=== PATIENT | female | born 1955 | race Two or more races ===

== ENCOUNTER 2017-10-12 23:28 | Emergency (ER) | payer OTHER ==
[2017-10-13 00:48] VITALS: TEMP 97.7; BMI 32.9
[2017-10-13] MEDS ORDERED: ONDANSETRON 4 MG/2 ML VIAL IVPUSH ONE (00:59)
[2017-10-13] MEDS ORDERED: PANTOPRAZOLE SODIUM 40 MG VIAL IVPB ONE (00:59)
[2017-10-13] MEDS ORDERED: SODIUM CHLORIDE 1,000 ML IV SCH (01:00)
--- NOTE | 2017-10-13 01:08 | PDOC ---
History of Present Illness - General Chief Complaint: Pain Stated Complaint: ABDOMINAL PAIN Time Seen by Provider: 10/13/17 00:54 - History of Present Illness Initial Comments: 62-year-old female with a significant past medical history of hypertension diabetes dyslipidemia neuropathy and hypothyroidism presents for evaluation of 1 week of abdominal pain and discomfort associated with black tarry stool. She has been taking meloxicam for her general aches and pains. She is also on daily aspirin. 10/13/17 01:06 Past History - Past Medical History Allergies/Adverse Reactions: Allergies Allergy/AdvReac Type Severity Reaction Status Date / Time No Known Drug Allergies Allergy Verified 10/13/17 00:48 Home Medications: Ambulatory Orders Insulin Detemir [Levemir Flextouch] 50 units SQ BID 10/21/15 Nitrofurantoin Monohyd/M-Cryst [Macrobid -] 100 mg PO BID 10/21/15 Polyethylene Glycol 3350 [Miralax (For Bowel Prep) -] 17 gm PO DAILY PRN #1 bottle 10/21/15 Mag Hydrox/Al Hydrox/Simeth [Mylanta Suspension -] 30 ml PO Q6H PRN #1 bottle Ondansetron HCl [Zofran] 4 mg PO Q6H PRN #15 tablet 04/11/16 Ranitidine HCl [Zantac] 150 mg PO BID PRN #20 tablet 04/11/16 Collagenase Clostridium Hist. [Santyl] 30 gm TP DAILY #1 tube 09/03/16 Sulfamethoxazole/Trimethoprim [Bactrim Ds -] 1 tab PO BID #10 tablet 10/13/17 Anemia: No Asthma: No Cancer: No Cardiac Disorders: No CVA: No COPD: No CHF: No Dementia: No Diabetes: Yes GI Disorders: Yes (GAS) Disorders: No HTN: Yes Hypercholesterolemia: Yes Liver Disease: No Seizures: No Thyroid Disease: No - Surgical History Abdominal Surgery: Yes Cholecystectomy: Yes - Suicide/Smoking/Psychosocial Hx Smoking Status: No Smoking History: Never smoked Have you smoked in the past 12 months: No Number of Cigarettes Smoked Daily: 0 Information on smoking cessation initiated: No Hx Alcohol Use: No Drug/Substance Use Hx: No Substance Use Type: None Hx Substance Use Treatment: No Review of Systems - Review of Systems Comments:: GENERAL/CONSTITUTIONAL: [No fever or chills. No weakness. No weight change.] HEAD, EYES, EARS, NOSE AND THROAT: [No change in vision. No ear pain or discharge. No sore throat.] CARDIOVASCULAR: [No chest pain or shortness of breath.] RESPIRATORY: [No cough, wheezing, or hemoptysis.] GASTROINTESTINAL: [+ nausea, no vomiting, diarrhea or constipation. + Black tarry stools and abdominal pain No rectal bleeding.] GENITOURINARY: [No dysuria, frequency, or change in urination.] MUSCULOSKELETAL: [No joint or muscle swelling or pain. No neck or back pain.] SKIN AND BREASTS: [No rash or easy bruising.] NEUROLOGIC: [No headache, vertigo, loss of consciousness, or loss of sensation.] PSYCHIATRIC: [No depression or anxiety.] ENDOCRINE: [No increased thirst. No abnormal weight change.] HEMATOLOGIC/LYMPHATIC: [No anemia, easy bleeding, or history of blood clots.] ALLERGIC/IMMUNOLOGIC: [No hives or skin allergy. No latex allergy.] 10/13/17 01:07 *Physical Exam - Vital Signs Last Vital Signs Temp Pulse Resp BP Pulse Ox 97.7 F 91 H 19 116/62 98 10/13/17 00:32 10/13/17 00:32 10/13/17 00:32 10/13/17 00:32 10/13/17 00:32 - Physical Exam Comments: GENERAL: [The patient is awake, alert, and fully oriented, in no acute distress. ] HEAD: [Normal with no signs of trauma.] EYES: [Pupils equal, round and reactive to light, extraocular movements intact, sclera anicteric, conjunctiva clear.] ENT: [Ears normal, nares patent, oropharynx clear without exudates. Moist mucous membranes.] NECK: [Normal range of motion, supple without lymphadenopathy, JVD, or masses.] LUNGS: [Breath sounds equal, clear to auscultation bilaterally. No wheezes, and no crackles.] HEART: [Regular rate and rhythm, normal S1 and S2 without murmur, rub or gallop. ] ABDOMEN: [Soft, left lower quadrant tenderness, normoactive bowel sounds. No guarding, no rebound. No masses.] EXTREMITIES: [Normal range of motion, no edema. No clubbing or cyanosis. No cords, erythema, or tenderness.] NEUROLOGICAL: [Cranial nerves II through XII grossly intact. Normal speech, normal gait.] PSYCH: [Normal mood, normal affect.] SKIN: [Warm, Dry, normal turgor, no rashes or lesions noted.] 10/13/17 01:08 ED Treatment Course - LABORATORY CBC & Chemistry Diagram: 10/13/17 03:16 10/13/17 03:16 *DC/Admit/Observation/Transfer Diagnosis at time of Disposition: UTI (urinary tract infection), Diabetes - Discharge Dispostion Disposition: HOME Condition at time of disposition: Stable Decision to Admit order: No - Prescriptions Prescriptions: Sulfamethoxazole/Trimethoprim [Bactrim Ds -] 1 tab PO BID #10 tablet - Referrals Referrals: Jaylon Aleman MD [Primary Care Provider] - - Patient Instructions Printed Discharge Instructions: Urinary Tract Infection, How to Take Care of Your Feet If You Have Diabetes, Diabetes and Foot Care, What to Eat if You Have Diabetes Additional Instructions: He had a urinary tract infection. I've given you a dose of antibiotics through the IV in the emergency room. I've also phoned in a prescription for you to your pharmacy it's one pill twice a day for 5 days. Are your CAT scan there was a finding of a right lower lobe nodule involving your lung. Please follow this up with her primary care physician as it may require further imaging in a nonemergent setting. He may require a chest CAT scan or MRI. Return to the emergency room if your symptoms worsen or go unresolved. His sugar was also high in the emergency room. He required insulin. Please keep a close eye on her sugars at home and adjust her medication accordingly. Return to the ER if you experience excessive thirst sweating or excessive urination. - Post Discharge Activity
[2017-10-13 03:00] LABS: URINE APPEARANCE SLCLOUDY; URINE BILIRUBIN NEGATIVE (<2.0 mg/dL); URINE COLOR AMBER; URINE GLUCOSE (UA) 3+ (NEGATIVE); URINE KETONE TRACE (NEGATIVE); URINE NITRITE POSITIVE (NEGATIVE); URINE PROTEIN NEGATIVE (NEGATIVE); URINE UROBILINOGEN 4.0 E.U/dl mg/dL (0.2-1.0)
[2017-10-13 03:01] LABS: URINE LEUK ESTERASE 3+ (NEGATIVE)
[2017-10-13] MEDS ORDERED: ONDANSETRON 4 MG/2 ML VIAL ONE (03:09)
[2017-10-13] MEDS ORDERED: PANTOPRAZOLE SODIUM 40 MG/100 ML BAG IVPB ONE (03:09)
[2017-10-13 03:11] LABS: EPI CELLS RARE /HPF (FEW); URINE BACTERIA MANY /hpf (NONE SEEN); URINE MUCUS RARE
[2017-10-13 03:34] LABS: BASO % 0.9 % (0-2.0); EOS % 1.9 % (0-4.5); HEMATOCRIT 36.9 % (32.4-45.2); HEMOGLOBIN 12.5 GM/dL (10.7-15.3); LYMPH % 30.3 % (8-40); MCHC 33.9 g/dl (32.0-36.0); MEAN CELL VOLUME 85.7 fl (80-96); MEAN PLT VOLUME 9.9 fl (7.5-11.1); MONO % 6.1 % (3.8-10.2); NEUT % 60.8 % (42.8-82.8); PLATELET COUNT 216 K/MM3 (134-434); RDW 12.6 % (11.6-15.6); WHITE BLOOD COUNT 6.9 K/mm3 (4.0-10.0)
[2017-10-13] MEDS ORDERED: CEFTRIAXONE 1,000 MG in DEXTROSE 5%-WATER - 50 ML IVPB ONE (03:34)
[2017-10-13 04:00] LABS: ALBUMIN 3.7 g/dl (3.4-5.0); ANION GAP 7 (8-16); BILIRUBIN,TOTAL 0.7 mg/dL (0.2-1.0); BLOOD UREA NITROGEN 27 mg/dL (7-18); CALCIUM 8.7 mg/dL (8.5-10.1); CHLORIDE 103 mmol/L (98-107); CO2 26 mmol/L (21-32); CREATININE 1.1 mg/dL (0.55-1.02); POTASSIUM 4.4 mmol/L (3.5-5.1); SGOT/AST 13 U/L (15-37); SGPT/ALT 29 U/L (12-78); SODIUM 136 mmol/L (136-145)
[2017-10-13 04:01] LABS: ALK PHOS 245 U/L (45-117)
[2017-10-13 04:05] LABS: LIPASE 247 U/L (73-393)
[2017-10-13 04:08] LABS: GLUCOSE,RANDOM 379 mg/dL (74-106)
[2017-10-13] MEDS ORDERED: INSULIN REGULAR HUMAN 100 UNITS/ML *VIAL IVPUSH ONE (04:18)
[2017-10-13 04:40] VITALS: BP 126/82; PULSE 85
[2017-10-13] MEDS ORDERED: INSULIN REGULAR HUMAN 100 UNITS/ML *VIAL ONE (04:46)
[2017-10-13] MEDS ORDERED: CEFTRIAXONE 1 GM/50 ML BAG ONE (04:46)
--- NOTE | 2017-10-13 23:42 | EKG ---
Test Reason : Blood Pressure : / mmHG Vent. Rate : 088 BPM Atrial Rate : 088 BPM P-R Int : 160 ms QRS Dur : 074 ms QT Int : 392 ms P-R-T Axes : 039 -28 053 degrees QTc Int : 474 ms NORMAL SINUS RHYTHM LOW VOLTAGE QRS INFERIOR INFARCT (CITED ON OR BEFORE 30-NOV-2004) ABNORMAL ECG WHEN COMPARED WITH ECG OF 11-APR-2016 17:46, NO SIGNIFICANT CHANGE WAS FOUND Confirmed by VICKY WEINBERG, ISIDRO ([id number]) on 10/13/2017 11:42:41 PM Referred By: Confirmed By:ISIDRO PERRY MD
== END 2017-10-13 07:25 | disposition home or self-care (01) ==
LOC: JER 23:28
PROC: 3E03329 Introduction of Other Anti-infective into Peripheral Vein, Percutaneous Approach (ICD-10-PCS; principal; 2017-10-12)
PROC: 3E033GC Introduction of Other Therapeutic Substance into Peripheral Vein, Percutaneous Approach (ICD-10-PCS; 2017-10-12)
PROC: 3E033GC Introduction of Other Therapeutic Substance into Peripheral Vein, Percutaneous Approach (ICD-10-PCS; 2017-10-12)
PROC: 3E033VG Introduction of Insulin into Peripheral Vein, Percutaneous Approach (ICD-10-PCS; 2017-10-12)
DX: N39.0 Urinary tract infection, site not specified (principal); E11.65 Type 2 diabetes mellitus with hyperglycemia; Z79.4 Long term (current) use of insulin; I10 Essential (primary) hypertension; E78.5 Hyperlipidemia, unspecified; E03.9 Hypothyroidism, unspecified; G62.9 Polyneuropathy, unspecified
CPT/HCPCS: 36415; 74177-TC; 80053; 81003; 81015; 82272; 82962; 83690; 85025; 93005; 93010; 96365; 96375; 99282-25; J7030

== ENCOUNTER 2017-10-19 20:23 | Emergency (ER) | payer OTHER ==
[2017-10-19 20:31] VITALS: BP 127/75; PULSE 77; TEMP 98.4; BMI 32.5
[2017-10-19] MEDS ORDERED: predniSONE 20 MG TABLET (UD) PO ONE (20:51)
[2017-10-19] MEDS ORDERED: LORATADINE 10 MG TABLET PO ONE (20:51)
[2017-10-19] MEDS ORDERED: predniSONE 20 MG TABLET (UD) ONE (21:03)
[2017-10-19] MEDS ORDERED: LORATADINE 10 MG TABLET ONE (21:03)
--- NOTE | 2017-10-19 21:04 | PDOC ---
History of Present Illness - General Chief Complaint: Rash Stated Complaint: RASH Time Seen by Provider: 10/19/17 20:50 Past History - Past Medical History Allergies/Adverse Reactions: Allergies Allergy/AdvReac Type Severity Reaction Status Date / Time No Known Drug Allergies Allergy Verified 10/19/17 20:29 Home Medications: Ambulatory Orders Insulin Detemir [Levemir Flextouch] 50 units SQ BID 10/21/15 Nitrofurantoin Monohyd/M-Cryst [Macrobid -] 100 mg PO BID 10/21/15 Sulfamethoxazole/Trimethoprim [Bactrim Ds -] 1 tab PO BID #10 tablet 10/13/17 Atorvastatin Ca [Lipitor] 20 mg NR ASDIR 10/19/17 Cetirizine HCl 10 mg PO DAILY 10 Days #10 tablet 10/19/17 Diphenhydramine HCl 25 mg PO ACDIN 7 Days #21 capsule 10/19/17 Diphenhydramine [Benadryl 12.5 MG/5 ML Oral Solution -] 25 mg PO Q6H 7 Days #30 tablet 10/19/17 Duloxetine HCl [Cymbalta] 30 mg PO ASDIR 10/19/17 Gabapentin [Neurontin -] 100 mg PO Q8H 10/19/17 Metformin HCl [Metformin HCl ER] 1,000 mg PO ASDIR 10/19/17 Metoclopramide HCl [Reglan -] 10 mg PO DAILY 10/19/17 Pantoprazole Sodium [Protonix] 40 mg PO ASDIR 10/19/17 Triamcinolone 0.1% Ointment [Aristocort 0.1% Ointment -] 1 applic TP TID #1 tube 10/19/17 Anemia: No Asthma: No Cancer: No Cardiac Disorders: No CVA: No COPD: No CHF: No Dementia: No Diabetes: Yes GI Disorders: Yes (GAS) Disorders: No HTN: Yes Hypercholesterolemia: Yes Liver Disease: No Seizures: No Thyroid Disease: No - Surgical History Abdominal Surgery: Yes Cholecystectomy: Yes - Suicide/Smoking/Psychosocial Hx Smoking Status: No Smoking History: Never smoked Have you smoked in the past 12 months: No Number of Cigarettes Smoked Daily: 0 Hx Alcohol Use: No Drug/Substance Use Hx: No Substance Use Type: None Hx Substance Use Treatment: No Review of Systems - Review of Systems Constitutional: No: Chills, Fever Respiratory: No: Cough, Shortness of Breath, Wheezing Cardiac (ROS): No: Chest Pain, Edema Integumentary: Yes: Pruritus, Rash Neurological: No: Dizziness *Physical Exam - Vital Signs Last Vital Signs Temp Pulse Resp BP Pulse Ox 98.4 F 77 18 127/75 96 10/19/17 20:29 10/19/17 20:29 10/19/17 20:29 10/19/17 20:29 10/19/17 20:29 - Physical Exam General Appearance: Yes: Nourished Respiratory/Chest: positive: Lungs Clear, Normal Breath Sounds Cardiovascular: positive: Regular Rhythm, Regular Rate, S1, S2 Extremity: positive: Normal Capillary Refill Integumentary: positive: Erythema, Hives, Rash, Other (erythematous papule rash mix with hives in abd, back, b/l arms and face) Neurologic: positive: import coordinator II-XII NML intact, Fully Oriented Medical Decision Making - Medical Decision Making 10/19/17 21:01 62y/o F bib daughter who translated for georgian, p/w generalize body rash X 2 days, denies f/c, change in food/body product, s/p bactrim Rx 10/09/17 for UTI-- has one more pill left, denies cough, SOB or wheezing exam with erythematous papular rash in chest, back, face and b/l arms, palms/ feet spared given one dose of prednisone 60mg and loratidine pt unsure is she has ever taken bactrim, she will confirm with PCP tomorrow hold last bactrim pill hydration encouraged 10/19/17 21:43 *DC/Admit/Observation/Transfer Diagnosis at time of Disposition: Rash in adult - Discharge Dispostion Disposition: HOME Condition at time of disposition: Stable Decision to Admit order: No - Prescriptions Prescriptions: Cetirizine HCl 10 mg PO DAILY 10 Days #10 tablet Diphenhydramine [Benadryl 12.5 MG/5 ML Oral Solution -] 25 mg PO Q6H 7 Days #30 tablet Diphenhydramine HCl 25 mg PO ACDIN 7 Days #21 capsule Triamcinolone 0.1% Ointment [Aristocort 0.1% Ointment -] 1 applic TP TID #1 tube - Referrals Referrals: Jaylon Aleman MD [Primary Care Provider] - - Patient Instructions Printed Discharge Instructions: LULA Shi for Rash Additional Instructions: DO not take last bactrim pill, please confirm with your doctor if you have taken bactrim before Drink plently of fluids take medication as prescribed follow up with your PCP for further evaluation or return to the [facility] if worsening symptoms occurs. - Post Discharge Activity
== END 2017-10-19 21:35 | disposition home or self-care (01) ==
LOC: JERFT 20:23
DX: L50.9 Urticaria, unspecified (principal); I10 Essential (primary) hypertension; E78.00 Pure hypercholesterolemia, unspecified; E11.9 Type 2 diabetes mellitus without complications; Z79.4 Long term (current) use of insulin
CPT/HCPCS: 99281-25

== ENCOUNTER 2018-11-22 21:00 | Inpatient (IN) | payer OTHER ==
[2018-11-22] MEDS ORDERED: ACETAMINOPHEN 1000 MG/100 ML VIAL (NON FORMULARY) IVPB ONE (22:15)
--- NOTE | 2018-11-22 22:30 | PDOC ---
History of Present Illness - General Chief Complaint: Edema Stated Complaint: RIGHT FOOT SWOLLEN Time Seen by Provider: 11/22/18 22:08 History Source: Patient Exam Limitations: No Limitations - History of Present Illness Initial Comments: 11/22/18 22:24 Patient is a 63-year-old female with history of an inulin dependent diabetes, here with daughter for complaint of right leg swelling and pain since yesterday. Patient states she notticed that the right foot was a little painful yesterday, today worsening, now red and swollen. Pain is a continuous throbbing , 9/10 worse with ambulation. Patient also complains of elevation in her blood sugar, this morning was over 400, and took 20 units of regular insulin at 11 AM. Patient denies any fever but feels chilled and has a headache. Denies nausea, vomiting, diarrhea. PMD: Dr. Mariluz Finney PMHX: As above PSOCHX: neg drug, etoh, cig ALL: NKDA GENERAL/CONSTITUTIONAL: No fever or chills. No weakness. No weight change. HEAD, EYES, EARS, NOSE AND THROAT: No change in vision. No ear pain or discharge. No sore throat. CARDIOVASCULAR: No chest pain or shortness of breath. RESPIRATORY: No cough, wheezing, or hemoptysis. GASTROINTESTINAL: No nausea, vomiting, diarrhea or constipation. No rectal bleeding. GENITOURINARY: No dysuria, frequency, or change in urination. MUSCULOSKELETAL: No joint or muscle swelling or pain. No neck or back pain. SKIN AND BREASTS: (+) rash (-) easy bruising. NEUROLOGIC: No headache, vertigo, loss of consciousness, or loss of sensation. PSYCHIATRIC: No depression or anxiety. ENDOCRINE: No increased thirst. No abnormal weight change. HEMATOLOGIC/LYMPHATIC: No anemia, easy bleeding, or history of blood clots. ALLERGIC/IMMUNOLOGIC: No hives or skin allergy. No latex allergy. GENERAL: The patient is awake, alert, and fully oriented, in no acute distress. HEAD: Normal with no signs of trauma. EYES: Pupils equal, round and reactive to light, extraocular movements intact, sclera anicteric, conjunctiva clear. ENT: Ears normal, nares patent, oropharynx clear without exudates. Moist mucous membranes. NECK: Normal range of motion, supple without lymphadenopathy, JVD, or masses. LUNGS: Breath sounds equal, clear to auscultation bilaterally. No wheezes, and no crackles. HEART: Regular rate and rhythm, normal S1 and S2 without murmur, rub. ABDOMEN: Soft, nontender, normoactive bowel sounds. No guarding, no rebound. No masses. EXTREMITIES: Normal range of motion, (+) edema foot, R calf swelling, No clubbing or cyanosis. No cords, erythema, or tenderness. NEUROLOGICAL: Cranial nerves II through XII grossly intact. Normal speech, normal gait. PSYCH: Normal mood, normal affect. SKIN: Warm, Dry, normal turgor, no rashes or lesions noted. Past History - Past Medical History Allergies/Adverse Reactions: Allergies Allergy/AdvReac Type Severity Reaction Status Date / Time No Known Drug Allergies Allergy Verified 11/23/18 03:34 Home Medications: Ambulatory Orders Gabapentin [Neurontin -] 100 mg PO Q8H 10/19/17 metFORMIN HCL [Metformin HCl ER] 1,000 mg PO ASDIR 10/19/17 Diazepam [Valium] 5 mg PO TID 11/23/18 Gabapentin 800 mg PO DAILY 11/23/18 Insulin Glargine,Hum.rec.anlog [Lantus] 100 unit SQ DAILY 11/23/18 Insulin Lispro [Humalog] 100 unit SQ DAILY 11/23/18 Meloxicam 15 mg PO PRN PRN 11/23/18 Mirabegron [Myrbetriq] 25 mg PO DAILY 11/23/18 Anemia: No Asthma: No Cancer: No Cardiac Disorders: No CVA: No COPD: No CHF: No Dementia: No Diabetes: Yes GI Disorders: Yes (GAS) Disorders: No HTN: Yes Hypercholesterolemia: Yes Liver Disease: No Seizures: No Thyroid Disease: No - Surgical History Abdominal Surgery: Yes Cholecystectomy: Yes - Suicide/Smoking/Psychosocial Hx Smoking Status: No Smoking History: Never smoked Have you smoked in the past 12 months: No Number of Cigarettes Smoked Daily: 0 Hx Alcohol Use: No Drug/Substance Use Hx: No Substance Use Type: None Hx Substance Use Treatment: No *Physical Exam - Vital Signs Last Vital Signs Temp Pulse Resp BP Pulse Ox 99.3 F 95 H 19 132/74 99 11/22/18 21:21 11/22/18 21:21 11/22/18 21:21 11/22/18 21:21 11/22/18 21:21 ED Treatment Course - LABORATORY CBC & Chemistry Diagram: 11/22/18 22:40 11/22/18 22:40 - RADIOLOGY Radiology Studies Ordered: Category Date Time Status DUPLEX VASCUL US-1 LEG [US] Stat Ultrasound 11/22/18 22:15 Ordered Medical Decision Making - Medical Decision Making 11/22/18 22:24 Patient is a 63-year-old female with history of an inulin dependent diabetes, here with daughter for complaint of right leg swelling and pain since yesterday. Patient states she notticed taste that the right foot was a little painful yesterday today worsening now red and swollen. Pain is a continuous throbbing, 9/10 worse with ambulation. Patient also complains of elevation in her blood sugar, this morning was over 400, and took 20 units of regular insulin at 11 AM. Patient denies any fever but feels chilled and has a headache. Denies nausea, vomiting, diarrhea. In terms consistent with cellulitis of the foot however since the patient has significant swelling to the lower extremity will rule out DVT. Ultrasound Doppler right leg Labs IV fluid if indicated IV antibiotics, Pain meds Reassess Laboratory Tests 11/22/18 11/22/18 22:40 22:40 WBC 11.8 H Hgb 12.5 Hct 37.5 Plt Count 231 Sodium 135 L Potassium 4.3 Chloride 100 Carbon Dioxide 27 Anion Gap 9 BUN 35.2 H Creatinine 1.2 Random Glucose 176 H 11/23/18 01:10 Patient Full Name: OSMAN CHILDERS Patient Accession No: [id number] Patient : 1955 Reason for Exam: rt leg swelling and pain Referring Physician: Patient Name: [place] THIS IS A PRELIMINARY REPORT FROM [facility] DATE OF SERVICE: 2018-11-22 23:39:45 IMAGES: 22 EXAM: VENOUS DUPLEX UNILATERAL No evidence for DVT right lower extremity. No popliteal cyst. THIS DOCUMENT HAS BEEN ELECTRONICALLY SIGNED Valarie Shepherd M.D. 11/23/2018 00:53 EST Esther Please call [facility] [phone] ([phone]) with questions. INTERPRETING RADIOLOGIST: Valarie Shepherd MD Electronically Signed: Nov 23, 2018 12:54AM EDT Patient admitted to the hospitalist for cellulitis diabetic foot *DC/Admit/Observation/Transfer Diagnosis at time of Disposition: Cellulitis in diabetic foot - Discharge Dispostion Condition at time of disposition: Stable Decision to Admit order: Yes - Referrals - Patient Instructions - Post Discharge Activity
[2018-11-22 22:52] LABS: BASO % 0.6 % (0-2.0); EOS % 1.8 % (0-4.5); HEMATOCRIT 37.5 % (32.4-45.2); HEMOGLOBIN 12.5 GM/dL (10.7-15.3); LYMPH % 17.7 % (8-40); MCH 28.6 pg (25.7-33.7); MCHC 33.3 g/dl (32.0-36.0); MEAN CELL VOLUME 85.9 fl (80-96); MEAN PLT VOLUME 10.2 fl (7.5-11.1); MONO % 6.7 % (3.8-10.2); NEUT % 73.2 % (42.8-82.8); PLATELET COUNT 231 K/MM3 (134-434); RBC 4.36 M/mm3 (3.60-5.2); RDW 12.9 % (11.6-15.6); WHITE BLOOD COUNT 11.8 K/mm3 (4.0-10.0)
[2018-11-22] MEDS ORDERED: CEFAZOLIN 1 GM in DEXTROSE 5%-WATER - 50 ML IVPB ONE (22:55)
[2018-11-22] MEDS ORDERED: ACETAMINOPHEN INJECTION 100 ML IVPB ONE (22:55)
[2018-11-22] MEDS ORDERED: CEFAZOLIN 1 GM/D5W 1 GM/50 ML BAG ONE (23:10)
[2018-11-22 23:21] LABS: ALBUMIN 3.6 g/dl (3.4-5.0); BILIRUBIN,TOTAL 0.4 mg/dL (0.2-1); BLOOD UREA NITROGEN 35.2 mg/dL (7-18); CALCIUM 8.4 mg/dL (8.5-10.1); CREATININE 1.2 mg/dL (0.55-1.3); POTASSIUM 4.3 mmol/L (3.5-5.1); TOT PROT 7.4 g/dl (6.4-8.2)
--- NOTE | 2018-11-23 03:04 | HP ---
Admitting History and Physical - Admission Chief Complaint: R LE pain and swelling History of Present Illness: Pt is a 63 yo F with PMHx with history of an IDDM, brought in from home by daughter for right leg swelling x3 days and pain x1. Patient reports right foot pain 10/10 dull intermittent, worsened with movement, relieved with rest for about 3 days. Pt also noted a R ball of R hallux swelling for 3 days, with worsening pain, and new redness and swelling of dorsum of R foot. No objective fevers, but pt has been lethargic for about 1 week, with chills. Yesterday she ambulated with support from her daughter, after which she had difficulty sleeping all night due to the pain. Patient also complains of elevation in her blood sugar, this morning was over 400, and took 20 units of regular insulin at 11 AM. Pt had prior R dorsum ulcer in 2017, which healed completely using hyperbaric oxygen. No prior amputations or noted diagnosis of osteomyelitis. Pt followed Dr Trent in the wound clinic in the past, no prior wound cultures. ED: WBC- 11.8 Cefazolin Venous duplex negative for DVT History Source: Patient, Family Member Limitations to Obtaining History: No Limitations - Past Medical History Cardiovascular: Yes: Other (hypotension) Endocrine: Yes: Diabetes Mellitus Dermatology: Yes: Cellulitis - Past Surgical History Past Surgical History: Yes: Cholecystectomy - Smoking History Smoking history: Never smoked Have you smoked in the past 12 months: No Aproximately how many cigarettes per day: 0 - Alcohol/Substance Use Hx Alcohol Use: No - Social History Usual Living Arrangement: Yes: With Child ADL: Independent History of Recent Travel: No Home Medications - Allergies Allergies/Adverse Reactions: Allergies Allergy/AdvReac Type Severity Reaction Status Date / Time No Known Drug Allergies Allergy Verified 11/23/18 03:34 - Home Medications Home Medications: Ambulatory Orders metFORMIN HCL [Metformin HCl ER] 1,000 mg PO ASDIR 10/19/17 Diazepam [Valium] 5 mg PO TID 11/23/18 Gabapentin 800 mg PO DAILY 11/23/18 Insulin Glargine,Hum.rec.anlog [Lantus] 40 unit SQ BID 11/23/18 Insulin Lispro [Humalog] 25 unit SQ BID 11/23/18 Meloxicam 15 mg PO PRN PRN 11/23/18 Mirabegron [Myrbetriq] 25 mg PO DAILY 11/23/18 Family Disease History - Family Disease History Family Disease History: Diabetes: Grandparent, Father, Mother Review of Systems - Review of Systems Constitutional: reports: Chills, Malaise. denies: Diaphoresis, Fever Eyes: denies: Blurred Vision HENT: denies: Difficult Swallowing Neck: denies: Stiffness Cardiovascular: reports: Edema, Shortness of Breath. denies: Chest Pain, Palpitations Respiratory: denies: Cough, Hemoptysis Gastrointestinal: reports: Abdominal Pain. denies: Constipation, Diarrhea, Vomiting Genitourinary: reports: Incontinence. denies: Burning Musculoskeletal: denies: Back Pain Neurological: denies: Change in LOC, Change in Speech, Confusion, Pre-Existing Deficit Physical Examination Vital Signs: Vital Signs Temperature 99.4 F 11/22/18 22:10 Pulse Rate 94 H 11/22/18 22:10 Respiratory Rate 18 11/22/18 22:10 Blood Pressure 132/62 11/22/18 22:10 O2 Sat by Pulse Oximetry (%) 97 11/22/18 22:10 Constitutional: Yes: No Distress, Calm Eyes: Yes: EOM Intact, PERRL. No: Sclera Icterus HENT: Yes: Atraumatic Neck: Yes: Supple Cardiovascular: Yes: Tachycardia, Murmur, S1, S2 Respiratory: Yes: CTA Bilaterally. No: Rales, Rhonchi, Wheezes Gastrointestinal: Yes: Tenderness (Suprapubic) Renal/: No: CVA Tenderness - Left, CVA Tenderness - Right Musculoskeletal: No: Joint Stiffness Edema: Yes Edema: RLE: Trace (Over dorsum of foot) Peripheral Pulses WNL: Yes Peripheral Pulses: Left Doralis Pedis: 2+, Right Dorsalis Pedis: 2+ Integumentary: Yes: Erythema (Over R dorsum up to mid foot, warm., no excoriations, or drainage. R hallux plantar surface with hard firm swelling, no suppuration L hallux plantar surface with firm to hard swelling, no suppuration) Neurological: Yes: Alert, Oriented, Loss of Sensation (Reduced senation overdorsum R midfoot to hallux compare to L foot). No: Aphasia, Facial Droop, Lethargy ...Motor Strength: WNL Psychiatric: Yes: Alert, Oriented Labs: CBC, BMP 11/22/18 22:40 11/22/18 22:40 Imaging - Results Ultrasound: Report Reviewed Assessment/Plan Ambulatory Orders metFORMIN HCL [Metformin HCl ER] 1,000 mg PO ASDIR 10/19/17 Diazepam [Valium] 5 mg PO TID 11/23/18 Gabapentin 800 mg PO DAILY 11/23/18 Insulin Glargine,Hum.rec.anlog [Lantus] 40 unit SQ BID 11/23/18 Insulin Lispro [Humalog] 25 unit SQ BID 11/23/18 Meloxicam 15 mg PO PRN PRN 11/23/18 Mirabegron [Myrbetriq] 25 mg PO DAILY 11/23/18 Pt is a 63 yo F with PMHx with history of an IDDM, brought in from home by daughter for right leg swelling x3 days and pain x1. Patient reports right foot pain 10/10 dull intermittent, worsened with movement, relieved with rest for about 3 days. R foot cellulitis R/O R Osteomyelitis Pt with prior cellulits R foot in 2017, healed with HBO in past Vanc/zosyn Dr Miley Del Rosario Arterial duplex R LE pending, veinous duplex negative for DVT Pain mx MR w/wo RLE Cont gabapentin - switch from 800mg daily to 600mg bid Stop meloxicam Bcx pending IDDM, Pt on lispo- 25U bid at home, hold Home Lantus 40u bid, will give levemir 20ubid ISS Q4H while NPO BGM Q4H Hold metformin HgbA1c pending Hypocalcemia Ca gluconate given 1g Elevated Alk phosp Could be bone related GGT stat ESR pending Urinary incontinence Cont mirabegron UA pending R/O anxiety disorder Cont home diazepam No standing fluids Replace calcium NPO for now pending podiatry eval PPx SCDs for now Medsurgery Visit type - Emergency Visit Emergency Visit: Yes ED Registration Date: 11/23/18 Care time: The patient presented to the Emergency Department on the above date and was hospitalized for further evaluation of their emergent condition. - New Patient This patient is new to me today: Yes Date on this admission: 11/23/18 - Critical Care Critical Care patient: No
--- NOTE | 2018-11-23 05:28 | PN ---
Teaching Attending Note Name of Resident: Maryanne Velazquez ATTENDING PHYSICIAN STATEMENT I saw and evaluated the patient. I reviewed the resident's note and discussed the case with the resident. I agree with the resident's findings and plan as documented. SUBJECTIVE: Seen and examined; please see resident note for further historical information. Briefly, this is a 63 y/o female presenting with malaise and R-foot DM wound. Foot has moderate pain, gnawing in nature superimposed over her baseline polyneuropathy. No fevers at home. No recent travel. She has had DM foot wounds in the past; HBO in 2017 on the dorsal wound on the R-foot. She sees Dr. Snyder for podiatry; last notes from his practice here dated 2016 when she had the well-healing dorsal R-foot wound; no records of osteomyelitis. Micro reviewed; no blood cx+ and contaminated appearing old R-foot cx. She is at risk for resistant organisms. 10 sys ROS done and neagtive aside from HPI PMH, PSH, FH, SH reviewed Home Medications Medication Instructions Recorded metFORMIN HCL [Metformin HCl ER] 1,000 mg PO ASDIR 10/19/17 Diazepam [Valium] 5 mg PO TID 11/23/18 Gabapentin 800 mg PO DAILY 11/23/18 Insulin Glargine,Hum.rec.anlog 40 unit SQ BID 11/23/18 [Lantus] Insulin Lispro [Humalog] 25 unit SQ BID 11/23/18 Meloxicam 15 mg PO PRN PRN 11/23/18 Mirabegron [Myrbetriq] 25 mg PO DAILY 11/23/18 OBJECTIVE: VS, labs, imgaging reviewed NAD, AAO, resting in bed NC AT EOMI PERRLA RRR s1/2 systolic murmur no gallops Neuropathy in stocking glove distribution; R-foot with hallux with cellulitic findings with overlying firmness, no purulence. Cellulitic around the site outlined. CN2-12 wnl, no fnd Normal mood, appropriate behavior MRI foot pending ASSESSMENT AND PLAN: Patient presents with DM foot wound, patient of Dr. Snyder. 1) DM foot wound -Consulting Dr. Snyder and Dr. Del Rosario for abx given the risk of resistence. Checking venous and arterial dopplers. Placing on med surg. Broad spectrum abx and analgesia. Given prior infections, would like to better observe the soft tissue and bone with MRI. Wound care per podiatry. 2) DM w/ neuropathy -Continue home basal and SSI when inpatient; hold PO meds -Increasing gabapentin to 600 BID
[2018-11-23] MEDS ORDERED: CALCIUM GLUCONATE 10% - 1,000 MG/10 ML VIAL IVPUSH ONE (05:38)
[2018-11-23] MEDS ORDERED: PNEUMOC 13-VAL CONJ-DIP CRM/PF 0.5 ML DISP.SYRIN IM ONE (05:44)
[2018-11-23] MEDS ORDERED: VANCOMYCIN HCL 1,500 MG in DEXTROSE 5%-WATER - 500 ML IVPB SCH (05:45)
[2018-11-23] MEDS ORDERED: CALCIUM GLUCONATE 10% - 1,000 MG/10 ML VIAL IVPB ONE (06:45)
[2018-11-23] MEDS: INSULIN SLIDING SCALE (NOVOLOG) 1 VIAL SQ SCH ×5 (06:53→22:09)
[2018-11-23] MEDS ORDERED: PIPERACILLIN/TAZOBACTAM 3.375 GM VIAL IVPB ONE ×2 (08:13→18:30)
[2018-11-23] MEDS ORDERED: DEXTROSE 5%-WATER - 50 ML IVPB ONE ×2 (08:13→18:30)
[2018-11-23] MEDS: PIPERACILLIN/TAZOB 3.375 GM 3.375 GM in DEXTROSE 5%-WATER - 50 ML IVPB SCH ×3 (08:18→18:40)
[2018-11-23 08:27] LABS: BASO % 0.7 % (0-2.0); EOS % 1.7 % (0-4.5); HEMATOCRIT 34.6 % (32.4-45.2); HEMOGLOBIN 11.8 GM/dL (10.7-15.3); LYMPH % 16.9 % (8-40); MEAN CELL VOLUME 85.2 fl (80-96); MEAN PLT VOLUME 9.7 fl (7.5-11.1); MONO % 7.3 % (3.8-10.2); NEUT % 73.4 % (42.8-82.8); PLATELET COUNT 211 K/MM3 (134-434); RBC 4.06 M/mm3 (3.60-5.2); RDW 12.9 % (11.6-15.6); WHITE BLOOD COUNT 10.6 K/mm3 (4.0-10.0)
[2018-11-23 08:49] LABS: INR 0.97 (0.83-1.09); PROTHROMBIN TIME (PATIENT) 11.5 SEC (9.7-13.0)
[2018-11-23 08:52] LABS: ACTIVATED PTT 29.1 SECONDS (25.2-36.5)
[2018-11-23 08:57] LABS: ALBUMIN 3.2 g/dl (3.4-5.0); BILIRUBIN,TOTAL 0.6 mg/dL (0.2-1); BLOOD UREA NITROGEN 24.9 mg/dL (7-18); CALCIUM 8.7 mg/dL (8.5-10.1); CREATININE 0.9 mg/dL (0.55-1.3); MAGNESIUM 2.4 mg/dL (1.8-2.4); PHOSPHOROUS 3.3 mg/dL (2.5-4.9); POTASSIUM 4.1 mmol/L (3.5-5.1); TOT PROT 6.9 g/dl (6.4-8.2)
[2018-11-23 09:01] LABS: EPI CELLS 0.8 /HPF (0-5/HPF); HYALINE CASTS 1 /lpf (0-8); URINE APPEARANCE CLOUDY; URINE BACTERIA 8.3 /hpf (NEGATIVE); URINE BILIRUBIN NEGATIVE (NEGATIVE); URINE COLOR YELLOW; URINE GLUCOSE (UA) 1+ (NEGATIVE); URINE KETONE NEGATIVE (NEGATIVE); URINE LEUK ESTERASE 3+ (NEGATIVE); URINE NITRITE NEGATIVE (NEGATIVE); URINE PROTEIN NEGATIVE (NEGATIVE); URINE RBC 4 /hpf (0-4); URINE WBC 310 /hpf (0-5)
[2018-11-23] MEDS: ACETAMINOPHEN 500 MG TABLET (FP) PO PRN ×2 (09:19→22:10)
[2018-11-23] MEDS ORDERED: INSULIN (NOVOLOG) ASPART 100 UNITS/ML 10ML VIAL ONE ×2 (09:27→21:02)
[2018-11-23] MEDS ORDERED: diazePAM 5 MG TABLET PO PRN (09:29)
--- NOTE | 2018-11-23 09:29 | EKG ---
Test Reason : Blood Pressure : / mmHG Vent. Rate : 086 BPM Atrial Rate : 086 BPM P-R Int : 150 ms QRS Dur : 084 ms QT Int : 368 ms P-R-T Axes : 031 -18 051 degrees QTc Int : 440 ms NORMAL SINUS RHYTHM INFERIOR INFARCT (CITED ON OR BEFORE 30-NOV-2004) ABNORMAL ECG WHEN COMPARED WITH ECG OF 13-OCT-2017 02:18, NO SIGNIFICANT CHANGE WAS FOUND Confirmed by VICKY WEINBERG, ISIDRO ([id number]) on 11/23/2018 9:29:48 AM Referred By: Confirmed By:ISIDRO PERRY MD
[2018-11-23] MEDS ORDERED: PNEUMOCOCCAL 23 VACCINE 0.5 ML VIAL IM ONE (10:00)
[2018-11-23] MEDS: GABAPENTIN 300 MG CAPSULE (FP) PO SCH ×2 (11:16→22:10)
--- NOTE | 2018-11-23 12:55 | CONSULT ---
Consult - text type - Consultation Consultation Note: PODIATRY NOTE 63 y/o diabetic female seen and evaluated just prior to going for US and xrays with daughter. States yesterday sugar spiked into 400s and they noticed the right foot was becoming very red and has been getting increasingly worse recently. Presented to the ER last night and has been admitted for Iv abx. States has had fevers at home but denies any /n/v/sob. Denies any other pedal complaints. Has seen my partner in past for ulcerations that healed. O: Right foot dorsal erythema extening from 1st/5th digit proximally along dorsum of the foot; prior markings on foot from admission show some resolve of the erythema, 1st MPJ with calloused healed ulceration on the5ht mpj some fluctuance noted, no active draining or open lesion noted though, 5th digit erythematous DP 2/4, PT 1/4, Temp gradient is warm A: Uncontrolled diabetic Cellulitis ?OM P: Evaluated and reviewed MRI has been ordered going for xrays and US now. Will follow up xrays and MRI to eval for any abscess or underlying osteo Cont Iv abx per ID Will follow up.
--- NOTE | 2018-11-23 16:46 | EKG ---
Test Reason : Blood Pressure : / mmHG Vent. Rate : 084 BPM Atrial Rate : 084 BPM P-R Int : 158 ms QRS Dur : 084 ms QT Int : 378 ms P-R-T Axes : 028 -31 055 degrees QTc Int : 446 ms NORMAL SINUS RHYTHM LEFT AXIS DEVIATION INFERIOR INFARCT (CITED ON OR BEFORE 30-NOV-2004) ABNORMAL ECG WHEN COMPARED WITH ECG OF 23-NOV-2018 06:48, NO SIGNIFICANT CHANGE WAS FOUND Confirmed by ISIDRO PERRY MD ([id number]) on 11/23/2018 4:45:44 PM Referred By: Confirmed By:ISIDRO PERRY MD
--- NOTE | 2018-11-23 17:59 | PN ---
Physical Exam: SUBJECTIVE: Patient seen and examined, still with right foot pain/swelling. No new fevers or concerns. OBJECTIVE: Vital Signs Period Temp Pulse Resp BP Sys/Duarte Pulse Ox Last 24 Hr 98.3 F-99.4 F 75-95 18- 128-145/62-75 96-99 Intake & Output 11/20/18 11/21/18 11/22/18 11/23/18 23:59 23:59 23:59 23:59 Output Total 3 Balance -3 Weight 190 lb 202 lb GENERAL: Alert, awake, in no acute distress Neck: soft, supple, no JVD CVS:S1S2 regular Chest: CTAB, no rales or wheezing Abdomen:soft, obese, NT Extremities; right foot and right lower 1/3rd leg sweling/tenderness/warm/ erythema, pos DP pulses, superfical clean ulcerations on ball of right foot and right lateral foot, no active erythema, discharge, tenderness ntoed Laboratory Results - last 24 hr 11/22/18 11/22/18 11/22/18 22:40 22:40 22:50 WBC 11.8 H RBC 4.36 Hgb 12.5 Hct 37.5 MCV 85.9 MCH 28.6 MCHC 33.3 RDW 12.9 Plt Count 231 MPV 10.2 Absolute Neuts (auto) 8.6 H Neutrophils % 73.2 D Lymphocytes % 17.7 D Monocytes % 6.7 Eosinophils % 1.8 Basophils % 0.6 Nucleated RBC % 0 ESR PT with INR INR PTT (Actin FS) Sodium 135 L Potassium 4.3 Chloride 100 Carbon Dioxide 27 Anion Gap 9 BUN 35.2 H Creatinine 1.2 Est GFR (CKD-EPI)AfAm 55.70 Est GFR (CKD-EPI)NonAf 48.06 POC Glucometer 166 Random Glucose 176 H Hemoglobin A1c % Calcium 8.4 L Phosphorus Magnesium Total Bilirubin 0.4 GGT AST 13 L ALT 23 Alkaline Phosphatase 202 H C-Reactive Protein Total Protein 7.4 Albumin 3.6 Urine Color Urine Appearance Urine pH Ur Specific Eleva Urine Protein Urine Glucose (UA) Urine Ketones Urine Blood Urine Nitrite Urine Bilirubin Urine Urobilinogen Ur Leukocyte Esterase Urine WBC (Auto) Urine RBC (Auto) Urine Casts (Auto) U Epithel Cells (Auto) Urine Bacteria (Auto) 07/01/19 07/01/19 07/01/19 05:35 06:00 08:05 WBC 10.6 H RBC 4.06 Hgb 11.8 Hct 34.6 MCV 85.2 MCH 29.0 MCHC 34.0 RDW 12.9 Plt Count 211 MPV 9.7 Absolute Neuts (auto) 7.8 Neutrophils % 73.4 Lymphocytes % 16.9 Monocytes % 7.3 Eosinophils % 1.7 Basophils % 0.7 Nucleated RBC % 0 ESR PT with INR INR PTT (Actin FS) Sodium Potassium Chloride Carbon Dioxide Anion Gap BUN Creatinine Est GFR (CKD-EPI)AfAm Est GFR (CKD-EPI)NonAf POC Glucometer 192 Random Glucose Hemoglobin A1c % Calcium Phosphorus Magnesium Total Bilirubin GGT AST ALT Alkaline Phosphatase C-Reactive Protein Total Protein Albumin Urine Color Yellow Urine Appearance Cloudy Urine pH 6.0 Ur Specific Eleva 1.016 Urine Protein Negative Urine Glucose (UA) 1+ H Urine Ketones Negative Urine Blood Trace Urine Nitrite Negative Urine Bilirubin Negative Urine Urobilinogen 2.0 H Ur Leukocyte Esterase 3+ H Urine WBC (Auto) 310 Urine RBC (Auto) 4 Urine Casts (Auto) 1 U Epithel Cells (Auto) 0.8 Urine Bacteria (Auto) 8.3 11/23/18 11/23/18 11/23/18 08:05 08:05 08:05 WBC RBC Hgb Hct MCV MCH MCHC RDW Plt Count MPV Absolute Neuts (auto) Neutrophils % Lymphocytes % Monocytes % Eosinophils % Basophils % Nucleated RBC % ESR PT with INR 11.50 INR 0.97 PTT (Actin FS) 29.1 Sodium 136 Potassium 4.1 Chloride 103 Carbon Dioxide 26 Anion Gap 7 L BUN 24.9 H Creatinine 0.9 Est GFR (CKD-EPI)AfAm 78.87 Est GFR (CKD-EPI)NonAf 68.05 POC Glucometer Random Glucose 217 H Hemoglobin A1c % Calcium 8.7 Phosphorus 3.3 Magnesium 2.4 Total Bilirubin 0.6 GGT 41 AST 10 L ALT 22 Alkaline Phosphatase 178 H C-Reactive Protein 7.0 H Total Protein 6.9 Albumin 3.2 L Urine Color Urine Appearance Urine pH Ur Specific Eleva Urine Protein Urine Glucose (UA) Urine Ketones Urine Blood Urine Nitrite Urine Bilirubin Urine Urobilinogen Ur Leukocyte Esterase Urine WBC (Auto) Urine RBC (Auto) Urine Casts (Auto) U Epithel Cells (Auto) Urine Bacteria (Auto) 11/23/18 11/23/18 11/23/18 08:05 08:05 09:23 WBC RBC Hgb Hct MCV MCH MCHC RDW Plt Count MPV Absolute Neuts (auto) Neutrophils % Lymphocytes % Monocytes % Eosinophils % Basophils % Nucleated RBC % ESR 72 H PT with INR INR PTT (Actin FS) Sodium Potassium Chloride Carbon Dioxide Anion Gap BUN Creatinine Est GFR (CKD-EPI)AfAm Est GFR (CKD-EPI)NonAf POC Glucometer 205 Random Glucose Hemoglobin A1c % 10.2 H Calcium Phosphorus Magnesium Total Bilirubin GGT AST ALT Alkaline Phosphatase C-Reactive Protein Total Protein Albumin Urine Color Urine Appearance Urine pH Ur Specific Eleva Urine Protein Urine Glucose (UA) Urine Ketones Urine Blood Urine Nitrite Urine Bilirubin Urine Urobilinogen Ur Leukocyte Esterase Urine WBC (Auto) Urine RBC (Auto) Urine Casts (Auto) U Epithel Cells (Auto) Urine Bacteria (Auto) 11/23/18 14:48 WBC RBC Hgb Hct MCV MCH MCHC RDW Plt Count MPV Absolute Neuts (auto) Neutrophils % Lymphocytes % Monocytes % Eosinophils % Basophils % Nucleated RBC % ESR PT with INR INR PTT (Actin FS) Sodium Potassium Chloride Carbon Dioxide Anion Gap BUN Creatinine Est GFR (CKD-EPI)AfAm Est GFR (CKD-EPI)NonAf POC Glucometer 189 Random Glucose Hemoglobin A1c % Calcium Phosphorus Magnesium Total Bilirubin GGT AST ALT Alkaline Phosphatase C-Reactive Protein Total Protein Albumin Urine Color Urine Appearance Urine pH Ur Specific Eleva Urine Protein Urine Glucose (UA) Urine Ketones Urine Blood Urine Nitrite Urine Bilirubin Urine Urobilinogen Ur Leukocyte Esterase Urine WBC (Auto) Urine RBC (Auto) Urine Casts (Auto) U Epithel Cells (Auto) Urine Bacteria (Auto) Active Medications Generic Name Dose Route Start Last Admin Trade Name Freq PRN Reason Stop Dose Admin Acetaminophen 1,000 mg 11/23/18 06:26 11/23/18 09:19 Tylenol - PO 1,000 mg Q6H PRN Administration PAIN Diazepam 5 mg 11/23/18 09:29 Valium - PO Q8H PRN ANXIETY Gabapentin 600 mg 11/23/18 10:00 11/23/18 11:16 Neurontin - PO 600 mg BID GISELE Administration Vancomycin HCl 1,500 mg/ 500 mls @ 250 mls/hr 11/24/18 06:00 Dextrose IVPB Q24H GISELE Protocol Piperacillin Sod/Tazobactam 50 mls @ 100 mls/hr 11/23/18 18:00 Sod 3.375 gm/ Dextrose IVPB Q8H-IV GISELE Protocol Insulin Aspart 1 vial 11/23/18 06:30 11/23/18 14:51 Novolog Vial Sliding Scale - SQ 2 units Q4HPO [facility] Administration Protocol Insulin Detemir 25 units 11/23/18 22:00 Levemir Vial SQ 0700,2200 [facility] Non-Formulary Medication 25 mg 11/23/18 10:00 Mirabegron [Myrbetriq] PO DAILY [facility] Microbiology 11/22/18 22:40 Blood - Peripheral Venous Blood Culture - Preliminary Pending Organism Foot xray results noted ASSESSMENT/PLAN: 63 yof with PMHx of IDDM, diabetic neuropathy, Chronic diabetic foot ulcer s/p HBO (followed by Dr. Trent) admitted with RLE pain/swelling/tenderness -RLE cellulitis, r/o abscess/cellulitis -IDDM Plan: Podiatry input noted. Foot xray reviewed. Follow up MRI RLE. Blood cx 1/2 noted Follow up ID consult Zosyn/vancomycin per ID. Increase levemir to 25 units BID, ISS, diabetic diet NPO after midnight in case needs intervention tomorrow. Hold premeal insulin for now. DVTPPX lovenox Dispo pending clinical improvement. Visit type - Emergency Visit Emergency Visit: Yes ED Registration Date: 11/23/18 Care time: The patient presented to the Emergency Department on the above date and was hospitalized for further evaluation of their emergent condition. - New Patient This patient is new to me today: Yes Date on this admission: 11/23/18 - Critical Care Critical Care patient: No - Discharge Referral Referred to [facility] No
[2018-11-23] MEDS ORDERED: PIPERACILLIN/TAZOB 3.375 GM 3.375 GM in DEXTROSE 5%-WATER - 50 ML IVPB SCH (18:00)
[2018-11-23] MEDS ORDERED: INSULIN (LEVEMIR) 100 UNITS/ML UNITS SQ SCH (22:00)
[2018-11-23] MEDS: INSULIN (LEVEMIR) 100 UNITS/ML UNITS SQ SCH (22:10)
[2018-11-24] MEDS ORDERED: PIPERACILLIN/TAZOBACTAM 3.375 GM VIAL IVPB ONE ×3 (01:14→17:41)
[2018-11-24] MEDS ORDERED: DEXTROSE 5%-WATER - 50 ML IVPB ONE ×3 (01:14→17:42)
[2018-11-24] MEDS: INSULIN SLIDING SCALE (NOVOLOG) 1 VIAL SQ SCH ×6 (02:19→21:58)
[2018-11-24] MEDS: PIPERACILLIN/TAZOB 3.375 GM 3.375 GM in DEXTROSE 5%-WATER - 50 ML IVPB SCH ×3 (02:19→17:49)
[2018-11-24] MEDS ORDERED: VANCOMYCIN HCL 1,500 MG in DEXTROSE 5%-WATER - 500 ML IVPB SCH (06:00)
[2018-11-24] MEDS: INSULIN (LEVEMIR) 100 UNITS/ML UNITS SQ SCH ×2 (06:17→21:57)
[2018-11-24] MEDS ORDERED: INSULIN (NOVOLOG) ASPART 100 UNITS/ML 10ML VIAL ONE ×2 (06:34→06:36)
[2018-11-24 08:26] LABS: BASO % 0.4 % (0-2.0); EOS % 2.5 % (0-4.5); HEMATOCRIT 32.8 % (32.4-45.2); HEMOGLOBIN 11.1 GM/dL (10.7-15.3); LYMPH % 20.6 % (8-40); MCH 28.9 pg (25.7-33.7); MCHC 33.7 g/dl (32.0-36.0); MEAN CELL VOLUME 85.8 fl (80-96); MEAN PLT VOLUME 9.9 fl (7.5-11.1); NEUT % 67.5 % (42.8-82.8); PLATELET COUNT 221 K/MM3 (134-434); RBC 3.82 M/mm3 (3.60-5.2); RDW 12.9 % (11.6-15.6); WHITE BLOOD COUNT 9.8 K/mm3 (4.0-10.0)
[2018-11-24] MEDS: ACETAMINOPHEN 500 MG TABLET (FP) PO PRN (08:46)
[2018-11-24 08:52] LABS: BLOOD UREA NITROGEN 23.2 mg/dL (7-18); CALCIUM 8.5 mg/dL (8.5-10.1); MAGNESIUM 2.4 mg/dL (1.8-2.4); POTASSIUM 4.1 mmol/L (3.5-5.1)
--- NOTE | 2018-11-24 09:18 | PN ---
Progress Note (short form) - Note Progress Note: Podiatry F/U: Seen/evaluated at bedside NAD. Pain to the right foot. Denies F/V/N/C/SOB/CP. Low grade temp to 99 F, currently afebrile. MRI obtained. MARI: R foot: DP 2/4, PT 1/4, TG warm-warm. There is fluctuance and evidence of abscess right 5th MTPJ, (++) Tender to palpation, (+) surrounding cellulitis to dorsal forefoot. Pretrophic lesion sub-fifth metatarsal. No soft tissue crepitus. R foot XR: no evidence of soft tissue gas R foot MRI: report pending Blood Cx: beta strep 1/2 Imp: 63 year old diabetic female with right foot abscess, ?osteo 5th toe 1. IV abx 2. NPO for OR today. Plan for I&D versus 5th toe amputation depending on MRI report. Patient is clearly upset but is willing to do what is necessary. 3. Will closely follow Michael Trent DPM
[2018-11-24] MEDS: GABAPENTIN 300 MG CAPSULE (FP) PO SCH ×2 (09:48→21:58)
[2018-11-24] MEDS ORDERED: SODIUM CHLORIDE 1,000 ML IV SCH (11:15)
--- NOTE | 2018-11-24 11:38 | PN ---
Teaching Attending Note Name of Resident: Maryanne Velazquez ATTENDING PHYSICIAN STATEMENT I saw and evaluated the patient. I reviewed the resident's note and discussed the case with the resident. I agree with the resident's findings and plan as documented with exceptions below. SUBJECTIVE: Patient seen and examined. right foot pain and swelling, no new fevers, chills or concerns. OBJECTIVE: Vital Signs Period Temp Pulse Resp BP Sys/Duarte Pulse Ox Last 24 Hr 98.2 F-99.5 F 75-85 18-20 100-144/45-73 98 Intake & Output 11/21/18 11/22/18 11/23/18 11/24/18 23:59 23:59 23:59 23:59 Intake Total 1060 50 Output Total 3 1 Balance 1057 49 Weight 190 lb 202 lb 200 lb 14.4 oz General: lying in bed in no acute distress CVS:S1s2 regular Chest: CTAB, no rales or wheezing Abdomen:soft, obese, NT Extremities: right foot fluctuant lesion on 5th MTPJ, tenderness, warmth, surrounding erythema, DP pulses 2/4 Home Medications Medication Instructions Recorded metFORMIN HCL [Metformin HCl ER] 1,000 mg PO ASDIR 10/19/17 Diazepam [Valium] 5 mg PO TID 11/23/18 Gabapentin 800 mg PO DAILY 11/23/18 Insulin Glargine,Hum.rec.anlog 40 unit SQ BID 11/23/18 [Lantus] Insulin Lispro [Humalog] 25 unit SQ BID 11/23/18 Meloxicam 15 mg PO PRN PRN 11/23/18 Mirabegron [Myrbetriq] 25 mg PO DAILY 11/23/18 Active Medications Acetaminophen (Tylenol -) 1,000 mg PO Q6H PRN PRN Reason: PAIN Last Admin: 11/24/18 08:46 Dose: 1,000 mg Diazepam (Valium -) 5 mg PO Q8H PRN PRN Reason: ANXIETY Last Admin: 11/24/18 09:48 Dose: 5 mg Gabapentin (Neurontin -) 600 mg PO BID GISELE Last Admin: 11/24/18 09:48 Dose: 600 mg Vancomycin HCl 1,500 mg/ (Dextrose) 500 mls @ 250 mls/hr IVPB Q24H [facility]; Protocol Piperacillin Sod/Tazobactam (Sod 3.375 gm/ Dextrose) 50 mls @ 100 mls/hr IVPB Q8H-IV [facility]; Protocol Last Admin: 11/24/18 09:48 Dose: 100 mls/hr Sodium Chloride (Normal Saline -) 1,000 mls @ 75 mls/hr IV ASDIR [facility] Last Admin: 11/24/18 11:36 Dose: 75 mls/hr Vancomycin HCl 1,500 mg/ (Dextrose) 500 mls @ 250 mls/hr IVPB ONCE ONE; Protocol Stop: 11/24/18 13:35 Insulin Aspart (Novolog Vial Sliding Scale -) 1 vial SQ Q4HPO [facility]; Protocol Last Admin: 11/24/18 10:31 Dose: Not Given Insulin Detemir (Levemir Vial) 25 units SQ 0700,2200 [facility] Last Admin: 11/24/18 06:17 Dose: 25 unit Non-Formulary Medication (Mirabegron [Myrbetriq]) 25 mg PO DAILY [facility] Laboratory Results - last 24 hr 11/23/18 11/23/18 11/23/18 14:48 17:34 22:06 WBC RBC Hgb Hct MCV MCH MCHC RDW Plt Count MPV Absolute Neuts (auto) Neutrophils % Lymphocytes % Monocytes % Eosinophils % Basophils % Nucleated RBC % Sodium Potassium Chloride Carbon Dioxide Anion Gap BUN Creatinine Est GFR (CKD-EPI)AfAm Est GFR (CKD-EPI)NonAf POC Glucometer 189 161 337 Random Glucose Calcium Phosphorus Magnesium 11/24/18 11/24/18 11/24/18 02:09 05:44 07:40 WBC 9.8 RBC 3.82 Hgb 11.1 Hct 32.8 MCV 85.8 MCH 28.9 MCHC 33.7 RDW 12.9 Plt Count 221 MPV 9.9 Absolute Neuts (auto) 6.6 Neutrophils % 67.5 Lymphocytes % 20.6 D Monocytes % 9.0 Eosinophils % 2.5 Basophils % 0.4 Nucleated RBC % 0 Sodium Potassium Chloride Carbon Dioxide Anion Gap BUN Creatinine Est GFR (CKD-EPI)AfAm Est GFR (CKD-EPI)NonAf POC Glucometer 333 243 Random Glucose Calcium Phosphorus Magnesium 11/24/18 11/24/18 07:40 10:20 WBC RBC Hgb Hct MCV MCH MCHC RDW Plt Count MPV Absolute Neuts (auto) Neutrophils % Lymphocytes % Monocytes % Eosinophils % Basophils % Nucleated RBC % Sodium 134 L Potassium 4.1 Chloride 103 Carbon Dioxide 25 Anion Gap 6 L BUN 23.2 H Creatinine 1.0 Est GFR (CKD-EPI)AfAm 69.44 Est GFR (CKD-EPI)NonAf 59.91 POC Glucometer 176 Random Glucose 229 H Calcium 8.5 Phosphorus 4.0 Magnesium 2.4 Microbiology 11/22/18 22:40 Blood - Peripheral Venous Blood Culture - Preliminary Strep Agalactiae Group B 11/22/18 22:45 Blood - Peripheral Venous Blood Culture - Preliminary NO GROWTH OBTAINED AFTER 24 HOURS, INCUBATION TO CONTINUE FOR 4 DAYS. MRI LE results reviewed ASSESSMENT AND PLAN: 63 yof with PMHx of IDDM, diabetic neuropathy, Chronic diabetic foot ulcer s/p HBO (followed by Dr. Trent) admitted with right RLE cellulitis/abscess +/- osteomyelitis -RLE cellulitis/Abscess, r/o osteomyelitis -IDDM -Diabetic neuropathy -Anxiety Plan: Podiatry input noted, discussed with Dr. Trent. Possible OR today for I&D +/- right 5th toe amputation MRI results reviewed, no clear evidence of osteomyelitis. NPO for now. levemir basal dose, ISS, Gentle hydration. BLood 1/2 with strep Agalactie Gp B, repeat blood cx. Zosyn day 2, vanco x 1, follow up ID input. Continue valium/gabapentin DVTPPX lovenox Dispo pending clinical improvement. Plan discussed with patient and RN, all questions answered.
[2018-11-24] MEDS ORDERED: VANCOMYCIN HCL 1,500 MG in DEXTROSE 5%-WATER - 500 ML IVPB ONE (12:00)
[2018-11-24] MEDS ORDERED: ONDANSETRON 4 MG/2 ML VIAL IVPUSH PRN ×2 (12:10→14:44)
[2018-11-24] MEDS ORDERED: LACTATED RINGERS SOLUTION 1,000 ML IV SCH ×2 (12:15→14:44)
--- NOTE | 2018-11-24 12:47 | PN ---
Progress Note, Physician History of Present Illness: patient going to or today d/w podiatry team pain in the leg - Current Medication List Current Medications: Active Medications Acetaminophen (Tylenol -) 1,000 mg PO Q6H PRN PRN Reason: PAIN Last Admin: 11/24/18 08:46 Dose: 1,000 mg Diazepam (Valium -) 5 mg PO Q8H PRN PRN Reason: ANXIETY Last Admin: 11/24/18 09:48 Dose: 5 mg Fentanyl (Sublimaze Injection -) 50 mcg IVPUSH [id number] PRN PRN Reason: PAIN-PACU ORDER X 4 DOSES ONLY Stop: 11/25/18 12:09 Gabapentin (Neurontin -) 600 mg PO BID GISELE Last Admin: 11/24/18 09:48 Dose: 600 mg Vancomycin HCl 1,500 mg/ (Dextrose) 500 mls @ 250 mls/hr IVPB Q24H [facility]; Protocol Piperacillin Sod/Tazobactam (Sod 3.375 gm/ Dextrose) 50 mls @ 100 mls/hr IVPB Q8H-IV [facility]; Protocol Last Admin: 11/24/18 09:48 Dose: 100 mls/hr Sodium Chloride (Normal Saline -) 1,000 mls @ 75 mls/hr IV ASDIR [facility] Last Admin: 11/24/18 11:36 Dose: 75 mls/hr Vancomycin HCl 1,500 mg/ (Dextrose) 500 mls @ 250 mls/hr IVPB ONCE ONE; Protocol Stop: 11/24/18 13:59 Last Admin: 11/24/18 12:21 Dose: 250 mls/hr Lactated Ringer's (Lactated Ringers Solution) 1,000 mls @ 75 mls/hr IV ASDIR [facility] Insulin Aspart (Novolog Vial Sliding Scale -) 1 vial SQ Q4HPO [facility]; Protocol Last Admin: 11/24/18 10:31 Dose: Not Given Insulin Detemir (Levemir Vial) 25 units SQ 0700,2200 [facility] Last Admin: 11/24/18 06:17 Dose: 25 unit Non-Formulary Medication (Mirabegron [Myrbetriq]) 25 mg PO DAILY [facility] Ondansetron HCl (Zofran Injection) 4 mg IVPUSH Q6H PRN PRN Reason: NAUSEA AND/OR VOMITING Stop: 11/25/18 12:09 - Objective Vital Signs: Vital Signs Temperature 98.1 F 11/24/18 10:00 Pulse Rate 76 11/24/18 10:00 Respiratory Rate 18 11/24/18 10:00 Blood Pressure 129/78 11/24/18 10:00 O2 Sat by Pulse Oximetry (%) 98 11/23/18 21:00 Constitutional: Yes: Calm, Mild Distress Cardiovascular: Yes: Regular Rate and Rhythm Respiratory: Yes: Regular, CTA Bilaterally Gastrointestinal: Yes: Normal Bowel Sounds, Soft Musculoskeletal: Yes: WNL Extremities: Yes: Erythema (of the foot), Other (tenderness of the foro,sweeling ,wound) Neurological: Yes: Alert, Oriented Psychiatric: Yes: Alert, Oriented Labs: CBC, BMP 11/24/18 07:40 11/24/18 07:40 INR, PTT INR 0.97 (0.83-1.09) 11/23/18 08:05 Assessment/Plan 63 yof with PMHx of IDDM, diabetic neuropathy, Chronic diabetic foot ulcer s/p HBO (followed by Dr. Trent) admitted with right RLE cellulitis/abscess +/- osteomyelitis rt foot cellulitis rt foot erythema threatened leg tenderness plan continue abx surgery cx rest as per the team
[2018-11-24] MEDS ORDERED: LIDOCAINE HCL/PF 2% SDV 5ML VIAL ONE (13:19)
[2018-11-24] MEDS ORDERED: MIDAZOLAM HCL 2 MG/2 ML SINGLE DOSE VIAL ONE (13:19)
[2018-11-24] MEDS ORDERED: PROPOFOL 20 ML ONE ×2 (13:19)
[2018-11-24] MEDS ORDERED: LIDOCAINE HCL 2% (20ML MULTI-DOSE VIAL) NR ONE (13:34)
[2018-11-24] MEDS ORDERED: EPHEDRINE SULFATE/0.9% NACL/PF 50 MG/10 ML SYRINGE NR ONE (13:44)
[2018-11-24] MEDS ORDERED: diazePAM 5 MG TABLET PO PRN (14:44)
[2018-11-24] MEDS: SODIUM CHLORIDE 1,000 ML IV SCH (15:15)
--- NOTE | 2018-11-24 16:40 | OP ---
Operative Note - Note: Operative Date: 11/24/18 Pre-Operative Diagnosis: right fifth digit, fifth MTPJ abscess and cellulitis Operation: right foot incision and drainage with fifth toe amputation Post-Operative Diagnosis: Same as Pre-op Surgeon: Trent Trent Anesthesia: Local, MAC Specimens Removed: bone and soft tissue right fifth toe Estimated Blood Loss (mls): 15 Operative Report Dictated: Yes
[2018-11-24] MEDS: oxyCODONE HCL 5 MG TABLET PO PRN (16:56)
[2018-11-24] MEDS: PATIENT'S OWN MEDICATION (NON-FORMULARY) (Mirabegron [Myrbetriq] 25 MG) PO SCH (17:59)
--- NOTE | 2018-11-24 18:19 | PN ---
Physical Exam: SUBJECTIVE: Patient seen and examined. Crying. Per nurse Pt had been seen by frame tender in am and was scheduled for OR by 1pm. Breakfast tray brought but held. Pt now NPO again. MR read still pending. OBJECTIVE: Vital Signs Period Temp Pulse Resp BP Sys/Duarte Pulse Ox Last 24 Hr 97.9 F-99.5 F 76-94 14-20 100-142/45-89 95-100 Vital Signs Temp 98.1 F 11/24/18 17:55 Pulse 89 11/24/18 17:55 Resp 20 11/24/18 17:55 BP 142/78 11/24/18 17:55 Pulse Ox 95 11/24/18 15:15 Intake & Output 11/23/18 11/24/18 11/24/18 23:59 11:59 23:59 Intake Total 1060 50 900 Output Total 2 1 20 Balance 1058 49 880 Weight 91.127 kg Intake: IV 300 Normal Saline - 1,000 ml 100 @ 75 mls/hr IV ASDIR GISELE Rx#:[id number] IVPB 600 50 Oral 460 600 Output: Urine 2 1 Void 2 1 Estimated Blood Loss 20 Other: Voiding Method Toilet Bedpan Bedpan # Unmeasured Voids Void 2 Bowel Movement No No No Weight Measurement Method Standing Scale GENERAL: The patient is awake, alert, and fully oriented, in some distress, concerned about her toe. EYES: PERRL, extraocular movements intact, ENT: moist mucous membranes NECK: supple. LUNGS: Breath sounds equal, clear to auscultation bilaterally HEART: Regular rate and rhythm, S1, S2 ABDOMEN: Soft, nontender, nondistended, normoactive bowel sounds EXTREMITIES: Reduced redness and swelling over dorsum of R foot. Plantar aspect of foot with soft, fluctuant collection, dark color, Callus still present at base of foot. NEUROLOGICAL: Cranial nerves II through XII grossly intact. Normal speech, gait not observed. PSYCH: In tears CBC, BMP 11/24/18 07:40 11/24/18 07:40 Laboratory Results - last 24 hr 11/23/18 11/23/18 11/24/18 17:34 22:06 02:09 WBC RBC Hgb Hct MCV MCH MCHC RDW Plt Count MPV Absolute Neuts (auto) Neutrophils % Lymphocytes % Monocytes % Eosinophils % Basophils % Nucleated RBC % Sodium Potassium Chloride Carbon Dioxide Anion Gap BUN Creatinine Est GFR (CKD-EPI)AfAm Est GFR (CKD-EPI)NonAf POC Glucometer 161 337 333 Random Glucose Calcium Phosphorus Magnesium 11/24/18 11/24/18 11/24/18 05:44 07:40 07:40 WBC 9.8 RBC 3.82 Hgb 11.1 Hct 32.8 MCV 85.8 MCH 28.9 MCHC 33.7 RDW 12.9 Plt Count 221 MPV 9.9 Absolute Neuts (auto) 6.6 Neutrophils % 67.5 Lymphocytes % 20.6 D Monocytes % 9.0 Eosinophils % 2.5 Basophils % 0.4 Nucleated RBC % 0 Sodium 134 L Potassium 4.1 Chloride 103 Carbon Dioxide 25 Anion Gap 6 L BUN 23.2 H Creatinine 1.0 Est GFR (CKD-EPI)AfAm 69.44 Est GFR (CKD-EPI)NonAf 59.91 POC Glucometer 243 Random Glucose 229 H Calcium 8.5 Phosphorus 4.0 Magnesium 2.4 11/24/18 11/24/18 10:20 17:47 WBC RBC Hgb Hct MCV MCH MCHC RDW Plt Count MPV Absolute Neuts (auto) Neutrophils % Lymphocytes % Monocytes % Eosinophils % Basophils % Nucleated RBC % Sodium Potassium Chloride Carbon Dioxide Anion Gap BUN Creatinine Est GFR (CKD-EPI)AfAm Est GFR (CKD-EPI)NonAf POC Glucometer 176 266 Random Glucose Calcium Phosphorus Magnesium Active Medications Generic Name Dose Route Start Last Admin Trade Name Freq PRN Reason Stop Dose Admin Acetaminophen 1,000 mg 11/24/18 14:44 Tylenol - PO Q6H PRN PAIN Diazepam 5 mg 11/24/18 14:44 Valium - PO Q8H PRN ANXIETY Gabapentin 600 mg 11/24/18 22:00 Neurontin - PO BID GISELE Lactated Ringer's 1,000 mls @ 75 mls/hr 11/24/18 14:44 Lactated Ringers Solution IV ASDIR GISELE Sodium Chloride 1,000 mls @ 75 mls/hr 11/24/18 14:44 11/24/18 15:15 Normal Saline - IV 75 mls/hr ASDIR GISELE Administration Vancomycin HCl 1,250 mg/ 250 mls @ 166.667 mls/hr 11/25/18 15:30 Dextrose IVPB Q24H GISELE Protocol Piperacillin Sod/Tazobactam 50 mls @ 100 mls/hr 11/24/18 18:00 11/24/18 17:49 Sod 3.375 gm/ Dextrose IVPB 100 mls/hr Q8H-IV GISELE Administration Protocol Insulin Aspart 1 vial 11/24/18 18:00 11/24/18 17:49 Novolog Vial Sliding Scale - SQ 6 unit Q4HPO GISELE Administration Protocol Insulin Detemir 25 units 11/24/18 22:00 Levemir Vial SQ 0700,2200 [facility] Non-Formulary Medication 25 mg 11/25/18 10:00 Mirabegron [Myrbetriq] PO DAILY GISELE Ondansetron HCl 4 mg 11/24/18 14:44 Zofran Injection IVPUSH 11/25/18 12:09 Q6H PRN NAUSEA AND/OR VOMITING Oxycodone HCl 5 mg 11/24/18 14:43 11/24/18 16:56 Roxicodone - PO 5 mg Q4H PRN Administration PAIN LEVEL 1-5 Ambulatory Orders metFORMIN HCL [Metformin HCl ER] 1,000 mg PO ASDIR 10/19/17 Diazepam [Valium] 5 mg PO TID 11/23/18 Gabapentin 800 mg PO DAILY 11/23/18 Insulin Glargine,Hum.rec.anlog [Lantus] 40 unit SQ BID 11/23/18 Insulin Lispro [Humalog] 25 unit SQ BID 11/23/18 Meloxicam 15 mg PO PRN PRN 11/23/18 Mirabegron [Myrbetriq] 25 mg PO DAILY 11/23/18 Current Medications Acetaminophen (Tylenol -) 1,000 mg PO Q6H PRN PRN Reason: PAIN Diazepam (Valium -) 5 mg PO Q8H PRN PRN Reason: ANXIETY Gabapentin (Neurontin -) 600 mg PO BID [facility] Lactated Ringer's (Lactated Ringers Solution) 1,000 mls @ 75 mls/hr IV ASDIR GISELE Sodium Chloride (Normal Saline -) 1,000 mls @ 75 mls/hr IV ASDIR GISELE Last Admin: 11/24/18 15:15 Dose: 75 mls/hr Vancomycin HCl 1,250 mg/ (Dextrose) 250 mls @ 166.667 mls/hr IVPB Q24H GISELE; Protocol Piperacillin Sod/Tazobactam (Sod 3.375 gm/ Dextrose) 50 mls @ 100 mls/hr IVPB Q8H-IV GISELE; Protocol Last Admin: 11/24/18 17:49 Dose: 100 mls/hr Insulin Aspart (Novolog Vial Sliding Scale -) 1 vial SQ Q4HPO GISELE; Protocol Last Admin: 11/24/18 17:49 Dose: 6 unit Insulin Detemir (Levemir Vial) 25 units SQ 0700,2200 G[facility] Non-Formulary Medication (Mirabegron [Myrbetriq]) 25 mg PO DAILY GISELE Ondansetron HCl (Zofran Injection) 4 mg IVPUSH Q6H PRN PRN Reason: NAUSEA AND/OR VOMITING Stop: 11/25/18 12:09 Oxycodone HCl (Roxicodone -) 5 mg PO Q4H PRN PRN Reason: PAIN LEVEL 1-5 Last Admin: 11/24/18 16:56 Dose: 5 mg ASSESSMENT/PLAN: Pt is a 63 yo F with PMHx with history of an IDDM, brought in from home by daughter for right leg swelling x3 days and pain x1. Patient reports right foot pain 10/10 dull intermittent, worsened with movement, relieved with rest for about 3 days. R foot cellulitis R/O R Osteomyelitis Pt with prior cellulits R foot in 2017, healed with HBO in past Vanc/zosyn- day 2 Dr Trent- to take pt to OR today pending MRI read for either I&D alone or with amputation of R 5th toe Dr Del Rosario Arterial duplex R LE -suggestive of R popliteal stenosis 50% veinous duplex negative for DVT Pain mx- tylenol Cont gabapentin - switch from 800mg daily to 600mg bid Bcx -strep agalactiae Foot Xray negative for soft tissue gas IDDM, Pt on lispo- 25U bid at home, hold Home Lantus 40u bid, on levemir 25ubid ISS Q4H while NPO BGM Q4H HgbA1c -10.2 NS @75- while NPO Hypocalcemia Ca gluconate given 1g Elevated Alk phosp Likely bone related as GGT - nl ESR elevated-72 Urinary incontinence Cont mirabegron UA- LE3 +, WBCS elevated Pt on AB R/O anxiety disorder Cont home diazepam NS @75 Monitor lytes repelte as needed NPO for OR PPx SCDs for now Visit type - Emergency Visit Emergency Visit: Yes ED Registration Date: 11/23/18 Care time: The patient presented to the Emergency Department on the above date and was hospitalized for further evaluation of their emergent condition. - New Patient This patient is new to me today: No - Critical Care Critical Care patient: No - Discharge Referral Referred to [facility] No
[2018-11-25] MEDS ORDERED: DEXTROSE 5%-WATER - 50 ML IVPB ONE ×3 (00:49→16:59)
[2018-11-25] MEDS ORDERED: PIPERACILLIN/TAZOBACTAM 3.375 GM VIAL IVPB ONE ×3 (00:49→16:59)
--- NOTE | 2018-11-25 01:11 | OP ---
DATE OF OPERATION: 11/24/2018 PREOPERATIVE DIAGNOSIS: Right foot abscess and cellulitis with acute osteomyelitis. POSTOPERATIVE DIAGNOSIS: Right foot abscess and cellulitis with acute osteomyelitis. PROCEDURE: Right foot incision and drained with 5th toe amputation. SURGEON: Trent Trent DPM DRUM FILLER: None. ANESTHESIA: IV sedation with local. HEMOSTASIS: Surgical dissection. ESTIMATED BLOOD LOSS: Minimal. PATHOLOGY: Bone and soft tissue of right 5th toe, 5th metatarsal head. COMPLICATIONS: None. DESCRIPTION OF PROCEDURE: Patient was brought to the operating room and placed on the operating table in the supine position. Following induction of IV sedation, local anesthesia was achieved utilizing 10 mL of 2% lidocaine plain. Right foot was scrubbed, prepped, and draped in the usual sterile fashion. I elected to not use a tourniquet during the course of the procedure. Attention was directed to the right foot where there was a sub5th metatarsal callus with purulent drainage as well as purulence around the 5th digit. I began by performing a sharp excisional debridement of the submetatarsal callus at the level of the skin and subcutaneous tissue utilizing a 15-blade and forceps. Upon debridement of this callus ulcer, there was purulent drainage expressed from the plantar aspect of the 5th metatarsophalangeal joint. A wound culture was obtained. Next, I continued dorsal and lateral overlying the lateral aspect of the 5th metatarsal. The incision was carried distally in a circumferential fashion about the 5th digit. There was purulence expressed about the digit as well as at the bone of the 5th proximal phalanx and 5th metatarsal head. The incision was carried deeply using sharp and blunt dissection, taking care to retract vital neural and vascular structures. All bleeders were cauterized and ligated as needed. Next, the 5th digit was disarticulated at the level of the 5th metatarsophalangeal joint. The digit was removed entirely and sent to Pathology for analysis. Next, a dorsal periosteal incision was performed to expose the 5th metatarsal head. The 5th metatarsal head was resected using a sagittal saw and sent to Pathology for analysis. A portion of the bone was sectioned for bone culture as well. Next, the surgical site was copiously irrigated with sterile saline mixed with bacitracin. Inspection of the periwound tissue was granular with fair bleeding. The surgical site was packed loosely with one-quarter inch iodoform packing. The incision site was loosely coapted utilizing 3-0 nylon in a simple interrupted and retention-like suture fashion. Following conclusion of the procedure, the surgical site was covered with Xeroform and a sterile compressive dressing was applied to the right foot, consisting of sterile gauze, Bo, Kerlix, and an Cabrera wrap. Patient tolerated the procedure and anesthesia well without complications. She was transferred from the operating room to the recovery unit with vital signs stable and neurovascular structures intact to the right foot. AMADOR SALAZAR/[id number]
[2018-11-25] MEDS: INSULIN SLIDING SCALE (NOVOLOG) 1 VIAL SQ SCH ×6 (02:05→21:52)
[2018-11-25] MEDS: PIPERACILLIN/TAZOB 3.375 GM 3.375 GM in DEXTROSE 5%-WATER - 50 ML IVPB SCH ×3 (02:06→17:19)
[2018-11-25] MEDS: ACETAMINOPHEN 500 MG TABLET (FP) PO PRN ×3 (02:14→17:28)
[2018-11-25] MEDS: INSULIN (LEVEMIR) 100 UNITS/ML UNITS SQ SCH ×2 (06:44→21:51)
[2018-11-25] MEDS: SODIUM CHLORIDE 1,000 ML IV SCH (06:45)
[2018-11-25 07:35] LABS: BASO % 0.6 % (0-2.0); HEMATOCRIT 31.4 % (32.4-45.2); HEMOGLOBIN 10.6 GM/dL (10.7-15.3); LYMPH % 26.1 % (8-40); MEAN CELL VOLUME 85.4 fl (80-96); MEAN PLT VOLUME 9.6 fl (7.5-11.1); MONO % 9.7 % (3.8-10.2); NEUT % 58.6 % (42.8-82.8); PLATELET COUNT 235 K/MM3 (134-434); RBC 3.67 M/mm3 (3.60-5.2); RDW 12.8 % (11.6-15.6)
[2018-11-25 07:59] LABS: ALBUMIN 2.7 g/dl (3.4-5.0); BILIRUBIN,TOTAL 0.4 mg/dL (0.2-1); BLOOD UREA NITROGEN 15.1 mg/dL (7-18); CREATININE 0.9 mg/dL (0.55-1.3); MAGNESIUM 2.2 mg/dL (1.8-2.4); TOT PROT 6.2 g/dl (6.4-8.2)
--- NOTE | 2018-11-25 09:08 | PN ---
Progress Note, Physician History of Present Illness: patient stable post op - Current Medication List Current Medications: Active Medications Acetaminophen (Tylenol -) 1,000 mg PO Q6H PRN PRN Reason: PAIN Last Admin: 11/25/18 02:14 Dose: 1,000 mg Diazepam (Valium -) 5 mg PO Q8H PRN PRN Reason: ANXIETY Gabapentin (Neurontin -) 600 mg PO BID GISELE Last Admin: 11/24/18 21:58 Dose: 600 mg Lactated Ringer's (Lactated Ringers Solution) 1,000 mls @ 75 mls/hr IV ASDIR GISELE Last Admin: 11/24/18 21:56 Dose: Not Given Vancomycin HCl 1,250 mg/ (Dextrose) 250 mls @ 166.667 mls/hr IVPB Q24H [facility]; Protocol Piperacillin Sod/Tazobactam (Sod 3.375 gm/ Dextrose) 50 mls @ 100 mls/hr IVPB Q8H-IV GISELE; Protocol Last Admin: 11/25/18 02:06 Dose: 100 mls/hr Insulin Aspart (Novolog Vial Sliding Scale -) 1 vial SQ Q4HPO [facility]; Protocol Last Admin: 11/25/18 06:44 Dose: Not Given Insulin Detemir (Levemir Vial) 25 units SQ 0700,2200 [facility] Last Admin: 11/25/18 06:44 Dose: 25 units Non-Formulary Medication (Mirabegron [Myrbetriq]) 25 mg PO DAILY [facility] Ondansetron HCl (Zofran Injection) 4 mg IVPUSH Q6H PRN PRN Reason: NAUSEA AND/OR VOMITING Stop: 11/25/18 12:09 Oxycodone HCl (Roxicodone -) 5 mg PO Q4H PRN PRN Reason: PAIN LEVEL 1-5 Last Admin: 11/24/18 16:56 Dose: 5 mg - Objective Vital Signs: Vital Signs Temperature 98.2 F 11/25/18 06:02 Pulse Rate 72 11/25/18 06:02 Respiratory Rate 20 11/25/18 06:02 Blood Pressure 106/59 L 11/25/18 06:02 O2 Sat by Pulse Oximetry (%) 95 11/24/18 15:15 Constitutional: Yes: No Distress, Calm Cardiovascular: Yes: S1, S2 Respiratory: Yes: Regular, CTA Bilaterally Gastrointestinal: Yes: Normal Bowel Sounds, Soft Musculoskeletal: Yes: WNL Extremities: Yes: Other Wound/Incision: Yes: Dressing Dry and Intact Neurological: Yes: Alert, Oriented Psychiatric: Yes: Alert, Oriented Labs: CBC, BMP 11/25/18 06:30 11/25/18 06:30 INR, PTT INR 0.97 (0.83-1.09) 11/23/18 08:05 Assessment/Plan 63 yof with PMHx of IDDM, diabetic neuropathy, Chronic diabetic foot ulcer s/p HBO (followed by Dr. Trent) admitted with right RLE cellulitis/abscess +/- osteomyelitis rt foot cellulitis rt foot erythema threatened leg tenderness plan continue abx await for cx report await for blood cx report rest as per the team
[2018-11-25] MEDS: GABAPENTIN 300 MG CAPSULE (FP) PO SCH ×2 (09:16→21:48)
[2018-11-25] MEDS: PATIENT'S OWN MEDICATION (NON-FORMULARY) (Mirabegron [Myrbetriq] 25 MG) PO SCH (09:16)
[2018-11-25] MEDS: SOLIFENACIN SUCCINATE 5 MG TAB PO SCH (09:21)
[2018-11-25] MEDS ORDERED: PATIENT'S OWN MEDICATION (NON-FORMULARY) (Mirabegron [Myrbetriq] 25 MG) PO SCH (10:00)
--- NOTE | 2018-11-25 10:41 | PN ---
Progress Note (short form) - Note Progress Note: Podiatry F/U: Seen/evaluated at bedside NAD. Pain well controlled, denies F/V/N/C/SOB/CP. AFebrile. S/p R fifth digit amputation, I&D for severe diabetic foot infection POD#1. MARI: R foot: dressing C/D/I, no active bleeding, no strikethrough. Sutures loosely coapted proximally, packed distally. No purulent drainage, (+) serosanguinous drainage, no fluctuance, surrounding cellulitis much improved, no soft tissue crepitus. Mild tenderness to palpation. No ischemic changes. Strong palpable DP pulse. OR cx: mixed orgs, beta strep B OR Path: pending Imp: 63 year old diabetic female s/p R fifth digit amputation and I&D for severe diabetic foot infection POD#1 1. IV abx per ID 2. Saline irrigation, DSD R foot 3. Partial weightbearing right foot with surgical shoe 4. Will follow Michael Trent DPM
[2018-11-25] MEDS ORDERED: VANCOMYCIN HCL 1,250 MG in DEXTROSE 5%-WATER - 250 ML IVPB SCH ×2 (13:00→15:30)
--- NOTE | 2018-11-25 13:48 | PN ---
Teaching Attending Note Name of Resident: Maryanne Velazquez ATTENDING PHYSICIAN STATEMENT I saw and evaluated the patient. I reviewed the resident's note and discussed the case with the resident. I agree with the resident's findings and plan as documented. SUBJECTIVE: Patient has no complaints. OBJECTIVE: Vital Signs Period Temp Pulse Resp BP Sys/Duarte Pulse Ox Last 24 Hr 97.9 F-100.1 F 72-94 14-20 106-142/58-89 95-100 HEARTS: S1S2, RRR LUNGS: Clear ABDOMEN: Obese, soft, non-tender, non-distended, normal BS EXTREMITIES: No edema. Right foot wrapped. Laboratory Results - last 24 hr 11/24/18 11/24/18 11/25/18 17:47 20:57 02:02 WBC RBC Hgb Hct MCV MCH MCHC RDW Plt Count MPV Absolute Neuts (auto) Neutrophils % Lymphocytes % Monocytes % Eosinophils % Basophils % Nucleated RBC % Sodium Potassium Chloride Carbon Dioxide Anion Gap BUN Creatinine Est GFR (CKD-EPI)AfAm Est GFR (CKD-EPI)NonAf POC Glucometer 266 239 211 Random Glucose Calcium Phosphorus Magnesium Total Bilirubin AST ALT Alkaline Phosphatase Total Protein Albumin 11/25/18 11/25/18 11/25/18 06:22 06:30 06:30 WBC 9.0 RBC 3.67 Hgb 10.6 L Hct 31.4 L MCV 85.4 MCH 29.0 MCHC 34.0 RDW 12.8 Plt Count 235 MPV 9.6 Absolute Neuts (auto) 5.3 Neutrophils % 58.6 Lymphocytes % 26.1 D Monocytes % 9.7 Eosinophils % 5.0 H D Basophils % 0.6 Nucleated RBC % 0 Sodium 138 Potassium 4.0 Chloride 106 Carbon Dioxide 26 Anion Gap 6 L BUN 15.1 Creatinine 0.9 Est GFR (CKD-EPI)AfAm 78.87 Est GFR (CKD-EPI)NonAf 68.05 POC Glucometer 127 Random Glucose 132 H Calcium 8.0 L Phosphorus 4.0 Magnesium 2.2 Total Bilirubin 0.4 AST 10 L ALT 18 Alkaline Phosphatase 153 H Total Protein 6.2 L Albumin 2.7 L 11/25/18 11:34 WBC RBC Hgb Hct MCV MCH MCHC RDW Plt Count MPV Absolute Neuts (auto) Neutrophils % Lymphocytes % Monocytes % Eosinophils % Basophils % Nucleated RBC % Sodium Potassium Chloride Carbon Dioxide Anion Gap BUN Creatinine Est GFR (CKD-EPI)AfAm Est GFR (CKD-EPI)NonAf POC Glucometer 193 Random Glucose Calcium Phosphorus Magnesium Total Bilirubin AST ALT Alkaline Phosphatase Total Protein Albumin Current Medications Generic Name Dose Route Start Last Admin Trade Name Freq PRN Reason Stop Dose Admin Acetaminophen 1,000 mg 11/24/18 14:44 11/25/18 09:40 Tylenol - PO 1,000 mg Q6H PRN Administration PAIN Diazepam 5 mg 11/24/18 14:44 Valium - PO Q8H PRN ANXIETY Gabapentin 600 mg 11/24/18 22:00 11/25/18 09:16 Neurontin - PO 600 mg BID GISELE Administration Vancomycin HCl 1,250 mg/ 250 mls @ 166.667 mls/hr 11/25/18 15:30 Dextrose IVPB Q24H GISELE Protocol Piperacillin Sod/Tazobactam 50 mls @ 100 mls/hr 11/24/18 18:00 11/25/18 09:17 Sod 3.375 gm/ Dextrose IVPB 100 mls/hr Q8H-IV GISELE Administration Protocol Insulin Aspart 1 vial 11/25/18 09:15 11/25/18 11:41 Novolog Vial Sliding Scale - SQ 2 units ACHS GISELE Administration Protocol Insulin Detemir 25 units 11/24/18 22:00 11/25/18 06:44 Levemir Vial SQ 25 units 0700,2200 GISELE Administration Non-Formulary Medication 25 mg 11/25/18 10:00 Mirabegron [Myrbetriq] PO DAILY GISELE Oxycodone HCl 5 mg 11/24/18 14:43 11/24/18 16:56 Roxicodone - PO 5 mg Q4H PRN Administration PAIN LEVEL 1-5 Solifenacin 5 mg 11/25/18 10:00 11/25/18 09:21 Vesicare - PO 5 mg DAILY GISELE Administration ASSESSMENT AND PLAN: This is a 63 year old woman with a history of type 2 DM, diabetic neuropathy, diabetic foot ulcer who presented to the ED with right foot pain and right leg swelling. 1. Right foot abscess and cellulitis - s/p I&D of abscess and right 5th toe amputation 11/24 - Wound cultures polymicrobial - Blood cultures (+) group B Strep in 1 of 2 - repeat blood cultures negative after 24 hours - ESR, C-RP elevated but no evidence of osteo on MRI - Continue Zosyn, vancomycin 2. Type 2 DM with peripheral neuropathy - Continue Levemir, Novolog sliding scale - Continue Neurontin 3. Anxiety - Continue Valium as needed 4. Obesity with BMI 39.1
[2018-11-25] MEDS ORDERED: PT OWN MED DRAWER 7, Y5N ONE (14:31)
[2018-11-25 15:38] VITALS: BMI 39.0
--- NOTE | 2018-11-25 18:22 | PN ---
Physical Exam: SUBJECTIVE: Patient seen and examined. POD1, s/p I&D and amputation of R fifth toe. Pt with no new c/o, denies pain, shortness of breath or fever. Has been able to eat. OBJECTIVE: Vital Signs Period Temp Pulse Resp BP Sys/Duarte Pulse Ox Last 24 Hr 98.2 F-100.1 F 72-87 20-20 106-131/58-68 98 GENERAL: The patient is awake, alert, and fully oriented, in no acute painful distress. EYES: PERRL, extraocular movements intact, ENT: moist mucous membranes. NECK: supple. LUNGS: Breath sounds equal, clear to auscultation bilaterally, no wheezes, no crackles HEART: Regular rate and rhythm, S1, S2 ABDOMEN: Soft, nontender, nondistended, normoactive bowel sounds EXTREMITIES: R foot wrapped in surgical dressing and bandage- clean dry, dressing changed in am by oil pipeline dispatcher, surgical boot by bedside. NEUROLOGICAL: Cranial nerves II through XII grossly intact. Normal speech, gait not observed. PSYCH: Normal mood, normal affect. SKIN: Warm, dry, normal turgor, no rashes or lesions noted Laboratory Results - last 24 hr 11/24/18 11/25/18 11/25/18 20:57 02:02 06:22 WBC RBC Hgb Hct MCV MCH MCHC RDW Plt Count MPV Absolute Neuts (auto) Neutrophils % Lymphocytes % Monocytes % Eosinophils % Basophils % Nucleated RBC % Sodium Potassium Chloride Carbon Dioxide Anion Gap BUN Creatinine Est GFR (CKD-EPI)AfAm Est GFR (CKD-EPI)NonAf POC Glucometer 239 211 127 Random Glucose Calcium Phosphorus Magnesium Total Bilirubin AST ALT Alkaline Phosphatase Total Protein Albumin 11/25/18 11/25/18 11/25/18 06:30 06:30 11:34 WBC 9.0 RBC 3.67 Hgb 10.6 L Hct 31.4 L MCV 85.4 MCH 29.0 MCHC 34.0 RDW 12.8 Plt Count 235 MPV 9.6 Absolute Neuts (auto) 5.3 Neutrophils % 58.6 Lymphocytes % 26.1 D Monocytes % 9.7 Eosinophils % 5.0 H D Basophils % 0.6 Nucleated RBC % 0 Sodium 138 Potassium 4.0 Chloride 106 Carbon Dioxide 26 Anion Gap 6 L BUN 15.1 Creatinine 0.9 Est GFR (CKD-EPI)AfAm 78.87 Est GFR (CKD-EPI)NonAf 68.05 POC Glucometer 193 Random Glucose 132 H Calcium 8.0 L Phosphorus 4.0 Magnesium 2.2 Total Bilirubin 0.4 AST 10 L ALT 18 Alkaline Phosphatase 153 H Total Protein 6.2 L Albumin 2.7 L 11/25/18 17:07 WBC RBC Hgb Hct MCV MCH MCHC RDW Plt Count MPV Absolute Neuts (auto) Neutrophils % Lymphocytes % Monocytes % Eosinophils % Basophils % Nucleated RBC % Sodium Potassium Chloride Carbon Dioxide Anion Gap BUN Creatinine Est GFR (CKD-EPI)AfAm Est GFR (CKD-EPI)NonAf POC Glucometer 292 Random Glucose Calcium Phosphorus Magnesium Total Bilirubin AST ALT Alkaline Phosphatase Total Protein Albumin Active Medications Generic Name Dose Route Start Last Admin Trade Name Freq PRN Reason Stop Dose Admin Acetaminophen 1,000 mg 11/24/18 14:44 11/25/18 17:28 Tylenol - PO 1,000 mg Q6H PRN Administration PAIN Diazepam 5 mg 11/24/18 14:44 Valium - PO Q8H PRN ANXIETY Gabapentin 600 mg 11/24/18 22:00 11/25/18 09:16 Neurontin - PO 600 mg BID GISELE Administration Vancomycin HCl 1,250 mg/ 250 mls @ 166.667 mls/hr 11/25/18 15:30 11/25/18 15: 06 Dextrose IVPB 166.667 mls/hr Q24H GISELE Administration Protocol Piperacillin Sod/Tazobactam 50 mls @ 100 mls/hr 11/24/18 18:00 11/25/18 17:19 Sod 3.375 gm/ Dextrose IVPB 100 mls/hr Q8H-IV GISELE Administration Protocol Insulin Aspart 1 vial 11/25/18 09:15 11/25/18 17:18 Novolog Vial Sliding Scale - SQ 6 units ACHS GISELE Administration Protocol Insulin Detemir 25 units 11/24/18 22:00 11/25/18 06:44 Levemir Vial SQ 25 units 0700,2200 GISELE Administration Non-Formulary Medication 25 mg 11/25/18 10:00 Mirabegron [Myrbetriq] PO DAILY GISELE Oxycodone HCl 5 mg 11/24/18 14:43 11/24/18 16:56 Roxicodone - PO 5 mg Q4H PRN Administration PAIN LEVEL 1-5 Solifenacin 5 mg 11/25/18 10:00 11/25/18 09:21 Vesicare - PO 5 mg DAILY GISELE Administration Ambulatory Orders metFORMIN HCL [Metformin HCl ER] 1,000 mg PO ASDIR 10/19/17 Diazepam [Valium] 5 mg PO TID 11/23/18 Gabapentin 800 mg PO DAILY 11/23/18 Insulin Glargine,Hum.rec.anlog [Lantus] 40 unit SQ BID 11/23/18 Insulin Lispro [Humalog] 25 unit SQ BID 11/23/18 Meloxicam 15 mg PO PRN PRN 11/23/18 Mirabegron [Myrbetriq] 25 mg PO DAILY 11/23/18 Current Medications Acetaminophen (Tylenol -) 1,000 mg PO Q6H PRN PRN Reason: PAIN Last Admin: 11/26/18 02:23 Dose: 1,000 mg Diazepam (Valium -) 5 mg PO Q8H PRN PRN Reason: ANXIETY Gabapentin (Neurontin -) 600 mg PO BID [facility] Last Admin: 11/25/18 21:48 Dose: 600 mg Vancomycin HCl 1,250 mg/ (Dextrose) 250 mls @ 166.667 mls/hr IVPB Q24H [facility]; Protocol Last Admin: 11/25/18 15:06 Dose: 166.667 mls/hr Piperacillin Sod/Tazobactam (Sod 3.375 gm/ Dextrose) 50 mls @ 100 mls/hr IVPB Q8H-IV GISELE; Protocol Last Admin: 11/26/18 02:22 Dose: 100 mls/hr Insulin Aspart (Novolog Vial Sliding Scale -) 1 vial SQ ACHS [facility]; Protocol Last Admin: 11/25/18 21:52 Dose: 8 units Insulin Detemir (Levemir Vial) 25 units SQ 0700,2200 [facility] Last Admin: 11/25/18 21:51 Dose: 25 units Non-Formulary Medication (Mirabegron [Myrbetriq]) 25 mg PO DAILY [facility] Oxycodone HCl (Roxicodone -) 5 mg PO Q4H PRN PRN Reason: PAIN LEVEL 1-5 Last Admin: 11/25/18 21:46 Dose: 5 mg Solifenacin (Vesicare -) 5 mg PO DAILY [facility] Last Admin: 11/25/18 09:21 Dose: 5 mg Arterial duplex R LE -suggestive of R popliteal stenosis 50% veinous duplex negative for DVT Foot Xray negative for soft tissue gas Microbiology 11/22/18 22:45 Blood - Peripheral Venous Blood Culture - Preliminary NO GROWTH OBTAINED AFTER 72 HOURS, INCUBATION TO CONTINUE FOR 2 DAYS. 11/24/18 15:30 Blood - Peripheral Venous Blood Culture - Preliminary NO GROWTH OBTAINED AFTER 24 HOURS, INCUBATION TO CONTINUE FOR 4 DAYS. 11/24/18 14:56 Foot - Right Gram Stain - Final 11/24/18 14:56 Foot - Right Wound Culture - Preliminary Lactose Fermenting Neg Bacilli Lactose Fermenting Neg Bacilli#2 Strep Agalactiae Group B Group D Strep Or Entero Coccus Pending Organism 11/24/18 14:56 Bone Gram Stain - Final 11/24/18 14:56 Bone Tissue Culture - Preliminary Strep Agalactiae Group B Gram Negative Kai Group D Strep Or Entero Coccus 11/24/18 12:40 Blood - Peripheral Venous Blood Culture - Preliminary NO GROWTH OBTAINED AFTER 24 HOURS, INCUBATION TO CONTINUE FOR 4 DAYS. 11/22/18 22:40 Blood - Peripheral Venous Blood Culture - Final Strep Agalactiae Group B ASSESSMENT/PLAN: Pt is a 63 yo F with PMHx with history of an IDDM, brought in from home by daughter for right leg swelling x3 days and pain x1 found to have cellulitis of R foot with possible OM, now s/p R fifth toe amputation (11/24/18) #R fifth digit, fifth MTPJ abscess and cellulitis s/p: right foot incision and drainage with fifth toe amputation (11/24/18) Vanc/zosyn- day 3 Dr Trent- pt may likely need [facility] treatment requiring PICC line at home Dr Del Rosario-Cont vanc/zosyn Cont Pain mx- tylenol/oxycodone/gbapentin Transient bacteremia, likely contaminant, wound cx with polymicrobial organisms Per podiatry- partial weight bearing with surgical shoe #IDDM, Pt on lispo- 25U bid at home, hold Home Lantus 40u bid, on levemir 25ubid ISS ACHS BGM ACHS HgbA1c -10.2 Hypoglycemia better controlled #Hypocalcemia Corrected calcium -9.0 Cont to monitor #Elevated Alk phosp Likely bone related as GGT - nl ESR elevated-72 Cont to monitor #Urinary incontinence Cont mirabegron # anxiety disorder Cont home diazepam #Obesity BMI 39.1 Diet and exercise counselling FEN No standing fluids, encourage PO intake Monitor lytes replete as needed Diabetic diet PPx Will confirm with oil pipeline dispatcher about DVT prophylaxis Dispo Walked 40 feet, will need a rolling walker at home per PT For likely dc on Friday Medsurg Visit type - Emergency Visit Emergency Visit: Yes ED Registration Date: 11/23/18 Care time: The patient presented to the Emergency Department on the above date and was hospitalized for further evaluation of their emergent condition. - New Patient This patient is new to me today: No - Critical Care Critical Care patient: No - Discharge Referral Referred to [facility] No
[2018-11-25] MEDS: oxyCODONE HCL 5 MG TABLET PO PRN (21:46)
[2018-11-26] MEDS ORDERED: DEXTROSE 5%-WATER - 50 ML IVPB ONE ×4 (01:54→23:37)
[2018-11-26] MEDS ORDERED: PIPERACILLIN/TAZOBACTAM 3.375 GM VIAL IVPB ONE ×4 (01:54→23:37)
[2018-11-26] MEDS: PIPERACILLIN/TAZOB 3.375 GM 3.375 GM in DEXTROSE 5%-WATER - 50 ML IVPB SCH ×3 (02:22→17:09)
[2018-11-26] MEDS: ACETAMINOPHEN 500 MG TABLET (FP) PO PRN (02:23)
[2018-11-26] MEDS: INSULIN (LEVEMIR) 100 UNITS/ML UNITS SQ SCH ×2 (06:25→21:42)
[2018-11-26] MEDS: INSULIN SLIDING SCALE (NOVOLOG) 1 VIAL SQ SCH ×4 (06:26→21:47)
--- NOTE | 2018-11-26 06:59 | PN ---
Physical Exam: SUBJECTIVE: Patient seen and examined. Pain controlled with meds, no fever, no chest pain, no SOB. Pt c/o constipation. OBJECTIVE: Vital Signs Period Temp Pulse Resp BP Sys/Duarte Pulse Ox Last 24 Hr 98.3 F-98.9 F 76-77 20-20 126-147/57-68 98-98 Vital Signs Temp 98.5 F 11/26/18 10:00 Pulse 84 11/26/18 10:00 Resp 20 11/26/18 10:00 BP 125/60 11/26/18 10:00 Pulse Ox 99 11/26/18 09:00 Intake & Output 11/25/18 11/26/18 11/26/18 23:59 11:59 23:59 Intake Total 800 50 Balance 800 50 Weight 90.718 kg 90.9 kg Intake: IVPB 50 Oral 800 Other: Voiding Method Toilet Toilet # Unmeasured Voids Void 2 Bowel Movement No No Height 1.52 m Body Mass Index (BMI) 39.0 Weight Measurement Method Built in [facility] GENERAL: The patient is awake, alert, and fully oriented, in no acute distress. ENT: moist mucous membranes. LUNGS: Breath sounds equal, clear to auscultation bilaterally, no wheezes, no crackles, no accessory muscle use. HEART: Regular rate and rhythm, S1, S2 ABDOMEN: Soft, obese, nontender, nondistended, normoactive bowel sound EXTREMITIES: 2+ pulses, warm, well-perfused, no edema. R foot with surgical dressing and bandage,Pt bering limited weight, sitting down with feet dependent. Has started to bear weight on foot. NEUROLOGICAL: Cranial nerves II through XII grossly intact. Normal speech, gait not observed. Laboratory Results - last 24 hr 11/25/18 11/25/18 11/25/18 06:30 06:30 11:34 WBC 9.0 RBC 3.67 Hgb 10.6 L Hct 31.4 L MCV 85.4 MCH 29.0 MCHC 34.0 RDW 12.8 Plt Count 235 MPV 9.6 Absolute Neuts (auto) 5.3 Neutrophils % 58.6 Lymphocytes % 26.1 D Monocytes % 9.7 Eosinophils % 5.0 H D Basophils % 0.6 Nucleated RBC % 0 Sodium 138 Potassium 4.0 Chloride 106 Carbon Dioxide 26 Anion Gap 6 L BUN 15.1 Creatinine 0.9 Est GFR (CKD-EPI)AfAm 78.87 Est GFR (CKD-EPI)NonAf 68.05 POC Glucometer 193 Random Glucose 132 H Calcium 8.0 L Phosphorus 4.0 Magnesium 2.2 Total Bilirubin 0.4 AST 10 L ALT 18 Alkaline Phosphatase 153 H Total Protein 6.2 L Albumin 2.7 L 11/25/18 11/25/18 11/26/18 17:07 21:42 06:23 WBC RBC Hgb Hct MCV MCH MCHC RDW Plt Count MPV Absolute Neuts (auto) Neutrophils % Lymphocytes % Monocytes % Eosinophils % Basophils % Nucleated RBC % Sodium Potassium Chloride Carbon Dioxide Anion Gap BUN Creatinine Est GFR (CKD-EPI)AfAm Est GFR (CKD-EPI)NonAf POC Glucometer 292 326 206 Random Glucose Calcium Phosphorus Magnesium Total Bilirubin AST ALT Alkaline Phosphatase Total Protein Albumin Active Medications Generic Name Dose Route Start Last Admin Trade Name Freq PRN Reason Stop Dose Admin Acetaminophen 1,000 mg 11/24/18 14:44 11/26/18 02:23 Tylenol - PO 1,000 mg Q6H PRN Administration PAIN Diazepam 5 mg 11/24/18 14:44 Valium - PO Q8H PRN ANXIETY Gabapentin 600 mg 11/24/18 22:00 11/25/18 21:48 Neurontin - PO 600 mg BID GISELE Administration Vancomycin HCl 1,250 mg/ 250 mls @ 166.667 mls/hr 11/25/18 15:30 11/25/18 15: 06 Dextrose IVPB 166.667 mls/hr Q24H GISELE Administration Protocol Piperacillin Sod/Tazobactam 50 mls @ 100 mls/hr 11/24/18 18:00 11/26/18 02:22 Sod 3.375 gm/ Dextrose IVPB 100 mls/hr Q8H-IV GISELE Administration Protocol Insulin Aspart 1 vial 11/25/18 09:15 11/26/18 06:26 Novolog Vial Sliding Scale - SQ 4 units ACHS GISELE Administration Protocol Insulin Detemir 25 units 11/24/18 22:00 11/26/18 06:25 Levemir Vial SQ 25 units 0700,2200 GISELE Administration Non-Formulary Medication 25 mg 11/25/18 10:00 Mirabegron [Myrbetriq] PO DAILY GISELE Oxycodone HCl 5 mg 11/24/18 14:43 11/25/18 21:46 Roxicodone - PO 5 mg Q4H PRN Administration PAIN LEVEL 1-5 Solifenacin 5 mg 11/25/18 10:00 11/25/18 09:21 Vesicare - PO 5 mg DAILY [facility] Administration Current Medications Acetaminophen (Tylenol -) 1,000 mg PO Q6H PRN PRN Reason: PAIN Last Admin: 11/26/18 02:23 Dose: 1,000 mg Diazepam (Valium -) 5 mg PO Q8H PRN PRN Reason: ANXIETY Docusate Sodium (Colace -) 100 mg PO BID PRN PRN Reason: CONSTIPATION Enoxaparin Sodium (Lovenox -) 40 mg SQ DAILY [facility] Last Admin: 11/26/18 11:11 Dose: 40 mg Gabapentin (Neurontin -) 600 mg PO BID [facility] Last Admin: 11/26/18 11:11 Dose: 600 mg Piperacillin Sod/Tazobactam (Sod 3.375 gm/ Dextrose) 50 mls @ 100 mls/hr IVPB Q8H-IV [facility]; Protocol Last Admin: 11/26/18 11:13 Dose: 100 mls/hr Insulin Aspart (Novolog Vial Sliding Scale -) 1 vial SQ ACHS [facility]; Protocol Last Admin: 11/26/18 12:12 Dose: 6 units Insulin Detemir (Levemir Vial) 25 units SQ 0700,2200 [facility] Last Admin: 11/26/18 06:25 Dose: 25 units Non-Formulary Medication (Mirabegron [Myrbetriq]) 25 mg PO DAILY [facility] Oxycodone HCl (Roxicodone -) 5 mg PO Q4H PRN PRN Reason: PAIN LEVEL 1-5 Last Admin: 11/26/18 11:14 Dose: 5 mg Polyethylene Glycol (Miralax (For Daily Use) -) 17 gm PO BID [facility] Last Admin: 11/26/18 11:11 Dose: 17 grams Solifenacin (Vesicare -) 5 mg PO DAILY [facility] Last Admin: 11/26/18 11:12 Dose: 5 mg Ambulatory Orders metFORMIN HCL [Metformin HCl ER] 1,000 mg PO ASDIR 10/19/17 Diazepam [Valium] 5 mg PO TID 11/23/18 Gabapentin 800 mg PO DAILY 11/23/18 Insulin Glargine,Hum.rec.anlog [Lantus] 40 unit SQ BID 11/23/18 Insulin Lispro [Humalog] 25 unit SQ BID 11/23/18 Meloxicam 15 mg PO PRN PRN 11/23/18 Mirabegron [Myrbetriq] 25 mg PO DAILY 11/23/18 Microbiology 11/24/18 15:30 Blood - Peripheral Venous Blood Culture - Preliminary NO GROWTH OBTAINED AFTER 48 HOURS, INCUBATION TO CONTINUE FOR 3 DAYS. 11/24/18 12:40 Blood - Peripheral Venous Blood Culture - Preliminary NO GROWTH OBTAINED AFTER 48 HOURS, INCUBATION TO CONTINUE FOR 3 DAYS. 11/24/18 14:56 Foot - Right Gram Stain - Final 11/24/18 14:56 Foot - Right Wound Culture - Preliminary Klebsiella Pneumoniae Enterobacter Aerogenes Strep Agalactiae Group B Enterococcus Faecalis Presumptive Mssa (Pbp2a Neg) 11/24/18 14:56 Bone Gram Stain - Final 11/24/18 14:56 Bone Tissue Culture - Preliminary Strep Agalactiae Group B Enterobacter Aerogenes Vr Ec Faecalis Pending Organism 11/22/18 22:45 Blood - Peripheral Venous Blood Culture - Preliminary NO GROWTH OBTAINED AFTER 72 HOURS, INCUBATION TO CONTINUE FOR 2 DAYS. 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 requiring PICC line at home Dr Del Rosario-Cont vanc/zosyn Cont Pain mx- tylenol/oxycodone/gabapentin Transient bacteremia, likely contaminant, wound cx with polymicrobial organisms Per podiatry- partial weight bearing with surgical shoe #IDDM, Pt on lispo- 25U bid at home, hold Home Lantus 40u bid, on levemir 25ubid Pt required extra 20u ISS coverage in 24 hrs, will increase levemir to 30ubid ISS ACHS BGM ACHS HgbA1c -10.2 #Constipation Pt on oxycodone Miralax, colace #Hypocalcemia Corrected calcium -9.0 Cont to monitor #Elevated Alk phosp Likely bone related as GGT - nl ESR elevated-72 Cont to monitor #Urinary incontinence Cont mirabegron # anxiety disorder Cont home diazepam #Obesity BMI 39.1 Diet and exercise counselling FEN No standing fluids, encourage PO intake Monitor lytes replete as needed Diabetic diet PPx Will confirm with telephoto installer about DVT prophylaxis Dispo Walked 40 feet, will need a rolling walker at home per PT For likely dc on Friday Medsurg Visit type - Emergency Visit Emergency Visit: Yes ED Registration Date: 11/23/18 Care time: The patient presented to the Emergency Department on the above date and was hospitalized for further evaluation of their emergent condition. - New Patient This patient is new to me today: No - Critical Care Critical Care patient: No - Discharge Referral Referred to [facility] No
[2018-11-26 08:01] LABS: BASO % 0.9 % (0-2.0); EOS % 6.4 % (0-4.5); HEMOGLOBIN 10.9 GM/dL (10.7-15.3); LYMPH % 30.7 % (8-40); MCH 29.2 pg (25.7-33.7); MCHC 34.2 g/dl (32.0-36.0); MEAN CELL VOLUME 85.4 fl (80-96); MEAN PLT VOLUME 9.2 fl (7.5-11.1); RBC 3.75 M/mm3 (3.60-5.2); RDW 12.8 % (11.6-15.6); WHITE BLOOD COUNT 7.8 K/mm3 (4.0-10.0)
[2018-11-26 08:33] LABS: ALBUMIN 2.9 g/dl (3.4-5.0); BILIRUBIN,TOTAL 0.5 mg/dL (0.2-1); BLOOD UREA NITROGEN 13.3 mg/dL (7-18); CALCIUM 8.5 mg/dL (8.5-10.1); CREATININE 0.9 mg/dL (0.55-1.3); MAGNESIUM 2.4 mg/dL (1.8-2.4); PHOSPHOROUS 3.6 mg/dL (2.5-4.9); POTASSIUM 4.2 mmol/L (3.5-5.1); TOT PROT 6.9 g/dl (6.4-8.2)
[2018-11-26 08:47] LABS: PLATELET COUNT 276 K/MM3 (134-434)
--- NOTE | 2018-11-26 09:28 | PN ---
Teaching Attending Note Name of Resident: Maryanne Velazquez ATTENDING PHYSICIAN STATEMENT I saw and evaluated the patient. I reviewed the resident's note and discussed the case with the resident. I agree with the resident's findings and plan as documented. SUBJECTIVE:asymptomatic. denies CP, SOB, fever, chills, N/V/C/D OBJECTIVE: Last Vital Signs Temp Pulse Resp BP Pulse Ox 98.8 F 79 20 107/77 98 11/26/18 06:00 11/26/18 06:00 11/26/18 06:00 11/26/18 06:00 11/25/18 21:00 General NAD CV S1 S2 RRR no murmur/rub/gallop Lungs CTA B/L no wheezing/rales/rhonchi Abdomen soft NT/ND Extremities R foot wrapped dressing c/d/i, TP 2+ ASSESSMENT AND PLAN: 63 year old woman with a history of type 2 DM, diabetic neuropathy, diabetic foot ulcer who presented to the ED with right foot pain and right leg swelling. 1. Right foot abscess and cellulitis- s/p I&D of abscess and right 5th toe amputation 11/24. Wcx is polymicrobial. on vanco/zosyn. will check Vanco level today. Bcx had 1 out of 2 (+) group B Strep in 1 of 2 and repeat is negative. awaiting for ID final recommendation for abx selection and if bone cx proximal bone was negative or not to determine abx selection. wound care per podiatry. ID and podiatry on board. 2. Type 2 DM with peripheral neuropathy- A1c 10.2. titrate levemir to optimize glucose goal. will need tighter glycemic control. 3. Anxiety- Continue Valium as needed 4. Obesity with BMI 39.1 5. DVT ppx- unclear why she is not on ppx. will start lovenox.
[2018-11-26] MEDS ORDERED: DOCUSATE SODIUM 100 MG CAPSULE (FP) PO PRN (09:37)
[2018-11-26] MEDS ORDERED: INSULIN (LEVEMIR) 100 UNITS/ML UNITS SQ ONE (10:06)
[2018-11-26] MEDS: POLYETHYLENE GLYCOL 3350 119 GM BTL PO SCH ×2 (11:11→21:42)
[2018-11-26] MEDS: GABAPENTIN 300 MG CAPSULE (FP) PO SCH ×2 (11:11→21:43)
[2018-11-26] MEDS: ENOXAPARIN NA (PORCINE) 40 MG/0.4 ML DISP.SYRIN SQ SCH (11:11)
[2018-11-26] MEDS: SOLIFENACIN SUCCINATE 5 MG TAB PO SCH (11:12)
[2018-11-26] MEDS: oxyCODONE HCL 5 MG TABLET PO PRN ×2 (11:14→21:43)
--- NOTE | 2018-11-26 11:28 | PN ---
Progress Note (short form) - Note Progress Note: Podiatry F/U: Seen/evaluated at bedside NAD. Pain controlled, intermittent to the right foot. Denies F/V/N/C/SOB/CP. AFebrile. S/p R fifth digit amputation with I&D POD#2. MARI: R foot: DP 2/4, PT 1/4, TG wnl. Dressing C/D/I, no active bleeding, no strikethrough. Sutures coapted proximally, distal aspect of surgical site open. With mostly granular base, minimal slough, no purulent drainage, no soft tissue crepitus, periwound cellulitis improving, resolving infection. No ischemic changes to the foot. Mild tenderness to palpation. OR Cx: VRE, MSSA, beta strep Blood Cx: no growth x 24 hr Imp: 63 year old diabetic female s/p R fifth digit amputation with I&D 1. IV abx per ID 2. Saline irrigation and DSD R foot 3. Partial WB R foot with surgical shoe 4. F/U OR path 5. Will follow Michael Trent DPM
--- NOTE | 2018-11-26 12:41 | PN ---
Progress Note, Physician History of Present Illness: patient stable no new issues - Current Medication List Current Medications: Active Medications Acetaminophen (Tylenol -) 1,000 mg PO Q6H PRN PRN Reason: PAIN Last Admin: 11/26/18 02:23 Dose: 1,000 mg Diazepam (Valium -) 5 mg PO Q8H PRN PRN Reason: ANXIETY Docusate Sodium (Colace -) 100 mg PO BID PRN PRN Reason: CONSTIPATION Enoxaparin Sodium (Lovenox -) 40 mg SQ DAILY [facility] Last Admin: 11/26/18 11:11 Dose: 40 mg Gabapentin (Neurontin -) 600 mg PO BID [facility] Last Admin: 11/26/18 11:11 Dose: 600 mg Vancomycin HCl 1,250 mg/ (Dextrose) 250 mls @ 166.667 mls/hr IVPB Q24H [facility]; Protocol Last Admin: 11/25/18 15:06 Dose: 166.667 mls/hr Piperacillin Sod/Tazobactam (Sod 3.375 gm/ Dextrose) 50 mls @ 100 mls/hr IVPB Q8H-IV [facility]; Protocol Last Admin: 11/26/18 11:13 Dose: 100 mls/hr Insulin Aspart (Novolog Vial Sliding Scale -) 1 vial SQ ACHS [facility]; Protocol Last Admin: 11/26/18 12:12 Dose: 6 units Insulin Detemir (Levemir Vial) 25 units SQ 0700,2200 [facility] Last Admin: 11/26/18 06:25 Dose: 25 units Non-Formulary Medication (Mirabegron [Myrbetriq]) 25 mg PO DAILY [facility] Oxycodone HCl (Roxicodone -) 5 mg PO Q4H PRN PRN Reason: PAIN LEVEL 1-5 Last Admin: 11/26/18 11:14 Dose: 5 mg Polyethylene Glycol (Miralax (For Daily Use) -) 17 gm PO BID [facility] Last Admin: 11/26/18 11:11 Dose: 17 grams Solifenacin (Vesicare -) 5 mg PO DAILY [facility] Last Admin: 11/26/18 11:12 Dose: 5 mg - Objective Vital Signs: Vital Signs Temperature 98.5 F 11/26/18 10:00 Pulse Rate 84 11/26/18 10:00 Respiratory Rate 20 11/26/18 10:00 Blood Pressure 125/60 11/26/18 10:00 O2 Sat by Pulse Oximetry (%) 98 11/25/18 21:00 Constitutional: Yes: No Distress, Calm Cardiovascular: Yes: Regular Rate and Rhythm Respiratory: Yes: Regular, CTA Bilaterally Gastrointestinal: Yes: Normal Bowel Sounds, Soft Musculoskeletal: Yes: WNL Extremities: Yes: Other Wound/Incision: Yes: Dressing Dry and Intact Neurological: Yes: Alert, Oriented Psychiatric: Yes: Alert, Oriented Labs: CBC, BMP 11/26/18 07:13 11/26/18 07:13 INR, PTT INR 0.97 (0.83-1.09) 11/23/18 08:05 Assessment/Plan 63 yof with PMHx of IDDM, diabetic neuropathy, Chronic diabetic foot ulcer s/p HBO (followed by Dr. Trent) admitted with right RLE cellulitis/abscess +/- osteomyelitis rt foot cellulitis rt foot erythema threatened leg tenderness plan all cx from the wound noted also from the bone noted will d/w with the podiatry team rest as per the team
[2018-11-27] MEDS: PIPERACILLIN/TAZOB 3.375 GM 3.375 GM in DEXTROSE 5%-WATER - 50 ML IVPB SCH ×3 (01:31→17:30)
[2018-11-27] MEDS: INSULIN SLIDING SCALE (NOVOLOG) 1 VIAL SQ SCH ×4 (06:57→21:26)
[2018-11-27] MEDS: INSULIN (LEVEMIR) 100 UNITS/ML UNITS SQ SCH ×2 (06:57→21:26)
[2018-11-27 07:24] LABS: BASO % 0.9 % (0-2.0); EOS % 6.2 % (0-4.5); HEMATOCRIT 31.8 % (32.4-45.2); HEMOGLOBIN 10.8 GM/dL (10.7-15.3); LYMPH % 29.9 % (8-40); MCH 28.9 pg (25.7-33.7); MEAN CELL VOLUME 84.8 fl (80-96); MONO % 9.9 % (3.8-10.2); NEUT % 53.1 % (42.8-82.8); PLATELET COUNT 284 K/MM3 (134-434); RBC 3.75 M/mm3 (3.60-5.2); RDW 12.8 % (11.6-15.6); WHITE BLOOD COUNT 7.7 K/mm3 (4.0-10.0)
[2018-11-27 07:43] LABS: INR 0.98 (0.83-1.09); PROTHROMBIN TIME (PATIENT) 11.6 SEC (9.7-13.0)
[2018-11-27 08:03] LABS: ALBUMIN 2.8 g/dl (3.4-5.0); BILIRUBIN,TOTAL 0.4 mg/dL (0.2-1); BLOOD UREA NITROGEN 15.8 mg/dL (7-18); CALCIUM 8.7 mg/dL (8.5-10.1); CREATININE 0.9 mg/dL (0.55-1.3); MAGNESIUM 2.3 mg/dL (1.8-2.4); POTASSIUM 4.4 mmol/L (3.5-5.1); TOT PROT 6.7 g/dl (6.4-8.2)
[2018-11-27] MEDS ORDERED: PT OWN MED DRAWER 7, Y5N ONE (09:08)
[2018-11-27] MEDS ORDERED: PIPERACILLIN/TAZOBACTAM 3.375 GM VIAL IVPB ONE ×3 (09:08→22:46)
[2018-11-27] MEDS ORDERED: DEXTROSE 5%-WATER - 50 ML IVPB ONE ×3 (09:09→22:46)
[2018-11-27] MEDS: SOLIFENACIN SUCCINATE 5 MG TAB PO SCH (09:15)
[2018-11-27] MEDS: ENOXAPARIN NA (PORCINE) 40 MG/0.4 ML DISP.SYRIN SQ SCH (09:15)
[2018-11-27] MEDS: oxyCODONE HCL 5 MG TABLET PO PRN (09:15)
[2018-11-27] MEDS: GABAPENTIN 300 MG CAPSULE (FP) PO SCH ×2 (09:16→21:25)
[2018-11-27] MEDS: POLYETHYLENE GLYCOL 3350 119 GM BTL PO SCH ×2 (09:17→21:24)
[2018-11-27 09:31] LABS: PHOSPHOROUS 4.6 mg/dL (2.5-4.9)
--- NOTE | 2018-11-27 10:07 | PN ---
Progress Note (short form) - Note Progress Note: Podiatry F/U; Seen/evaluated at bedside NAD. Pain intermittent to the right foot, denies F/V/ N/C/SOB/CP. Had low grade temp, currently afebrile. S/p R fifth digit amputation, I&D for severe DFI. MARI: R foot: DP 2/4, PT 1/4, TG wnl. There is a post-surgical wound fifth ray with mostly granular base, minimal fibrotic slough, no purulence, no fluctuance, no soft tissue crepitus, surrounding periwound cellulitis slowly improving, no ischemic changes. Proximal sutures loosely coapted without dehiscence. Moderate tenderness to palpation. OR Cx: MSSA, VRE, klebsiella OR Path: pending Blood Cx: no growth Imp: 63 year old diabetic female s/p R fifth digit amputation I&D for severe DFI 1. IV abx per ID. Dapto for VRE 2. DSD R foot 3. Rx bactroban to the right foot daily 4. Partial WB R heel with surgical shoe 5. Will follow Michael Trent DPM
--- NOTE | 2018-11-27 11:02 | PN ---
Progress Note, Physician History of Present Illness: patient stable no new issues - Current Medication List Current Medications: Active Medications Acetaminophen (Tylenol -) 1,000 mg PO Q6H PRN PRN Reason: PAIN Last Admin: 11/26/18 02:23 Dose: 1,000 mg Diazepam (Valium -) 5 mg PO Q8H PRN PRN Reason: ANXIETY Docusate Sodium (Colace -) 100 mg PO BID PRN PRN Reason: CONSTIPATION Enoxaparin Sodium (Lovenox -) 40 mg SQ DAILY [facility] Last Admin: 11/27/18 09:15 Dose: 40 mg Gabapentin (Neurontin -) 600 mg PO BID [facility] Last Admin: 11/27/18 09:16 Dose: 600 mg Piperacillin Sod/Tazobactam (Sod 3.375 gm/ Dextrose) 50 mls @ 100 mls/hr IVPB Q8H-IV [facility]; Protocol Last Admin: 11/27/18 09:16 Dose: 100 mls/hr Insulin Aspart (Novolog Vial Sliding Scale -) 1 vial SQ ACHS [facility]; Protocol Last Admin: 11/27/18 06:57 Dose: 4 units Insulin Detemir (Levemir Vial) 30 units SQ 0700,2200 [facility] Last Admin: 11/27/18 06:57 Dose: 30 unit Mupirocin (Bactroban 2% Ointment -) 1 applic TP DAILY [facility] Non-Formulary Medication (Mirabegron [Myrbetriq]) 25 mg PO DAILY [facility] Oxycodone HCl (Roxicodone -) 5 mg PO Q4H PRN PRN Reason: PAIN LEVEL 1-5 Last Admin: 11/27/18 09:15 Dose: 5 mg Polyethylene Glycol (Miralax (For Daily Use) -) 17 gm PO BID [facility] Last Admin: 11/27/18 09:17 Dose: 17 grams Solifenacin (Vesicare -) 5 mg PO DAILY [facility] Last Admin: 11/27/18 09:15 Dose: 5 mg - Objective Vital Signs: Vital Signs Temperature 98.3 F 11/27/18 06:00 Pulse Rate 71 11/27/18 06:00 Respiratory Rate 20 11/27/18 06:00 Blood Pressure 128/60 11/27/18 06:00 O2 Sat by Pulse Oximetry (%) 100 11/26/18 21:00 Constitutional: Yes: No Distress, Calm Cardiovascular: Yes: Regular Rate and Rhythm Respiratory: Yes: Regular, CTA Bilaterally Gastrointestinal: Yes: Normal Bowel Sounds, Soft Musculoskeletal: Yes: WNL Extremities: Yes: Other Wound/Incision: Yes: Well Approximated Neurological: Yes: Alert, Oriented Labs: CBC, BMP 11/27/18 06:25 11/27/18 06:13 INR, PTT INR 0.98 (0.83-1.09) 11/27/18 06:13 Assessment/Plan 63 yof with PMHx of IDDM, diabetic neuropathy, Chronic diabetic foot ulcer s/p HBO (followed by Dr. Trent) admitted with right RLE cellulitis/abscess +/- osteomyelitis rt foot cellulitis rt foot erythema threatened leg tenderness plan await for surgical path to be back rest as per team
--- NOTE | 2018-11-27 17:15 | PN ---
Physical Exam: SUBJECTIVE: Patient seen and examined, sitting in wheelchair, no complaints. OBJECTIVE: Vital Signs Period Temp Pulse Resp BP Sys/Duarte Pulse Ox Last 24 Hr 97.3 F-100.3 F 71-76 20-20 125-130/60-70 99-100 Intake & Output 11/24/18 11/25/18 11/26/18 11/27/18 23:59 23:59 23:59 23:59 Intake Total 1550 1750 150 530 Output Total 21 Balance 1529 1750 150 530 Weight 200 lb 14.4 oz 200 lb 200 lb 6.4 oz 201 lb GENERAL: sitting in wheelchair in no acute distress CVS: S1S2 regular Neck: soft, supple, no JVD Chest: CTAB, no rales or wheezing Abdomen:soft, obese, NT extremities: Right foot swelling/erythema imprvoed, right 5th toe amputation, clean base, pos DP pulses Laboratory Results - last 24 hr 11/26/18 11/27/18 11/27/18 21:45 06:13 06:13 WBC RBC Hgb Hct MCV MCH MCHC RDW Plt Count MPV Absolute Neuts (auto) Neutrophils % Lymphocytes % Monocytes % Eosinophils % Basophils % Nucleated RBC % PT with INR 11.60 INR 0.98 Sodium 136 Potassium 4.4 Chloride 101 Carbon Dioxide 26 Anion Gap 9 BUN 15.8 Creatinine 0.9 Est GFR (CKD-EPI)AfAm 78.87 Est GFR (CKD-EPI)NonAf 68.05 POC Glucometer 238 Random Glucose 222 H Calcium 8.7 Phosphorus 4.6 Magnesium 2.3 Total Bilirubin 0.4 AST 9 L ALT 20 Alkaline Phosphatase 177 H Total Protein 6.7 Albumin 2.8 L 11/27/18 11/27/18 11/27/18 06:25 06:55 12:43 WBC 7.7 RBC 3.75 Hgb 10.8 Hct 31.8 L MCV 84.8 MCH 28.9 MCHC 34.0 RDW 12.8 Plt Count 284 MPV 9.0 Absolute Neuts (auto) 4.1 Neutrophils % 53.1 Lymphocytes % 29.9 Monocytes % 9.9 Eosinophils % 6.2 H Basophils % 0.9 Nucleated RBC % 0 PT with INR INR Sodium Potassium Chloride Carbon Dioxide Anion Gap BUN Creatinine Est GFR (CKD-EPI)AfAm Est GFR (CKD-EPI)NonAf POC Glucometer 234 205 Random Glucose Calcium Phosphorus Magnesium Total Bilirubin AST ALT Alkaline Phosphatase Total Protein Albumin Active Medications Generic Name Dose Route Start Last Admin Trade Name Freq PRN Reason Stop Dose Admin Acetaminophen 1,000 mg 11/24/18 14:44 11/26/18 02:23 Tylenol - PO 1,000 mg Q6H PRN Administration PAIN Docusate Sodium 100 mg 11/26/18 09:37 Colace - PO BID PRN CONSTIPATION Enoxaparin Sodium 40 mg 11/26/18 10:00 11/27/18 09:15 Lovenox - SQ 40 mg DAILY [facility] Administration Gabapentin 600 mg 11/24/18 22:00 11/27/18 09:16 Neurontin - PO 600 mg BID [facility] Administration Piperacillin Sod/Tazobactam 50 mls @ 100 mls/hr 11/24/18 18:00 11/27/18 09:16 Sod 3.375 gm/ Dextrose IVPB 100 mls/hr Q8H-IV [facility] Administration Protocol Insulin Aspart 1 vial 11/25/18 09:15 11/27/18 12:49 Novolog Vial Sliding Scale - SQ 4 units ACHS [facility] Administration Protocol Insulin Detemir 30 units 11/26/18 22:00 11/27/18 06:57 Levemir Vial SQ 30 unit 0700,2200 [facility] Administration Mupirocin 1 applic 11/28/18 10:00 Bactroban 2% Ointment - TP DAILY [facility] Non-Formulary Medication 25 mg 11/25/18 10:00 Mirabegron [Myrbetriq] PO DAILY [facility] Polyethylene Glycol 17 gm 11/26/18 10:00 11/27/18 09:17 Miralax (For Daily Use) - PO 17 grams BID [facility] Administration Solifenacin 5 mg 11/25/18 10:00 11/27/18 09:15 Vesicare - PO 5 mg DAILY [facility] Administration Microbiology 11/24/18 15:30 Blood - Peripheral Venous Blood Culture - Preliminary NO GROWTH OBTAINED AFTER 72 HOURS, INCUBATION TO CONTINUE FOR 2 DAYS. 11/24/18 14:56 Foot - Right Gram Stain - Final 11/24/18 14:56 Foot - Right Wound Culture - Final Klebsiella Pneumoniae Enterobacter Aerogenes Strep Agalactiae Group B Enterococcus Faecalis Staphylococcus Aureus 11/24/18 12:40 Blood - Peripheral Venous Blood Culture - Preliminary NO GROWTH OBTAINED AFTER 72 HOURS, INCUBATION TO CONTINUE FOR 2 DAYS. 11/24/18 14:56 Bone Gram Stain - Final 11/24/18 14:56 Bone Tissue Culture - Preliminary Strep Agalactiae Group B Enterobacter Aerogenes Vr Ec Faecalis Presumptive Mssa (Pbp2a Neg) 11/24/18 14:56 Bone Anaerobic Culture - Final NO ANAEROBES WERE ISOLATED 11/22/18 22:45 Blood - Peripheral Venous Blood Culture - Preliminary NO GROWTH OBTAINED AFTER 96 HOURS, INCUBATION TO CONTINUE FOR 1 DAYS. 11/22/18 22:40 Blood - Peripheral Venous Blood Culture - Final Strep Agalactiae Group B ASSESSMENT/PLAN: 63 yof with PMHx of IDDM, diabetic neuropathy, Chronic diabetic foot ulcer s/p HBO (followed by Dr. Trent) admitted with right RLE cellulitis/abscess +/- osteomyelitis -RLE cellulitis/Abscess, suspected osteomyelitis s/p I&D/right 5th toe amputation -1/2 Strep agalactiae Group B bacteremia -IDDM -Diabetic neuropathy -Anxiety Plan: POdiatry input noted Follow up bone biopsy results ID input noted. Zosyn, duration per biopsy results/margins. Levemir, ISS, diabetic diet. Continue valium/gabapentin DVTPPX lovenox Dispo pending Above and antibiotic plan Plan discussed with patient and RN, all questions answered. Visit type - Emergency Visit Emergency Visit: Yes ED Registration Date: 11/23/18 Care time: The patient presented to the Emergency Department on the above date and was hospitalized for further evaluation of their emergent condition. - New Patient This patient is new to me today: No - Critical Care Critical Care patient: No - Discharge Referral Referred to [facility] Med P.C.: No
--- NOTE | 2018-11-27 17:16 | PATH ---
Surgical Pathology Report Patient Name: JIMBO LEWIS Med. Rec. #: [id number] /Age/Gender: 1955 (Age: 63) / F Account: [id number] Location: [facility] MED/SURG Taken: 11/24/2018 Received: 11/25/2018 Reported: 11/27/2018 Physicians: AMADOR Rivera M.D. Specimen(s) Received A: 5TH TOE RIGHT FOOT B: PROXIMAL BONE 5TH DIGIT Clinical History Abscess 5th metatarsal right foot Final Diagnosis A. FOOT, RIGHT, FIFTH TOE, AMPUTATION: DIGIT WITH MARKED ACUTE AND CHRONIC INFLAMMATION, ULCERATION AND ABSCESS FORMATION EXTENDING TO SKIN AND SOFT TISSUE MARGINS. UNDERLYING BONE WITH ACUTE OSTEOMYELITIS. BONE SURGICAL MARGIN IS NEGATIVE FOR ACUTE OSTEOMYELITIS. B. PROXIMAL BONE, FIFTH DIGIT, EXCISION: BONE AND ADHERENT FIBROCONNECTIVE TISSUE WITHOUT SIGNIFICANT PATHOLOGIC FINDINGS. NO ACUTE OSTEOMYELITIS IDENTIFIED. Electronically Signed Marjorie Cristobal M.D. Gross Description A. Received in formalin labeled "fifth toe right foot," is a 4.0 x 2.0 x 1.8 cm toe amputation. The epidermal surface displays a 2.8 x 2.0 cm brown-mattson, ulcerated lesion involving the skin and soft tissue margin. The lesion extends to and possibly involves the underlying bone. Civil Preparedness Coordinator sections are submitted in 3 cassettes as follows: 1-lesion with underlying bone, following decalcification; 2-bone margin, following decalcification; 3-skin and soft tissue margin. B. Received in formalin labeled "proximal bone fifth digit," is a 1.8 x 1.5 x 1.5 cm yellow-brown portion of bone with a focal defect. Sectioning reveals yellow-brown, markedly softened bone. Civil Preparedness Coordinator sections are submitted in one cassette, following decalcification. /11/25/201811/25/2018
[2018-11-27] MEDS: ACETAMINOPHEN 500 MG TABLET (FP) PO PRN (18:06)
--- NOTE | 2018-11-27 18:55 | PN ---
Physical Exam: SUBJECTIVE: Patient seen and examined OBJECTIVE: Vital Signs Period Temp Pulse Resp BP Sys/Duarte Pulse Ox Last 24 Hr 97.3 F-99.2 F 71-76 20-20 127-157/60-76 99-100 GENERAL: The patient is awake, alert, and fully oriented, in no acute distress. HEAD: Normal with no signs of trauma. EYES: PERRL, extraocular movements intact, sclera anicteric, conjunctiva clear. No ptosis. ENT: Ears normal, nares patent, oropharynx clear without exudates, moist mucous membranes. NECK: Trachea midline, full range of motion, supple. LUNGS: Breath sounds equal, clear to auscultation bilaterally, no wheezes, no crackles, no accessory muscle use. HEART: Regular rate and rhythm, S1, S2 without murmur, rub or gallop. ABDOMEN: Soft, nontender, nondistended, normoactive bowel sounds, no guarding, no rebound, no hepatosplenomegaly, no masses. EXTREMITIES: 2+ pulses, warm, well-perfused, no edema. NEUROLOGICAL: Cranial nerves II through XII grossly intact. Normal speech, gait not observed. PSYCH: Normal mood, normal affect. SKIN: Warm, dry, normal turgor, no rashes or lesions noted Laboratory Results - last 24 hr 11/26/18 11/27/18 11/27/18 21:45 06:13 06:13 WBC RBC Hgb Hct MCV MCH MCHC RDW Plt Count MPV Absolute Neuts (auto) Neutrophils % Lymphocytes % Monocytes % Eosinophils % Basophils % Nucleated RBC % PT with INR 11.60 INR 0.98 Sodium 136 Potassium 4.4 Chloride 101 Carbon Dioxide 26 Anion Gap 9 BUN 15.8 Creatinine 0.9 Est GFR (CKD-EPI)AfAm 78.87 Est GFR (CKD-EPI)NonAf 68.05 POC Glucometer 238 Random Glucose 222 H Calcium 8.7 Phosphorus 4.6 Magnesium 2.3 Total Bilirubin 0.4 AST 9 L ALT 20 Alkaline Phosphatase 177 H Total Protein 6.7 Albumin 2.8 L 11/27/18 11/27/18 11/27/18 06:25 06:55 12:43 WBC 7.7 RBC 3.75 Hgb 10.8 Hct 31.8 L MCV 84.8 MCH 28.9 MCHC 34.0 RDW 12.8 Plt Count 284 MPV 9.0 Absolute Neuts (auto) 4.1 Neutrophils % 53.1 Lymphocytes % 29.9 Monocytes % 9.9 Eosinophils % 6.2 H Basophils % 0.9 Nucleated RBC % 0 PT with INR INR Sodium Potassium Chloride Carbon Dioxide Anion Gap BUN Creatinine Est GFR (CKD-EPI)AfAm Est GFR (CKD-EPI)NonAf POC Glucometer 234 205 Random Glucose Calcium Phosphorus Magnesium Total Bilirubin AST ALT Alkaline Phosphatase Total Protein Albumin 11/27/18 17:28 WBC RBC Hgb Hct MCV MCH MCHC RDW Plt Count MPV Absolute Neuts (auto) Neutrophils % Lymphocytes % Monocytes % Eosinophils % Basophils % Nucleated RBC % PT with INR INR Sodium Potassium Chloride Carbon Dioxide Anion Gap BUN Creatinine Est GFR (CKD-EPI)AfAm Est GFR (CKD-EPI)NonAf POC Glucometer 279 Random Glucose Calcium Phosphorus Magnesium Total Bilirubin AST ALT Alkaline Phosphatase Total Protein Albumin Active Medications Generic Name Dose Route Start Last Admin Trade Name Freq PRN Reason Stop Dose Admin Acetaminophen 1,000 mg 11/24/18 14:44 11/27/18 18:06 Tylenol - PO 1,000 mg Q6H PRN Administration PAIN Docusate Sodium 100 mg 11/26/18 09:37 Colace - PO BID PRN CONSTIPATION Enoxaparin Sodium 40 mg 11/26/18 10:00 11/27/18 09:15 Lovenox - SQ 40 mg DAILY [facility] Administration Gabapentin 600 mg 11/24/18 22:00 11/27/18 09:16 Neurontin - PO 600 mg BID [facility] Administration Piperacillin Sod/Tazobactam 50 mls @ 100 mls/hr 11/24/18 18:00 11/27/18 17:30 Sod 3.375 gm/ Dextrose IVPB 100 mls/hr Q8H-IV [facility] Administration Protocol Insulin Aspart 1 vial 11/25/18 09:15 11/27/18 17:29 Novolog Vial Sliding Scale - SQ 6 units ACHS [facility] Administration Protocol Insulin Detemir 30 units 11/26/18 22:00 11/27/18 06:57 Levemir Vial SQ 30 unit 0700,2200 [facility] Administration Mupirocin 1 applic 11/28/18 10:00 Bactroban 2% Ointment - TP DAILY [facility] Non-Formulary Medication 25 mg 11/25/18 10:00 Mirabegron [Myrbetriq] PO DAILY [facility] Polyethylene Glycol 17 gm 07/04/19 10:00 11/27/18 09:17 Miralax (For Daily Use) - PO 17 grams BID [facility] Administration Solifenacin 5 mg 11/25/18 10:00 11/27/18 09:15 Vesicare - PO 5 mg DAILY [facility] Administration ASSESSMENT/PLAN:
[2018-11-27] MEDS ORDERED: oxyCODONE HCL 5 MG TABLET PO ONE (20:54)
[2018-11-28] MEDS: PIPERACILLIN/TAZOB 3.375 GM 3.375 GM in DEXTROSE 5%-WATER - 50 ML IVPB SCH ×3 (01:15→17:41)
[2018-11-28] MEDS: INSULIN SLIDING SCALE (NOVOLOG) 1 VIAL SQ SCH ×4 (06:53→23:08)
[2018-11-28] MEDS: INSULIN (LEVEMIR) 100 UNITS/ML UNITS SQ SCH ×2 (06:53→23:08)
[2018-11-28] MEDS: ACETAMINOPHEN 500 MG TABLET (FP) PO PRN ×3 (06:54→23:06)
[2018-11-28 08:21] LABS: BASO % 0.9 % (0-2.0); EOS % 7.4 % (0-4.5); LYMPH % 33.2 % (8-40); MCH 29.2 pg (25.7-33.7); MCHC 34.4 g/dl (32.0-36.0); MEAN CELL VOLUME 84.9 fl (80-96); MEAN PLT VOLUME 8.7 fl (7.5-11.1); NEUT % 49.5 % (42.8-82.8); RBC 3.77 M/mm3 (3.60-5.2); RDW 12.9 % (11.6-15.6); WHITE BLOOD COUNT 7.5 K/mm3 (4.0-10.0)
[2018-11-28 08:59] LABS: BLOOD UREA NITROGEN 17.4 mg/dL (7-18); CALCIUM 8.9 mg/dL (8.5-10.1); CREATININE 0.9 mg/dL (0.55-1.3); MAGNESIUM 2.7 mg/dL (1.8-2.4); PHOSPHOROUS 5.5 mg/dL (2.5-4.9); POTASSIUM 4.4 mmol/L (3.5-5.1)
[2018-11-28 09:17] LABS: PLATELET COUNT 339 K/MM3 (134-434)
[2018-11-28] MEDS ORDERED: PIPERACILLIN/TAZOBACTAM 3.375 GM VIAL IVPB ONE ×2 (10:45→17:39)
[2018-11-28] MEDS ORDERED: DEXTROSE 5%-WATER - 50 ML IVPB ONE ×2 (10:46→17:39)
[2018-11-28] MEDS: ENOXAPARIN NA (PORCINE) 40 MG/0.4 ML DISP.SYRIN SQ SCH (10:57)
[2018-11-28] MEDS: SOLIFENACIN SUCCINATE 5 MG TAB PO SCH (10:58)
[2018-11-28] MEDS: GABAPENTIN 300 MG CAPSULE (FP) PO SCH ×2 (10:58→23:07)
[2018-11-28] MEDS: MUPIROCIN 2% TOPICAL OINTMENT 22 GM TUBE TP SCH (10:59)
[2018-11-28] MEDS: POLYETHYLENE GLYCOL 3350 119 GM BTL PO SCH ×2 (11:01→23:10)
--- NOTE | 2018-11-28 12:24 | PN ---
Physical Exam: SUBJECTIVE: Patient seen and examined, no foot pain currently. no fevers/chills , overall feels better. OBJECTIVE: Vital Signs Period Temp Pulse Resp BP Sys/Duarte Pulse Ox Last 24 Hr 97.3 F-99 F 68-76 18-20 117-157/60-76 Intake & Output 11/25/18 11/26/18 11/27/18 11/28/18 23:59 23:59 23:59 23:59 Intake Total 1750 150 630 50 Balance 1750 150 630 50 Weight 200 lb 200 lb 6.4 oz 201 lb 200 lb 1 oz GENERAL:sitting in bed in no acute distress Chest: CTAB, no rales or wheezing CVS:S1S2 regular Abdomen:soft, obese, NT Extremities: Right foot swelling/erythema improved, right 5th toe amputation site with clean base, no active discharge, pos DP pulses Psych: pleasant, co-operative Laboratory Results - last 24 hr 11/27/18 11/27/18 11/27/18 12:43 17:28 21:23 WBC RBC Hgb Hct MCV MCH MCHC RDW Plt Count MPV Absolute Neuts (auto) Neutrophils % Lymphocytes % Monocytes % Eosinophils % Basophils % Nucleated RBC % Sodium Potassium Chloride Carbon Dioxide Anion Gap BUN Creatinine Est GFR (CKD-EPI)AfAm Est GFR (CKD-EPI)NonAf POC Glucometer 205 279 185 Random Glucose Calcium Phosphorus Magnesium 11/28/18 11/28/18 11/28/18 06:48 07:15 07:15 WBC 7.5 RBC 3.77 Hgb 11.0 Hct 32.0 L MCV 84.9 MCH 29.2 MCHC 34.4 RDW 12.9 Plt Count 339 MPV 8.7 Absolute Neuts (auto) 3.7 Neutrophils % 49.5 Lymphocytes % 33.2 Monocytes % 9.0 Eosinophils % 7.4 H Basophils % 0.9 Nucleated RBC % 0 Sodium 137 Potassium 4.4 Chloride 101 Carbon Dioxide 27 Anion Gap 10 BUN 17.4 Creatinine 0.9 Est GFR (CKD-EPI)AfAm 78.87 Est GFR (CKD-EPI)NonAf 68.05 POC Glucometer 176 Random Glucose 180 H Calcium 8.9 Phosphorus 5.5 H Magnesium 2.7 H 11/28/18 10:56 WBC RBC Hgb Hct MCV MCH MCHC RDW Plt Count MPV Absolute Neuts (auto) Neutrophils % Lymphocytes % Monocytes % Eosinophils % Basophils % Nucleated RBC % Sodium Potassium Chloride Carbon Dioxide Anion Gap BUN Creatinine Est GFR (CKD-EPI)AfAm Est GFR (CKD-EPI)NonAf POC Glucometer 163 Random Glucose Calcium Phosphorus Magnesium Active Medications Generic Name Dose Route Start Last Admin Trade Name Freq PRN Reason Stop Dose Admin Acetaminophen 1,000 mg 11/24/18 14:44 11/28/18 06:54 Tylenol - PO 1,000 mg Q6H PRN Administration PAIN Docusate Sodium 100 mg 11/26/18 09:37 Colace - PO BID PRN CONSTIPATION Enoxaparin Sodium 40 mg 11/26/18 10:00 11/28/18 10:57 Lovenox - SQ 40 mg DAILY [facility] Administration Gabapentin 600 mg 11/24/18 22:00 11/28/18 10:58 Neurontin - PO 600 mg BID [facility] Administration Piperacillin Sod/Tazobactam 50 mls @ 100 mls/hr 11/24/18 18:00 11/28/18 10:57 Sod 3.375 gm/ Dextrose IVPB 100 mls/hr Q8H-IV [facility] Administration Protocol Insulin Aspart 1 vial 11/25/18 09:15 11/28/18 11:00 Novolog Vial Sliding Scale - SQ 2 units ACHS [facility] Administration Protocol Insulin Detemir 30 units 11/26/18 22:00 11/28/18 06:53 Levemir Vial SQ 30 unit 0700,2200 [facility] Administration Mupirocin 1 applic 11/28/18 10:00 11/28/18 10:59 Bactroban 2% Ointment - TP 1 applic DAILY [facility] Administration Polyethylene Glycol 17 gm 11/26/18 10:00 11/28/18 11:01 Miralax (For Daily Use) - PO 17 grams BID [facility] Administration Solifenacin 5 mg 11/25/18 10:00 11/28/18 10:58 Vesicare - PO 5 mg DAILY [facility] Administration Microbiology 11/24/18 14:56 Bone Gram Stain - Final 11/24/18 14:56 Bone Tissue Culture - Preliminary Strep Agalactiae Group B Enterobacter Aerogenes Vr Ec Faecalis Staphylococcus Aureus 11/24/18 14:56 Bone Anaerobic Culture - Final NO ANAEROBES WERE ISOLATED 11/22/18 22:45 Blood - Peripheral Venous Blood Culture - Final NO GROWTH AFTER 5 DAYS INCUBATION 11/24/18 15:30 Blood - Peripheral Venous Blood Culture - Preliminary NO GROWTH OBTAINED AFTER 72 HOURS, INCUBATION TO CONTINUE FOR 2 DAYS. 11/24/18 14:56 Foot - Right Gram Stain - Final 11/24/18 14:56 Foot - Right Wound Culture - Final Klebsiella Pneumoniae Enterobacter Aerogenes Strep Agalactiae Group B Enterococcus Faecalis Staphylococcus Aureus 11/24/18 12:40 Blood - Peripheral Venous Blood Culture - Preliminary NO GROWTH OBTAINED AFTER 72 HOURS, INCUBATION TO CONTINUE FOR 2 DAYS. 11/22/18 22:40 Blood - Peripheral Venous Blood Culture - Final Strep Agalactiae Group B ASSESSMENT/PLAN: 63 yof with PMHx of IDDM, diabetic neuropathy, Chronic diabetic foot ulcer s/p HBO (followed by Dr. Trent) admitted with right RLE cellulitis/abscess +/- osteomyelitis -RLE cellulitis/Abscess, Right 5th toe Osteomyelitis s/p I&D/right 5th toe amputation -1/2 Strep agalactiae Group B bacteremia -IDDM -Diabetic neuropathy -Anxiety Plan: Podiatry input noted, wound care. Bone biopsy results with clean margins. Zosyn day 6, discuss with ID for abx duration and plan dispo accordingly. Levemir, ISS, diabetic diet. Continue valium/gabapentin DVTPPX lovenox Dispo anticipte d/c in 1-2 days pending ID input, duration of abx and need for PICC line. Plan discussed with patient, daughter at bedside and RN in detail, all questions answered. Visit type - Emergency Visit Emergency Visit: Yes ED Registration Date: 11/23/18 Care time: The patient presented to the Emergency Department on the above date and was hospitalized for further evaluation of their emergent condition. - New Patient This patient is new to me today: No - Critical Care Critical Care patient: No - Discharge Referral Referred to [facility] Med P.C.: No
--- NOTE | 2018-11-28 13:42 | PN ---
Progress Note, Physician History of Present Illness: Pt seen and examined. Events noted. She is afebrile, alert, pain in Rt foot is controlled. No specific complaints. - Current Medication List Current Medications: Active Medications Acetaminophen (Tylenol -) 1,000 mg PO Q6H PRN PRN Reason: PAIN Last Admin: 11/28/18 06:54 Dose: 1,000 mg Docusate Sodium (Colace -) 100 mg PO BID PRN PRN Reason: CONSTIPATION Enoxaparin Sodium (Lovenox -) 40 mg SQ DAILY [facility] Last Admin: 11/28/18 10:57 Dose: 40 mg Gabapentin (Neurontin -) 600 mg PO BID [facility] Last Admin: 11/28/18 10:58 Dose: 600 mg Piperacillin Sod/Tazobactam (Sod 3.375 gm/ Dextrose) 50 mls @ 100 mls/hr IVPB Q8H-IV [facility]; Protocol Last Admin: 11/28/18 10:57 Dose: 100 mls/hr Insulin Aspart (Novolog Vial Sliding Scale -) 1 vial SQ ACHS [facility]; Protocol Last Admin: 11/28/18 11:00 Dose: 2 units Insulin Detemir (Levemir Vial) 30 units SQ 0700,2200 [facility] Last Admin: 11/28/18 06:53 Dose: 30 unit Mupirocin (Bactroban 2% Ointment -) 1 applic TP DAILY [facility] Last Admin: 11/28/18 10:59 Dose: 1 applic Polyethylene Glycol (Miralax (For Daily Use) -) 17 gm PO BID [facility] Last Admin: 11/28/18 11:01 Dose: 17 grams Solifenacin (Vesicare -) 5 mg PO DAILY [facility] Last Admin: 11/28/18 10:58 Dose: 5 mg - Objective Vital Signs: Vital Signs Temperature 98.3 F 11/28/18 09:08 Pulse Rate 68 11/28/18 09:08 Respiratory Rate 18 11/28/18 09:08 Blood Pressure 117/69 11/28/18 09:08 O2 Sat by Pulse Oximetry (%) 99 11/27/18 09:00 Constitutional: Yes: No Distress, Calm Cardiovascular: Yes: Regular Rate and Rhythm Respiratory: Yes: Regular Gastrointestinal: Yes: Normal Bowel Sounds, Soft Genitourinary: Yes: WNL Wound/Incision: Yes: Other (Rt foot mild edema/minimal erythema, Rt toe amp) Neurological: Yes: Alert Labs: CBC, BMP 11/28/18 07:15 11/28/18 07:15 INR, PTT INR 0.98 (0.83-1.09) 11/27/18 06:13 Microbiology 11/24/18 12:40 Blood - Peripheral Venous Blood Culture - Preliminary NO GROWTH OBTAINED AFTER 96 HOURS, INCUBATION TO CONTINUE FOR 1 DAYS. 11/24/18 14:56 Bone Gram Stain - Final 11/24/18 14:56 Bone Tissue Culture - Preliminary Strep Agalactiae Group B Enterobacter Aerogenes Vr Ec Faecalis Staphylococcus Aureus 11/24/18 14:56 Bone Anaerobic Culture - Final NO ANAEROBES WERE ISOLATED 11/22/18 22:45 Blood - Peripheral Venous Blood Culture - Final NO GROWTH AFTER 5 DAYS INCUBATION 11/24/18 15:30 Blood - Peripheral Venous Blood Culture - Preliminary NO GROWTH OBTAINED AFTER 72 HOURS, INCUBATION TO CONTINUE FOR 2 DAYS. 11/24/18 14:56 Foot - Right Gram Stain - Final 11/24/18 14:56 Foot - Right Wound Culture - Final Klebsiella Pneumoniae Enterobacter Aerogenes Strep Agalactiae Group B Enterococcus Faecalis Staphylococcus Aureus 11/22/18 22:40 Blood - Peripheral Venous Blood Culture - Final Strep Agalactiae Group B Problem List - Problems (1) Cellulitis in diabetic foot Code(s): E11.628 - TYPE 2 DIABETES MELLITUS WITH OTHER SKIN COMPLICATIONS; L03.119 - CELLULITIS OF UNSPECIFIED PART OF LIMB (2) Diabetes Code(s): E11.9 - TYPE 2 DIABETES MELLITUS WITHOUT COMPLICATIONS Assessment/Plan Rt foot cellulitis/abscess s/p I+D/5th toe amputation IDDM with neuropathy Diabetic foot ulcer -- wound/bone culture results noted, polymicrobial infection -- awaiting biopsy results/margins for growth in order to determine duration of antibiotic treatment -- continue wound care -- Podiatry f/u
[2018-11-29] MEDS ORDERED: PIPERACILLIN/TAZOBACTAM 3.375 GM VIAL IVPB ONE ×3 (02:52→17:44)
[2018-11-29] MEDS ORDERED: DEXTROSE 5%-WATER - 50 ML IVPB ONE ×3 (02:53→17:45)
[2018-11-29] MEDS: PIPERACILLIN/TAZOB 3.375 GM 3.375 GM in DEXTROSE 5%-WATER - 50 ML IVPB SCH ×3 (02:56→17:48)
[2018-11-29] MEDS: ACETAMINOPHEN 500 MG TABLET (FP) PO PRN ×2 (05:13→17:32)
[2018-11-29] MEDS: INSULIN (LEVEMIR) 100 UNITS/ML UNITS SQ SCH ×2 (06:56→22:21)
[2018-11-29] MEDS: INSULIN SLIDING SCALE (NOVOLOG) 1 VIAL SQ SCH ×4 (06:57→22:23)
[2018-11-29] MEDS: ENOXAPARIN NA (PORCINE) 40 MG/0.4 ML DISP.SYRIN SQ SCH (09:49)
[2018-11-29] MEDS: SOLIFENACIN SUCCINATE 5 MG TAB PO SCH (09:49)
[2018-11-29] MEDS: GABAPENTIN 300 MG CAPSULE (FP) PO SCH ×2 (09:49→21:59)
[2018-11-29] MEDS: MUPIROCIN 2% TOPICAL OINTMENT 22 GM TUBE TP SCH (09:57)
[2018-11-29] MEDS: POLYETHYLENE GLYCOL 3350 119 GM BTL PO SCH ×2 (09:58→22:01)
--- NOTE | 2018-11-29 10:52 | PN ---
Physical Exam: SUBJECTIVE: Patient seen and examined, right foot pain improved, no complaints. OBJECTIVE: Vital Signs Period Temp Pulse Resp BP Sys/Duarte Pulse Ox Last 24 Hr 98 F-98.7 F 67-75 18-18 103-143/52-77 95 Intake & Output 11/26/18 11/27/18 11/28/18 11/29/18 23:59 23:59 23:59 23:59 Intake Total 690 350 9328 Balance 218 696 5802 Weight 200 lb 6.4 oz 201 lb 200 lb 1 oz 204 lb GENERAL:sitting in bed in no acute distress Chest: CTAB, no rales or wheezing CVS:S1S2 regular Abdomen:soft, obese, NT Extremities: Right foot swelling/erythema improved, right 5th toe amputation site with clean base, no active discharge, pos DP pulses Psych: pleasant, co-operative Laboratory Results - last 24 hr 11/28/18 11/28/18 11/28/18 10:56 16:32 23:02 POC Glucometer 163 232 377 11/29/18 06:25 POC Glucometer 274 Active Medications Generic Name Dose Route Start Last Admin Trade Name Freq PRN Reason Stop Dose Admin Acetaminophen 1,000 mg 11/24/18 14:44 11/29/18 05:13 Tylenol - PO 1,000 mg Q6H PRN Administration PAIN Docusate Sodium 100 mg 11/26/18 09:37 Colace - PO BID PRN CONSTIPATION Enoxaparin Sodium 40 mg 11/26/18 10:00 11/29/18 09:49 Lovenox - SQ 40 mg DAILY GISELE Administration Gabapentin 600 mg 11/24/18 22:00 11/29/18 09:49 Neurontin - PO 600 mg BID GISELE Administration Piperacillin Sod/Tazobactam 50 mls @ 100 mls/hr 11/24/18 18:00 11/29/18 09:49 Sod 3.375 gm/ Dextrose IVPB 100 mls/hr Q8H-IV GISELE Administration Protocol Insulin Aspart 1 vial 11/25/18 09:15 11/29/18 06:57 Novolog Vial Sliding Scale - SQ 6 units ACHS GISELE Administration Protocol Insulin Detemir 30 units 11/26/18 22:00 11/29/18 06:56 Levemir Vial SQ 30 unit 0700,2200 GISELE Administration Mupirocin 1 applic 11/28/18 10:00 11/29/18 09:57 Bactroban 2% Ointment - TP 1 applic DAILY GISELE Administration Polyethylene Glycol 17 gm 11/26/18 10:00 11/29/18 09:58 Miralax (For Daily Use) - PO 17 grams BID GISELE Administration Solifenacin 5 mg 11/25/18 10:00 11/29/18 09:49 Vesicare - PO 5 mg DAILY GISELE Administration ASSESSMENT/PLAN: 63 yof with PMHx of IDDM, diabetic neuropathy, Chronic diabetic foot ulcer s/p HBO (followed by Dr. Trent) admitted with right RLE cellulitis/abscess +/- osteomyelitis -RLE cellulitis/Abscess, Right 5th toe Osteomyelitis s/p I&D/right 5th toe amputation -1/2 Strep agalactiae Group B bacteremia -IDDM -Diabetic neuropathy -Anxiety Plan: Podiatry input noted, wound care. Bone biopsy results with clean margins. Zosyn day 7, discuss with ID for abx duration and plan dispo accordingly. Levemir, ISS, diabetic diet. Continue valium/gabapentin DVTPPX lovenox Dispo anticipte d/c in 24 hours pending ID input, duration of abx and need for PICC line. Plan discussed with patient, in detail, all questions answered. Visit type - Emergency Visit Emergency Visit: Yes ED Registration Date: 11/23/18 Care time: The patient presented to the Emergency Department on the above date and was hospitalized for further evaluation of their emergent condition. - New Patient This patient is new to me today: No - Critical Care Critical Care patient: No - Discharge Referral Referred to [facility] No
--- NOTE | 2018-11-29 14:39 | PN ---
Progress Note, Physician History of Present Illness: Pt is doing well. Denies pain in Rt foot. forefoot with decreasing erythema/ edema. - Current Medication List Current Medications: Active Medications Acetaminophen (Tylenol -) 1,000 mg PO Q6H PRN PRN Reason: PAIN Last Admin: 11/29/18 05:13 Dose: 1,000 mg Docusate Sodium (Colace -) 100 mg PO BID PRN PRN Reason: CONSTIPATION Enoxaparin Sodium (Lovenox -) 40 mg SQ DAILY [facility] Last Admin: 11/29/18 09:49 Dose: 40 mg Gabapentin (Neurontin -) 600 mg PO BID [facility] Last Admin: 11/29/18 09:49 Dose: 600 mg Piperacillin Sod/Tazobactam (Sod 3.375 gm/ Dextrose) 50 mls @ 100 mls/hr IVPB Q8H-IV [facility]; Protocol Last Admin: 11/29/18 09:49 Dose: 100 mls/hr Insulin Aspart (Novolog Vial Sliding Scale -) 1 vial SQ ACHS [facility]; Protocol Last Admin: 11/29/18 11:20 Dose: 6 units Insulin Detemir (Levemir Vial) 30 units SQ 0700,2200 [facility] Last Admin: 11/29/18 06:56 Dose: 30 unit Mupirocin (Bactroban 2% Ointment -) 1 applic TP DAILY [facility] Last Admin: 11/29/18 09:57 Dose: 1 applic Polyethylene Glycol (Miralax (For Daily Use) -) 17 gm PO BID [facility] Last Admin: 11/29/18 09:58 Dose: 17 grams Solifenacin (Vesicare -) 5 mg PO DAILY [facility] Last Admin: 11/29/18 09:49 Dose: 5 mg - Objective Vital Signs: Vital Signs Temperature 98 F 11/29/18 10:00 Pulse Rate 70 11/29/18 10:00 Respiratory Rate 18 11/29/18 10:00 Blood Pressure 124/79 11/29/18 10:00 O2 Sat by Pulse Oximetry (%) 94 L 11/29/18 09:00 Constitutional: Yes: No Distress, Calm Cardiovascular: Yes: Regular Rate and Rhythm Respiratory: Yes: Regular Gastrointestinal: Yes: Normal Bowel Sounds, Soft Genitourinary: Yes: WNL Wound/Incision: Yes: Other (Rt foot with mild erythema/less edema, Rt 5th toe amp site clean with serous drainage on dressing) Labs: CBC, BMP 11/28/18 07:15 11/28/18 07:15 INR, PTT INR 0.98 (0.83-1.09) 11/27/18 06:13 Problem List - Problems (1) Cellulitis in diabetic foot Code(s): E11.628 - TYPE 2 DIABETES MELLITUS WITH OTHER SKIN COMPLICATIONS; L03.119 - CELLULITIS OF UNSPECIFIED PART OF LIMB (2) Diabetes Code(s): E11.9 - TYPE 2 DIABETES MELLITUS WITHOUT COMPLICATIONS Assessment/Plan Rt foot cellulitis/abscess s/p I+D/5th toe amputation IDDM with neuropathy Diabetic foot ulcer -- biopsy reported to have clean margins at amputation site -- if discharge tomorrow suggest Unasyn 3G IV Q6h x 11 days with Podiatry/wound care followup -- continue wound care
[2018-11-30] MEDS: ACETAMINOPHEN 500 MG TABLET (FP) PO PRN (00:17)
[2018-11-30] MEDS ORDERED: DEXTROSE 5%-WATER - 50 ML IVPB ONE ×2 (02:14→09:49)
[2018-11-30] MEDS ORDERED: PIPERACILLIN/TAZOBACTAM 3.375 GM VIAL IVPB ONE ×2 (02:14→09:48)
[2018-11-30] MEDS: PIPERACILLIN/TAZOB 3.375 GM 3.375 GM in DEXTROSE 5%-WATER - 50 ML IVPB SCH ×2 (02:19→09:53)
[2018-11-30] MEDS: INSULIN (LEVEMIR) 100 UNITS/ML UNITS SQ SCH (06:41)
[2018-11-30] MEDS: INSULIN SLIDING SCALE (NOVOLOG) 1 VIAL SQ SCH ×2 (06:43→11:15)
--- NOTE | 2018-11-30 09:37 | PN ---
Physical Exam: SUBJECTIVE: Patient seen and examined OBJECTIVE: Vital Signs Period Temp Pulse Resp BP Sys/Duarte Pulse Ox Last 24 Hr 97.4 F-98.2 F 67-74 18-20 104-138/67-79 98 GENERAL: The patient is awake, alert, and fully oriented, in no acute distress. HEAD: Normal with no signs of trauma. EYES: PERRL, extraocular movements intact, sclera anicteric, conjunctiva clear. No ptosis. ENT: Ears normal, nares patent, oropharynx clear without exudates, moist mucous membranes. NECK: Trachea midline, full range of motion, supple. LUNGS: Breath sounds equal, clear to auscultation bilaterally, no wheezes, no crackles, no accessory muscle use. HEART: Regular rate and rhythm, S1, S2 without murmur, rub or gallop. ABDOMEN: Soft, nontender, nondistended, normoactive bowel sounds, no guarding, no rebound, no hepatosplenomegaly, no masses. EXTREMITIES: 2+ pulses, warm, well-perfused, no edema. NEUROLOGICAL: Cranial nerves II through XII grossly intact. Normal speech, gait not observed. PSYCH: Normal mood, normal affect. SKIN: Warm, dry, normal turgor, no rashes or lesions noted Laboratory Results - last 24 hr 11/29/18 11/29/18 11/29/18 11:07 16:43 22:20 POC Glucometer 265 271 372 11/30/18 05:41 POC Glucometer 301 Active Medications Generic Name Dose Route Start Last Admin Trade Name Freq PRN Reason Stop Dose Admin Acetaminophen 1,000 mg 11/24/18 14:44 11/30/18 00:17 Tylenol - PO 1,000 mg Q6H PRN Administration PAIN Docusate Sodium 100 mg 11/26/18 09:37 Colace - PO BID PRN CONSTIPATION Enoxaparin Sodium 40 mg 11/26/18 10:00 11/29/18 09:49 Lovenox - SQ 40 mg DAILY GISELE Administration Gabapentin 600 mg 11/24/18 22:00 11/29/18 21:59 Neurontin - PO 600 mg BID GISELE Administration Piperacillin Sod/Tazobactam 50 mls @ 100 mls/hr 11/24/18 18:00 11/30/18 02:19 Sod 3.375 gm/ Dextrose IVPB 100 mls/hr Q8H-IV GISELE Administration Protocol Insulin Aspart 1 vial 11/25/18 09:15 11/30/18 06:43 Novolog Vial Sliding Scale - SQ 8 units ACHS GISELE Administration Protocol Insulin Detemir 30 units 11/26/18 22:00 11/30/18 06:41 Levemir Vial SQ 30 unit 0700,2200 GISELE Administration Mupirocin 1 applic 11/28/18 10:00 11/29/18 09:57 Bactroban 2% Ointment - TP 1 applic DAILY GISELE Administration Polyethylene Glycol 17 gm 11/26/18 10:00 11/29/18 22:01 Miralax (For Daily Use) - PO 17 grams BID GISELE Administration Solifenacin 5 mg 11/25/18 10:00 11/29/18 09:49 Vesicare - PO 5 mg DAILY GISELE Administration ASSESSMENT/PLAN: ATTENDING PHYSICIAN STATEMENT I saw and evaluated the patient. I reviewed the resident's note and discussed the case with the resident. I agree with the resident's findings and plan as documented. SUBJECTIVE: OBJECTIVE: ASSESSMENT AND PLAN:
[2018-11-30] MEDS: GABAPENTIN 300 MG CAPSULE (FP) PO SCH (09:53)
[2018-11-30] MEDS: ENOXAPARIN NA (PORCINE) 40 MG/0.4 ML DISP.SYRIN SQ SCH (09:53)
[2018-11-30] MEDS: SOLIFENACIN SUCCINATE 5 MG TAB PO SCH (09:53)
[2018-11-30] MEDS: MUPIROCIN 2% TOPICAL OINTMENT 22 GM TUBE TP SCH (09:55)
[2018-11-30] MEDS: POLYETHYLENE GLYCOL 3350 119 GM BTL PO SCH (10:05)
[2018-11-30] MEDS ORDERED: INSULIN (NOVOLOG) ASPART 100 UNITS/ML 10ML VIAL ONE (11:12)
--- NOTE | 2018-11-30 12:20 | PN ---
Progress Note, Physician History of Present Illness: stable no new issues - Current Medication List Current Medications: Active Medications Acetaminophen (Tylenol -) 1,000 mg PO Q6H PRN PRN Reason: PAIN Last Admin: 11/30/18 00:17 Dose: 1,000 mg Docusate Sodium (Colace -) 100 mg PO BID PRN PRN Reason: CONSTIPATION Enoxaparin Sodium (Lovenox -) 40 mg SQ DAILY [facility] Last Admin: 11/30/18 09:53 Dose: 40 mg Gabapentin (Neurontin -) 600 mg PO BID [facility] Last Admin: 11/30/18 09:53 Dose: 600 mg Piperacillin Sod/Tazobactam (Sod 3.375 gm/ Dextrose) 50 mls @ 100 mls/hr IVPB Q8H-IV [facility]; Protocol Last Admin: 11/30/18 09:53 Dose: 100 mls/hr Insulin Aspart (Novolog Vial Sliding Scale -) 1 vial SQ ACHS [facility]; Protocol Last Admin: 11/30/18 11:15 Dose: 4 units Insulin Detemir (Levemir Vial) 30 units SQ 0700,2200 [facility] Last Admin: 11/30/18 06:41 Dose: 30 unit Mupirocin (Bactroban 2% Ointment -) 1 applic TP DAILY [facility] Last Admin: 11/30/18 09:55 Dose: 1 applic Polyethylene Glycol (Miralax (For Daily Use) -) 17 gm PO BID [facility] Last Admin: 11/30/18 10:05 Dose: 17 grams Solifenacin (Vesicare -) 5 mg PO DAILY [facility] Last Admin: 11/30/18 09:53 Dose: 5 mg - Objective Vital Signs: Vital Signs Temperature 97.6 F 11/30/18 06:00 Pulse Rate 73 11/30/18 06:00 Respiratory Rate 20 11/30/18 06:00 Blood Pressure 130/74 11/30/18 06:00 O2 Sat by Pulse Oximetry (%) 98 11/30/18 09:00 Constitutional: Yes: No Distress, Calm Cardiovascular: Yes: Regular Rate and Rhythm Respiratory: Yes: Regular, CTA Bilaterally Gastrointestinal: Yes: Normal Bowel Sounds, Soft Musculoskeletal: Yes: WNL Extremities: Yes: Other Wound/Incision: Yes: Dressing Dry and Intact Neurological: Yes: Alert, Oriented Psychiatric: Yes: Alert, Oriented Labs: CBC, BMP 11/28/18 07:15 11/28/18 07:15 INR, PTT INR 0.98 (0.83-1.09) 11/27/18 06:13 Assessment/Plan 63 yof with PMHx of IDDM, diabetic neuropathy, Chronic diabetic foot ulcer s/p HBO (followed by Dr. Trent) admitted with right RLE cellulitis/abscess +/- osteomyelitis rt foot cellulitis rt foot erythema threatened leg tenderness plan surgical margins clean i think we can give zosyn 3.375 q8 for 11 days more
--- NOTE | 2018-11-30 14:06 | PN ---
Teaching Attending Note Name of Resident: Maryanne Velazquez ATTENDING PHYSICIAN STATEMENT I saw and evaluated the patient. I reviewed the resident's note and discussed the case with the resident. I agree with the resident's findings and plan as documented with exceptions below. SUBJECTIVE: Patient seen and examined, no new complaints, doing well. OBJECTIVE: Vital Signs Period Temp Pulse Resp BP Sys/Duarte Pulse Ox Last 24 Hr 97.4 F-98.2 F 67-74 18-20 104-138/68-74 98-98 Intake & Output 11/27/18 11/28/18 11/29/18 11/30/18 23:59 23:59 23:59 23:59 Intake Total 630 1680 700 50 Balance 630 1680 700 50 Weight 201 lb 200 lb 1 oz 204 lb 203 lb 12.8 oz General: sitting in bed in no acute distress CVS:S1S2 regular Chest: CTAB, no rales or wheezing Abdomen:soft, obese, NT Extremities: right foot 5th toe amputation, healing incision, no active discharge or erythema Home Medications Medication Instructions Recorded metFORMIN HCL [Metformin ER 1,000 mg PO ASDIR 10/19/17 Osmotic] Diazepam [Valium] 5 mg PO TID 11/23/18 Gabapentin 800 mg PO DAILY 11/23/18 Insulin Glargine,Hum.rec.anlog 40 unit SQ BID 11/23/18 [Lantus] Insulin Lispro [Humalog Kwikpen 25 unit SQ BID 11/23/18 U-100] Mirabegron [Myrbetriq] 25 mg PO DAILY 11/23/18 Miscellaneous Medical Supply 1 each IC ASDIR #1 kit 11/30/18 [Glucometer Device] Mupirocin Ointment [Bactroban 2% 1 applic TP DAILY #1 applic 11/30/18 Ointment -] Piperacillin/Tazob 3.375 gm [Zosyn 3.375 gm IVPB Q8H-IV #0 vial 11/30/18 -] Active Medications Acetaminophen (Tylenol -) 1,000 mg PO Q6H PRN PRN Reason: PAIN Last Admin: 11/30/18 00:17 Dose: 1,000 mg Docusate Sodium (Colace -) 100 mg PO BID PRN PRN Reason: CONSTIPATION Enoxaparin Sodium (Lovenox -) 40 mg SQ DAILY [facility] Last Admin: 11/30/18 09:53 Dose: 40 mg Gabapentin (Neurontin -) 600 mg PO BID [facility] Last Admin: 11/30/18 09:53 Dose: 600 mg Piperacillin Sod/Tazobactam (Sod 3.375 gm/ Dextrose) 50 mls @ 100 mls/hr IVPB Q8H-IV [facility]; Protocol Last Admin: 11/30/18 09:53 Dose: 100 mls/hr Insulin Aspart (Novolog Vial Sliding Scale -) 1 vial SQ ACHS [facility]; Protocol Last Admin: 11/30/18 11:15 Dose: 4 units Insulin Detemir (Levemir Vial) 30 units SQ 0700,2200 [facility] Last Admin: 11/30/18 06:41 Dose: 30 unit Mupirocin (Bactroban 2% Ointment -) 1 applic TP DAILY [facility] Last Admin: 11/30/18 09:55 Dose: 1 applic Polyethylene Glycol (Miralax (For Daily Use) -) 17 gm PO BID [facility] Last Admin: 11/30/18 10:05 Dose: 17 grams Solifenacin (Vesicare -) 5 mg PO DAILY [facility] Last Admin: 11/30/18 09:53 Dose: 5 mg Laboratory Results - last 24 hr 11/29/18 11/29/18 11/30/18 16:43 22:20 05:41 POC Glucometer 271 372 301 11/30/18 11:10 POC Glucometer 243 Microbiology 11/24/18 15:30 Blood - Peripheral Venous Blood Culture - Final NO GROWTH AFTER 5 DAYS INCUBATION 11/24/18 14:56 Bone Gram Stain - Final 11/24/18 14:56 Bone Tissue Culture - Final Strep Agalactiae Group B Enterobacter Aerogenes Vr Ec Faecalis Staphylococcus Aureus 11/24/18 14:56 Bone Anaerobic Culture - Final NO ANAEROBES WERE ISOLATED 11/24/18 12:40 Blood - Peripheral Venous Blood Culture - Final NO GROWTH AFTER 5 DAYS INCUBATION 11/22/18 22:45 Blood - Peripheral Venous Blood Culture - Final NO GROWTH AFTER 5 DAYS INCUBATION 11/24/18 14:56 Foot - Right Gram Stain - Final 11/24/18 14:56 Foot - Right Wound Culture - Final Klebsiella Pneumoniae Enterobacter Aerogenes Strep Agalactiae Group B Enterococcus Faecalis Staphylococcus Aureus 11/22/18 22:40 Blood - Peripheral Venous Blood Culture - Final Strep Agalactiae Group B ASSESSMENT AND PLAN: 63 yof with PMHx of IDDM, diabetic neuropathy, Chronic diabetic foot ulcer s/p HBO (followed by Dr. Trent) admitted with right RLE cellulitis/abscess +/- osteomyelitis -RLE cellulitis/Abscess, Right 5th toe Osteomyelitis s/p I&D/right 5th toe amputation -1/2 Strep agalactiae Group B bacteremia -IDDM -Diabetic neuropathy -Anxiety Plan: Doing well ID input noted, gonzalez additional 11 days Discussed with CM Plan for home with abx PICC line D/c home later today once arrangements made Plan discussed with patient, nursing, and social work in detail, all questions answered.
[2018-11-30 14:59] VITALS: TEMP 98.2
[2018-11-30 15:31] VITALS: BP 132/76; PULSE 74
--- NOTE | 2018-11-30 18:40 | DS ---
Physical Exam: SUBJECTIVE: Patient seen and examined. No pain, no fevers, no new c/o. Bone margins clear of OM. For PICC line and dc home today aon iv AB for 11 days OBJECTIVE: Vital Signs Period Temp Pulse Resp BP Sys/Duarte Pulse Ox Last 24 Hr 97.4 F-98.2 F 67-74 18-20 104-138/68-76 98-98 Vital Signs Temp 98.2 F 11/30/18 15:00 Pulse 74 11/30/18 15:00 Resp 20 11/30/18 15:00 BP 132/76 11/30/18 15:00 Pulse Ox 98 11/30/18 09:00 Intake & Output 11/29/18 11/30/18 11/30/18 23:59 11:59 23:59 Intake Total 700 50 Balance 700 50 Weight 92.442 kg Intake: IV 0 0 saline lock 0 0 IVPB 0 50 Oral 700 Other: Voiding Method Toilet Toilet # Unmeasured Voids Void 1 1 Bowel Movement No No No Weight Measurement Method Built in [facility] PHYSICAL EXAM GENERAL: The patient is awake, alert, and fully oriented, in no acute distress. LUNGS: Breath sounds equal, clear to auscultation bilaterally HEART: Regular rate and rhythm, S1, S2 ABDOMEN: Soft, nontender, nondistended, normoactive bowel sounds EXTREMITIES: RLE with amputation of 5th toes. Skin well apposed, clean. Callous over base of R metatarsal stump and 1st metatarsal stump. No obvious bleed or malodorous drainage NEUROLOGICAL: Cranial nerves II through XII grossly intact. Normal speech, gait not observed. PSYCH: Normal mood, normal affect. CBCD WBC 7.5 K/mm3 (4.0-10.0) 11/28/18 07:15 RBC 3.77 M/mm3 (3.60-5.2) 11/28/18 07:15 Hgb 11.0 GM/dL (10.7-15.3) 11/28/18 07:15 Hct 32.0 % (32.4-45.2) L 11/28/18 07:15 MCV 84.9 fl (80-96) 11/28/18 07:15 MCHC 34.4 g/dl (32.0-36.0) 11/28/18 07:15 RDW 12.9 % (11.6-15.6) 11/28/18 07:15 Plt Count 339 K/MM3 (134-434) 11/28/18 07:15 MPV 8.7 fl (7.5-11.1) 11/28/18 07:15 CMP Sodium 137 mmol/L (136-145) 11/28/18 07:15 Potassium 4.4 mmol/L (3.5-5.1) 11/28/18 07:15 Chloride 101 mmol/L (98-107) 11/28/18 07:15 Carbon Dioxide 27 mmol/L (21-32) 11/28/18 07:15 Anion Gap 10 MMOL/L (8-16) 11/28/18 07:15 BUN 17.4 mg/dL (7-18) 11/28/18 07:15 Creatinine 0.9 mg/dL (0.55-1.3) 11/28/18 07:15 Random Glucose 180 mg/dL (74-106) H 11/28/18 07:15 Calcium 8.9 mg/dL (8.5-10.1) 11/28/18 07:15 Total Bilirubin 0.4 mg/dL (0.2-1) 11/27/18 06:13 AST 9 U/L (15-37) L 11/27/18 06:13 ALT 20 U/L (13-61) 11/27/18 06:13 Alkaline Phosphatase 177 U/L (45-117) H 11/27/18 06:13 Total Protein 6.7 g/dl (6.4-8.2) 11/27/18 06:13 Albumin 2.8 g/dl (3.4-5.0) L 11/27/18 06:13 LABS Laboratory Results - last 24 hr 11/29/18 11/30/18 11/30/18 22:20 05:41 11:10 POC Glucometer 372 301 243 Ambulatory Orders metFORMIN HCL [Metformin ER Osmotic] 1,000 mg PO ASDIR 10/19/17 Diazepam [Valium] 5 mg PO TID 11/23/18 Gabapentin 800 mg PO DAILY 11/23/18 Insulin Glargine,Hum.rec.anlog [Lantus] 40 unit SQ BID 11/23/18 Insulin Lispro [Humalog Kwikpen U-100] 25 unit SQ BID 11/23/18 Mirabegron [Myrbetriq] 25 mg PO DAILY 11/23/18 Miscellaneous Medical Supply [Glucometer Device] 1 each IC ASDIR #1 kit Mupirocin Ointment [Bactroban 2% Ointment -] 1 applic TP DAILY #1 applic Piperacillin/Tazob 3.375 gm [Zosyn -] 3.375 gm IVPB Q8H-IV #0 vial 11/30/18 HOSPITAL COURSE: Date of Admission:11/23/18 Date of Discharge: 11/30/18 Pt is a 63 yo F with PMHx with history of an IDDM, brought in from home by daughter for right leg swelling x3 days and pain x1 found to have cellulitis of R foot with possible OM, now s/p R fifth toe amputation (11/24/18). No OM on imaging, of the metatarsal stump and pathology showed clear margins. Pt was discharged home on 11 days of iv zosyn through a PICC line. Pt discharged home on her home insulin regimen to follow up with podiatry and ID. Home Lantus 40u bid, Minutes to complete discharge: 37 Discharge Summary Reason For Visit: CELLULITIS IN DIABETIC FOOT Condition: Improved - Instructions Diet, Activity, Other Instructions: You came in for infection in your R foot. You had surgery and amputation of your 5th toe right foot. New medication You will continue iv antibiotics Zosyn three times a day through the iv line placed for you for 11 days You may continue with over the counter Miralax as needed to help you pass stool Please do not miss any antibiotic doses Do not miss your insulin treatment Follow up the wound dressing instructions as recommended Continue your other medications as prescribed WOUND CARE INSTRUCTIONS: Bactroban to wound daily, Dry sterile dressing over the right foot Partial weight bearing and Surgical Shoe Resume activity as further advised by your doctor. 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 Follow up with your primary care doctor in one week Follow up with the foot doctor in one week Follow up with the antibiotic doctor in one week If you think your symptoms are worsening with new pain in your foot, excessive bleeding of pus from your right foot or fevers, please return to the nearest emergency room Referrals: Easton Del Rosario MD [Staff Physician] - 1 Week Trent Trent MD [Staff Physician] - 1 Week Disposition: VNS/HOME HEALTH CARE - Home Medications Comprehensive Discharge Medication List: Ambulatory Orders metFORMIN HCL [Metformin ER Osmotic] 1,000 mg PO ASDIR 10/19/17 Diazepam [Valium] 5 mg PO TID 11/23/18 Gabapentin 800 mg PO DAILY 11/23/18 Insulin Glargine,Hum.rec.anlog [Lantus] 40 unit SQ BID 11/23/18 Insulin Lispro [Humalog Kwikpen U-100] 25 unit SQ BID 11/23/18 Mirabegron [Myrbetriq] 25 mg PO DAILY 11/23/18 Miscellaneous Medical Supply [Glucometer Device] 1 each IC ASDIR #1 kit Mupirocin Ointment [Bactroban 2% Ointment -] 1 applic TP DAILY #1 applic Piperacillin/Tazob 3.375 gm [Zosyn -] 3.375 gm IVPB Q8H-IV #0 vial 11/30/18 This patient is new to me today: No Emergency Visit: Yes ED Registration Date: 11/23/18 Care time: The patient presented to the Emergency Department on the above date and was hospitalized for further evaluation of their emergent condition. Critical Care patient: No - Discharge Referral Referred to [facility] No ATTENDING PHYSICIAN STATEMENT I saw and evaluated the patient. I reviewed the resident's note and discussed the case with the resident. I agree with the resident's findings and plan as documented. SUBJECTIVE: OBJECTIVE: ASSESSMENT AND PLAN:
== END 2018-11-30 15:15 | disposition home health service (06) | DRG 617 ==
LOC: JER 21:00 → JERBED 11-23 02:55 → J5S 11-23 05:01 → J8W 11-26 14:08
PROVIDERS: ADMIT Internal Medicine; ATTEND Hospitalist
PROC: 0JBQ0ZZ Excision of Right Foot Subcutaneous Tissue and Fascia, Open Approach (ICD-10-PCS; 2018-11-24)
PROC: 0Y6X0Z0 Detachment at Right 5th Toe, Complete, Open Approach (ICD-10-PCS; principal; 2018-11-24 14:00)
PROC: 0QBN0ZX Excision of Right Metatarsal, Open Approach, Diagnostic (ICD-10-PCS; 2018-11-24 14:00)
PROC: 02HV33Z Insertion of Infusion Device into Superior Vena Cava, Percutaneous Approach (ICD-10-PCS; 2018-11-30)
PROC: B518ZZA Fluoroscopy of Superior Vena Cava, Guidance (ICD-10-PCS; 2018-11-30)
PROC: B548ZZA Ultrasonography of Superior Vena Cava, Guidance (ICD-10-PCS; 2018-11-30)
DX: E11.628 Type 2 diabetes mellitus with other skin complications (principal); L03.115 Cellulitis of right lower limb; L02.611 Cutaneous abscess of right foot; E11.621 Type 2 diabetes mellitus with foot ulcer; L97.519 Non-pressure chronic ulcer of other part of right foot with unspecified severity; E11.42 Type 2 diabetes mellitus with diabetic polyneuropathy; E83.51 Hypocalcemia; R32 Unspecified urinary incontinence; E66.9 Obesity, unspecified; Z79.4 Long term (current) use of insulin; Z79.84 Long term (current) use of oral hypoglycemic drugs; R21 Rash and other nonspecific skin eruption; F41.9 Anxiety disorder, unspecified; B95.1 Streptococcus, group B, as the cause of diseases classified elsewhere; Z68.39 Body mass index [BMI] 39.0-39.9, adult
CPT/HCPCS: 36415; 36569; 73630-TC-RT-FY; 73723-TC; 77001-TC-FY; 80048; 80053; 81003; 82962; 82977; 83036; 83735; 84100; 85025; 85610; 85651; 85730; 86140; 87040; 87070; 87075; 87186; 87205; 88305-TC; 88311-TC; 90732; 93005; 93010; 93925-TC; 93971-TC; 94760; 97116-GP; 97161-GP; 99282-25; A9579; C1751; G0009; G0480; J0131; J7030

== ENCOUNTER 2019-03-31 20:51 | Inpatient (IN) | payer OTHER ==
[2019-03-31] MEDS ORDERED: morphine CARPU-JECT 2 MG/1 ML DISP.SYRIN IVPUSH ONE (21:56)
[2019-03-31] MEDS ORDERED: SODIUM CHLORIDE 1,000 ML IV SCH (22:00)
[2019-03-31] MEDS ORDERED: morphine SULFATE 4 MG/ML VIAL ONE (22:34)
[2019-03-31 22:40] LABS: BASO % 1.2 % (0-2.0); EOS % 3.8 % (0-4.5); HEMATOCRIT 36.7 % (32.4-45.2); HEMOGLOBIN 12.4 GM/dl (10.7-15.3); MCH 29.1 pg (25.7-33.7); MCHC 33.6 g/dl (32.0-36.0); MEAN CELL VOLUME 86.6 fl (80-96); MEAN PLT VOLUME 9.4 fl (7.5-11.1); PLATELET COUNT 252 K/MM3 (134-434); RBC 4.24 M/mm3 (3.60-5.2); RDW 12.1 % (11.6-15.6); WHITE BLOOD COUNT 8.3 K/mm3 (4.0-10.8)
[2019-03-31 22:54] LABS: ALBUMIN 3.6 g/dl (3.4-5.0); BILIRUBIN,TOTAL 0.9 mg/dl (0.2-1); CALCIUM 8.4 mg/dl (8.5-10); CREATININE 0.8 mg/dl (0.55-1.3); POTASSIUM 4.6 mmol/L (3.5-5.1); TOT PROT 7.3 g/dl (6.4-8.2)
[2019-03-31] MEDS ORDERED: VANCOMYCIN 1 GM in D5W (PRE-DOCKED) 1,000 MG/250 ML IVPB ONE (23:51)
[2019-03-31] MEDS ORDERED: PIPERACILLIN/TAZOB 3.375 GM 3.375 GM in DEXTROSE 5%-WATER - 50 ML IVPB ONE (23:52)
[2019-03-31] MEDS ORDERED: PIPERACILLIN/TAZOBACTAM 3.375 GM VIAL IVPB ONE ×2 (23:54)
[2019-03-31] MEDS ORDERED: VANCOMYCIN 1,000 MG VIAL (RESTRICTED TO ID ONLY) ONE (23:54)
[2019-04-01] MEDS ORDERED: SODIUM CHLORIDE 1,000 ML IV ONE (00:04)
--- NOTE | 2019-04-01 03:04 | PDOC ---
Documentation entered by Rosamaria Nelson SCRIBE, acting as scribe for Shanna Conteh MD. Shanna Conteh MD: This documentation has been prepared by the skylaribe, Rosamaria Nelson SCRIBE, under my direction and personally reviewed by me in its entirety. I confirm that the documentation accurately reflects all work , treatment, procedures, and medical decision making performed by me. History of Present Illness - General Chief Complaint: Pain Stated Complaint: R FOOT PAIN History Source: Patient Exam Limitations: No Limitations - History of Present Illness Initial Comments: 03/31/19 21:51 The patient is a 63-year-old female who presents to the emergency department with right foot pain. The patient presents with 4 days of worsening right foot pain that radiates down to the great toe, associated with swelling. The patient has been taking Tylenol for the pain without relief. The patient reports a history of right foot pain with tingling and numbness, which has worsened in the last 4 days. Denies fever or chills. PAST MEDICAL HISTORY: DM PAST SURGICAL HISTORY: s/p right fifth digit amputation for DFI (11/24/2018) and Cholecystectomy FAMILY HISTORY: no pertinent history SOCIAL HISTORY: Pt lives with family. MEDICATIONS: reviewed ALLERGIES: As per nursing notes Review of system: General: No fevers or chills, no weakness, no weight loss HEENT: No change in vision. No sore throat,. No ear pain CardioVascular: No chest pain or shortness of breath Respiratory:No cough, or wheezing. Gastrointestinal: no nausea, vomiting, diarrhea or constipation, No rectal bleeding Genitourinary: No dysuria, hematuria, or frequency Musculoskeletal: +right foot pain with swelling. No other joint or muscle pain or swelling Neurologic: No headache, vertigo, dizziness or loss of consciousness Psychiatric: nor depression Skin: No rashes or easy bruising Endocrine: no increased thirst or abnormal weight change Allergic: no skin or latex allergy All other systems reviewed and normal GENERAL: The patient is awake, alert, and fully oriented, in no acute distress. HEAD: Normal with no signs of trauma. EYES: Pupils equal, round and reactive to light, extraocular movements intact, sclera anicteric, conjunctiva clear. Extremities: +right foot: moderate edema, increased warmth and erythema. Erythema doesnt extend past the midfoot, the 5th toe is amputated and the wound is well healed. No palpable cord. Pulses intact. Some edema of the leg below the knee only on the right. Rest of the exam: Warm, dry, no cyanosis, clubbing, or edema. NEUROLOGICAL: Normal speech, normal gait. PSYCH: Normal mood, normal affect. SKIN: Warm, Dry, normal turgor, no rashes or lesions noted. Assessment and plan: This is a 63-year-old female who is morbidly obese history of diabetes hypertension who recently had her right small toe amputated secondary to diabetic neuropathy. Patient now comes in complaining of increased pain and on my exam she does have what appears to be an early cellulitis of the foot. Patient however is afebrile and denies history of any fevers. Work-up initiated including blood cultures, CBC, comp, ultrasound Doppler, lactic acid Patient has a normal white count and no left shift. Patient remains afebrile here in the emergency department Patient given some morphine for the pain with improvement of the discomfort. Patient's chemistries are mildly abnormal with a glucose of 198. Patient given Vanco and Zosyn IV Patient's lactic acid is elevated at 2.4. Patient was given a liter of fluid in hopes that the lactic acid would improve however with repeat axial gases is higher so patient will be admitted to an inpatient bed . Past History - Past Medical History Allergies/Adverse Reactions: Allergies Allergy/AdvReac Type Severity Reaction Status Date / Time No Known Drug Allergies Allergy Verified 11/23/18 03:34 Home Medications: Ambulatory Orders metFORMIN HCL [Metformin ER Osmotic] 1,000 mg PO ASDIR 10/19/17 Diazepam [Valium] 5 mg PO TID 11/23/18 Gabapentin 800 mg PO DAILY 11/23/18 Insulin Glargine,Hum.rec.anlog [Lantus] 40 unit SQ BID 11/23/18 Insulin Lispro [Humalog Kwikpen U-100] 25 unit SQ BID 11/23/18 Mirabegron [Myrbetriq] 25 mg PO DAILY 11/23/18 Anemia: No Asthma: No Cancer: No Cardiac Disorders: No CVA: No COPD: No CHF: No Dementia: No Diabetes: Yes GI Disorders: Yes (GAS) Disorders: No HTN: Yes Hypercholesterolemia: Yes Liver Disease: No Seizures: No Thyroid Disease: No - Surgical History Abdominal Surgery: Yes Cholecystectomy: Yes - Psycho Social/Smoking Cessation Hx Smoking Status: No Smoking History: Unknown if ever smoked Have you smoked in the past 12 months: No Number of Cigarettes Smoked Daily: 0 Information on smoking cessation initiated: No Hx Alcohol Use: No Drug/Substance Use Hx: No Substance Use Type: None Hx Substance Use Treatment: No *Physical Exam - Vital Signs Last Vital Signs Temp Pulse Resp BP Pulse Ox 98.4 F 86 14 144/75 100 03/31/19 20:55 03/31/19 20:55 03/31/19 20:55 03/31/19 20:55 03/31/19 20:55 ED Treatment Course - LABORATORY CBC & Chemistry Diagram: 03/31/19 21:48 03/31/19 21:48 - ADDITIONAL ORDERS Additional order review: Laboratory Results 03/31/19 21:48 Sodium 136 Potassium 4.6 Chloride 101 Carbon Dioxide 26 Anion Gap 9 BUN 19.0 H Creatinine 0.8 Est GFR (CKD-EPI)AfAm 90.94 Est GFR (CKD-EPI)NonAf 78.46 Random Glucose 198 H Calcium 8.4 L Total Bilirubin 0.9 AST 21 ALT 19 Alkaline Phosphatase 190 H Total Protein 7.3 Albumin 3.6 03/31/19 21:48 RBC 4.24 MCV 86.6 MCHC 33.6 RDW 12.1 MPV 9.4 Neutrophils % 56.0 Lymphocytes % 34.0 Monocytes % 5.0 Eosinophils % 3.8 Basophils % 1.2 - RADIOLOGY Radiology Studies Ordered: Category Date Time Status DUPLEX VASCUL US-1 LEG [US] Stat Ultrasound 03/31/19 21:41 Taken - Medications Given in the ED: ED Medications Discontinued Medications Generic Name Dose Route Start Last Admin Trade Name Freq PRN Reason Stop Dose Admin Morphine Sulfate 2 mg 03/31/19 21:56 03/31/19 22:00 Morphine Injection - IVPUSH 03/31/19 21:57 2 mg ONCE ONE Administration Discharge - Discharge Information Problems reviewed: Yes Clinical Impression/Diagnosis: Cellulitis of right foot Condition: Good Disposition: HOME - Admission Yes - Follow up/Referral - Patient Discharge Instructions - Post Discharge Activity
[2019-04-01] MEDS ORDERED: oxyCODONE HCL 5 MG TABLET PO PRN (03:11)
[2019-04-01 04:31] VITALS: BMI 40.6
[2019-04-01] MEDS ORDERED: PIPERACILLIN/TAZOBACTAM 3.375 GM VIAL IVPB ONE ×3 (06:23→17:41)
[2019-04-01] MEDS ORDERED: DEXTROSE 5%-WATER - 50 ML IVPB ONE ×3 (06:24→17:41)
[2019-04-01] MEDS: PIPERACILLIN/TAZOB 3.375 GM 3.375 GM in DEXTROSE 5%-WATER - 50 ML IVPB SCH ×2 (06:54→10:00)
[2019-04-01] MEDS: INSULIN (NOVOLOG) ASPART 100 UNITS/ML 10ML VIAL SQ SCH ×2 (07:39→17:00)
[2019-04-01 07:55] LABS: HEMATOCRIT 31.7 % (32.4-45.2); HEMOGLOBIN 11.1 GM/dl (10.7-15.3); MCH 30.2 pg (25.7-33.7); MCHC 34.8 g/dl (32.0-36.0); MEAN CELL VOLUME 86.6 fl (80-96); MEAN PLT VOLUME 9.8 fl (7.5-11.1); PLATELET COUNT 211 K/MM3 (134-434); RBC 3.66 M/mm3 (3.60-5.2); RDW 12.1 % (11.6-15.6); WHITE BLOOD COUNT 7.7 K/mm3 (4.0-10.8)
[2019-04-01 08:00] LABS: CALCIUM 8.3 mg/dl (8.5-10); CREATININE 0.7 mg/dl (0.55-1.3); POTASSIUM 4.2 mmol/L (3.5-5.1)
--- NOTE | 2019-04-01 08:00 | HP ---
CHIEF COMPLAINT: Right foot pain Podiatry: Dr. Trent HISTORY OF PRESENT ILLNESS: 63 year-old female with a PMH significant for HTN, Type II IDDM with diabetic foot infection s/p right 5th toe amputation 11/24/18. Patient presented to the ED with 4 days of worsening right foot pain that radiates down to the great toe, associated with swelling. The patient has been taking Tylenol for the pain without relief. Denies fever, sweats, chills. Denies trauma. ER course was notable for: (1) Glucose 191 Recent Travel: No PAST MEDICAL HISTORY: Hypertension Type II IDDM Morbid obesity PAST SURGICAL HISTORY: Right 5th toe amputation 11/24/18 Cholecystectomy Social History: Smoking: no Alcohol:no Drugs: no Family history: non-contributory Allergies No Known Drug Allergies Allergy (Verified 11/23/18 03:34) HOME MEDICATIONS: Home Medications Medication Instructions Recorded metFORMIN HCL [Metformin ER 1,000 mg PO ASDIR 10/19/17 Osmotic] Diazepam [Valium] 5 mg PO TID 11/23/18 Gabapentin 800 mg PO DAILY 11/23/18 Insulin Glargine,Hum.rec.anlog 40 unit SQ BID 11/23/18 [Lantus] Insulin Lispro [Humalog Kwikpen 25 unit SQ BID 11/23/18 U-100] Mirabegron [Myrbetriq] 25 mg PO DAILY 11/23/18 REVIEW OF SYSTEMS CONSTITUTIONAL: Absent: fever, chills, diaphoresis, generalized weakness, malaise, loss of appetite, weight change HEENT: Absent: rhinorrhea, nasal congestion, throat pain, throat swelling, difficulty swallowing, mouth swelling, ear pain, eye pain, visual changes CARDIOVASCULAR: Absent: chest pain, syncope, palpitations, irregular heart rate, lightheadedness , peripheral edema RESPIRATORY: Absent: cough, shortness of breath, dyspnea with exertion, orthopnea, wheezing, stridor, hemoptysis GASTROINTESTINAL: Absent: abdominal pain, abdominal distension, nausea, vomiting, diarrhea, constipation, melena, hematochezia GENITOURINARY: Absent: dysuria, frequency, urgency, hesitancy, hematuria, flank pain, genital pain MUSCULOSKELETAL: +right foot pain and swelling Absent: myalgia, arthralgia, joint swelling, back pain, neck pain SKIN: Absent: rash, itching, pallor HEMATOLOGIC/IMMUNOLOGIC: Absent: easy bleeding, easy bruising, lymphadenopathy, frequent infections ENDOCRINE: Absent: unexplained weight gain, unexplained weight loss, heat intolerance, cold intolerance NEUROLOGIC: Absent: headache, focal weakness or paresthesias, dizziness, unsteady gait, seizure, mental status changes, bladder or bowel incontinence PSYCHIATRIC: Absent: anxiety, depression, suicidal or homicidal ideation, hallucinations. PHYSICAL EXAMINATION Vital Signs - 24 hr 03/31/19 04/01/19 04/01/19 20:55 03:36 03:42 Temperature 98.4 F 98.0 F 98.1 F Pulse Rate 86 81 Pulse Rate [ 82 Left Radial] Respiratory 14 14 18 Rate Blood Pressure 144/75 157/77 Blood Pressure 142/77 [Right Arm] O2 Sat by Pulse 100 100 Oximetry (%) GENERAL: Awake, alert, and fully oriented, in no acute distress. LUNGS: Breath sounds equal, clear to auscultation bilaterally. No wheezes, and no crackles. No accessory muscle use. HEART: Regular rate and rhythm, normal S1 and S2 ABDOMEN: Soft, nontender, not distended UPPER EXTREMITIES: 2+ pulses, warm, well-perfused. No cyanosis. No clubbing. No peripheral edema. LOWER EXTREMITIES: 2+ pulses, warm, well-perfused. No calf tenderness. RIGHT LOWER EXTREMITY: Swelling of foot, very mild erythme, mild warmth, tenderness on the lateral aspect of leg above the lateral malleolus and on bottom of mid foot NEUROLOGICAL: Cranial nerves II-XII intact. Normal speech. Laboratory Results - last 24 hr 03/31/19 03/31/19 03/31/19 21:48 21:48 21:48 WBC 8.3 RBC 4.24 Hgb 12.4 Hct 36.7 MCV 86.6 MCH 29.1 MCHC 33.6 RDW 12.1 Plt Count 252 MPV 9.4 Absolute Neuts (auto) 4.7 Neutrophils % 56.0 Lymphocytes % 34.0 Monocytes % 5.0 Eosinophils % 3.8 Basophils % 1.2 Sodium 136 Potassium 4.6 Chloride 101 Carbon Dioxide 26 Anion Gap 9 BUN 19.0 H Creatinine 0.8 Est GFR (CKD-EPI)AfAm 90.94 Est GFR (CKD-EPI)NonAf 78.46 POC Glucometer Random Glucose 198 H Lactic Acid 2.4 H* Calcium 8.4 L Total Bilirubin 0.9 AST 21 ALT 19 Alkaline Phosphatase 190 H Total Protein 7.3 Albumin 3.6 04/01/19 04/01/19 01:00 06:59 WBC RBC Hgb Hct MCV MCH MCHC RDW Plt Count MPV Absolute Neuts (auto) Neutrophils % Lymphocytes % Monocytes % Eosinophils % Basophils % Sodium Potassium Chloride Carbon Dioxide Anion Gap BUN Creatinine Est GFR (CKD-EPI)AfAm Est GFR (CKD-EPI)NonAf POC Glucometer 169 Random Glucose Lactic Acid 2.5 H* Calcium Total Bilirubin AST ALT Alkaline Phosphatase Total Protein Albumin ASSESSMENT/PLAN 63 year-old female with a PMH significant for HTN, Type II IDDM with diabetic foot infection s/p right 5th toe amputation 11/24/18. Patient presented to the ED with 4 days of worsening right foot pain. Mild cellulitis --ID and podiatry have already evaluated patient; agreement there is very low suspicion for osteo --continue Zosyn --monitor fever curve, WBC; if remains stable, will discuss converting to PO with ID Hypertension Type II IDDM --Levemir --Novolog sliding scale coverage FEN Fluids: PO intake adequate Electrolytes: replete as indicated Nutrition: diabetic, low sodium DVT prophylaxis: subq heparin Dispo: continues to require inpatient care. Full code. Visit type - Emergency Visit Emergency Visit: Yes ED Registration Date: 04/01/19 Care time: The patient presented to the Emergency Department on the above date and was hospitalized for further evaluation of their emergent condition. - New Patient This patient is new to me today: Yes Date on this admission: 04/05/19 - Critical Care Critical Care patient: No
[2019-04-01] MEDS: HEPARIN NA (PORCINE) 5,000 UNITS/ML 1ML VIAL SQ SCH ×2 (09:19→22:10)
[2019-04-01] MEDS: GABAPENTIN 400 MG CAPSULE (FP) PO SCH (09:20)
[2019-04-01] MEDS: MAGNESIUM OXIDE 400 MG TABLET (FP) PO ONE (09:20)
[2019-04-01] MEDS: ACETAMINOPHEN 325 MG TABLET (FP) PO PRN ×3 (09:22→22:17)
[2019-04-01] MEDS ORDERED: PATIENT'S OWN MEDICATION (NON-FORMULARY) (Mirabegron [Myrbetriq] 25 MG) PO SCH (10:00)
[2019-04-01] MEDS ORDERED: PATIENT'S OWN MEDICATION (NON-FORMULARY) (Gabapentin [Gabapentin] 800 MG) PO SCH (10:00)
[2019-04-01] MEDS ORDERED: PIPERACILLIN/TAZOB 3.375 GM 3.375 GM in DEXTROSE 5%-WATER - 50 ML IVPB SCH (10:00)
[2019-04-01] MEDS: INSULIN (LEVEMIR) 100 UNITS/ML UNITS SQ SCH ×2 (10:57→22:10)
--- NOTE | 2019-04-01 13:50 | CON.ID ---
Consult - Past Medical History Cardio/Vascular: Yes: Other (hypotension) Endocrine: Yes: Diabetes Mellitus Dermatology: Yes: Cellulitis - Past Surgical History Past Surgical History: Yes: Cholecystectomy - Alcohol/Substance Use Hx Alcohol Use: No - Smoking History Smoking history: Never smoked Have you smoked in the past 12 months: No Aproximately how many cigarettes per day: 0 - Social History ADL: Independent History of Recent Travel: No Home Medications - Allergies Allergies/Adverse Reactions: Allergies Allergy/AdvReac Type Severity Reaction Status Date / Time No Known Drug Allergies Allergy Verified 11/23/18 03:34 - Home Medications Home Medications: Ambulatory Orders metFORMIN HCL [Metformin ER Osmotic] 1,000 mg PO ASDIR 10/19/17 Diazepam [Valium] 5 mg PO TID 11/23/18 Gabapentin 800 mg PO DAILY 11/23/18 Insulin Glargine,Hum.rec.anlog [Lantus] 40 unit SQ BID 11/23/18 Insulin Lispro [Humalog Kwikpen U-100] 25 unit SQ BID 11/23/18 Mirabegron [Myrbetriq] 25 mg PO DAILY 11/23/18 Physical Exam Vital Signs: Vital Signs Temperature 98.5 F 04/01/19 10:00 Pulse Rate 81 04/01/19 10:00 Respiratory Rate 16 04/01/19 10:00 Blood Pressure 118/55 L 04/01/19 10:00 O2 Sat by Pulse Oximetry (%) 100 04/01/19 03:36 Labs: CBC, BMP 04/01/19 07:28 04/01/19 07:28
--- NOTE | 2019-04-01 16:54 | CONSULT ---
Consult - text type - Consultation Consultation Note: The patient is a 63-year-old female who was admitted with possible cellulitis to the right foot. Per patient had pain in the foot but now in no pain. Pain is localized to behind the right ankle mainly now. Has history of amputation of the 5th ray which healed well w/ my partner Dr. Trent. . PAST MEDICAL HISTORY: DM PAST SURGICAL HISTORY: s/p right fifth digit amputation for DFI (11/24/2018) and Cholecystectomy O: Vascular: dp/pt palpable Derm: right foot mild edema throughout the forefoot and the ankle, healed incision site, no notable streaking nor erythema at this time Pain on palpation of the posterolateral ankle along the peroneal tendons, no pain on palpation along inciision site, dorsum nor plantar aspect of the right foot, no open wound, no streaking, no signs of infection A: ? Resolving cellulitis , peroneal tendonitis P: Evaluated and reviewed I do not see any signs of acute infection at this time on gross examination main pain is along peroneal tendons likely more related to a sprain/strain which could be treated as outpatient WBC wnl, afebrile at this time Is on Iv abx so infection could already be resolving if has beginning cellulitis no acute podiatric intervention is needed at this time if any worsening or changes to the foot appear please reconsult as needed.
[2019-04-02] MEDS ORDERED: PIPERACILLIN/TAZOBACTAM 3.375 GM VIAL IVPB ONE ×2 (01:08→09:15)
[2019-04-02] MEDS ORDERED: DEXTROSE 5%-WATER - 50 ML IVPB ONE ×2 (01:09→09:15)
[2019-04-02] MEDS: PIPERACILLIN/TAZOB 3.375 GM 3.375 GM in DEXTROSE 5%-WATER - 50 ML IVPB SCH ×4 (01:18→09:46)
[2019-04-02] MEDS: INSULIN (NOVOLOG) ASPART 100 UNITS/ML 10ML VIAL SQ SCH (06:22)
[2019-04-02] MEDS: MAGNESIUM OXIDE 400 MG TABLET (FP) PO ONE (07:40)
[2019-04-02] MEDS: INSULIN (LEVEMIR) 100 UNITS/ML UNITS SQ SCH (09:46)
[2019-04-02] MEDS: HEPARIN NA (PORCINE) 5,000 UNITS/ML 1ML VIAL SQ SCH (09:46)
[2019-04-02] MEDS: GABAPENTIN 400 MG CAPSULE (FP) PO SCH (09:46)
[2019-04-02 14:07] VITALS: BP 114/68; PULSE 82; TEMP 98.4
--- NOTE | 2019-04-02 15:52 | PN ---
Progress Note, Physician History of Present Illness: stable no new issues leg looks better - Current Medication List Current Medications: Active Medications Acetaminophen (Tylenol -) 650 mg PO Q4H PRN PRN Reason: PAIN LEVEL 1-5 Last Admin: 04/01/19 22:17 Dose: 650 mg Gabapentin (Neurontin -) 800 mg PO DAILY [facility] Last Admin: 04/02/19 09:46 Dose: 800 mg Heparin Sodium (Porcine) (Heparin -) 5,000 unit SQ BID [facility] Last Admin: 04/02/19 09:46 Dose: 5,000 unit Piperacillin Sod/Tazobactam (Sod 3.375 gm/ Dextrose) 50 mls @ 100 mls/hr IVPB Q8H-IV [facility]; Protocol Last Admin: 04/02/19 09:46 Dose: 100 mls/hr Insulin Aspart (Novolog Vial) 1 units SQ BIDAC [facility]; Protocol Last Admin: 04/02/19 06:22 Dose: 2 unit Insulin Detemir (Levemir Vial) 25 units SQ BID [facility] Last Admin: 04/02/19 09:46 Dose: 25 units Non-Formulary Medication (Mirabegron [Myrbetriq]) 25 mg PO DAILY [facility] Oxycodone HCl (Roxicodone -) 5 mg PO Q6H PRN PRN Reason: PAIN LEVEL 1-5 Last Admin: 04/01/19 22:16 Dose: 5 mg - Objective Vital Signs: Vital Signs Temperature 98.4 F 04/02/19 14:06 Pulse Rate 82 04/02/19 14:06 Respiratory Rate 16 04/02/19 14:06 Blood Pressure 114/68 04/02/19 14:06 O2 Sat by Pulse Oximetry (%) 97 04/02/19 14:06 Constitutional: Yes: No Distress, Calm Cardiovascular: Yes: S1, S2 Respiratory: Yes: Regular, CTA Bilaterally Gastrointestinal: Yes: Normal Bowel Sounds, Soft Musculoskeletal: Yes: WNL Extremities: Yes: WNL Neurological: Yes: Alert, Oriented Psychiatric: Yes: Alert, Oriented Labs: CBC, BMP 04/01/19 07:28 04/01/19 07:28 Assessment/Plan 63 year-old female with a PMH significant for HTN, Type II IDDM with diabetic foot infection s/p right 5th toe amputation 11/24/18. Patient presented to the ED with 4 days of worsening right foot pain. Mild cellulitis Hypertension Type II IDDM plan would switch to augmentin for couple of days rest as per the team
--- NOTE | 2019-04-02 16:45 | DS ---
Physical Exam: SUBJECTIVE: Patient seen and examined OBJECTIVE: Vital Signs Period Temp Pulse Resp BP Sys/Duarte Pulse Ox Last 24 Hr 98.2 F-98.7 F 76-87 16-18 114-139/52-68 97-98 PHYSICAL EXAM GENERAL: Awake, alert, and fully oriented, in no acute distress. LUNGS: Breath sounds equal, clear to auscultation bilaterally. No wheezes, and no crackles. No accessory muscle use. HEART: Regular rate and rhythm, normal S1 and S2 ABDOMEN: Soft, nontender, not distended UPPER EXTREMITIES: 2+ pulses, warm, well-perfused. No cyanosis. No clubbing. No peripheral edema. LOWER EXTREMITIES: 2+ pulses, warm, well-perfused. No calf tenderness. RIGHT LOWER EXTREMITY: Swelling of foot improved, erythema resolved, tenderness on the lateral aspect of leg improved NEUROLOGICAL: Cranial nerves II-XII intact. Normal speech. LABS CBCD WBC 7.7 K/mm3 (4.0-10.8) 04/01/19 07:28 RBC 3.66 M/mm3 (3.60-5.2) 04/01/19 07:28 Hgb 11.1 GM/dl (10.7-15.3) 04/01/19 07:28 Hct 31.7 % (32.4-45.2) L 04/01/19 07:28 MCV 86.6 fl (80-96) 04/01/19 07:28 MCHC 34.8 g/dl (32.0-36.0) 04/01/19 07:28 RDW 12.1 % (11.6-15.6) 04/01/19 07:28 Plt Count 211 K/MM3 (134-434) 04/01/19 07:28 MPV 9.8 fl (7.5-11.1) 04/01/19 07:28 CMP Sodium 137 mmol/L (136-145) 04/01/19 07:28 Potassium 4.2 mmol/L (3.5-5.1) 04/01/19 07:28 Chloride 102 mmol/L (98-107) 04/01/19 07:28 Carbon Dioxide 25 mmol/L (21-32) 04/01/19 07:28 Anion Gap 10 MMOL/L (8-16) 04/01/19 07:28 BUN 14.0 mg/dl (7-18) 04/01/19 07:28 Creatinine 0.7 mg/dl (0.55-1.3) 04/01/19 07:28 Calcium 8.3 mg/dl (8.5-10) L 04/01/19 07:28 Total Bilirubin 0.9 mg/dl (0.2-1) 03/31/19 21:48 AST 21 U/L (15-37) 03/31/19 21:48 ALT 19 U/L (13-61) 03/31/19 21:48 Alkaline Phosphatase 190 U/L (45-117) H 03/31/19 21:48 Total Protein 7.3 g/dl (6.4-8.2) 03/31/19 21:48 Albumin 3.6 g/dl (3.4-5.0) 03/31/19 21:48 HOSPITAL COURSE: Date of Admission:04/01/19 Date of Discharge: 04/02/19 Pre hosptial course 63 year-old female with a PMH significant for HTN, Type II IDDM with diabetic foot infection s/p right 5th toe amputation 11/24/18. Patient presented to the ED with 4 days of worsening right foot pain that radiates down to the great toe, associated with swelling. The patient has been taking Tylenol for the pain without relief. Denies fever, sweats, chills. Denies trauma. ER course (1) Glucose 191 Subsequent hospital course Mild cellulitis --ID and podiatry have already evaluated patient; agreement there is very low suspicion for osteo --treated with Zosyn; remained afebrile, with no leukocytosis --discharged on augmentin for another 5 days of treatment Hypertension --BP stable Type II IDDM --Levemir --Novolog sliding scale coverage Minutes to complete discharge: 35 Discharge Summary Problems reviewed: Yes Reason For Visit: RIGHT FOOT CELLULITIS Current Active Problems Cellulitis of right foot (Acute) Condition: Improved - Instructions Diet, Activity, Other Instructions: A prescription has been sent to your pharmacy for augmentin, an antibiotic. Take this medication as directed. You should follow up with Dr. Trent for your next regularly scheduled appointment. Referrals: Trent Trent MD [Staff Physician] - Disposition: HOME - Home Medications Comprehensive Discharge Medication List: Ambulatory Orders metFORMIN HCL [Metformin ER Osmotic] 1,000 mg PO ASDIR 10/19/17 Diazepam [Valium] 5 mg PO TID 11/23/18 Gabapentin 800 mg PO DAILY 11/23/18 Insulin Glargine,Hum.rec.anlog [Lantus] 40 unit SQ BID 11/23/18 Insulin Lispro [Humalog Kwikpen U-100] 25 unit SQ BID 11/23/18 Mirabegron [Myrbetriq] 25 mg PO DAILY 11/23/18 Amoxicillin/Potassium Clav [Augmentin 875-125 Tablet] 1 each PO BID #10 tablet 04/02/19 This patient is new to me today: No Emergency Visit: Yes ED Registration Date: 04/01/19 Care time: The patient presented to the Emergency Department on the above date and was hospitalized for further evaluation of their emergent condition. Critical Care patient: No - Discharge Referral Referred to [facility] No
== END 2019-04-02 17:59 | disposition home or self-care (01) | DRG 603 ==
LOC: FER 20:51 → FM/S 04-01 03:33
PROVIDERS: ADMIT Internal Medicine; ATTEND Nurse Practitioner Acute Care
DX: L03.115 Cellulitis of right lower limb (principal); Z68.41 Body mass index [BMI] 40.0-44.9, adult; I10 Essential (primary) hypertension; E11.9 Type 2 diabetes mellitus without complications; E66.01 Morbid (severe) obesity due to excess calories; Z79.4 Long term (current) use of insulin; M76.70 Peroneal tendinitis, unspecified leg; M79.671 Pain in right foot
CPT/HCPCS: 36415; 73610-TC-RT-FY; 73630-TC-RT-FY; 80048; 80053; 82962; 83036; 83605; 83735; 85025; 85027; 87040; 93971-TC; 99284-25; J1644; J7030

== ENCOUNTER 2020-01-16 23:17 | Inpatient (IN) | payer OTHER ==
--- NOTE | 2020-01-17 00:07 | PDOC ---
History of Present Illness - General Chief Complaint: Pain, Acute Stated Complaint: RUQ/PAIN - History of Present Illness Initial Comments: HPI Pt is a 64yo Bel[place]ian speaking F with PMH IDDM, HTN, HLD, hx of cholecystectomy, who presents with LUQ/chest pain. States that she has had this pain for 4 months, worse today. States pain with intensity to keep her from sleeping. States that pain radiates to her back. Described as intermittent, lasting about 10 minutes per episode, but frequent cycles of pain throughout the entirety of the day. States that she took 4 tabs of Tylenol today, with most recent dose at 4pm. Denies any known triggers. Saw her doctor for foot infection and was started on amox-clav on friday. 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 Review of Systems CONSTITUTIONAL:reports decreased appetite; denies fever, chills, diaphoresis HEENT:denies rhinorrhea, nasal congestion, sore throat, visual changes CARDIOVASCULAR:reports chest pain, lightheadedness RESPIRATORY: reports shortness of breath during pain episodes GASTROINTESTINAL: reports abdominal pain, abdominal distension, constipation; denies nausea, vomiting, diarrhea, melena, hematochezia GENITOURINARY:denies dysuria, frequency, urgency MUSCULOSKELETAL:denies myalgia, arthralgia HEMATOLOGIC/IMMUNOLOGIC:denies easy bleeding, easy bruising ENDOCRINE: denies unexplained weight gain, unexplained weight loss NEUROLOGIC:denies headache, loss of consciousness SKIN:denies rash, itching, pallor Physical Exam General: awake, alert, oriented, in mild distress, well developed, well nourished Head: normocephalic, atraumatic Eyes: PERRL, EOMI, anicteric sclera, conjunctiva clear; R pupil fixed ENT: Auricles normal inspection, hearing grossly normal, oropharynx with tonsillar exudates. Moist mucous membranes Neck: supple, normal ROM Lung: equal breath sounds b/l, CTA b/l, no crackles, wheezes; no distress, speaks full sentences Heart: RRR, normal S1, S2, no murmurs appreciated Abdomen: soft, TTP in LUQ, normoactive bowel sounds, no guarding, rebound, masses Extremities: no edema, no erythema or tenderness, DP/PT pulses 2+ and symmetric Skin: warm, dry, right first metatarsal foot ulcer; amputated R fifth toe. VIC Pt is a 64yo [place]ian speaking F with PMH IDDM, HTN, HLD, hx of cholecystectomy, who presents with LUQ/chest pain. DDx including but not limited to: ACS, SBO, pancreatitis Workup: labs, ekg, CT a/p TX: pain control EKG: normal sinus rhythm, HR 83bpm, IL 146ms, QRS 78ms, QTc 437ms, left axis deviation CXR - no pneumothorax or pleural effusion. midline airway, appropriate vascular markings, no blunting of costophrenic angle, no cardiomegaly, increased hilar fullness as compared to 2016, image has poor inspiratory effort, as read by ED staff Initial troponin WNL HEART score 4 Glucose elevated to 400, will give fluids and reassess CT a/p: nonspecific wall thickening most likely due to mild gastritis, Mild cardiomegaly with calcified coronary artery arteriosclerosis in the left anterior descending coronary artery and left circumflex coronary artery. Mild hepatomegaly and steatosis. Mildly dilated common bile duct status post cholecystectomy. Diverticulosis. Continues to remain in pain, given GI cocktail, Tylenol Will order 4mg morphine repeat BGM 379, will give 9U insulin pending repeat trop Will admit patient for intractable abdominal pain, uncontrolled IDDM, r/o ACS Admission discussed with patient who agreed with plan. Disposition: Admit Past History - Medical History Allergies/Adverse Reactions: Allergies Allergy/AdvReac Type Severity Reaction Status Date / Time No Known Drug Allergies Allergy Verified 01/16/20 23:40 Home Medications: Ambulatory Orders Gabapentin 800 mg PO Q8H 11/23/18 Insulin Lispro [Humalog Kwikpen U-100] 10 unit SQ TID 11/23/18 Atorvastatin Ca [Lipitor] 40 mg PO HS 01/17/20 Omeprazole 40 mg PO DAILY 01/17/20 Olopatadine HCl [Pazeo] 1 drop OU DAILY 01/18/20 Amoxicillin/Potassium Clav [Augmentin 875-125 Tablet] 1 each PO BID #24 tablet 01/19/20 Insulin Glargine,Hum.rec.anlog [Lantus Solostar] 40 unit SQ BID #1 vial 01/19/20 Mag Hydrox/Al Hydrox/Simeth [Mylanta Oral Suspension -] 30 ml PO Q6HPO cup 01/19/20 Mupirocin Ointment [Bactroban 2% Ointment -] 1 applic TP DAILY #1 bottle Anemia: No Asthma: No Cancer: No Cardiac Disorders: No CVA: No COPD: No CHF: No Dementia: No Diabetes: Yes GI Disorders: Yes (GAS) Disorders: No HTN: Yes Hypercholesterolemia: Yes Liver Disease: No Seizures: No Thyroid Disease: No - Surgical History Abdominal Surgery: Yes Cholecystectomy: Yes Orthopedic Surgery: (right little toe amputation) - Psycho-Social/Smoking History Smoking Status: No Smoking History: Never smoked Have you smoked in the past 12 months: No Number of Cigarettes Smoked Daily: 0 Information on smoking cessation initiated: No - Substance Abuse Hx (Audit-C & DAST Scrn) How often the patient has a drink containing alcohol: Never Score: In Men: 4 or > Positive; In Women: 3 or > Positive: 0 Screen Result (Pos requires Nsg. Audit-10AR): Negative In the last yr the pt used illegal drug/Rx for NonMed reason: No Score: Yes response is considered Positive: 0 Screen Result (Positive result requires Nsg. DAST-10): Negative *Physical Exam - Vital Signs Last Vital Signs Temp Pulse Resp BP Pulse Ox 98.6 F 85 22 H 145/62 100 01/16/20 23:36 01/16/20 23:36 01/16/20 23:36 01/16/20 23:36 01/16/20 23:36 Heart Score/ECG Review - History History: Moderately suspicious - Electrocardiogram EKG: Normal - Age Age: 45-65 - Risk Factors Risk Factors Heart Score: Yes Hx Hypercholesterolemia, Yes Hx Hypertension, Yes Hx Diabetes, Yes Hx Obesity Based on the list above the patient has:: >/=3 risk factors or Hx atherosclerotic disease - Troponin Troponin: </= normal limit - Score Heart Score - Total: 4 ED Treatment Course - LABORATORY CBC & Chemistry Diagram: 01/19/20 07:50 01/19/20 07:50 Discharge - Discharge Information Problems reviewed: Yes Clinical Impression/Diagnosis: Intractable abdominal pain Uncontrolled diabetes mellitus Qualifiers: Diabetes mellitus type: type 2 Glycemic state: with hyperglycemia Qualified Code(s): E11.65 - Type 2 diabetes mellitus with hyperglycemia Chest pain Qualifiers: Chest pain type: unspecified Qualified Code(s): R07.9 - Chest pain, unspecified Condition: Stable - Admission Yes - Follow up/Referral - Patient Discharge Instructions - Post Discharge Activity
[2020-01-17] MEDS ORDERED: FAMOTIDINE 20 MG/50 ML IVPB 20 MG/50 ML MG IVPB ONE (00:51)
[2020-01-17] MEDS ORDERED: LIDOCAINE VISCOUS 2% ORAL/TOP 20 ML UNIT-DOSE CUP MM ONE (00:51)
[2020-01-17] MEDS ORDERED: MAG HYDROX/AL HYDROX/SIMETH 30 ML UNIT-DOSE CUP PO ONE (00:51)
[2020-01-17] MEDS ORDERED: MAG HYDROX/AL HYDROX/SIMETH 30 ML UNIT-DOSE CUP ONE ×2 (01:03→13:00)
[2020-01-17] MEDS ORDERED: LIDOCAINE VISCOUS 2% ORAL/TOP 20 ML UNIT-DOSE CUP ONE (01:04)
[2020-01-17 01:47] LABS: BASO % 1.2 % (0-2.0); EOS % 4.5 % (0-4.5); HEMOGLOBIN 11.6 GM/dL (10.7-15.3); LYMPH % 31.3 % (8-40); MCH 29.1 pg (25.7-33.7); MCHC 33.2 g/dl (32.0-36.0); MEAN CELL VOLUME 87.6 fl (80-96); MEAN PLT VOLUME 9.2 fl (7.5-11.1); MONO % 7.8 % (3.8-10.2); NEUT % 55.2 % (42.8-82.8); PLATELET COUNT 302 K/MM3 (134-434); RBC 3.99 M/mm3 (3.60-5.2); RDW 12.5 % (11.6-15.6); WHITE BLOOD COUNT 7.4 K/mm3 (4.0-10.0)
[2020-01-17 02:10] LABS: ALBUMIN 3.5 g/dl (3.4-5.0); BILIRUBIN,TOTAL 0.4 mg/dL (0.2-1); BLOOD UREA NITROGEN 23.5 mg/dL (7-18); CREATININE 1.2 mg/dL (0.55-1.3); POTASSIUM 5.1 mmol/L (3.5-5.1); TOT PROT 7.8 g/dl (6.4-8.2)
[2020-01-17] MEDS ORDERED: SODIUM CHLORIDE 1,000 ML IV STA (02:14)
[2020-01-17 03:27] LABS: EPI CELLS 9 /uL (0-25.1); HYALINE CASTS 1 /uL (0-3.1); PH,URINE 6.5 (5.0-8.0); URINE APPEARANCE CLEAR; URINE BACTERIA 11 /uL (0-1359); URINE BILIRUBIN NEGATIVE (NEGATIVE); URINE COLOR YELLOW; URINE GLUCOSE (UA) 3+ (NEGATIVE); URINE KETONE NEGATIVE (NEGATIVE); URINE LEUK ESTERASE TRACE (NEGATIVE); URINE NITRITE NEGATIVE (NEGATIVE); URINE PROTEIN NEGATIVE (NEGATIVE); URINE RBC 4 /uL (0-23.9); URINE WBC 17 /uL (0-25.8)
--- NOTE | 2020-01-17 03:30 | PDOC ---
Documentation entered by Cameron Callahan SCRIBE, acting as scribe for Linnea Negrete MD. Linnea Negrete MD: This documentation has been prepared by the scribe, Cameron Callahan SCRIBE, under my direction and personally reviewed by me in its entirety. I confirm that the documentation accurately reflects all work, treatment, procedures, and medical decision making performed by me. Attending Attestation - Resident Resident Name: Xiao Self - ED Attending Attestation I have performed the following: I have examined & evaluated the patient, The case was reviewed & discussed with the resident, I agree w/resident's findings & plan, Exceptions are as noted - HPI HPI: 01/17/20 06:55 PT COMES WITH MULTIPLE COMPLAINTS. SHE HAS LUQ PAIN THAT RADIATES TO THE CHEST. SHE STATES THAT THE PAIN HAS BEEN ONGOING BUT THAT IT IS GETTING WORSE SO SHE COMES IN. PT HAS DM AND OBESITY AND HTN AND HIGH CHOLESTEROL. PT HAS NORMAL NEURO EXAM PT HAS RIGHT BASE OF 1ST TOE/BALL OF FOOT OPEN ULCER THAT IS HEALING AND NOT INFECTED. - Physicial Exam PE: 01/17/20 01:47 GENERAL: +morbidly obese, afebrile, Awake, alert, and fully oriented, in no acute distress HEAD: No signs of trauma EYES: PERRLA, EOMI, sclera anicteric, conjunctiva clear ENT: Auricles normal inspection, hearing grossly normal, nares patent, oropharynx clear without exudates. Moist mucosa NECK: Normal ROM, supple, no lymphadenopathy, JVD, or masses LUNGS: Breath sounds equal, clear to auscultation bilaterally. No wheezes, and no crackles HEART: Regular rate and rhythm, normal S1 and S2, no murmurs, rubs or gallops ABDOMEN: +epigastric pain, left upper quadrant pain, left side pain, left flank pain. Soft, nontender, normoactive bowel sounds. No guarding, no rebound. No masses EXTREMITIES: + Right first toe open wound that was drained. Normal range of motion, no edema. No clubbing or cyanosis. No cords, erythema, or tenderness NEUROLOGICAL: Cranial nerves II through XII grossly intact. Normal speech, norm al gait SKIN: Warm, Dry, normal turgor, no rashes or lesions noted. - Medical Decision Making 01/17/20 05:18 Patient Name: [place] THIS IS A PRELIMINARY REPORT DATE OF SERVICE: 2020-01-17 03:41:04 IMAGES: 581 EXAM: CT abdomen with contrast and CT pelvis with contrast HISTORY: 64-year-old female with epigastric pain and left upper quadrant pain COMPARISON: None. CONTRAST: 95 mL of a type of intravenous contrast was administered FINDINGS: Lack of oral contrast limits this exam. Mild cardiomegaly with calcified coronary artery arteriosclerosis in the left anterior descending coronary artery and left circumflex coronary artery. Mild hepatomegaly and steatosis. Mildly dilated common bile duct status post cholecystectomy. Pancreas spleen and adrenal glands left kidney appear unremarkable. Right kidney cortical cyst. No nephrolithiasis or hydronephrosis. Small hiatal hernia. Lack of oral contrast limits this exam. Mild nonspecific wall thickening of the stomach most likely due to mild gastritis. None oral contrast evaluation of the small bowel and appendix appear unremarkable. No appendicitis. Diverticulosis. No diverticulitis. Uterus and bladder appear unremarkable. No free air. No free fluid. No abscess. Moderate degenerative disc disease. Mild degenerative joint disease of the sacroiliac joints. Calcified peripheral vascular disease. Significant subcutaneous adipose tissue is incompletely included within the [id number]. Mild skin thickening of the pelvic pannus. IMPRESSION: Mild nonspecific wall thickening of the stomach most likely due to mild gastritis. Mild cardiomegaly with calcified coronary artery arteriosclerosis in the left anterior descending coronary artery and left circumflex coronary artery. Mild hepatomegaly and steatosis. Mildly dilated common bile duct status post cholecystectomy. Diverticulosis. 01/17/20 05:31 Pt has uncontrolled blood sugar and chestn pain ACS Heart Score/ECG Review - ECG Intrepretation Rhythm: Regular Rhythm - Montrose Montrose: Normal - P and MO Prominent R with upright T in V1 (true posterior UT): No Delta Wave(s) Present: No WPW: No - QRS Poor R Wave Progression: No Q Wave Present: No - ST and T Early Repolarization: No Non Specific ST-T Wave changes: No Flattened T Waves: No Prolonged Q-T Interval: No - ECG Impressions Normal ECG: Yes Non-specific ST Elevation: No Ischemic Changes: No Comment:: 01/17/20 03:30 INFERIOR Q WAVES Discharge - Discharge Information Problems reviewed: Yes Clinical Impression/Diagnosis: Intractable abdominal pain Uncontrolled diabetes mellitus Qualifiers: Diabetes mellitus type: type 2 Glycemic state: with hyperglycemia Qualified Code(s): E11.65 - Type 2 diabetes mellitus with hyperglycemia Chest pain Qualifiers: Chest pain type: unspecified Qualified Code(s): R07.9 - Chest pain, unspecified Condition: Stable - Follow up/Referral - Patient Discharge Instructions - Post Discharge Activity
[2020-01-17] MEDS ORDERED: ACETAMINOPHEN 1000 MG/100 ML VIAL (NON FORMULARY) IVPB ONE (04:47)
[2020-01-17] MEDS ORDERED: ACETAMINOPHEN INJECTION 100 ML IVPB ONE (04:55)
[2020-01-17] MEDS ORDERED: INSULIN REGULAR HUMAN 100 UNITS/ML *VIAL IVPUSH ONE (06:28)
[2020-01-17] MEDS ORDERED: morphine CARPU-JECT 4 MG/1 ML DISP.SYRIN IVPUSH ONE (07:14)
[2020-01-17] MEDS ORDERED: morphine SULFATE 4 MG/ML VIAL ONE (07:30)
[2020-01-17] MEDS: ONDANSETRON 4 MG/2 ML VIAL IVPUSH PRN ×2 (08:05→23:25)
--- NOTE | 2020-01-17 08:12 | HP ---
CHIEF COMPLAINT: LUQ and epigastric pain PCP: DR Sharmin HAJI HISTORY OF PRESENT ILLNESS: [employer]or [id number] 64 y/o female with PMH of DM, HTN, HLD presents to the ED with complaints LUQ and epigastric pain- patient states that she has had this pain for 4 months and has been taking PPI for 4 months with little relief- she has had decrease in her appetite as well. The pain is intermittent and it moves from her LUQ to her mid epigastric area she has some associated nausea with but no vomiting or diarrhea she states the pain currently is an 7-8/10 especially when she lays on her side she does see a gastroentrologist however she does not recall his name ; she denies any fever/shortness of breath or any sick contacts. of note, she has an ulcer on her right toe for which she was prescribed augementin for on 01/12 for a 14 day course ER course was notable for: (1)BP 135/66 ; WKG NSR no ST-T changes (2)normal WBC ; sodium 133 (corrected for hyperglycemia 138) K 5.1 trop neg x2 lipase 249; glucose 409 (3)ab/pelvis CT: gastritis; diverticulosis; mild CBD dilation (4) given tylenol; malox; pepcid morphine Recent Travel: denies PAST MEDICAL HISTORY: see above PAST SURGICAL HISTORY: cholecystectomy Social History: Smoking:denies Alcohol:denies Drugs: denies Allergies No Known Drug Allergies Allergy (Verified 01/16/20 23:40) HOME MEDICATIONS: Home Medications Medication Instructions Recorded Gabapentin 800 mg PO DAILY 11/23/18 Insulin Glargine,Hum.rec.anlog 40 unit SQ BID 11/23/18 [Lantus] Insulin Lispro [Humalog Kwikpen 30 unit SQ BID 11/23/18 U-100] Amoxicillin/Potassium Clav 1 each PO BID #10 tablet 04/02/19 [Augmentin 875-125 Tablet] Atorvastatin Ca [Lipitor] 40 mg PO HS 01/17/20 Omeprazole 40 mg PO DAILY 01/17/20 REVIEW OF SYSTEMS CONSTITUTIONAL: Absent: fever, chills, diaphoresis, generalized weakness, malaise, loss of appetite, weight change HEENT: Absent: rhinorrhea, nasal congestion, throat pain, throat swelling, difficulty swallowing, mouth swelling, ear pain, eye pain, visual changes CARDIOVASCULAR: Absent: chest pain, syncope, palpitations, irregular heart rate, lightheadedness, peripheral edema RESPIRATORY: Absent: cough, shortness of breath, dyspnea with exertion, orthopnea, wheezing, stridor, hemoptysis GASTROINTESTINAL: Present: abdominal pain, nausea Absent: abdominal distension, vomiting, diarrhea, constipation, melena, hematochezia GENITOURINARY: Absent: dysuria, frequency, urgency, hesitancy, hematuria, flank pain, genital pain MUSCULOSKELETAL: Absent: myalgia, arthralgia, joint swelling, back pain, neck pain SKIN: Absent: rash, itching, pallor HEMATOLOGIC/IMMUNOLOGIC: Absent: easy bleeding, easy bruising, lymphadenopathy, frequent infections ENDOCRINE: Absent: unexplained weight gain, unexplained weight loss, heat intolerance, cold intolerance NEUROLOGIC: Absent: headache, focal weakness or paresthesias, dizziness, unsteady gait, seizure, mental status changes, bladder or bowel incontinence PSYCHIATRIC: Absent: anxiety, depression, suicidal or homicidal ideation, hallucinations. PHYSICAL EXAMINATION Vital Signs - 24 hr 01/16/20 01/17/20 01/17/20 23:36 00:50 03:20 Temperature 98.6 F 98.3 F 98.2 F Pulse Rate 85 Pulse Rate [ 82 82 Apical] Respiratory 22 H 18 18 Rate Blood Pressure 145/62 Blood Pressure 144/60 137/83 [Right Arm] O2 Sat by Pulse 100 98 100 Oximetry (%) 01/17/20 01/17/20 04:35 07:37 Temperature 98.1 F 97.9 F Pulse Rate Pulse Rate [ 82 80 Apical] Respiratory 19 17 Rate Blood Pressure Blood Pressure 148/49 L 135/66 [Right Arm] O2 Sat by Pulse 99 100 Oximetry (%) GENERAL: Awake, alert, and fully oriented, in slight acute distress. EYES:PEERLA: EOMI; no scleral icterus NECK: no JVD; no lymphadenoapthy LUNGS:CTA B/l no rales, rhonchi or wheezing HEART: Regular rate and rhythm, normal S1 and S2 without murmur, rub or gallop. ABDOMEN: Soft,+ LUQ tenderness and epigastric tenderness upon palpation MUSCULOSKELETAL: Normal range of motion at all joints. No bony deformities or tenderness. No CVA tenderness. EXTREMITIES: warm; well-perfused no clubbing/cyanosis or edema NEUROLOGICAL: Cranial nerves II-XII intact. Normal speech. Normal gait. PSYCHIATRIC: Cooperative. Good eye contact. Appropriate mood and affect. SKIN: Warm, dry, normal turgor, no rashes or lesions noted, normal capillary refill. Laboratory Results - last 24 hr 01/17/20 01/17/20 01/17/20 01:20 01:20 01:20 WBC 7.4 RBC 3.99 Hgb 11.6 Hct 35.0 MCV 87.6 MCH 29.1 MCHC 33.2 RDW 12.5 Plt Count 302 MPV 9.2 Absolute Neuts (auto) 4.1 Neutrophils % 55.2 Lymphocytes % 31.3 Monocytes % 7.8 Eosinophils % 4.5 Basophils % 1.2 Nucleated RBC % 0 Sodium 133 L Potassium 5.1 Chloride 98 Carbon Dioxide 27 Anion Gap 7 L BUN 23.5 H Creatinine 1.2 Est GFR (CKD-EPI)AfAm 55.31 Est GFR (CKD-EPI)NonAf 47.72 POC Glucometer Random Glucose 409 H* Calcium 9.0 Total Bilirubin 0.4 AST 16 ALT 30 Alkaline Phosphatase 248 H Troponin I Total Protein 7.8 Albumin 3.5 Lipase 249 Urine Color Urine Appearance Urine pH Ur Specific [place] Urine Protein Urine Glucose (UA) Urine Ketones Urine Blood Urine Nitrite Urine Bilirubin Urine Urobilinogen Ur Leukocyte Esterase Urine WBC (Auto) Urine RBC (Auto) Urine Casts (Auto) U Epithel Cells (Auto) Urine Bacteria (Auto) Blood Type B POSITIVE Antibody Screen Negative 01/17/20 01/17/20 01/17/20 01:20 02:20 06:24 WBC RBC Hgb Hct MCV MCH MCHC RDW Plt Count MPV Absolute Neuts (auto) Neutrophils % Lymphocytes % Monocytes % Eosinophils % Basophils % Nucleated RBC % Sodium Potassium Chloride Carbon Dioxide Anion Gap BUN Creatinine Est GFR (CKD-EPI)AfAm Est GFR (CKD-EPI)NonAf POC Glucometer Random Glucose Calcium Total Bilirubin AST ALT Alkaline Phosphatase Troponin I < 0.02 < 0.02 Total Protein Albumin Lipase Urine Color Yellow Urine Appearance Clear Urine pH 6.5 Ur Specific [place] 1.023 Urine Protein Negative Urine Glucose (UA) 3+ H Urine Ketones Negative Urine Blood Negative Urine Nitrite Negative Urine Bilirubin Negative Urine Urobilinogen 1.0 Ur Leukocyte Esterase Trace Urine WBC (Auto) 17 Urine RBC (Auto) 4 Urine Casts (Auto) 1 U Epithel Cells (Auto) 9 Urine Bacteria (Auto) 11 Blood Type Antibody Screen 08/24/20 06:27 WBC RBC Hgb Hct MCV MCH MCHC RDW Plt Count MPV Absolute Neuts (auto) Neutrophils % Lymphocytes % Monocytes % Eosinophils % Basophils % Nucleated RBC % Sodium Potassium Chloride Carbon Dioxide Anion Gap BUN Creatinine Est GFR (CKD-EPI)AfAm Est GFR (CKD-EPI)NonAf POC Glucometer 379 Random Glucose Calcium Total Bilirubin AST ALT Alkaline Phosphatase Troponin I Total Protein Albumin Lipase Urine Color Urine Appearance Urine pH Ur Specific [place] Urine Protein Urine Glucose (UA) Urine Ketones Urine Blood Urine Nitrite Urine Bilirubin Urine Urobilinogen Ur Leukocyte Esterase Urine WBC (Auto) Urine RBC (Auto) Urine Casts (Auto) U Epithel Cells (Auto) Urine Bacteria (Auto) Blood Type Antibody Screen ASSESSMENT/PLAN: 64 y/o female with PMH of DM, HTN, HLD presents to the ED with complaints LUQ and epigastric pain that has been ongoing for 4 months #LUQ/rib pain patient has already received tylneol/pepcid/malox/morphine -zofran PRN nausea -morphine PRN for pain -IVF -GI consult -trop neg x2; -US -chronically elevated alk phos: will get GGT -will get neuro eval as well given reproducible nature of rib pain ? neuropathy 2/2 uncontrolled DM #DM patients glucose on arrival was 409 -she states she did not take her insulin 2/2 pain -BGMS ACHS -ISS aCHS -will half levemir dose given that patient is not eating -HbA1c ordered -c/w gabapentin for peripheral neuropathy - #Right toe ulcer 2/2 uncontrolled DM -patient started on Augmetin BID on 01/12 #HLD c/w atorvastatin #HTN not currently on any home meds -monitor hemodynamics f/e/n no IVF fluids monitor electrolytes clears until patient can tlolerate dvt ppx: lovenox dispo: med-surg Family Medical History Family History: Denies Problem List - Problem (1) Rib pain on left side Code(s): R07.81 - PLEURODYNIA (2) Diabetes Code(s): E11.9 - TYPE 2 DIABETES MELLITUS WITHOUT COMPLICATIONS (3) Intractable abdominal pain Code(s): R10.9 - UNSPECIFIED ABDOMINAL PAIN Visit type - Emergency Visit Emergency Visit: Yes ED Registration Date: 01/17/20 Care time: The patient presented to the Emergency Department on the above date and was hospitalized for further evaluation of their emergent condition. - New Patient This patient is new to me today: Yes Date on this admission: 01/17/20 - Critical Care Critical Care patient: No ATTENDING PHYSICIAN STATEMENT I saw and evaluated the patient. I reviewed the resident's note and discussed the case with the resident. I agree with the resident's findings and plan as documented. SUBJECTIVE: OBJECTIVE: ASSESSMENT AND PLAN:
[2020-01-17] MEDS ORDERED: LACTATED RINGERS SOLUTION 1,000 ML/1,000 ML INFUS.BAG IV SCH (08:15)
--- NOTE | 2020-01-17 10:15 | CON.GI ---
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 Patient points towards her left upper flank and side. She states that the pain is a stabbing sensation, constant and keeps her up at night. It is worsened by movement or when she lies on her side and minimally improved when lying flat and still. No change in bowel habits. No rectal bleeding. No urinary symptoms and pain can sometimes radiate to her left back. No vomiting. She believes that she saw her set up machinist this past friday in [place] and that blood worm was drawn. She does not recall ever having had an upper endoscopy or colonoscopy. In ER, CBC was normal, Glucose was 408 and ALP was elevated but appears chronically elevated. IV contrast CT scan of abdomen and pelvis failed to reveal acute pathology. - History Source History Provided By: Patient, Medical Record Limitations to Obtaining History: Poor Historian - Past Medical History Cardio/Vascular: Yes: Other (hypotension) Endocrine: Yes: Diabetes Mellitus (DM II), Other (Obesity) Dermatology: Yes: Cellulitis - Past Surgical History Past Surgical History: Yes: Cholecystectomy (Laparoscopic) - Alcohol/Substance Use Hx Alcohol Use: No History of Substance Use: reports: None - Smoking History Smoking history: Never smoked Have you smoked in the past 12 months: No Aproximately how many cigarettes per day: 0 - Social History ADL: Independent Occupation: Unemployed Place of : Other ([facility], [employer]) Came to [place]year[place] 36 years prior History of Recent Travel: No Home Medications - Allergies Allergies/Adverse Reactions: Allergies Allergy/AdvReac Type Severity Reaction Status Date / Time No Known Drug Allergies Allergy Verified 01/16/20 23:40 - Home Medications Home Medications: Ambulatory Orders Gabapentin 800 mg PO DAILY 11/23/18 Insulin Glargine,Hum.rec.anlog [Lantus] 40 unit SQ BID 11/23/18 Insulin Lispro [Humalog Kwikpen U-100] 30 unit SQ BID 11/23/18 Amoxicillin/Potassium Clav [Augmentin 875-125 Tablet] 1 each PO BID #10 tablet 04/02/19 Atorvastatin Ca [Lipitor] 40 mg PO HS 01/17/20 Omeprazole 40 mg PO DAILY 01/17/20 Family Medical History Other Family History: No family history of GI malignancy Review of Systems - Review of Systems Constitutional: denies: Chills Cardiovascular: denies: Chest Pain Respiratory: denies: Cough, SOB Gastrointestinal: reports: Nausea. denies: Abdominal Pain, Constipation, Diarrhea, Indigestion, Melena, Rectal Bleeding, Vomiting, Vomiting Blood Physical Exam-GI Vital Signs: Vital Signs Temperature 97.9 F 01/17/20 07:37 Pulse Rate 80 01/17/20 07:37 Respiratory Rate 17 01/17/20 07:37 Blood Pressure 135/66 01/17/20 07:37 O2 Sat by Pulse Oximetry (%) 100 01/17/20 07:37 Constitutional: Yes: Calm Eyes: No: Sclera Icterus Cardiovascular: Yes: Regular Rate and Rhythm, Murmur (2/6 systolic murmur) Respiratory: Yes: CTA Bilaterally Gastrointestinal Inspection: Yes: Scars (Healed upper abdominal trochar scars). No: Distention ...Auscultate: Yes: Normoactive Bowel Sounds ...Palpate: Yes: Soft. No: Guarding, Hepatomegaly, Splenomegaly, Tenderness ...Percussion: No: Tympanitic Musculoskeletal: Yes: Other (tenderness to palpation along the left lower / mid anetrior and medial ribs as well as intercostals. This palpation reproduced her pain.) Edema: No (No LE edema) Neurological: Yes: Alert Labs: CBC, BMP 01/17/20 01:20 01/17/20 01:20 Imaging - Results Cat Scan: Report Reviewed, Image Reviewed Problem List - Problems (1) Rib pain on left side Assessment/Plan: Able to reproduce patient's psitional pain complaints upon palpation of medial/lateral portions of her left lower ribs. I question if this reflects more of a somatic or neurogenic pain complaint as opposed to a visceral etiology. Advise: Evaluation of rib pain per primary team Neuro evaluation Obtain more information regarding patient's recent visit to set up machinist. Will need follow-up as outpatient with her set up machinist. Alkaline phosphatase elevated, appears elevated in past: Obtain GGT, Abdominal US, information regarding any work-up of this with her set up machinist Code(s): R07.81 - PLEURODYNIA (2) Murmur Assessment/Plan: Systolic murmur noted on exam Evaluation of murmur per primary team Code(s): R01.1 - CARDIAC MURMUR, UNSPECIFIED
[2020-01-17] MEDS ORDERED: ENOXAPARIN NA (PORCINE) 40 MG/0.4 ML DISP.SYRIN SQ ONE (10:55)
[2020-01-17] MEDS ORDERED: AMOX TR/POT CLAV 875MG/125MG TABLETS (FP) ONE (10:55)
[2020-01-17] MEDS ORDERED: PANTOPRAZOLE SODIUM 40 MG VIAL ONE (10:56)
[2020-01-17] MEDS: PANTOPRAZOLE SODIUM 40 MG VIAL IVPUSH SCH (11:02)
[2020-01-17] MEDS: GABAPENTIN 400 MG CAPSULE PO SCH (11:02)
[2020-01-17] MEDS: AMOX TR/POT CLAV 875MG/125MG TABLETS (FP) PO SCH ×2 (11:03→21:35)
[2020-01-17] MEDS: ENOXAPARIN NA (PORCINE) 40 MG/0.4 ML DISP.SYRIN SQ SCH (11:03)
[2020-01-17] MEDS: INSULIN SLIDING SCALE (NOVOLOG) 1 VIAL SQ SCH ×3 (11:16→21:39)
[2020-01-17] MEDS ORDERED: LIDOCAINE 5% TOPICAL PATCH TP ONE (12:37)
[2020-01-17] MEDS ORDERED: LIDOCAINE 5% TOPICAL PATCH ONE (13:00)
[2020-01-17] MEDS: MAG HYDROX/AL HYDROX/SIMETH 30 ML UNIT-DOSE CUP PO SCH ×3 (13:05→23:25)
--- NOTE | 2020-01-17 17:07 | PN ---
Teaching Attending Note Name of Resident: Jayde Craven ATTENDING PHYSICIAN STATEMENT I saw and evaluated the patient. I reviewed the resident's note and discussed the case with the resident. I agree with the resident's findings and plan as documented. SUBJECTIVE: OBJECTIVE: ASSESSMENT AND PLAN: 64 y/o female with a PMHx notable for DM II, HTN, HLD presents to the ED with complaints LUQ pain for several months #LUQ/rib pain Appreciate GI evaluation ? Psychogenic vs organic etiology for her symptom - ro management - Follow-up Abd US. -chronically elevated alk phos: will get GGT -Neuro eval as well given reproducible nature of rib pain ? neuropathy 2/2 uncontrolled DM #Uncontrolled Diabetes Mellitus -ISS/levemir -monitor accuchecks #Hyponatremia - likely pseudohyponatremia in the setting of hyperglycemia - agree with IV fluids - repeat lytes in AM #Right toe ulcer Has been on Augmetin since 01/12
[2020-01-17] MEDS: SODIUM CHLORIDE 0.45% 1,000 ML IV SCH (17:37)
--- NOTE | 2020-01-17 17:48 | CON.NEURO ---
Consult - Past Medical History Cardio/Vascular: Yes: Other (hypotension) Endocrine: Yes: Diabetes Mellitus (DM II), Other (Obesity) Dermatology: Yes: Cellulitis - Past Surgical History Past Surgical History: Yes: Cholecystectomy (Laparoscopic) - Alcohol/Substance Use Hx Alcohol Use: No History of Substance Use: reports: None - Smoking History Smoking history: Never smoked Have you smoked in the past 12 months: No Aproximately how many cigarettes per day: 0 - Social History ADL: Independent Occupation: Unemployed History of Recent Travel: No Home Medications - Allergies Allergies/Adverse Reactions: Allergies Allergy/AdvReac Type Severity Reaction Status Date / Time No Known Drug Allergies Allergy Verified 01/16/20 23:40 - Home Medications Home Medications: Ambulatory Orders Gabapentin 800 mg PO DAILY 11/23/18 Insulin Glargine,Hum.rec.anlog [Lantus] 40 unit SQ BID 11/23/18 Insulin Lispro [Humalog Kwikpen U-100] 30 unit SQ BID 11/23/18 Amoxicillin/Potassium Clav [Augmentin 875-125 Tablet] 1 each PO BID #10 tablet 04/02/19 Atorvastatin Ca [Lipitor] 40 mg PO HS 01/17/20 Omeprazole 40 mg PO DAILY 01/17/20 Family Medical History Other Family History: No family history of GI malignancy Physical Exam-Neuro Vital Signs: Vital Signs Temperature 97.1 F L 01/17/20 11:19 Pulse Rate 80 01/17/20 11:19 Respiratory Rate 18 01/17/20 11:19 Blood Pressure 112/69 01/17/20 11:19 O2 Sat by Pulse Oximetry (%) 96 01/17/20 11:19 Labs: CBC, BMP 01/17/20 01:20 Assessment/Plan cc Left t7-8 dermatome pain for four months HPI 64 year old female history of DM, HTN, HLD came to hospital on january 16 for left upper quadrant pain and epigastric pain for four months. She has been seen by gastroentrologist in patient and pmd outpatient has work up done including ct of abdomen. It was suspected that she has ? post herpetic neurlagia or neurlagic pain. She denies any low back or middl eback pain. Patient said, she has fall in bathroom leading to both quadrant pain and right side of abdomen pain disappears and lef tone is left. She describes it it as moderate to severe as something pulling. She denies any rash or seeing neurologist beofre. She denies any other focla neurological symptoms ER course was notable for: (1)BP 135/66 ; WKG NSR no ST-T changes (2)normal WBC ; sodium 133 (corrected for hyperglycemia 138) K 5.1 trop neg x2 lipase 249; glucose 409 (3)ab/pelvis CT: gastritis; diverticulosis; mild CBD dilation (4) given tylenol; malox; pepcid morphine Recent Travel: denies PAST MEDICAL HISTORY: see above PAST SURGICAL HISTORY: cholecystectomy Social History: Smoking:denies Alcohol:denies Drugs: denies Allergies No Known Drug Allergies Allergy (Verified 01/16/20 23:40) HOME MEDICATIONS: Home Medications Medication Instructions Recorded Gabapentin 800 mg PO DAILY 11/23/18 Insulin Glargine,Hum.rec.anlog 40 unit SQ BID 11/23/18 [Lantus] Insulin Lispro [Humalog Kwikpen 30 unit SQ BID 11/23/18 U-100] Amoxicillin/Potassium Clav 1 each PO BID #10 tablet 04/02/19 [Augmentin 875-125 Tablet] Atorvastatin Ca [Lipitor] 40 mg PO HS 01/17/20 Omeprazole 40 mg PO DAILY 01/17/20 ROS,FH,SH reviewed in chart NEUROLOGICAL EXAMINATION Alert oriented x 3, neck is supple afebrile vss eomi,pupils reactive on face asymmetry moving all ext there is no redness or darkening of skin on left quadrant area there is mild tenderness she has lidocaine patch and patient says her pain is better ct abomen report and GI consult appreciated Assessment/Plan Left flank pain for four month, histoyr of DM, HTN, HLD . There is mild tenderenss, and good reponse to lidocaine patch. she also on gabapnetin and not sure if it is helping her. Etiology of this pain is not clear , post herpetic neurlagia vs diabetic neuropathy ( once other local GI causes has been ruled out) - Continue Lidocaine patch , as it is helping her - continue gabapentin dose - GI follow up - Consider pain management for intercostal nerve block follow by ablation if other source of pain is not identified. can be done outpatient THanking you so much Kenneth Mcleod MD
[2020-01-17 18:01] LABS: BLOOD UREA NITROGEN 18.9 mg/dL (7-18); CALCIUM 8.1 mg/dL (8.5-10.1); CREATININE 1.1 mg/dL (0.55-1.3); POTASSIUM 5.1 mmol/L (3.5-5.1)
--- NOTE | 2020-01-17 18:14 | EKG ---
Test Reason : Blood Pressure : / mmHG Vent. Rate : 083 BPM Atrial Rate : 083 BPM P-R Int : 146 ms QRS Dur : 078 ms QT Int : 372 ms P-R-T Axes : 029 -20 055 degrees QTc Int : 437 ms NORMAL SINUS RHYTHM INFERIOR INFARCT (CITED ON OR BEFORE 30-NOV-2004) ABNORMAL ECG WHEN COMPARED WITH ECG OF 23-NOV-2018 08:51, NO SIGNIFICANT CHANGE WAS FOUND Confirmed by ISIDRO PERRY MD ([id number]) on 01/17/2020 6:14:04 PM Referred By: Confirmed By:ISIDRO PERRY MD
[2020-01-17] MEDS ORDERED: INSULIN (NOVOLOG) ASPART 100 UNITS/ML 10ML VIAL ONE (20:34)
[2020-01-17] MEDS: LIDOCAINE PATCH REMOVAL MC SCH (21:37)
[2020-01-17] MEDS: ATORVASTATIN CA 40 MG TABLET (FP) PO SCH (21:37)
[2020-01-17] MEDS: INSULIN (LEVEMIR) 100 UNITS/ML UNITS SQ SCH (21:37)
[2020-01-18] MEDS ORDERED: morphine SULFATE 4 MG/ML VIAL IVPUSH ONE (02:41)
[2020-01-18] MEDS: MAG HYDROX/AL HYDROX/SIMETH 30 ML UNIT-DOSE CUP PO SCH ×3 (05:19→17:17)
[2020-01-18] MEDS: INSULIN SLIDING SCALE (NOVOLOG) 1 VIAL SQ SCH ×4 (07:06→21:12)
[2020-01-18 08:21] LABS: BASO % 0.9 % (0-2.0); EOS % 4.4 % (0-4.5); MCH 28.5 pg (25.7-33.7); MCHC 33.2 g/dl (32.0-36.0); MEAN CELL VOLUME 85.9 fl (80-96); MEAN PLT VOLUME 9.6 fl (7.5-11.1); MONO % 6.6 % (3.8-10.2); NEUT % 59.1 % (42.8-82.8); PLATELET COUNT 285 K/MM3 (134-434); RBC 3.84 M/mm3 (3.60-5.2); RDW 12.6 % (11.6-15.6); WHITE BLOOD COUNT 7.4 K/mm3 (4.0-10.0)
[2020-01-18 08:54] LABS: ALBUMIN 3.2 g/dl (3.4-5.0); BLOOD UREA NITROGEN 17.1 mg/dL (7-18); CALCIUM 8.4 mg/dL (8.5-10.1); CREATININE 1.1 mg/dL (0.55-1.3); MAGNESIUM 2.3 mg/dL (1.8-2.4); PHOSPHOROUS 3.8 mg/dL (2.5-4.9)
[2020-01-18 08:55] LABS: BILIRUBIN,TOTAL 0.5 mg/dL (0.2-1)
[2020-01-18] MEDS ORDERED: PT OWN MED DRAWER 7, Y5N ONE (10:23)
[2020-01-18] MEDS: ENOXAPARIN NA (PORCINE) 40 MG/0.4 ML DISP.SYRIN SQ SCH (10:31)
[2020-01-18] MEDS: AMOX TR/POT CLAV 875MG/125MG TABLETS (FP) PO SCH ×2 (10:31→21:10)
[2020-01-18] MEDS: GABAPENTIN 400 MG CAPSULE PO SCH (10:32)
[2020-01-18] MEDS: PANTOPRAZOLE SODIUM 40 MG VIAL IVPUSH SCH (10:32)
--- NOTE | 2020-01-18 11:54 | CONSULT ---
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 Patient has had several months of abd pain, has had GI f/u as outpatient. She notes worsening of right foot "callus" over the past 2 weeks with some drainage associated. Currently afebrile, VSS. PMHx: IDDM, HTN, HLP Meds: noted ALL: NKMA MARI: R foot: Pedal pulses 1/4, TG wnl, CFT brisk to all digits. There are no ischemic changes to the foot. The foot is warm and well perfused. Epicritic and protective sensations grossly diminished to the foot. There are no focal motor or sensory deficits to the foot. There is a sub-first metatarsal diabetic ulcer with exuberant hyperkeratotic tissue, serous drainage present. There is no probing to bone, no purulent drainage, fluctuance noted periwound. There is no soft tissue crepitus, no streaking ascending cellulitis, no signs of acute infection. Mild tenderness to palpation. Imp: 64 year old diabetic female with right foot diabetic ulcer 1. IV abx per infectious disease 2. Local care with bactroban and dry sterile dressing to the right foot 3. Xray and MRI to evaluate for osteomyelitis 4. Can perform bedside debridement tomorrow 5. Will follow. Thank you for the courtesy of this consultation.
[2020-01-18] MEDS: SODIUM CHLORIDE 0.45% 1,000 ML IV SCH ×2 (12:38→21:09)
--- NOTE | 2020-01-18 15:50 | PN ---
Physical Exam: SUBJECTIVE: Patient seen and examined at bedside. reports improvement of LUQ pain. She denies any fever, chills, nausea, vomiting, diarrhea, chest pain, OBJECTIVE: Vital Signs Period Temp Pulse Resp BP Sys/Duarte Pulse Ox Last 24 Hr 98.1 F-98.5 F 74-83 20-20 124-145/70-78 95-98 GENERAL: Awake, alert, and fully oriented, in slight acute distress. EYES:PEERLA: EOMI; no scleral icterus NECK: no JVD; no lymphadenoapthy LUNGS:CTA B/l no rales, rhonchi or wheezing HEART: Regular rate and rhythm, normal S1 and S2 without murmur, rub or gallop. ABDOMEN: Soft,+ LUQ tenderness and epigastric tenderness upon palpation MUSCULOSKELETAL: Normal range of motion at all joints. No bony deformities or te nderness. No CVA tenderness. EXTREMITIES: warm; well-perfused no clubbing/cyanosis or edema. Right sub-first metatarsal diabetic ulcer with serous drainage. 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 NEUROLOGICAL: Cranial nerves II-XII intact. Normal speech. Normal gait. PSYCHIATRIC: Cooperative. Good eye contact. Appropriate mood and affect. SKIN: Warm, dry, normal turgor, no rashes or lesions noted, normal capillary refill. Laboratory Results - last 24 hr 01/17/20 01/17/20 01/17/20 03:59 16:30 17:23 WBC RBC Hgb Hct MCV MCH MCHC RDW Plt Count MPV Absolute Neuts (auto) Neutrophils % Lymphocytes % Monocytes % Eosinophils % Basophils % Nucleated RBC % Sodium 136 Potassium 5.1 Chloride 100 Carbon Dioxide 25 Anion Gap 10 BUN 18.9 H Creatinine 1.1 Est GFR (CKD-EPI)AfAm 61.44 Est GFR (CKD-EPI)NonAf 53.01 POC Glucometer 197 Random Glucose 275 H Hemoglobin A1c % Calcium 8.1 L Phosphorus Magnesium Total Bilirubin AST ALT Alkaline Phosphatase Total Protein Albumin COVID-19 (YUKI) Not detected 01/17/20 01/18/20 01/18/20 21:38 06:20 07:35 WBC 7.4 RBC 3.84 Hgb 11.0 Hct 33.0 MCV 85.9 MCH 28.5 MCHC 33.2 RDW 12.6 Plt Count 285 MPV 9.6 Absolute Neuts (auto) 4.4 Neutrophils % 59.1 Lymphocytes % 29.0 Monocytes % 6.6 Eosinophils % 4.4 Basophils % 0.9 Nucleated RBC % 0 Sodium Potassium Chloride Carbon Dioxide Anion Gap BUN Creatinine Est GFR (CKD-EPI)AfAm Est GFR (CKD-EPI)NonAf POC Glucometer 297 304 Random Glucose Hemoglobin A1c % Calcium Phosphorus Magnesium Total Bilirubin AST ALT Alkaline Phosphatase Total Protein Albumin COVID-19 (YUKI) 01/18/20 01/18/20 01/18/20 07:35 07:35 12:22 WBC RBC Hgb Hct MCV MCH MCHC RDW Plt Count MPV Absolute Neuts (auto) Neutrophils % Lymphocytes % Monocytes % Eosinophils % Basophils % Nucleated RBC % Sodium 135 L Potassium 5.0 Chloride 101 Carbon Dioxide 23 Anion Gap 11 BUN 17.1 Creatinine 1.1 Est GFR (CKD-EPI)AfAm 61.44 Est GFR (CKD-EPI)NonAf 53.01 POC Glucometer 278 Random Glucose 309 H Hemoglobin A1c % 10.0 H Calcium 8.4 L Phosphorus 3.8 Magnesium 2.3 Total Bilirubin 0.5 AST 19 ALT 29 Alkaline Phosphatase 174 H Total Protein 7.0 Albumin 3.2 L COVID-19 (YUKI) Active Medications Generic Name Dose Route Start Last Admin Trade Name Freq PRN Reason Stop Dose Admin Al Hydroxide/Mg Hydroxide 30 ml 01/17/20 12:00 01/18/20 12:38 Mylanta Oral Suspension - PO 30 ml Q6HPO GISELE Administration Amoxicillin/Clavulanate Potassium 1 tab 01/17/20 10:00 01/18/20 10:31 Augmentin - 875mg Tablet PO 1 tab BID GISELE Administration Atorvastatin Calcium 40 mg 01/17/20 22:00 01/17/20 21:37 Lipitor - PO 40 mg HS GISELE Administration Enoxaparin Sodium 40 mg 01/17/20 10:00 01/18/20 10:31 Lovenox - SQ 40 mg DAILY GISELE Administration Gabapentin 800 mg 01/17/20 10:00 01/18/20 10:32 Neurontin - PO 800 mg DAILY GISELE Administration Sodium Chloride 1,000 mls @ 75 mls/hr 01/17/20 17:15 01/18/20 12:38 1/2 Normal Saline IV 75 mls/hr ASDIR GISELE Administration Insulin Aspart 1 vial 01/17/20 11:00 01/18/20 12:36 Novolog Vial Sliding Scale - SQ 6 unit ACHS GISELE Administration Protocol Insulin Detemir 20 units 01/17/20 22:00 01/17/20 21:37 Levemir Vial SQ 20 unit HS GISELE Administration Miscellaneous 1 each 01/17/20 22:00 01/17/20 21:37 Lidoderm Patch Removal MC 1 each DAILY@2200 GISELE Administration Ondansetron HCl 4 mg 01/17/20 08:01 01/17/20 23:25 Zofran Injection IVPUSH 4 mg Q6H PRN Administration NAUSEA Pantoprazole Sodium 40 mg 01/17/20 10:00 01/18/20 10:32 Protonix Iv IVPUSH 40 mg DAILY GISELE Administration ASSESSMENT/PLAN: Afshan Wakefield is a 64 y/o female with PMH of DM, HTN, HLD, who presented to the ED with complaints LUQ and epigastric pain for 4 months. #LUQ/rib pain - Able to reproduce on palpation - zofran PRN nausea - morphine PRN for pain - GI consult(), recs: somatic or neurogenic pain complaint as opposed to a visceral etiology. follow-up as outpatient -chronically elevated alk phos: will get GGT - Neuro consult(Dr. Mcleod), recs: -Continue Lidocaine patch , as it is helping her -continue gabapentin dose -Consider pain management for intercostal nerve block follow by ablation if other source of pain is not identified. can be done outpatient #R. foot Ulcer - 2/2 to uncontrolled DM - sub-first metatarsal diabetic ulcer with serous drainage - Podiatry consulted(), recs: -Local care with bactroban and dry sterile dressing to the right foot -Xray and MRI to evaluate for osteomyelitis -bedside debridement tomorrow - patient started on Augmetin BID on 01/12 - Foot XR: No evidence of osteomyelitis - Pending MRI #DM - patients glucose on arrival was 409 - she states she did not take her insulin 2/2 pain - BGMS ACHS + ISS aCHS - HbA1c 10.0 - Continue with gabapentin for peripheral neuropathy #HLD - Continue atorvastatin #HTN - not currently on any home meds - Continue to monitor v/s #FEN - no IVF fluids - Continue to monitor electrolytes - Sodium controlled diet # DVT ppx: - lovenox 40mg SQ Daily # dispo: - Continue to monitor on MS Visit type - Emergency Visit Emergency Visit: Yes ED Registration Date: 01/17/20 Care time: The patient presented to the Emergency Department on the above date and was hospitalized for further evaluation of their emergent condition. - New Patient This patient is new to me today: Yes Date on this admission: 01/23/20 - Critical Care Critical Care patient: No - Discharge Referral Referred to [facility] No ATTENDING PHYSICIAN STATEMENT I saw and evaluated the patient. I reviewed the resident's note and discussed the case with the resident. I agree with the resident's findings and plan as documented. SUBJECTIVE: OBJECTIVE: ASSESSMENT AND PLAN:
--- NOTE | 2020-01-18 16:49 | PN ---
Progress Note (short form) - Note Progress Note: 64 year old female history of DM, HTN, HLD came to hospital on january 16 for left upper quadrant pain and epigastric pain for four months. She has been seen by gastroentrologist in patient and pmd outpatient has work up done including ct of abdomen. It was suspected that she has ? post herpetic neurlagia or neurlagic pain. She denies any low back or middl eback pain. Patient said, she has fall in bathroom leading to both quadrant pain and right side of abdomen pain disappears and lef tone is left. She describes it it as moderate to severe as something pulling. She denies any rash or seeing neurologist beofre. Her pain is much better. Alert oriented x 3, neck is supple afebrile vss eomi,pupils reactive on face asymmetry moving all ext there is no redness or darkening of skin on left quadrant area there is mild tenderness she has lidocaine patch and patient says her pain is better ct abomen report and GI consult appreciated Assessment/Plan Left flank pain for four month, histoyr of DM, HTN, HLD . There is mild tenderenss, and good reponse to lidocaine patch. she also on gabapnetin and not sure if it is helping her. Etiology of this pain is not clear , post herpetic neurlagia vs diabetic neuropathy ( once other local GI causes has been ruled out) pain is much improved - Continue Lidocaine patch , as it is helping her - continue gabapentin dose - GI follow up appreciated - follow up outpatient - Consider pain management for intercostal nerve block follow by ablation if other source of pain is not identified. can be done outpatient THanking you so much Kenneth Mcleod MD
--- NOTE | 2020-01-18 19:25 | PN ---
Teaching Attending Note Name of Resident: Nabil Gar ATTENDING PHYSICIAN STATEMENT I saw and evaluated the patient. I reviewed the resident's note and discussed the case with the resident. I agree with the resident's findings and plan as documented. SUBJECTIVE: Abdominal pain improved. No nausea/vomiting. No diarrhea. OBJECTIVE: Afebrile, Hemodynamically stable. Last Vital Signs Temp Pulse Resp BP Pulse Ox 98.2 F 76 20 110/60 95 01/18/20 17:28 01/18/20 17:28 01/18/20 17:28 01/18/20 17:28 01/18/20 06:00 HEENT - Atramatic, Normocephalic. Heart - S1, S2, RRR Lungs - clear to auscultation Abdomen - soft, mild epigastric and LUQ tenderness, no guarding/rebound. Bowel sounds normal. Extremities - no edema, no calf tenderness. Small ulcer R 2nd toe - no ascending cellulitis. s/p R 5th toe amputation. LEs neurovascularly intact. Neuro - AAo x 3. Tone/Power normal Laboratory Results - last 24 hr 01/17/20 01/17/20 01/18/20 03:59 21:38 06:20 WBC RBC Hgb Hct MCV MCH MCHC RDW Plt Count MPV Absolute Neuts (auto) Neutrophils % Lymphocytes % Monocytes % Eosinophils % Basophils % Nucleated RBC % Sodium Potassium Chloride Carbon Dioxide Anion Gap BUN Creatinine Est GFR (CKD-EPI)AfAm Est GFR (CKD-EPI)NonAf POC Glucometer 297 304 Random Glucose Hemoglobin A1c % Calcium Phosphorus Magnesium Total Bilirubin AST ALT Alkaline Phosphatase Total Protein Albumin COVID-19 ([facility]) Not detected 01/18/20 01/18/20 01/18/20 07:35 07:35 07:35 WBC 7.4 RBC 3.84 Hgb 11.0 Hct 33.0 MCV 85.9 MCH 28.5 MCHC 33.2 RDW 12.6 Plt Count 285 MPV 9.6 Absolute Neuts (auto) 4.4 Neutrophils % 59.1 Lymphocytes % 29.0 Monocytes % 6.6 Eosinophils % 4.4 Basophils % 0.9 Nucleated RBC % 0 Sodium 135 L Potassium 5.0 Chloride 101 Carbon Dioxide 23 Anion Gap 11 BUN 17.1 Creatinine 1.1 Est GFR (CKD-EPI)AfAm 61.44 Est GFR (CKD-EPI)NonAf 53.01 POC Glucometer Random Glucose 309 H Hemoglobin A1c % 10.0 H Calcium 8.4 L Phosphorus 3.8 Magnesium 2.3 Total Bilirubin 0.5 AST 19 ALT 29 Alkaline Phosphatase 174 H Total Protein 7.0 Albumin 3.2 L COVID-19 ([facility]) 01/18/20 01/18/20 12:22 17:18 WBC RBC Hgb Hct MCV MCH MCHC RDW Plt Count MPV Absolute Neuts (auto) Neutrophils % Lymphocytes % Monocytes % Eosinophils % Basophils % Nucleated RBC % Sodium Potassium Chloride Carbon Dioxide Anion Gap BUN Creatinine Est GFR (CKD-EPI)AfAm Est GFR (CKD-EPI)NonAf POC Glucometer 278 306 Random Glucose Hemoglobin A1c % Calcium Phosphorus Magnesium Total Bilirubin AST ALT Alkaline Phosphatase Total Protein Albumin COVID-19 ([facility]) Current Medications Generic Name Dose Route Start Last Admin Trade Name Freq PRN Reason Stop Dose Admin Al Hydroxide/Mg Hydroxide 30 ml 01/17/20 12:00 01/18/20 17:17 Mylanta Oral Suspension - PO 30 ml Q6HPO GISELE Administration Amoxicillin/Clavulanate Potassium 1 tab 01/17/20 10:00 01/18/20 10:31 Augmentin - 875mg Tablet PO 1 tab BID GISELE Administration Atorvastatin Calcium 40 mg 01/17/20 22:00 01/17/20 21:37 Lipitor - PO 40 mg HS GISELE Administration Enoxaparin Sodium 40 mg 01/17/20 10:00 01/18/20 10:31 Lovenox - SQ 40 mg DAILY GISELE Administration Gabapentin 800 mg 01/17/20 10:00 01/18/20 10:32 Neurontin - PO 800 mg DAILY GISELE Administration Sodium Chloride 1,000 mls @ 75 mls/hr 01/17/20 17:15 01/18/20 12:38 1/2 Normal Saline IV 75 mls/hr ASDIR GISELE Administration Insulin Aspart 1 vial 01/17/20 11:00 01/18/20 17:18 Novolog Vial Sliding Scale - SQ 8 unit ACHS GISELE Administration Protocol Insulin Detemir 20 units 01/17/20 22:00 01/17/20 21:37 Levemir Vial SQ 20 unit HS GISELE Administration Miscellaneous 1 each 01/17/20 22:00 01/17/20 21:37 Lidoderm Patch Removal MC 1 each DAILY@2200 GISELE Administration Ondansetron HCl 4 mg 01/17/20 08:01 01/17/20 23:25 Zofran Injection IVPUSH 4 mg Q6H PRN Administration NAUSEA Pantoprazole Sodium 40 mg 01/17/20 10:00 01/18/20 10:32 Protonix Iv IVPUSH 40 mg DAILY GISELE Administration Home Medications Medication Instructions Recorded Gabapentin 800 mg PO Q8H 11/23/18 Insulin Glargine,Hum.rec.anlog 40 unit SQ BID 11/23/18 [Lantus] Insulin Lispro [Humalog Kwikpen 10 unit SQ TID 11/23/18 U-100] Amoxicillin/Potassium Clav 1 each PO BID #10 tablet 04/02/19 [Augmentin 875-125 Tablet] Atorvastatin Ca [Lipitor] 40 mg PO HS 01/17/20 Omeprazole 40 mg PO DAILY 01/17/20 Olopatadine HCl [Pazeo] 1 drop OU 01/18/20 ASSESSMENT AND PLAN: 64 year old female with history of DM 2, HTN, HLD, presents with Epigastric and LUQ abdominal pain, progressive over several months, nresponsive to PPIs. CT A/P - Diverticulosis, mild CBD dilatation. 1. Gastritis vs Neuropathic pain Abdominal US - fatty liver Evaluated by GI - recommends Neuro eval for possible "somatic"/"neurogenic" pain Evaluated by Neurology - possible post herpetic neurlagia vs diabetic neuropathy once GI pathology excluded - recomends lidocaine patch, gabapentin, and GI eval Continue PPI. 2. R 2nd toe infected ulcer - on Agmentin. Evaluated by patient's Sports Photographer - rec MRI to exclude Osteomyelitis. Afebrile, hemodynamically stable, no leukocytosis. Also recommends local care with Bactroban and dry sterile dressing to the right foot. 3. DM 2 - Uncontrolled, A1c 10. Maintain on Levemir/Novolog sliding scale during inpatient stay. 4. HLD - on Statin. DVT Px - Lovenox SQ
[2020-01-18] MEDS: ATORVASTATIN CA 40 MG TABLET (FP) PO SCH (21:10)
[2020-01-18] MEDS: INSULIN (LEVEMIR) 100 UNITS/ML UNITS SQ SCH (21:10)
[2020-01-18] MEDS: LIDOCAINE PATCH REMOVAL MC SCH (21:11)
[2020-01-19] MEDS: MAG HYDROX/AL HYDROX/SIMETH 30 ML UNIT-DOSE CUP PO SCH ×4 (01:49→17:41)
[2020-01-19] MEDS: INSULIN SLIDING SCALE (NOVOLOG) 1 VIAL SQ SCH ×3 (06:03→17:41)
[2020-01-19 08:45] LABS: BASO % 0.6 % (0-2.0); EOS % 5.1 % (0-4.5); HEMATOCRIT 34.2 % (32.4-45.2); HEMOGLOBIN 11.4 GM/dL (10.7-15.3); LYMPH % 24.3 % (8-40); MCH 28.7 pg (25.7-33.7); MCHC 33.3 g/dl (32.0-36.0); MEAN CELL VOLUME 86.1 fl (80-96); MEAN PLT VOLUME 9.4 fl (7.5-11.1); PLATELET COUNT 279 K/MM3 (134-434); RBC 3.97 M/mm3 (3.60-5.2); RDW 12.2 % (11.6-15.6); WHITE BLOOD COUNT 7.9 K/mm3 (4.0-10.0)
--- NOTE | 2020-01-19 09:05 | PN ---
Progress Note (short form) - Note Progress Note: 4 year old female history of DM, HTN, HLD came to hospital on january 16 for left upper quadrant pain and epigastric pain for four months. She has been seen by gastroentrologist in patient and pmd outpatient has work up done including ct of abdomen. It was suspected that she has ? post herpetic neurlagia or neurlagic pain. She denies any low back or middl eback pain. Patient said, she has fall in bathroom leading to both quadrant pain and right side of abdomen pain disappears and lef tone is left. She describes it it as moderate to severe as something pulling. She denies any rash or seeing neurologist beofre. Pain is much improved and she is feeling ebtter. Alert oriented x 3, neck is supple afebrile vss eomi,pupils reactive on face asymmetry moving all ext there is no redness or darkening of skin on left quadrant area there is mild tenderness she has lidocaine patch and patient says her pain is better ct abomen report and GI consult appreciated Assessment/Plan Left flank pain for four month, histoyr of DM, HTN, HLD . There is mild tenderenss, and good reponse to lidocaine patch. she also on gabapnetin and not sure if it is helping her. Etiology of this pain is not clear , post herpetic neurlagia vs diabetic neuropathy ( once other local GI causes has been ruled out) flank pain much improved. - Continue Lidocaine patch , as it is helping her - continue gabapentin dose - Consider pain management for intercostal nerve block follow by ablation if other source of pain is not identified. can be done outpatient THanking you so much Kenneth Mcleod MD
[2020-01-19 09:15] LABS: ALBUMIN 3.3 g/dl (3.4-5.0); BILIRUBIN,TOTAL 0.7 mg/dL (0.2-1); BLOOD UREA NITROGEN 19.2 mg/dL (7-18); CALCIUM 8.3 mg/dL (8.5-10.1); CREATININE 1.1 mg/dL (0.55-1.3); MAGNESIUM 2.6 mg/dL (1.8-2.4); PHOSPHOROUS 3.6 mg/dL (2.5-4.9); POTASSIUM 4.8 mmol/L (3.5-5.1); TOT PROT 7.1 g/dl (6.4-8.2)
[2020-01-19] MEDS: ENOXAPARIN NA (PORCINE) 40 MG/0.4 ML DISP.SYRIN SQ SCH (10:45)
[2020-01-19] MEDS: GABAPENTIN 400 MG CAPSULE PO SCH (10:45)
[2020-01-19] MEDS: AMOX TR/POT CLAV 875MG/125MG TABLETS (FP) PO SCH (10:45)
[2020-01-19] MEDS: PANTOPRAZOLE SODIUM 40 MG VIAL IVPUSH SCH (10:45)
--- NOTE | 2020-01-19 12:19 | PN ---
Progress Note (short form) - Note Progress Note: Podiatry F/U: Seen/evaluated at bedside NAD. Pain controlled. Denies F/V/N/C/SOB/CP. AFebrile. MARI: R foot: sub-first metatarsal diabetic ulcer with exuberant hyperkeratotic tissue, some blistering noted to the first interspace plantarly. Underlying diabetic ulcer with granular base, minimal slough, no probing to bone, no purulent drainage, serous drainage present. No streaking ascending cellulitis, no signs of acute infection. Imp: 64 year old diabetic female with right sub-first metatarsal diabetic ulcer BEDSIDE DEBRIDEMENT PROCEDURE NOTE: Informed consent obtained. Excisional debridement of right sub-first metatarsal diabetic ulcer to the level of skin and subcutaneous tissue using sterile #15 blade scalpel and forceps. The patient tolerated the procedure well. DSD applied to right foot. Will use bactroban 3x/week for local wound care Rx. Rx for surgical shoe, patient instructed to minimize WB activity and to use surgical shoe. NO acute surgical intervention required. [facility]. Michael Trent DPM
[2020-01-19 12:46] VITALS: BMI 36.6
[2020-01-19 15:20] VITALS: BP 148/78; PULSE 79; TEMP 97.7
--- NOTE | 2020-01-19 15:56 | DS ---
Physical Exam: SUBJECTIVE: Patient seen and examined at bedside. denies any fever, chill, chest pain, SOB, abdominal pain. OBJECTIVE: Vital Signs Period Temp Pulse Resp BP Sys/Duarte Pulse Ox Last 24 Hr 97.7 F-98.6 F 73-82 20-20 110-159/60-85 92-98 PHYSICAL EXAM GENERAL: Awake, alert, and fully oriented, in slight acute distress. EYES:PEERLA: EOMI; no scleral icterus NECK: no JVD; no lymphadenoapthy LUNGS:CTA B/l no rales, rhonchi or wheezing HEART: Regular rate and rhythm, normal S1 and S2 without murmur, rub or gallop. ABDOMEN: Soft,+ LUQ tenderness and epigastric tenderness upon palpation MUSCULOSKELETAL: Normal range of motion at all joints. No bony deformities or tenderness. No CVA tenderness. EXTREMITIES: warm; well-perfused no clubbing/cyanosis or edema. Right sub-first metatarsal diabetic ulcer with serous drainage. 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 NEUROLOGICAL: Cranial nerves II-XII intact. Normal speech. Normal gait. PSYCHIATRIC: Cooperative. Good eye contact. Appropriate mood and affect. SKIN: Warm, dry, normal turgor, no rashes or lesions noted, normal capillary refill. LABS Laboratory Results - last 24 hr 01/18/20 01/18/20 01/19/20 17:18 21:08 06:00 WBC RBC Hgb Hct MCV MCH MCHC RDW Plt Count MPV Absolute Neuts (auto) Neutrophils % Lymphocytes % Monocytes % Eosinophils % Basophils % Nucleated RBC % Sodium Potassium Chloride Carbon Dioxide Anion Gap BUN Creatinine Est GFR (CKD-EPI)AfAm Est GFR (CKD-EPI)NonAf POC Glucometer 306 262 419 Random Glucose Calcium Phosphorus Magnesium Total Bilirubin AST ALT Alkaline Phosphatase Total Protein Albumin 01/19/20 01/19/20 01/19/20 07:50 07:50 12:48 WBC 7.9 RBC 3.97 Hgb 11.4 Hct 34.2 MCV 86.1 MCH 28.7 MCHC 33.3 RDW 12.2 Plt Count 279 MPV 9.4 Absolute Neuts (auto) 5.0 Neutrophils % 63.0 Lymphocytes % 24.3 Monocytes % 7.0 Eosinophils % 5.1 H Basophils % 0.6 Nucleated RBC % 0 Sodium 135 L Potassium 4.8 Chloride 101 Carbon Dioxide 22 Anion Gap 12 BUN 19.2 H Creatinine 1.1 Est GFR (CKD-EPI)AfAm 61.44 Est GFR (CKD-EPI)NonAf 53.01 POC Glucometer 351 Random Glucose 371 H Calcium 8.3 L Phosphorus 3.6 Magnesium 2.6 H Total Bilirubin 0.7 AST 20 ALT 30 Alkaline Phosphatase 249 H Total Protein 7.1 Albumin 3.3 L HOSPITAL COURSE: Date of Admission:01/17/20 64 y/o female with PMH of DM, HTN, HLD, who presented to the ED with complaints LUQ and epigastric pain for 4 months. You were evaluated by Podiatry for your R. foot ulcer. S/P debridment 01/18. Patient was advised to follow up with podiatry on friday. Patient was provided with two weeks of augmentin. Patient was advised to follow up out pt GI and neurology. For DM, patient was advised to continue her home meds and continue taking gabapentin for peripheral neuropathy. Patient was advised to continue home meds: atorvastatin and follow up with PCP for general medical evaluation. patient is clinically stable and can be discharged. Date of Discharge: 01/19/20 Minutes to complete discharge: 36 Discharge Summary Problems reviewed: Yes Reason For Visit: WOUND OF RIGHT FOOT GASTRITIS ACUTE CORONARY SYNDR Current Active Problems Murmur (Acute) Murmur (Acute) Rib pain on left side (Acute) Condition: Stable - Instructions Diet, Activity, Other Instructions: You were admitted to the hospital for abdominal pain. You were treated with Lidocaine patch and gabapentin. You also had foot pain. MRI shows an infection of your foot. Podiatry debrided and cleaned the wound. Labs showed elevation of your HbA1c ( diabetes number is 10), indicating chronic elevation of blood sugar. Please take gabapentin 800mg Daily Please apply lidoderm patch to your abdominal pain region, where your pain is. please apply bactroban ointment over your foot wound 3 times per week. Please take augmentin 875mg for 2 more weeks. Please use 50 units of your lantus at night continue to use 40 units of your lantus during the day. Please keep a log of your blood sugars as your primary care physician may have to modify your insulin regimen. Continue to use your sliding scale as prescribed. you may take mylanta for gastric reflux as needed Please continue taking your home meds as prescribed Please use your surgical shoes and minimize weight bearing activity Please follow up with your PCP for evaluation of your Blood sugar and general health in 1 week Please follow up with neurology (Dr. Mcleod) for management of your abdominal pain in 1 week Please follow up with GI () for evaluation of your abdominal pain in 1 week Please follow up with Podiatry (Dr. Trent) for evaluation and care of your foot ulcer on friday If you have new, worsening, or concerning symptoms please return to the ED or call 911 Referrals: Kenneth Mcleod MD [Staff Physician] - Eyad Gomes DO [Staff Physician] - Trent Trent MD [Staff Physician] - 01/25/20 Disposition: HOME - Home Medications Comprehensive Discharge Medication List: Ambulatory Orders Gabapentin 800 mg PO Q8H 11/23/18 Insulin Lispro [Humalog Kwikpen U-100] 10 unit SQ TID 11/23/18 Atorvastatin Ca [Lipitor] 40 mg PO HS 01/17/20 Omeprazole 40 mg PO DAILY 01/17/20 Olopatadine HCl [Pazeo] 1 drop OU DAILY 01/18/20 Amoxicillin/Potassium Clav [Augmentin 875-125 Tablet] 1 each PO BID #24 tablet 01/19/20 Insulin Glargine,Hum.rec.anlog [Lantus Solostar] 40 unit SQ BID #1 vial 01/19/20 Mag Hydrox/Al Hydrox/Simeth [Mylanta Oral Suspension -] 30 ml PO Q6HPO cup 01/19/20 Mupirocin Ointment [Bactroban 2% Ointment -] 1 applic TP DAILY #1 bottle 01/19/20 This patient is new to me today: Yes Date on this admission: 01/23/20 Emergency Visit: Yes ED Registration Date: 01/17/20 Care time: The patient presented to the Emergency Department on the above date and was hospitalized for further evaluation of their emergent condition. Critical Care patient: No - Discharge Referral Referred to [facility] No ATTENDING PHYSICIAN STATEMENT I saw and evaluated the patient. I reviewed the resident's note and discussed the case with the resident. I agree with the resident's findings and plan as documented. SUBJECTIVE: OBJECTIVE: ASSESSMENT AND PLAN:
[2020-01-19] MEDS: SODIUM CHLORIDE 0.45% 1,000 ML IV SCH (17:27)
--- NOTE | 2020-01-19 18:30 | PN ---
Teaching Attending Note Name of Resident: Nabil Gar ATTENDING PHYSICIAN STATEMENT I saw and evaluated the patient. I reviewed the resident's note and discussed the case with the resident. I agree with the resident's findings and plan as documented. SUBJECTIVE: Abdominal pain improved. No nausea/vomiting. No diarrhea. Tolerating oral intake. OBJECTIVE: Afebrile, Hemodynamically stable. Last Vital Signs Temp Pulse Resp BP Pulse Ox 97.7 F 79 20 148/78 98 01/19/20 14:00 01/19/20 14:00 01/19/20 14:00 01/19/20 14:00 01/19/20 14:00 Heart - S1, S2, RRR Lungs - clear to auscultation Abdomen - soft, mild epigastric and LUQ tenderness, no guarding/rebound. Bowel sounds normal. Extremities - no edema, no calf tenderness. Small ulcer R plantar sub-metatarsal region with no surrounding cellulitis. s/p R 5th toe amputation. LEs neurovascularly intact. Neuro - AAO x 3. Tone/Power normal Laboratory Results - last 24 hr 01/18/20 01/19/20 01/19/20 21:08 06:00 07:50 WBC 7.9 RBC 3.97 Hgb 11.4 Hct 34.2 MCV 86.1 MCH 28.7 MCHC 33.3 RDW 12.2 Plt Count 279 MPV 9.4 Absolute Neuts (auto) 5.0 Neutrophils % 63.0 Lymphocytes % 24.3 Monocytes % 7.0 Eosinophils % 5.1 H Basophils % 0.6 Nucleated RBC % 0 Sodium Potassium Chloride Carbon Dioxide Anion Gap BUN Creatinine Est GFR (CKD-EPI)AfAm Est GFR (CKD-EPI)NonAf POC Glucometer 262 419 Random Glucose Calcium Phosphorus Magnesium Total Bilirubin AST ALT Alkaline Phosphatase Total Protein Albumin 01/19/20 01/19/20 01/19/20 07:50 12:48 17:19 WBC RBC Hgb Hct MCV MCH MCHC RDW Plt Count MPV Absolute Neuts (auto) Neutrophils % Lymphocytes % Monocytes % Eosinophils % Basophils % Nucleated RBC % Sodium 135 L Potassium 4.8 Chloride 101 Carbon Dioxide 22 Anion Gap 12 BUN 19.2 H Creatinine 1.1 Est GFR (CKD-EPI)AfAm 61.44 Est GFR (CKD-EPI)NonAf 53.01 POC Glucometer 351 281 Random Glucose 371 H Calcium 8.3 L Phosphorus 3.6 Magnesium 2.6 H Total Bilirubin 0.7 AST 20 ALT 30 Alkaline Phosphatase 249 H Total Protein 7.1 Albumin 3.3 L Current Medications Generic Name Dose Route Start Last Admin Trade Name Datq PRN Reason Stop Dose Admin Al Hydroxide/Mg Hydroxide 30 ml 01/17/20 12:00 01/19/20 17:41 Mylanta Oral Suspension - PO 30 ml Q6HPO GISELE Administration Amoxicillin/Clavulanate Potassium 1 tab 01/17/20 10:00 01/19/20 10:45 Augmentin - 875mg Tablet PO 1 tab BID GISELE Administration Atorvastatin Calcium 40 mg 01/17/20 22:00 01/18/20 21:10 Lipitor - PO 40 mg HS [facility] Administration Enoxaparin Sodium 40 mg 01/17/20 10:00 01/19/20 10:45 Lovenox - SQ 40 mg DAILY GISELE Administration Gabapentin 800 mg 01/17/20 10:00 01/19/20 10:45 Neurontin - PO 800 mg DAILY GISELE Administration Sodium Chloride 1,000 mls @ 75 mls/hr 01/17/20 17:15 01/19/20 17:27 1/2 Normal Saline IV Not Given ASDIR [facility] Insulin Aspart 1 vial 01/17/20 11:00 01/19/20 17:41 Novolog Vial Sliding Scale - SQ 6 unit ACHS [facility] Administration Protocol Insulin Detemir 20 units 01/17/20 22:00 01/18/20 21:10 Levemir Vial SQ 20 unit HS [facility] Administration Miscellaneous 1 each 01/17/20 22:00 01/18/20 21:11 Lidoderm Patch Removal MC 1 each DAILY@2200 [facility] Administration Mupirocin 1 applic 01/20/20 10:00 Bactroban 2% Ointment - TP DAILY [facility] Ondansetron HCl 4 mg 01/17/20 08:01 01/17/20 23:25 Zofran Injection IVPUSH 4 mg Q6H PRN Administration NAUSEA Pantoprazole Sodium 40 mg 01/17/20 10:00 01/19/20 10:45 Protonix Iv IVPUSH 40 mg DAILY [facility] Administration Discharge Medications Medication Instructions Recorded Gabapentin 800 mg PO Q8H 11/23/18 Insulin Lispro [Humalog Kwikpen 10 unit SQ TID 11/23/18 U-100] Atorvastatin Ca [Lipitor] 40 mg PO HS 01/17/20 Omeprazole 40 mg PO DAILY 01/17/20 Olopatadine HCl [Pazeo] 1 drop OU DAILY 01/18/20 Amoxicillin/Potassium Clav 1 each PO BID #24 tablet 01/19/20 [Augmentin 875-125 Tablet] Insulin Glargine,Hum.rec.anlog 40 unit SQ BID #1 vial 01/19/20 [Lantus Solostar] Mag Hydrox/Al Hydrox/Simeth 30 ml PO Q6HPO cup 01/19/20 [Mylanta Oral Suspension -] Mupirocin Ointment [Bactroban 2% 1 applic TP DAILY #1 bottle 01/19/20 Ointment -] ASSESSMENT AND PLAN: 64 year old female with history of DM 2, HTN, HLD, presents with Epigastric and LUQ abdominal pain, progressive over several months, unresponsive to PPIs. CT A/P - Diverticulosis, mild CBD dilatation. 1. Gastritis +/- Neuropathic pain Abdominal US - fatty liver Evaluated by GI - recommends Neuro eval for possible "somatic"/"neurogenic" pain Evaluated by Neurology - possible post herpetic neurlagia vs diabetic neuropathy once GI pathology excluded - recommends lidocaine patch, Gabapentin, pain management eval for possible nerve block if any worsening of symptoms. Continue PPI. Neuro out-patient follow up. 2. R Plantar Diabetic Ulcer - on Augmentin. s/p excisional debridement of right sub-first metatarsal diabetic ulcer by Podiatry. Afebrile, hemodynamically stable, no leukocytosis. Podiatry recommends local care with Bactroban and dry sterile dressing to the right foot. Follow up arranged at [facility]. 3. DM 2 - Uncontrolled, A1c 10. Maintain on Lispro/Glargine. PCP follow up for up-titration of DM 2 meds. 4. HLD - on Statin. Medically optimized for discharge on augmentin and Wound Care/Podiatry, Neurology, and PCP follow up.
[2020-01-20] MEDS ORDERED: MUPIROCIN 2% TOPICAL OINTMENT 22 GM TUBE TP SCH (10:00)
== END 2020-01-19 18:44 | disposition home or self-care (01) | DRG 41 ==
LOC: JER 23:17 → JERBED 01-17 08:11 → J8W 01-17 15:17
PROVIDERS: ADMIT Internal Medicine
PROC: 0JBQ0ZZ Excision of Right Foot Subcutaneous Tissue and Fascia, Open Approach (ICD-10-PCS; principal; 2020-01-19)
DX: E11.40 Type 2 diabetes mellitus with diabetic neuropathy, unspecified (principal); L03.115 Cellulitis of right lower limb; E87.1 Hypo-osmolality and hyponatremia; E11.621 Type 2 diabetes mellitus with foot ulcer; R10.12 Left upper quadrant pain; I10 Essential (primary) hypertension; E78.5 Hyperlipidemia, unspecified; L97.519 Non-pressure chronic ulcer of other part of right foot with unspecified severity; R01.1 Cardiac murmur, unspecified; E66.9 Obesity, unspecified; Z68.36 Body mass index [BMI] 36.0-36.9, adult; R07.81 Pleurodynia; E11.65 Type 2 diabetes mellitus with hyperglycemia; K29.70 Gastritis, unspecified, without bleeding; K57.90 Diverticulosis of intestine, part unspecified, without perforation or abscess without bleeding; R10.13 Epigastric pain; R11.0 Nausea
CPT/HCPCS: 36415; 71045-TC-FY; 73630-TC-RT-FY; 73719; 74177-TC; 76700-TC; 80048; 80053; 81003; 82962; 83036; 83690; 83735; 84100; 84484; 85025; 86850; 86900; 86901; 87070; 87076; 87086; 87186; 87205; 93005; 93010; 99285-25; J0131; Q9967; U0003

== ENCOUNTER 2020-12-27 13:59 | Emergency (ER) | payer OTHER ==
[2020-12-27 14:16] VITALS: TEMP 98; BMI 35.9
[2020-12-27] MEDS ORDERED: SODIUM CHLORIDE 0.9% 500 ML INFUS.BAG IV ONE (16:39)
[2020-12-27] MEDS ORDERED: FAMOTIDINE 20 MG/50 ML IVPB 20 MG/50 ML MG IVPB ONE ×2 (16:39→17:01)
[2020-12-27] MEDS ORDERED: ONDANSETRON 4 MG/2 ML VIAL IVPUSH ONE (16:39)
[2020-12-27] MEDS ORDERED: ACETAMINOPHEN 1000 MG/100 ML VIAL (NON FORMULARY) IVPB ONE (16:47)
[2020-12-27] MEDS ORDERED: ACETAMINOPHEN INJECTION 100 ML IVPB ONE (17:01)
[2020-12-27] MEDS ORDERED: ONDANSETRON 4 MG/2 ML VIAL ONE (17:01)
[2020-12-27] MEDS ORDERED: MECLIZINE HCL 25 MG TABLET (FP) PO ONE (17:06)
[2020-12-27] MEDS ORDERED: METOCLOPRAMIDE HCL INJECTION 10 MG/2 ML VIAL IVPUSH ONE (17:06)
[2020-12-27] MEDS ORDERED: morphine CARPU-JECT 2 MG/1 ML DISP.SYRIN IVPUSH ONE (17:18)
[2020-12-27] MEDS ORDERED: METOCLOPRAMIDE HCL INJECTION 10 MG/2 ML VIAL ONE (17:18)
[2020-12-27] MEDS ORDERED: MECLIZINE HCL 25 MG TABLET (FP) ONE (17:18)
[2020-12-27] MEDS ORDERED: MORPHINE SULFATE 2 MG/ML VIAL ONE (17:27)
[2020-12-27 17:58] LABS: BASO % 0.6 % (0-2.0); EOS % 3.4 % (0-4.5); HEMOGLOBIN 13.3 GM/dL (10.7-15.3); LYMPH % 40.2 % (8-40); MCH 29.4 pg (25.7-33.7); MCHC 34.9 g/dl (32.0-36.0); MEAN CELL VOLUME 84.3 fl (80-96); MEAN PLT VOLUME 9.1 fl (7.5-11.1); MONO % 6.4 % (3.8-10.2); NEUT % 49.4 % (42.8-82.8); PLATELET COUNT 285 10^3/uL (134-434); RBC 4.52 M/mm3 (3.60-5.2); RDW 13.1 % (11.6-15.6); WHITE BLOOD COUNT 9.4 K/mm3 (4.0-10.0)
[2020-12-27 18:17] LABS: CHLORIDE 104 mmol/L (98-107); SODIUM 139 mmol/L (136-145)
[2020-12-27 18:31] LABS: EPI CELLS 11 /uL (0-25.1); HYALINE CASTS 2 /uL (0-3.1); PH,URINE 5.5 (5.0-8.0); URINE APPEARANCE CLEAR; URINE BACTERIA 8 /uL (0-1359); URINE BILIRUBIN NEGATIVE (NEGATIVE); URINE COLOR YELLOW; URINE GLUCOSE (UA) NEGATIVE (NEGATIVE); URINE KETONE NEGATIVE (NEGATIVE); URINE LEUK ESTERASE 1+ (NEGATIVE); URINE NITRITE NEGATIVE (NEGATIVE); URINE PROTEIN NEGATIVE (NEGATIVE); URINE RBC 12 /uL (0-23.9); URINE UROBILINOGEN 0.2 mg/dL (0.2-1.0); URINE WBC 58 /uL (0-25.8)
[2020-12-27] MEDS ORDERED: CEFTRIAXONE 1,000 MG in DEXTROSE 5%-WATER - 50 ML IVPB ONE (18:41)
[2020-12-27 18:55] LABS: ALBUMIN 4.1 g/dl (3.4-5.0); ALK PHOS 272 U/L (45-117); ANION GAP 11 MMOL/L (8-16); BILIRUBIN,TOTAL 0.4 mg/dL (0.2-1); BLOOD UREA NITROGEN 18.6 mg/dL (7-18); CALCIUM 8.7 mg/dL (8.5-10.1); CO2 24 mmol/L (21-32); GLUCOSE,RANDOM 191 mg/dL (74-106); LIPASE 165 U/L (73-393); SGOT/AST 20 U/L (15-37); SGPT/ALT 47 U/L (13-61); TOT PROT 8.2 g/dl (6.4-8.2)
[2020-12-27] MEDS ORDERED: CEFTRIAXONE 1 GM/50 ML BAG ONE (19:46)
[2020-12-27 19:55] VITALS: BP 125/66; PULSE 79
== END 2020-12-27 20:49 | disposition home or self-care (01) ==
LOC: JER 13:59
PROC: 3E0333Z Introduction of Anti-inflammatory into Peripheral Vein, Percutaneous Approach (ICD-10-PCS; principal; 2020-12-27)
PROC: 3E03329 Introduction of Other Anti-infective into Peripheral Vein, Percutaneous Approach (ICD-10-PCS; 2020-12-27)
PROC: 3E033GC Introduction of Other Therapeutic Substance into Peripheral Vein, Percutaneous Approach (ICD-10-PCS; 2020-12-27)
PROC: 3E033NZ Introduction of Analgesics, Hypnotics, Sedatives into Peripheral Vein, Percutaneous Approach (ICD-10-PCS; 2020-12-27)
DX: N39.0 Urinary tract infection, site not specified (principal)
CPT/HCPCS: 36415; 74177-TC; 80053; 81003; 82550; 82962; 83690; 84484; 85025; 87086; 99285-25; C9803; J0131; Q9967; U0003; U0005

== ENCOUNTER 2021-07-03 09:41 | Emergency (ER) | payer OTHER ==
[2021-07-03 09:56] VITALS: BP 126/73; PULSE 73; TEMP 98.6; BMI 33.2
[2021-07-03] MEDS ORDERED: IBUPROFEN 400 MG TABLET (FP) PO ONE (11:02)
[2021-07-03] MEDS ORDERED: CLINDAMYCIN HCL 150 MG CAPSULE (FP) PO ONE (11:02)
[2021-07-03] MEDS ORDERED: CLINDAMYCIN HCL 150 MG CAPSULE (FP) ONE (11:27)
[2021-07-03] MEDS ORDERED: IBUPROFEN 600 MG TABLET (FP) PO ONE (11:27)
== END 2021-07-03 11:51 | disposition home or self-care (01) ==
LOC: JER 09:41
PROC: 0H9MXZZ Drainage of Right Foot Skin, External Approach (ICD-10-PCS; principal; 2021-07-03)
DX: L03.032 Cellulitis of left toe (principal)
CPT/HCPCS: 10060; 90471; 99283-25

== ENCOUNTER 2021-07-05 11:34 | Inpatient (IN) | payer OTHER ==
[2021-07-05] MEDS ORDERED: VANCOMYCIN 1,000 MG in DEXTROSE 5%-WATER - 250 ML IVPB ONE (14:25)
[2021-07-05] MEDS ORDERED: PIPERACILLIN/TAZOB 4.5 GM 4.5 GM in DEXTROSE 5%-WATER 100 ML IVPB ONE (14:25)
[2021-07-05] MEDS ORDERED: VANCOMYCIN 1 GRAM (PRE-DOCKED) 1,000 MG/250 ML BAG IVPB ONE (17:07)
[2021-07-05 17:56] LABS: BASO % 0.8 % (0-2.0); HEMOGLOBIN 12.1 GM/dL (10.7-15.3); LYMPH % 34.3 % (8-40); MCH 28.8 pg (25.7-33.7); MCHC 33.6 g/dl (32.0-36.0); MEAN CELL VOLUME 85.7 fl (80-96); MEAN PLT VOLUME 9.5 fl (7.5-11.1); MONO % 5.5 % (3.8-10.2); NEUT % 54.4 % (42.8-82.8); PLATELET COUNT 263 10^3/uL (134-434); RBC 4.21 M/mm3 (3.60-5.2); RDW 13.2 % (11.6-15.6); WHITE BLOOD COUNT 8.5 K/mm3 (4.0-10.0)
[2021-07-05 18:08] LABS: ALBUMIN 3.7 g/dl (3.4-5.0); CALCIUM 8.8 mg/dL (8.5-10.1)
[2021-07-05 18:09] LABS: BLOOD UREA NITROGEN 23.9 mg/dL (7-18)
[2021-07-05 18:12] LABS: CREATININE 1.2 mg/dL (0.55-1.3)
[2021-07-05 18:13] LABS: BILIRUBIN,TOTAL 0.4 mg/dL (0.2-1); TOT PROT 7.7 g/dl (6.4-8.2)
[2021-07-05 19:35] LABS: ERYTHROCYTE SEDIMENTATION RATE 44 mm/hr (0-30)
[2021-07-05] MEDS ORDERED: ONDANSETRON 8 MG TABLET (FP) PO PRN (20:58)
[2021-07-05] MEDS: GABAPENTIN 400 MG CAPSULE PO SCH (23:00)
[2021-07-05] MEDS: HEPARIN NA (PORCINE) 5,000 UNITS/ML 1ML VIAL SQ SCH (23:00)
[2021-07-06] MEDS: PIPERACILLIN/TAZOB 3.375 GM 3.375 GM in DEXTROSE 5%-WATER - 50 ML IVPB SCH ×5 (00:45→17:44)
[2021-07-06] MEDS ORDERED: PIPERACILLIN/TAZOB 3.375 GM 3.375 GM/50 ML BAG IVPB ONE ×3 (01:11→12:46)
[2021-07-06] MEDS: INSULIN SLIDING SCALE (NOVOLOG) 1 VIAL SQ SCH ×5 (01:54→20:59)
[2021-07-06] MEDS ORDERED: VANCOMYCIN 1 GRAM (PRE-DOCKED) 1,000 MG/250 ML BAG IVPB ONE (04:51)
[2021-07-06] MEDS ORDERED: ACETAMINOPHEN 325 MG TABLET (FP) ONE (05:00)
[2021-07-06] MEDS ORDERED: VANCOMYCIN 1 GM in D5W (PRE-DOCKED) 1,000 MG/250 ML IVPB SCH (05:00)
[2021-07-06] MEDS: ACETAMINOPHEN 325 MG TABLET (FP) PO PRN (05:02)
[2021-07-06] MEDS ORDERED: HEPARIN NA (PORCINE) 5,000 UNITS/ML 1ML VIAL ONE ×2 (06:17→14:02)
[2021-07-06] MEDS: HEPARIN NA (PORCINE) 5,000 UNITS/ML 1ML VIAL SQ SCH ×3 (06:21→21:00)
[2021-07-06] MEDS: GABAPENTIN 400 MG CAPSULE PO SCH ×3 (06:21→20:59)
[2021-07-06 08:21] LABS: BASO % 0.8 % (0-2.0); EOS % 5.7 % (0-4.5); HEMATOCRIT 34.6 % (32.4-45.2); HEMOGLOBIN 11.8 GM/dL (10.7-15.3); MEAN CELL VOLUME 85.4 fl (80-96); MEAN PLT VOLUME 9.5 fl (7.5-11.1); MONO % 6.4 % (3.8-10.2); NEUT % 56.1 % (42.8-82.8); PLATELET COUNT 250 10^3/uL (134-434); RBC 4.06 M/mm3 (3.60-5.2); RDW 13.4 % (11.6-15.6); WHITE BLOOD COUNT 7.6 K/mm3 (4.0-10.0)
[2021-07-06 08:27] LABS: CALCIUM 8.3 mg/dL (8.5-10.1)
[2021-07-06 08:28] LABS: ALBUMIN 3.5 g/dl (3.4-5.0); MAGNESIUM 2.2 mg/dL (1.8-2.4)
[2021-07-06 08:31] LABS: CREATININE 1.2 mg/dL (0.55-1.3)
[2021-07-06 08:32] LABS: TOT PROT 7.1 g/dl (6.4-8.2)
[2021-07-06 08:33] LABS: BILIRUBIN,TOTAL 0.5 mg/dL (0.2-1)
[2021-07-06] MEDS ORDERED: ONDANSETRON 4 MG TABLET PO PRN (12:10)
[2021-07-06] MEDS ORDERED: PATIENT'S OWN MEDICATION (NON-FORMULARY) (Insulin Glargine,Hum.Rec.Anlog [Lantus Solostar] SQ SCH (12:15)
[2021-07-06] MEDS ORDERED: INSULIN (LEVEMIR) 100 UNITS/ML UNITS SQ SCH (13:30)
[2021-07-06] MEDS: VANCOMYCIN 1 GM in D5W (PRE-DOCKED) 1,000 MG/250 ML IVPB SCH (15:30)
[2021-07-06] MEDS ORDERED: INSULIN (NOVOLOG) ASPART 100 UNITS/ML 10ML VIAL ONE (17:25)
[2021-07-06] MEDS ORDERED: PIPERACILLIN/TAZOBACTAM 3.375 GM VIAL IVPB ONE (17:26)
[2021-07-06] MEDS ORDERED: DEXTROSE 5%-WATER - 50 ML IVPB ONE (17:26)
[2021-07-06 18:23] VITALS: BMI 34.2
[2021-07-06] MEDS: ATORVASTATIN CA 40 MG TABLET (FP) PO SCH (20:59)
[2021-07-06] MEDS: INSULIN (LEVEMIR) 100 UNITS/ML UNITS SQ SCH (20:59)
[2021-07-07] MEDS ORDERED: DEXTROSE 5%-WATER - 50 ML IVPB ONE ×3 (01:22→16:53)
[2021-07-07] MEDS ORDERED: PIPERACILLIN/TAZOBACTAM 3.375 GM VIAL IVPB ONE ×3 (01:22→16:53)
[2021-07-07] MEDS: PIPERACILLIN/TAZOB 3.375 GM 3.375 GM in DEXTROSE 5%-WATER - 50 ML IVPB SCH ×3 (01:28→17:12)
[2021-07-07] MEDS: GABAPENTIN 400 MG CAPSULE PO SCH ×3 (06:13→21:38)
[2021-07-07] MEDS: INSULIN SLIDING SCALE (NOVOLOG) 1 VIAL SQ SCH ×4 (06:13→21:48)
[2021-07-07] MEDS: HEPARIN NA (PORCINE) 5,000 UNITS/ML 1ML VIAL SQ SCH ×3 (06:13→21:38)
[2021-07-07] MEDS: INSULIN (LEVEMIR) 100 UNITS/ML UNITS SQ SCH ×2 (06:14→21:38)
[2021-07-07] MEDS: TRIAMTERENE AND HCTZ - 37.5 MG/25 MG CAPSULE PO SCH ×2 (09:25→09:32)
[2021-07-07 09:57] LABS: HEMATOCRIT 32.6 % (32.4-45.2); MCH 28.8 pg (25.7-33.7); MCHC 33.6 g/dl (32.0-36.0); MEAN CELL VOLUME 85.6 fl (80-96); MEAN PLT VOLUME 9.5 fl (7.5-11.1); PLATELET COUNT 251 10^3/uL (134-434); RBC 3.81 M/mm3 (3.60-5.2); WHITE BLOOD COUNT 7.4 K/mm3 (4.0-10.0)
[2021-07-07 10:29] LABS: CALCIUM 8.8 mg/dL (8.5-10.1)
[2021-07-07 10:33] LABS: CREATININE 1.3 mg/dL (0.55-1.3)
[2021-07-07] MEDS: ACETAMINOPHEN 325 MG TABLET (FP) PO PRN (17:11)
[2021-07-07] MEDS: ATORVASTATIN CA 40 MG TABLET (FP) PO SCH (21:38)
[2021-07-08] MEDS ORDERED: DEXTROSE 5%-WATER - 50 ML IVPB ONE ×3 (01:02→17:32)
[2021-07-08] MEDS ORDERED: PIPERACILLIN/TAZOBACTAM 3.375 GM VIAL IVPB ONE ×3 (01:02→17:32)
[2021-07-08] MEDS: PIPERACILLIN/TAZOB 3.375 GM 3.375 GM in DEXTROSE 5%-WATER - 50 ML IVPB SCH ×3 (02:04→17:32)
[2021-07-08] MEDS: HEPARIN NA (PORCINE) 5,000 UNITS/ML 1ML VIAL SQ SCH ×3 (06:48→21:48)
[2021-07-08] MEDS: GABAPENTIN 400 MG CAPSULE PO SCH ×3 (06:48→21:47)
[2021-07-08] MEDS: INSULIN SLIDING SCALE (NOVOLOG) 1 VIAL SQ SCH ×4 (06:48→21:51)
[2021-07-08] MEDS: INSULIN (LEVEMIR) 100 UNITS/ML UNITS SQ SCH ×2 (06:48→21:52)
[2021-07-08] MEDS: TRIAMTERENE AND HCTZ - 37.5 MG/25 MG CAPSULE PO SCH (09:59)
[2021-07-08 16:34] LABS: BASO % 1.2 % (0-2.0); EOS % 5.6 % (0-4.5); HEMATOCRIT 34.8 % (32.4-45.2); HEMOGLOBIN 11.6 GM/dL (10.7-15.3); LYMPH % 35.3 % (8-40); MCH 28.7 pg (25.7-33.7); MCHC 33.4 g/dl (32.0-36.0); MEAN CELL VOLUME 85.9 fl (80-96); MEAN PLT VOLUME 10.1 fl (7.5-11.1); MONO % 6.6 % (3.8-10.2); NEUT % 51.3 % (42.8-82.8); PLATELET COUNT 253 10^3/uL (134-434); RBC 4.05 M/mm3 (3.60-5.2); RDW 13.1 % (11.6-15.6); WHITE BLOOD COUNT 8.4 K/mm3 (4.0-10.0)
[2021-07-08 16:52] LABS: CALCIUM 8.7 mg/dL (8.5-10.1)
[2021-07-08 16:53] LABS: ALBUMIN 3.6 g/dl (3.4-5.0); BLOOD UREA NITROGEN 24.1 mg/dL (7-18); MAGNESIUM 2.3 mg/dL (1.8-2.4)
[2021-07-08 16:56] LABS: CREATININE 1.4 mg/dL (0.55-1.3); PHOSPHOROUS 3.8 mg/dL (2.5-4.9)
[2021-07-08 16:57] LABS: BILIRUBIN,TOTAL 0.5 mg/dL (0.2-1); TOT PROT 7.3 g/dl (6.4-8.2)
[2021-07-08] MEDS: ATORVASTATIN CA 40 MG TABLET (FP) PO SCH (21:47)
[2021-07-08] MEDS: MUPIROCIN CA 2% TOPICAL CREAM 15 GM TUBE TP SCH (21:53)
[2021-07-09] MEDS ORDERED: DEXTROSE 5%-WATER - 50 ML IVPB ONE ×3 (01:20→17:24)
[2021-07-09] MEDS ORDERED: PIPERACILLIN/TAZOBACTAM 3.375 GM VIAL IVPB ONE ×3 (01:20→17:24)
[2021-07-09] MEDS: PIPERACILLIN/TAZOB 3.375 GM 3.375 GM in DEXTROSE 5%-WATER - 50 ML IVPB SCH ×3 (01:40→17:18)
[2021-07-09] MEDS: HEPARIN NA (PORCINE) 5,000 UNITS/ML 1ML VIAL SQ SCH ×3 (06:00→22:05)
[2021-07-09] MEDS: GABAPENTIN 400 MG CAPSULE PO SCH ×3 (06:00→22:05)
[2021-07-09] MEDS: INSULIN SLIDING SCALE (NOVOLOG) 1 VIAL SQ SCH ×4 (06:03→22:10)
[2021-07-09] MEDS: INSULIN (LEVEMIR) 100 UNITS/ML UNITS SQ SCH ×2 (06:04→22:06)
[2021-07-09 08:58] LABS: EOS % 6.4 % (0-4.5); HEMOGLOBIN 11.1 GM/dL (10.7-15.3); LYMPH % 35.7 % (8-40); MCH 28.4 pg (25.7-33.7); MCHC 32.6 g/dl (32.0-36.0); MEAN PLT VOLUME 9.6 fl (7.5-11.1); MONO % 6.6 % (3.8-10.2); NEUT % 50.3 % (42.8-82.8); PLATELET COUNT 259 10^3/uL (134-434); RDW 13.2 % (11.6-15.6); WHITE BLOOD COUNT 8.3 K/mm3 (4.0-10.0)
[2021-07-09 09:28] LABS: CALCIUM 8.7 mg/dL (8.5-10.1)
[2021-07-09 09:29] LABS: BLOOD UREA NITROGEN 27.8 mg/dL (7-18); MAGNESIUM 2.3 mg/dL (1.8-2.4)
[2021-07-09 09:32] LABS: CREATININE 1.6 mg/dL (0.55-1.3); PHOSPHOROUS 4.2 mg/dL (2.5-4.9)
[2021-07-09] MEDS: MUPIROCIN CA 2% TOPICAL CREAM 15 GM TUBE TP SCH ×2 (10:49→22:06)
[2021-07-09] MEDS: TRIAMTERENE AND HCTZ - 37.5 MG/25 MG CAPSULE PO SCH (10:50)
[2021-07-09] MEDS ORDERED: INSULIN (NOVOLOG) ASPART 100 UNITS/ML 10ML VIAL ONE (11:12)
[2021-07-09] MEDS: LACTATED RINGERS SOLUTION 1,000 ML/1,000 ML INFUS.BAG IV SCH (15:40)
[2021-07-09] MEDS ORDERED: MECLIZINE HCL 12.5 MG TABLET PO PRN (16:30)
[2021-07-09] MEDS: ATORVASTATIN CA 40 MG TABLET (FP) PO SCH (22:05)
[2021-07-10] MEDS ORDERED: PIPERACILLIN/TAZOBACTAM 3.375 GM VIAL IVPB ONE ×2 (01:51→09:54)
[2021-07-10] MEDS ORDERED: DEXTROSE 5%-WATER - 50 ML IVPB ONE ×2 (01:51→09:54)
[2021-07-10] MEDS: PIPERACILLIN/TAZOB 3.375 GM 3.375 GM in DEXTROSE 5%-WATER - 50 ML IVPB SCH ×2 (02:00→10:15)
[2021-07-10] MEDS: HEPARIN NA (PORCINE) 5,000 UNITS/ML 1ML VIAL SQ SCH ×3 (05:25→22:50)
[2021-07-10] MEDS: GABAPENTIN 400 MG CAPSULE PO SCH ×3 (05:25→22:51)
[2021-07-10] MEDS: INSULIN SLIDING SCALE (NOVOLOG) 1 VIAL SQ SCH ×4 (06:03→22:51)
[2021-07-10] MEDS: INSULIN (LEVEMIR) 100 UNITS/ML UNITS SQ SCH ×2 (06:04→22:50)
[2021-07-10 09:15] LABS: HEMATOCRIT 33.8 % (32.4-45.2); HEMOGLOBIN 11.1 GM/dL (10.7-15.3); MCH 28.2 pg (25.7-33.7); MCHC 32.7 g/dl (32.0-36.0); MEAN CELL VOLUME 86.1 fl (80-96); MEAN PLT VOLUME 9.4 fl (7.5-11.1); PLATELET COUNT 259 10^3/uL (134-434); RBC 3.93 M/mm3 (3.60-5.2); RDW 12.9 % (11.6-15.6); WHITE BLOOD COUNT 8.5 K/mm3 (4.0-10.0)
[2021-07-10 10:01] LABS: CALCIUM 8.8 mg/dL (8.5-10.1)
[2021-07-10 10:02] LABS: BLOOD UREA NITROGEN 28.8 mg/dL (7-18)
[2021-07-10 10:05] LABS: CREATININE 1.4 mg/dL (0.55-1.3)
[2021-07-10] MEDS ORDERED: INSULIN (NOVOLOG) ASPART 100 UNITS/ML 10ML VIAL ONE (10:52)
[2021-07-10] MEDS: MUPIROCIN CA 2% TOPICAL CREAM 15 GM TUBE TP SCH ×2 (11:02→22:50)
[2021-07-10] MEDS: ACETAMINOPHEN 325 MG TABLET (FP) PO PRN (13:08)
[2021-07-10 14:20] LABS: PH,URINE 5.5 (5.0-8.0); URINE APPEARANCE CLEAR; URINE BILIRUBIN NEGATIVE (NEGATIVE); URINE COLOR YELLOW; URINE GLUCOSE (UA) 3+ (NEGATIVE); URINE KETONE NEGATIVE (NEGATIVE); URINE LEUK ESTERASE NEGATIVE (NEGATIVE); URINE NITRITE NEGATIVE (NEGATIVE); URINE PROTEIN NEGATIVE (NEGATIVE); URINE UROBILINOGEN 0.2 mg/dL (0.2-1.0)
[2021-07-10] MEDS: AMOX TR/POT CLAV 500MG/125MG TABLETS (FP) PO SCH (17:13)
[2021-07-10] MEDS: LACTATED RINGERS SOLUTION 1,000 ML/1,000 ML INFUS.BAG IV SCH (17:16)
[2021-07-10] MEDS ORDERED: POLYETHYLENE GLYCOL (HEALTHYLAX) 3350 17 GM PACKET PO PRN (18:17)
[2021-07-10] MEDS: ATORVASTATIN CA 40 MG TABLET (FP) PO SCH (22:51)
[2021-07-11] MEDS: HEPARIN NA (PORCINE) 5,000 UNITS/ML 1ML VIAL SQ SCH ×2 (06:16→13:57)
[2021-07-11] MEDS: GABAPENTIN 400 MG CAPSULE PO SCH ×2 (06:17→13:57)
[2021-07-11] MEDS: INSULIN SLIDING SCALE (NOVOLOG) 1 VIAL SQ SCH ×3 (06:21→16:38)
[2021-07-11] MEDS: INSULIN (LEVEMIR) 100 UNITS/ML UNITS SQ SCH (06:21)
[2021-07-11] MEDS ORDERED: INSULIN (LEVEMIR) 100 UNITS/ML UNITS SQ SCH (08:34)
[2021-07-11 09:04] LABS: HEMATOCRIT 32.4 % (32.4-45.2); HEMOGLOBIN 10.7 GM/dL (10.7-15.3); MCH 28.4 pg (25.7-33.7); MCHC 32.9 g/dl (32.0-36.0); MEAN CELL VOLUME 86.3 fl (80-96); MEAN PLT VOLUME 9.8 fl (7.5-11.1); PLATELET COUNT 246 10^3/uL (134-434); RBC 3.75 M/mm3 (3.60-5.2); WHITE BLOOD COUNT 8.3 K/mm3 (4.0-10.0)
[2021-07-11] MEDS: AMOX TR/POT CLAV 500MG/125MG TABLETS (FP) PO SCH ×2 (09:04→17:40)
[2021-07-11] MEDS ORDERED: INSULIN (LEVEMIR) 100 UNITS/ML UNITS SQ ONE (09:15)
[2021-07-11 09:23] LABS: ALBUMIN 3.3 g/dl (3.4-5.0)
[2021-07-11 09:24] LABS: TOT PROT 6.8 g/dl (6.4-8.2)
[2021-07-11 09:25] LABS: BILIRUBIN,TOTAL 0.3 mg/dL (0.2-1)
[2021-07-11 09:27] LABS: CALCIUM 8.7 mg/dL (8.5-10.1)
[2021-07-11 09:28] LABS: BLOOD UREA NITROGEN 25.3 mg/dL (7-18)
[2021-07-11 09:32] LABS: CREATININE 1.3 mg/dL (0.55-1.3)
[2021-07-11] MEDS: MUPIROCIN CA 2% TOPICAL CREAM 15 GM TUBE TP SCH (13:57)
[2021-07-11 15:08] VITALS: BP 134/77; PULSE 74; TEMP 97.7
[2021-07-11] MEDS: LACTATED RINGERS SOLUTION 1,000 ML/1,000 ML INFUS.BAG IV SCH (17:41)
== END 2021-07-11 18:30 | disposition home or self-care (01) | DRG 638 ==
LOC: JERFT 11:34 → JER 11:34 → JERBED 19:51 → J8W 07-06 14:19
PROVIDERS: ADMIT Internal Medicine; ATTEND Internal Medicine
DX: E11.621 Type 2 diabetes mellitus with foot ulcer (principal); L03.116 Cellulitis of left lower limb; N17.9 Acute kidney failure, unspecified; I10 Essential (primary) hypertension; E78.5 Hyperlipidemia, unspecified; E11.51 Type 2 diabetes mellitus with diabetic peripheral angiopathy without gangrene; R42 Dizziness and giddiness; E11.65 Type 2 diabetes mellitus with hyperglycemia; E11.40 Type 2 diabetes mellitus with diabetic neuropathy, unspecified; E66.9 Obesity, unspecified; Z68.34 Body mass index [BMI] 34.0-34.9, adult
CPT/HCPCS: 36415; 71046-TC-FY; 73630-TC-LT; 73718-TC-LT; 80048; 80053; 81003; 82962; 83036; 83735; 84100; 85025; 85027; 85651; 86140; 87040; 87081; 93005; 93010; 97116-GP; 97161-GP; 99285-25; C9803; J1644; U0003; U0005

== ENCOUNTER 2021-12-20 10:37 | Inpatient (IN) | payer OTHER ==
[2021-12-20] MEDS ORDERED: PIPERACILLIN/TAZOB 4.5 GM 4.5 GM in DEXTROSE 5%-WATER 100 ML IVPB ONE (12:26)
[2021-12-20 12:28] LABS: PH,URINE 5.5 (5.0-8.0); URINE APPEARANCE Error; URINE BILIRUBIN NEGATIVE (NEGATIVE); URINE COLOR YELLOW; URINE GLUCOSE (UA) NEGATIVE (NEGATIVE); URINE KETONE NEGATIVE (NEGATIVE); URINE LEUK ESTERASE NEGATIVE (NEGATIVE); URINE NITRITE NEGATIVE (NEGATIVE); URINE PROTEIN NEGATIVE (NEGATIVE); URINE UROBILINOGEN 0.2 mg/dL (0.2-1.0)
[2021-12-20] MEDS ORDERED: PIPERACILLIN/TAZOB 4.5 GM 4.5 GM/100 ML BAG IVPB ONE (12:51)
[2021-12-20 13:15] LABS: BASO % 0.5 % (0-2.0); EOS % 5.2 % (0-4.5); HEMATOCRIT 34.1 % (32.4-45.2); HEMOGLOBIN 11.4 GM/dL (10.7-15.3); LYMPH % 33.4 % (8-40); MCH 28.3 pg (25.7-33.7); MCHC 33.5 g/dl (32.0-36.0); MEAN CELL VOLUME 84.5 fl (80-96); MEAN PLT VOLUME 9.8 fl (7.5-11.1); NEUT % 54.9 % (42.8-82.8); PLATELET COUNT 263 10^3/uL (134-434); RBC 4.03 M/mm3 (3.60-5.2); RDW 13.3 % (11.6-15.6); WHITE BLOOD COUNT 7.8 K/mm3 (4.0-10.0)
[2021-12-20 13:45] LABS: CHLORIDE 110 mmol/L (98-107); SODIUM 142 mmol/L (136-145)
[2021-12-20 13:47] LABS: CALCIUM 8.5 mg/dL (8.5-10.1)
[2021-12-20 13:48] LABS: ALBUMIN 3.6 g/dl (3.4-5.0); ANION GAP 5 MMOL/L (8-16); BLOOD UREA NITROGEN 20.3 mg/dL (7-18); CO2 27 mmol/L (21-32); GLUCOSE,RANDOM 117 mg/dL (74-106)
[2021-12-20 13:51] LABS: CREATININE 1.1 mg/dL (0.55-1.3); SGOT/AST 22 U/L (15-37); SGPT/ALT 26 U/L (13-61)
[2021-12-20 13:53] LABS: BILIRUBIN,TOTAL 0.4 mg/dL (0.2-1); TOT PROT 7.5 g/dl (6.4-8.2)
[2021-12-20 13:54] LABS: ALK PHOS 198 U/L (45-117)
[2021-12-20 13:56] LABS: N-TERMINAL BNP 130.2 pg/ml (5-125)
[2021-12-20 13:56] LABS: ERYTHROCYTE SEDIMENTATION RATE 51 mm/hr (0-30)
[2021-12-20] MEDS: INSULIN SLIDING SCALE (NOVOLOG) 1 VIAL SQ SCH ×2 (18:48→22:13)
[2021-12-20] MEDS ORDERED: LINEZOLID 600 MG PREMIX BAG 600 MG/300 ML BAG IVPB SCH (19:00)
[2021-12-20] MEDS ORDERED: DEXTROSE 5%-WATER - 50 ML IVPB ONE (22:07)
[2021-12-20] MEDS ORDERED: PIPERACILLIN/TAZOBACTAM 3.375 GM VIAL IVPB ONE (22:07)
[2021-12-20] MEDS: PIPERACILLIN/TAZOB 3.375 GM 3.375 GM in DEXTROSE 5%-WATER - 50 ML IVPB SCH (22:12)
[2021-12-20] MEDS: INSULIN (LEVEMIR) 100 UNITS/ML UNITS SQ SCH (22:13)
[2021-12-20] MEDS: GABAPENTIN 400 MG CAPSULE PO SCH (22:14)
[2021-12-20 23:59] VITALS: BMI 41.7
[2021-12-21] MEDS: ACETAMINOPHEN 325 MG TABLET (FP) PO PRN (00:20)
[2021-12-21] MEDS ORDERED: PIPERACILLIN/TAZOBACTAM 3.375 GM VIAL IVPB ONE ×3 (05:01→21:00)
[2021-12-21] MEDS ORDERED: DEXTROSE 5%-WATER - 50 ML IVPB ONE ×3 (05:02→21:00)
[2021-12-21] MEDS: PIPERACILLIN/TAZOB 3.375 GM 3.375 GM in DEXTROSE 5%-WATER - 50 ML IVPB SCH ×3 (05:38→21:05)
[2021-12-21] MEDS: GABAPENTIN 400 MG CAPSULE PO SCH ×3 (05:42→21:10)
[2021-12-21] MEDS: INSULIN SLIDING SCALE (NOVOLOG) 1 VIAL SQ SCH ×4 (06:29→21:12)
[2021-12-21] MEDS ORDERED: LINEZOLID 600 MG PREMIX BAG 600 MG/300 ML BAG IVPB SCH ×2 (09:00→19:00)
[2021-12-21] MEDS: POLYETHYLENE GLYCOL (HEALTHYLAX) 3350 17 GM PACKET PO SCH (09:57)
[2021-12-21] MEDS: ENOXAPARIN NA (PORCINE) 40 MG/0.4 ML DISP.SYRIN SQ SCH (09:57)
[2021-12-21] MEDS: MECLIZINE HCL 25 MG TABLET (FP) PO SCH (09:57)
[2021-12-21] MEDS: LOSARTAN POTASSIUM 25 MG TABLET PO SCH (09:57)
[2021-12-21] MEDS: INSULIN (LEVEMIR) 100 UNITS/ML UNITS SQ SCH ×2 (10:45→21:14)
[2021-12-21 11:14] LABS: BASO % 0.8 % (0-2.0); EOS % 5.8 % (0-4.5); HEMATOCRIT 33.4 % (32.4-45.2); HEMOGLOBIN 11.2 GM/dL (10.7-15.3); LYMPH % 29.9 % (8-40); MCH 28.4 pg (25.7-33.7); MCHC 33.5 g/dl (32.0-36.0); MEAN CELL VOLUME 84.6 fl (80-96); MEAN PLT VOLUME 9.5 fl (7.5-11.1); MONO % 6.2 % (3.8-10.2); NEUT % 57.3 % (42.8-82.8); PLATELET COUNT 244 10^3/uL (134-434); RBC 3.95 M/mm3 (3.60-5.2); RDW 13.2 % (11.6-15.6); WHITE BLOOD COUNT 6.5 K/mm3 (4.0-10.0)
[2021-12-21 11:52] LABS: CALCIUM 8.5 mg/dL (8.5-10.1)
[2021-12-21 11:53] LABS: ALBUMIN 3.4 g/dl (3.4-5.0); BLOOD UREA NITROGEN 20.9 mg/dL (7-18); MAGNESIUM 2.1 mg/dL (1.8-2.4)
[2021-12-21 11:56] LABS: CREATININE 1.2 mg/dL (0.55-1.3); PHOSPHOROUS 3.9 mg/dL (2.5-4.9); TOT PROT 6.8 g/dl (6.4-8.2)
[2021-12-21 11:58] LABS: BILIRUBIN,TOTAL 0.5 mg/dL (0.2-1)
[2021-12-21] MEDS: BACITRACIN 15 GM TUBE TOPICAL OINTMENT TP SCH (16:43)
[2021-12-21] MEDS ORDERED: PIPERACILLIN/TAZOB 3.375 GM 3.375 GM in DEXTROSE 5%-WATER - 50 ML IVPB SCH (21:00)
[2021-12-22] MEDS ORDERED: DEXTROSE 5%-WATER - 50 ML IVPB ONE ×3 (01:13→17:06)
[2021-12-22] MEDS ORDERED: PIPERACILLIN/TAZOBACTAM 3.375 GM VIAL IVPB ONE ×3 (01:13→17:06)
[2021-12-22] MEDS: PIPERACILLIN/TAZOB 3.375 GM 3.375 GM in DEXTROSE 5%-WATER - 50 ML IVPB SCH ×3 (01:22→17:10)
[2021-12-22] MEDS: GABAPENTIN 400 MG CAPSULE PO SCH ×3 (06:07→22:03)
[2021-12-22] MEDS: INSULIN SLIDING SCALE (NOVOLOG) 1 VIAL SQ SCH ×4 (06:07→22:04)
[2021-12-22 10:19] LABS: EOS % 5.7 % (0-4.5); HEMOGLOBIN 10.9 GM/dL (10.7-15.3); MCH 28.9 pg (25.7-33.7); MCHC 34.1 g/dl (32.0-36.0); MEAN CELL VOLUME 84.8 fl (80-96); MEAN PLT VOLUME 9.3 fl (7.5-11.1); MONO % 7.6 % (3.8-10.2); NEUT % 54.7 % (42.8-82.8); PLATELET COUNT 254 10^3/uL (134-434); RBC 3.78 M/mm3 (3.60-5.2); RDW 13.2 % (11.6-15.6); WHITE BLOOD COUNT 7.9 K/mm3 (4.0-10.0)
[2021-12-22] MEDS: ENOXAPARIN NA (PORCINE) 40 MG/0.4 ML DISP.SYRIN SQ SCH (10:49)
[2021-12-22] MEDS: MECLIZINE HCL 25 MG TABLET (FP) PO SCH (10:49)
[2021-12-22] MEDS: POLYETHYLENE GLYCOL (HEALTHYLAX) 3350 17 GM PACKET PO SCH (10:49)
[2021-12-22] MEDS: BACITRACIN 15 GM TUBE TOPICAL OINTMENT TP SCH ×2 (10:50→12:00)
[2021-12-22 10:52] LABS: BLOOD UREA NITROGEN 31.3 mg/dL (7-18)
[2021-12-22] MEDS: LOSARTAN POTASSIUM 25 MG TABLET PO SCH (10:52)
[2021-12-22] MEDS: INSULIN (LEVEMIR) 100 UNITS/ML UNITS SQ SCH ×2 (10:52→22:04)
[2021-12-22 10:53] LABS: ALBUMIN 3.2 g/dl (3.4-5.0); CALCIUM 8.4 mg/dL (8.5-10.1)
[2021-12-22 10:55] LABS: MAGNESIUM 2.1 mg/dL (1.8-2.4)
[2021-12-22 10:56] LABS: CREATININE 1.5 mg/dL (0.55-1.3)
[2021-12-22 10:57] LABS: BILIRUBIN,TOTAL 0.4 mg/dL (0.2-1); TOT PROT 6.8 g/dl (6.4-8.2)
[2021-12-22 10:58] LABS: PHOSPHOROUS 4.1 mg/dL (2.5-4.9)
[2021-12-22] MEDS: COLLAGENASE CLOSTRIDIUM HIST. 30 GRAMS TUBE TP SCH (12:12)
[2021-12-22] MEDS: LACTATED RINGERS SOLUTION 1,000 ML/1,000 ML INFUS.BAG IV SCH (12:13)
[2021-12-22] MEDS ORDERED: INSULIN (LEVEMIR) 100 UNITS/ML UNITS SQ SCH ×2 (16:55→22:00)
[2021-12-22] MEDS: INSULIN (NOVOLOG) ASPART 100 UNITS/ML 10ML VIAL SQ SCH (17:00)
[2021-12-23] MEDS ORDERED: PIPERACILLIN/TAZOBACTAM 3.375 GM VIAL IVPB ONE ×3 (01:19→16:55)
[2021-12-23] MEDS ORDERED: DEXTROSE 5%-WATER - 50 ML IVPB ONE ×3 (01:20→16:56)
[2021-12-23] MEDS: PIPERACILLIN/TAZOB 3.375 GM 3.375 GM in DEXTROSE 5%-WATER - 50 ML IVPB SCH ×3 (01:30→17:22)
[2021-12-23] MEDS: GABAPENTIN 400 MG CAPSULE PO SCH ×3 (06:24→21:44)
[2021-12-23] MEDS: INSULIN SLIDING SCALE (NOVOLOG) 1 VIAL SQ SCH ×4 (06:54→21:44)
[2021-12-23] MEDS: INSULIN (NOVOLOG) ASPART 100 UNITS/ML 10ML VIAL SQ SCH ×3 (06:56→17:22)
[2021-12-23] MEDS: INSULIN (LEVEMIR) 100 UNITS/ML UNITS SQ SCH ×2 (07:03→21:43)
[2021-12-23 08:41] LABS: EOS % 6.4 % (0-4.5); HEMATOCRIT 33.2 % (32.4-45.2); HEMOGLOBIN 11.4 GM/dL (10.7-15.3); MCH 28.8 pg (25.7-33.7); MCHC 34.3 g/dl (32.0-36.0); MEAN CELL VOLUME 84.1 fl (80-96); MEAN PLT VOLUME 9.1 fl (7.5-11.1); MONO % 6.7 % (3.8-10.2); NEUT % 50.9 % (42.8-82.8); PLATELET COUNT 253 10^3/uL (134-434); RBC 3.95 M/mm3 (3.60-5.2); RDW 12.8 % (11.6-15.6); WHITE BLOOD COUNT 7.5 K/mm3 (4.0-10.0)
[2021-12-23 09:05] LABS: ALBUMIN 3.3 g/dl (3.4-5.0); BLOOD UREA NITROGEN 25.9 mg/dL (7-18); CALCIUM 8.7 mg/dL (8.5-10.1); MAGNESIUM 2.3 mg/dL (1.8-2.4)
[2021-12-23 09:08] LABS: CREATININE 1.3 mg/dL (0.55-1.3); PHOSPHOROUS 4.1 mg/dL (2.5-4.9)
[2021-12-23 09:10] LABS: TOT PROT 6.9 g/dl (6.4-8.2)
[2021-12-23 09:11] LABS: BILIRUBIN,TOTAL 0.4 mg/dL (0.2-1)
[2021-12-23] MEDS: POLYETHYLENE GLYCOL (HEALTHYLAX) 3350 17 GM PACKET PO SCH (09:17)
[2021-12-23] MEDS: LOSARTAN POTASSIUM 25 MG TABLET PO SCH (09:18)
[2021-12-23] MEDS: ENOXAPARIN NA (PORCINE) 40 MG/0.4 ML DISP.SYRIN SQ SCH (09:18)
[2021-12-23] MEDS: MECLIZINE HCL 25 MG TABLET (FP) PO SCH (09:18)
[2021-12-23] MEDS: BACITRACIN 15 GM TUBE TOPICAL OINTMENT TP SCH (09:18)
[2021-12-23] MEDS: COLLAGENASE CLOSTRIDIUM HIST. 30 GRAMS TUBE TP SCH (09:19)
[2021-12-23] MEDS: LACTATED RINGERS SOLUTION 1,000 ML/1,000 ML INFUS.BAG IV SCH (13:15)
[2021-12-23] MEDS ORDERED: INSULIN (LEVEMIR) 100 UNITS/ML UNITS SQ SCH ×2 (23:18→23:19)
[2021-12-24] MEDS ORDERED: PIPERACILLIN/TAZOBACTAM 3.375 GM VIAL IVPB ONE ×4 (01:03→16:57)
[2021-12-24] MEDS ORDERED: DEXTROSE 5%-WATER - 50 ML IVPB ONE ×4 (01:03→16:57)
[2021-12-24] MEDS: PIPERACILLIN/TAZOB 3.375 GM 3.375 GM in DEXTROSE 5%-WATER - 50 ML IVPB SCH ×3 (01:24→17:22)
[2021-12-24] MEDS: INSULIN (LEVEMIR) 100 UNITS/ML UNITS SQ SCH ×2 (06:36→21:21)
[2021-12-24] MEDS: INSULIN SLIDING SCALE (NOVOLOG) 1 VIAL SQ SCH ×4 (06:37→21:25)
[2021-12-24] MEDS: INSULIN (NOVOLOG) ASPART 100 UNITS/ML 10ML VIAL SQ SCH ×3 (06:37→16:42)
[2021-12-24] MEDS: GABAPENTIN 400 MG CAPSULE PO SCH ×3 (06:38→21:20)
[2021-12-24 09:01] LABS: BASO % 1.2 % (0-2.0); EOS % 5.2 % (0-4.5); HEMOGLOBIN 11.8 GM/dL (10.7-15.3); LYMPH % 35.8 % (8-40); MCH 28.6 pg (25.7-33.7); MCHC 33.7 g/dl (32.0-36.0); MEAN CELL VOLUME 84.9 fl (80-96); MEAN PLT VOLUME 9.3 fl (7.5-11.1); MONO % 5.8 % (3.8-10.2); PLATELET COUNT 280 10^3/uL (134-434); RBC 4.12 M/mm3 (3.60-5.2); RDW 13.3 % (11.6-15.6); WHITE BLOOD COUNT 8.5 K/mm3 (4.0-10.0)
[2021-12-24] MEDS: POLYETHYLENE GLYCOL (HEALTHYLAX) 3350 17 GM PACKET PO SCH (09:11)
[2021-12-24] MEDS: ENOXAPARIN NA (PORCINE) 40 MG/0.4 ML DISP.SYRIN SQ SCH (09:11)
[2021-12-24] MEDS: LOSARTAN POTASSIUM 25 MG TABLET PO SCH (09:11)
[2021-12-24] MEDS: MECLIZINE HCL 25 MG TABLET (FP) PO SCH (09:11)
[2021-12-24] MEDS: COLLAGENASE CLOSTRIDIUM HIST. 30 GRAMS TUBE TP SCH (09:12)
[2021-12-24 09:21] LABS: CALCIUM 8.7 mg/dL (8.5-10.1)
[2021-12-24 09:22] LABS: ALBUMIN 3.6 g/dl (3.4-5.0); MAGNESIUM 2.4 mg/dL (1.8-2.4)
[2021-12-24 09:25] LABS: CREATININE 1.3 mg/dL (0.55-1.3); PHOSPHOROUS 4.1 mg/dL (2.5-4.9)
[2021-12-24 09:26] LABS: BILIRUBIN,TOTAL 0.4 mg/dL (0.2-1); TOT PROT 7.4 g/dl (6.4-8.2)
[2021-12-25] MEDS ORDERED: DEXTROSE 5%-WATER - 50 ML IVPB ONE ×2 (01:14→09:11)
[2021-12-25] MEDS ORDERED: PIPERACILLIN/TAZOBACTAM 3.375 GM VIAL IVPB ONE ×2 (01:14→09:11)
[2021-12-25] MEDS: PIPERACILLIN/TAZOB 3.375 GM 3.375 GM in DEXTROSE 5%-WATER - 50 ML IVPB SCH ×2 (01:23→09:27)
[2021-12-25] MEDS: INSULIN (LEVEMIR) 100 UNITS/ML UNITS SQ SCH (06:03)
[2021-12-25] MEDS: GABAPENTIN 400 MG CAPSULE PO SCH ×3 (06:03→21:41)
[2021-12-25] MEDS: INSULIN (NOVOLOG) ASPART 100 UNITS/ML 10ML VIAL SQ SCH ×3 (06:05→17:40)
[2021-12-25] MEDS: INSULIN SLIDING SCALE (NOVOLOG) 1 VIAL SQ SCH ×4 (06:06→21:41)
[2021-12-25] MEDS: POLYETHYLENE GLYCOL (HEALTHYLAX) 3350 17 GM PACKET PO SCH ×2 (09:27→09:31)
[2021-12-25] MEDS: MECLIZINE HCL 25 MG TABLET (FP) PO SCH (09:27)
[2021-12-25] MEDS: ENOXAPARIN NA (PORCINE) 40 MG/0.4 ML DISP.SYRIN SQ SCH (09:27)
[2021-12-25] MEDS: LOSARTAN POTASSIUM 25 MG TABLET PO SCH (09:28)
[2021-12-25] MEDS: COLLAGENASE CLOSTRIDIUM HIST. 30 GRAMS TUBE TP SCH (09:28)
[2021-12-25 09:37] LABS: BASO % 0.8 % (0-2.0); EOS % 5.8 % (0-4.5); HEMATOCRIT 36.3 % (32.4-45.2); LYMPH % 35.1 % (8-40); MCH 28.3 pg (25.7-33.7); MCHC 33.2 g/dl (32.0-36.0); MEAN CELL VOLUME 85.2 fl (80-96); MEAN PLT VOLUME 9.3 fl (7.5-11.1); MONO % 6.2 % (3.8-10.2); NEUT % 52.1 % (42.8-82.8); PLATELET COUNT 270 10^3/uL (134-434); RBC 4.26 M/mm3 (3.60-5.2); WHITE BLOOD COUNT 8.8 K/mm3 (4.0-10.0)
[2021-12-25 09:51] LABS: ALBUMIN 3.7 g/dl (3.4-5.0); CALCIUM 9.2 mg/dL (8.5-10.1)
[2021-12-25 09:52] LABS: BLOOD UREA NITROGEN 21.4 mg/dL (7-18); MAGNESIUM 2.5 mg/dL (1.8-2.4)
[2021-12-25] MEDS ORDERED: ONDANSETRON 4 MG/2 ML VIAL IVPUSH ONE (09:54)
[2021-12-25 09:55] LABS: PHOSPHOROUS 4.9 mg/dL (2.5-4.9)
[2021-12-25 09:56] LABS: BILIRUBIN,TOTAL 0.4 mg/dL (0.2-1); CREATININE 1.3 mg/dL (0.55-1.3); TOT PROT 7.7 g/dl (6.4-8.2)
[2021-12-25 15:29] VITALS: RESP 18
[2021-12-25] MEDS: ACETAMINOPHEN 325 MG TABLET (FP) PO PRN (17:39)
[2021-12-25] MEDS: AMOX TR/POT CLAV 875MG/125MG TABLETS (FP) PO SCH (17:40)
[2021-12-25] MEDS ORDERED: ACETAMINOPHEN 1000 MG/100 ML BAG IVPB PRN (18:39)
[2021-12-25] MEDS ORDERED: INSULIN (LEVEMIR) 100 UNITS/ML UNITS SQ SCH (22:00)
[2021-12-26] MEDS: GABAPENTIN 400 MG CAPSULE PO SCH (06:27)
[2021-12-26] MEDS: INSULIN SLIDING SCALE (NOVOLOG) 1 VIAL SQ SCH (06:34)
[2021-12-26] MEDS: INSULIN (NOVOLOG) ASPART 100 UNITS/ML 10ML VIAL SQ SCH (06:34)
[2021-12-26] MEDS ORDERED: INSULIN (LEVEMIR) 100 UNITS/ML UNITS SQ SCH (07:00)
[2021-12-26] MEDS: AMOX TR/POT CLAV 875MG/125MG TABLETS (FP) PO SCH (10:01)
[2021-12-26] MEDS: LOSARTAN POTASSIUM 25 MG TABLET PO SCH (10:01)
[2021-12-26] MEDS: MECLIZINE HCL 25 MG TABLET (FP) PO SCH (10:01)
[2021-12-26] MEDS: POLYETHYLENE GLYCOL (HEALTHYLAX) 3350 17 GM PACKET PO SCH (10:03)
[2021-12-26] MEDS: ENOXAPARIN NA (PORCINE) 40 MG/0.4 ML DISP.SYRIN SQ SCH (10:04)
[2021-12-26] MEDS: COLLAGENASE CLOSTRIDIUM HIST. 30 GRAMS TUBE TP SCH (10:04)
[2021-12-26 10:08] VITALS: BP 119/60; PULSE 68; TEMP 98.2
== END 2021-12-26 11:43 | disposition home or self-care (01) | DRG 623 ==
LOC: JER 10:37 → JERBED 14:36 → J5S 18:09
PROVIDERS: ADMIT Internal Medicine; ATTEND Internal Medicine
PROC: 0JBQ0ZZ Excision of Right Foot Subcutaneous Tissue and Fascia, Open Approach (ICD-10-PCS; principal; 2021-12-25)
DX: E11.621 Type 2 diabetes mellitus with foot ulcer (principal); L03.115 Cellulitis of right lower limb; Z68.41 Body mass index [BMI] 40.0-44.9, adult; L97.919 Non-pressure chronic ulcer of unspecified part of right lower leg with unspecified severity; E11.51 Type 2 diabetes mellitus with diabetic peripheral angiopathy without gangrene; I10 Essential (primary) hypertension; E11.40 Type 2 diabetes mellitus with diabetic neuropathy, unspecified; E11.65 Type 2 diabetes mellitus with hyperglycemia; E66.9 Obesity, unspecified
CPT/HCPCS: 36415; 71045-TC-FY; 73610-TC-RT-FY; 73630-TC-RT-FY; 73719; 80053; 81003; 82962; 83036; 83735; 83880; 84100; 85025; 85651; 86140; 87040; 87070; 87086; 87186; 87205; 93005; 93010; 99285-25; C9803-CS; U0003; U0005

== ENCOUNTER 2022-04-02 04:47 | Day surgery (SDC) | payer OTHER ==
[2022-03-29 16:17] VITALS: BMI 38.9
[2022-04-02 11:14] VITALS: BP 144/66; PULSE 74; RESP 12; TEMP 98
== END 2022-04-02 11:15 | disposition home or self-care (01) ==
LOC: JASU-ENDO 04:47
PROVIDERS: ATTEND Student in an Organized Health Care Education/Training Program
PROC: 0DBK8ZX Excision of Ascending Colon, Via Natural or Artificial Opening Endoscopic, Diagnostic (ICD-10-PCS; 2022-04-02)
PROC: 0DBL8ZX Excision of Transverse Colon, Via Natural or Artificial Opening Endoscopic, Diagnostic (ICD-10-PCS; 2022-04-02)
PROC: 0DBP8ZX Excision of Rectum, Via Natural or Artificial Opening Endoscopic, Diagnostic (ICD-10-PCS; 2022-04-02)
PROC: 0DBC8ZX Excision of Ileocecal Valve, Via Natural or Artificial Opening Endoscopic, Diagnostic (ICD-10-PCS; 2022-04-02)
PROC: 0DBH8ZX Excision of Cecum, Via Natural or Artificial Opening Endoscopic, Diagnostic (ICD-10-PCS; principal; 2022-04-02 09:00)
DX: D12.0 Benign neoplasm of cecum (principal); D12.2 Benign neoplasm of ascending colon; K63.5 Polyp of colon; K57.30 Diverticulosis of large intestine without perforation or abscess without bleeding; I10 Essential (primary) hypertension; E11.9 Type 2 diabetes mellitus without complications; Z79.4 Long term (current) use of insulin
CPT/HCPCS: 88305-TC

== ENCOUNTER 2022-04-11 10:36 | Inpatient (IN) | payer OTHER ==
[2022-04-11 10:53] VITALS: BMI 38.9
[2022-04-11 13:48] LABS: EOS % 5.4 % (0-4.5); HEMATOCRIT 40.4 % (32.4-45.2); HEMOGLOBIN 13.1 GM/dL (10.7-15.3); LYMPH % 35.8 % (8-40); MCH 27.8 pg (25.7-33.7); MCHC 32.5 g/dl (32.0-36.0); MEAN CELL VOLUME 85.6 fl (80-96); MEAN PLT VOLUME 10.6 fl (7.5-11.1); MONO % 5.5 % (3.8-10.2); NEUT % 52.3 % (42.8-82.8); PLATELET COUNT 298 10^3/uL (134-434); RBC 4.72 M/mm3 (3.60-5.2); RDW 13.4 % (11.6-15.6); WHITE BLOOD COUNT 7.8 K/mm3 (4.0-10.0)
[2022-04-11 14:09] LABS: CHLORIDE 107 mmol/L (98-107); SODIUM 139 mmol/L (136-145)
[2022-04-11 14:11] LABS: CALCIUM 9.2 mg/dL (8.5-10.1)
[2022-04-11 14:12] LABS: ALBUMIN 3.8 g/dl (3.4-5.0); BLOOD UREA NITROGEN 21.2 mg/dL (7-18); CO2 27 mmol/L (21-32); GLUCOSE,RANDOM 134 mg/dL (74-106)
[2022-04-11 14:15] LABS: SGOT/AST 55 U/L (15-37); SGPT/ALT 41 U/L (13-61)
[2022-04-11 14:17] LABS: BILIRUBIN,TOTAL 0.4 mg/dL (0.2-1); TOT PROT 7.9 g/dl (6.4-8.2)
[2022-04-11 14:18] LABS: ALK PHOS 213 U/L (45-117)
[2022-04-11 14:21] LABS: ANION GAP 6 MMOL/L (8-16)
[2022-04-11 14:37] LABS: ERYTHROCYTE SEDIMENTATION RATE 29 mm/hr (0-30)
[2022-04-11] MEDS ORDERED: CLINDAMYCIN 600MG PREMIX IVPB 600 MG/50 ML BAG IVPB ONE ×2 (14:46→14:58)
[2022-04-11 16:07] LABS: CALCIUM 8.3 mg/dL (8.5-10.1)
[2022-04-11 16:08] LABS: BLOOD UREA NITROGEN 19.7 mg/dL (7-18)
[2022-04-11] MEDS ORDERED: PIPERACILLIN/TAZOB 4.5 GM 4.5 GM in DEXTROSE 5%-WATER 100 ML IVPB SCH (23:15)
[2022-04-12] MEDS ORDERED: ACETAMINOPHEN 1000 MG/100 ML BAG IVPB ONE (00:24)
[2022-04-12] MEDS: PIPERACILLIN/TAZOB 4.5 GM 4.5 GM in DEXTROSE 5%-WATER 100 ML IVPB SCH ×2 (00:38→10:01)
[2022-04-12] MEDS: GABAPENTIN 400 MG CAPSULE PO SCH ×4 (05:49→22:32)
[2022-04-12] MEDS: INSULIN SLIDING SCALE (NOVOLOG) 1 VIAL SQ SCH ×3 (06:02→17:09)
[2022-04-12 09:55] LABS: BASO % 1.1 % (0-2.0); EOS % 5.7 % (0-4.5); HEMOGLOBIN 11.9 GM/dL (10.7-15.3); LYMPH % 32.1 % (8-40); MCHC 32.9 g/dl (32.0-36.0); MEAN PLT VOLUME 10.1 fl (7.5-11.1); NEUT % 54.1 % (42.8-82.8); PLATELET COUNT 230 10^3/uL (134-434); RBC 4.23 M/mm3 (3.60-5.2); RDW 13.3 % (11.6-15.6); WHITE BLOOD COUNT 6.9 K/mm3 (4.0-10.0)
[2022-04-12] MEDS ORDERED: PATIENT'S OWN MEDICATION (NON-FORMULARY) (Insulin Glargine,Hum.Rec.Anlog 100 UNITS/ML Vial SQ SCH (10:00)
[2022-04-12] MEDS ORDERED: PATIENT'S OWN MEDICATION (NON-FORMULARY) (Dapagliflozin Propanediol 10 MG Tablet) PO SCH (10:00)
[2022-04-12] MEDS: ENOXAPARIN NA (PORCINE) 40 MG/0.4 ML DISP.SYRIN SQ SCH (10:01)
[2022-04-12 10:23] LABS: CALCIUM 8.3 mg/dL (8.5-10.1)
[2022-04-12 10:24] LABS: ALBUMIN 3.2 g/dl (3.4-5.0); BLOOD UREA NITROGEN 22.3 mg/dL (7-18)
[2022-04-12 10:26] LABS: ERYTHROCYTE SEDIMENTATION RATE 34 mm/hr (0-30)
[2022-04-12 10:27] LABS: CREATININE 1.2 mg/dL (0.55-1.3)
[2022-04-12 10:29] LABS: BILIRUBIN,TOTAL 0.5 mg/dL (0.2-1); TOT PROT 6.6 g/dl (6.4-8.2)
[2022-04-12] MEDS ORDERED: INSULIN (LEVEMIR) 100 UNITS/ML UNITS SQ SCH (11:30)
[2022-04-12] MEDS ORDERED: INSULIN (NOVOLOG) ASPART 100 UNITS/ML 10ML VIAL ONE (11:33)
[2022-04-12] MEDS: INSULIN (LEVEMIR) 100 UNITS/ML UNITS SQ SCH ×2 (11:38→22:32)
[2022-04-12] MEDS: PIPERACILLIN/TAZOB 3.375 GM 3.375 GM in DEXTROSE 5%-WATER - 50 ML IVPB SCH (17:09)
[2022-04-12] MEDS: COLLAGENASE CLOSTRIDIUM HIST. 30 GRAMS TUBE TP SCH (19:12)
[2022-04-13] MEDS: PIPERACILLIN/TAZOB 3.375 GM 3.375 GM in DEXTROSE 5%-WATER - 50 ML IVPB SCH ×3 (01:32→17:09)
[2022-04-13] MEDS: GABAPENTIN 400 MG CAPSULE PO SCH ×3 (06:32→21:04)
[2022-04-13] MEDS: INSULIN (LEVEMIR) 100 UNITS/ML UNITS SQ SCH ×2 (06:33→17:09)
[2022-04-13] MEDS: INSULIN SLIDING SCALE (NOVOLOG) 1 VIAL SQ SCH ×3 (06:34→17:09)
[2022-04-13] MEDS: COLLAGENASE CLOSTRIDIUM HIST. 30 GRAMS TUBE TP SCH (09:50)
[2022-04-13] MEDS: ENOXAPARIN NA (PORCINE) 40 MG/0.4 ML DISP.SYRIN SQ SCH (09:50)
[2022-04-14] MEDS: PIPERACILLIN/TAZOB 3.375 GM 3.375 GM in DEXTROSE 5%-WATER - 50 ML IVPB SCH ×3 (01:54→17:13)
[2022-04-14] MEDS: ACETAMINOPHEN 325 MG TABLET (FP) PO PRN (03:48)
[2022-04-14] MEDS: INSULIN (LEVEMIR) 100 UNITS/ML UNITS SQ SCH ×2 (06:47→16:56)
[2022-04-14] MEDS: GABAPENTIN 400 MG CAPSULE PO SCH ×3 (06:48→21:18)
[2022-04-14] MEDS: INSULIN SLIDING SCALE (NOVOLOG) 1 VIAL SQ SCH ×3 (06:51→16:54)
[2022-04-14] MEDS ORDERED: INSULIN (LEVEMIR) 100 UNITS/ML UNITS SQ ONE ×2 (06:55)
[2022-04-14] MEDS ORDERED: INSULIN (NOVOLOG) ASPART 100 UNITS/ML 10ML VIAL ONE (06:55)
[2022-04-14] MEDS: ENOXAPARIN NA (PORCINE) 40 MG/0.4 ML DISP.SYRIN SQ SCH (09:18)
[2022-04-14] MEDS: COLLAGENASE CLOSTRIDIUM HIST. 30 GRAMS TUBE TP SCH (09:20)
[2022-04-15] MEDS: PIPERACILLIN/TAZOB 3.375 GM 3.375 GM in DEXTROSE 5%-WATER - 50 ML IVPB SCH ×2 (01:28→09:56)
[2022-04-15] MEDS: INSULIN SLIDING SCALE (NOVOLOG) 1 VIAL SQ SCH ×2 (06:02→11:32)
[2022-04-15] MEDS: INSULIN (LEVEMIR) 100 UNITS/ML UNITS SQ SCH (06:02)
[2022-04-15] MEDS: GABAPENTIN 400 MG CAPSULE PO SCH ×2 (06:02→13:22)
[2022-04-15] MEDS: COLLAGENASE CLOSTRIDIUM HIST. 30 GRAMS TUBE TP SCH (09:56)
[2022-04-15] MEDS: ENOXAPARIN NA (PORCINE) 40 MG/0.4 ML DISP.SYRIN SQ SCH (09:56)
[2022-04-15] MEDS: ACETAMINOPHEN 325 MG TABLET (FP) PO PRN (09:58)
[2022-04-15 11:36] LABS: ALBUMIN 3.4 g/dl (3.4-5.0); CALCIUM 8.9 mg/dL (8.5-10.1)
[2022-04-15 11:39] LABS: CREATININE 1.3 mg/dL (0.55-1.3)
[2022-04-15 11:50] LABS: ERYTHROCYTE SEDIMENTATION RATE 39 mm/hr (0-30)
[2022-04-15 12:17] LABS: BASO % 0.8 % (0-2.0); EOS % 4.8 % (0-4.5); HEMATOCRIT 36.6 % (32.4-45.2); HEMOGLOBIN 12.2 GM/dL (10.7-15.3); LYMPH % 27.6 % (8-40); MCHC 33.3 g/dl (32.0-36.0); MEAN PLT VOLUME 10.2 fl (7.5-11.1); MONO % 6.9 % (3.8-10.2); NEUT % 59.9 % (42.8-82.8); PLATELET COUNT 244 10^3/uL (134-434); RBC 4.36 M/mm3 (3.60-5.2); RDW 12.9 % (11.6-15.6); WHITE BLOOD COUNT 7.5 K/mm3 (4.0-10.0)
[2022-04-15 13:30] VITALS: BP 138/65; PULSE 81; RESP 18; TEMP 98
== END 2022-04-15 13:46 | disposition home or self-care (01) | DRG 638 ==
LOC: JER 10:36 → JERBED 15:47 → J6S 19:20
PROVIDERS: ADMIT Internal Medicine; ATTEND Internal Medicine
DX: E11.621 Type 2 diabetes mellitus with foot ulcer (principal); L03.115 Cellulitis of right lower limb; L97.919 Non-pressure chronic ulcer of unspecified part of right lower leg with unspecified severity; E11.40 Type 2 diabetes mellitus with diabetic neuropathy, unspecified; E11.65 Type 2 diabetes mellitus with hyperglycemia; E11.51 Type 2 diabetes mellitus with diabetic peripheral angiopathy without gangrene; E66.9 Obesity, unspecified; Z68.37 Body mass index [BMI] 37.0-37.9, adult
CPT/HCPCS: 36415; 73630-TC-RT-FY; 73718-TC-RT; 80048; 80053; 82962; 83036; 85025; 85651; 86140; 87040; 87070; 87076; 87186; 87205; 93926-TC; 99285-25; C9803-CS; G0463-25; U0003; U0005

== ENCOUNTER 2022-06-06 11:20 | Inpatient (IN) | payer OTHER ==
[2022-06-06] MEDS ORDERED: PIPERACILLIN/TAZOB 4.5 GM 4.5 GM in DEXTROSE 5%-WATER 100 ML IVPB ONE (13:56)
[2022-06-06] MEDS ORDERED: VANCOMYCIN/WATER 2 GM/400 ML PREMIX BAG IVPB ONE (14:01)
[2022-06-06] MEDS ORDERED: PIPERACILLIN/TAZOB 4.5 GM 4.5 GM/100 ML BAG IVPB ONE (14:20)
[2022-06-06 15:36] LABS: BASO % 0.9 % (0-2.0); EOS % 4.2 % (0-4.5); HEMATOCRIT 36.9 % (32.4-45.2); HEMOGLOBIN 12.2 GM/dL (10.7-15.3); LYMPH % 32.8 % (8-40); MCH 28.1 pg (25.7-33.7); MCHC 33.1 g/dl (32.0-36.0); MEAN CELL VOLUME 84.9 fl (80-96); MEAN PLT VOLUME 10.1 fl (7.5-11.1); MONO % 4.7 % (3.8-10.2); NEUT % 57.4 % (42.8-82.8); PLATELET COUNT 271 10^3/uL (134-434); RBC 4.34 M/mm3 (3.60-5.2); RDW 13.5 % (11.6-15.6); WHITE BLOOD COUNT 7.9 K/mm3 (4.0-10.0)
[2022-06-06 16:04] LABS: CALCIUM 8.7 mg/dL (8.5-10.1)
[2022-06-06 16:05] LABS: ALBUMIN 3.6 g/dl (3.4-5.0); BLOOD UREA NITROGEN 28.6 mg/dL (7-18)
[2022-06-06 16:08] LABS: CREATININE 1.3 mg/dL (0.55-1.3)
[2022-06-06 16:09] LABS: TOT PROT 7.6 g/dl (6.4-8.2)
[2022-06-06 16:14] LABS: BILIRUBIN,TOTAL 0.3 mg/dL (0.2-1)
[2022-06-06 16:46] LABS: PH,URINE 5.5 (5.0-8.0); URINE APPEARANCE CLEAR; URINE BILIRUBIN NEGATIVE (NEGATIVE); URINE COLOR YELLOW; URINE GLUCOSE (UA) 3+ (NEGATIVE); URINE KETONE NEGATIVE (NEGATIVE); URINE LEUK ESTERASE NEGATIVE (NEGATIVE); URINE NITRITE NEGATIVE (NEGATIVE); URINE PROTEIN NEGATIVE (NEGATIVE); URINE UROBILINOGEN 0.2 mg/dL (0.2-1.0)
[2022-06-06 16:49] LABS: ERYTHROCYTE SEDIMENTATION RATE 44 mm/hr (0-30)
[2022-06-06] MEDS ORDERED: PIPERACILLIN/TAZOB 3.375 GM 3.375 GM/50 ML BAG IVPB ONE (18:42)
[2022-06-06] MEDS: PIPERACILLIN/TAZOB 3.375 GM 3.375 GM in DEXTROSE 5%-WATER - 50 ML IVPB SCH (19:10)
[2022-06-07] MEDS ORDERED: ACETAMINOPHEN 1000 MG/100 ML BAG IVPB PRN (02:07)
[2022-06-07] MEDS: PIPERACILLIN/TAZOB 3.375 GM 3.375 GM in DEXTROSE 5%-WATER - 50 ML IVPB SCH ×3 (03:10→17:19)
[2022-06-07 05:36] VITALS: BMI 40.2
[2022-06-07] MEDS ORDERED: TRULICITY 1.5 MG SQ SCH (11:30)
[2022-06-07] MEDS: GABAPENTIN 400 MG CAPSULE PO SCH ×2 (14:42→22:51)
[2022-06-07] MEDS: INSULIN SLIDING SCALE (NOVOLOG) 1 VIAL SQ SCH ×2 (16:22→22:56)
[2022-06-07] MEDS: ATORVASTATIN CA 10 MG TABLET (FP) PO SCH (22:51)
[2022-06-07] MEDS: HEPARIN NA (PORCINE) 5,000 UNITS/ML 1ML VIAL SQ SCH (22:51)
[2022-06-07] MEDS: AMMONIUM LACTATE 12% LOTION 225 GM BOTTLE TP SCH (22:52)
[2022-06-07] MEDS: INSULIN (LEVEMIR) 100 UNITS/ML UNITS SQ SCH (22:55)
[2022-06-08] MEDS: PIPERACILLIN/TAZOB 3.375 GM 3.375 GM in DEXTROSE 5%-WATER - 50 ML IVPB SCH ×3 (03:18→17:27)
[2022-06-08] MEDS: GABAPENTIN 400 MG CAPSULE PO SCH ×3 (06:26→21:21)
[2022-06-08] MEDS: INSULIN SLIDING SCALE (NOVOLOG) 1 VIAL SQ SCH ×4 (06:27→21:23)
[2022-06-08] MEDS: INSULIN (LEVEMIR) 100 UNITS/ML UNITS SQ SCH ×2 (06:27→21:22)
[2022-06-08] MEDS: HEPARIN NA (PORCINE) 5,000 UNITS/ML 1ML VIAL SQ SCH ×2 (09:21→21:22)
[2022-06-08] MEDS: ENALAPRIL MALEATE 2.5 MG TABLET PO SCH (09:32)
[2022-06-08] MEDS: AMMONIUM LACTATE 12% LOTION 225 GM BOTTLE TP SCH ×2 (09:33→21:23)
[2022-06-08] MEDS ORDERED: PATIENT'S OWN MEDICATION (NON-FORMULARY) (Dapagliflozin Propanediol 10 MG Tablet) PO SCH (10:00)
[2022-06-08] MEDS: traMADol HCL 50 MG TABLET PO PRN (15:27)
[2022-06-08] MEDS: ATORVASTATIN CA 10 MG TABLET (FP) PO SCH (21:21)
[2022-06-09] MEDS ORDERED: PIPERACILLIN/TAZOBACTAM 3.375 GM VIAL IVPB ONE (00:44)
[2022-06-09] MEDS: PIPERACILLIN/TAZOB 3.375 GM 3.375 GM in DEXTROSE 5%-WATER - 50 ML IVPB SCH ×3 (01:27→17:27)
[2022-06-09] MEDS: GABAPENTIN 400 MG CAPSULE PO SCH ×3 (06:13→22:12)
[2022-06-09] MEDS: INSULIN SLIDING SCALE (NOVOLOG) 1 VIAL SQ SCH ×4 (06:20→22:15)
[2022-06-09] MEDS: INSULIN (LEVEMIR) 100 UNITS/ML UNITS SQ SCH ×2 (06:20→22:15)
[2022-06-09] MEDS: traMADol HCL 50 MG TABLET PO PRN ×2 (07:34→22:12)
[2022-06-09] MEDS: ENALAPRIL MALEATE 2.5 MG TABLET PO SCH (10:41)
[2022-06-09] MEDS: HEPARIN NA (PORCINE) 5,000 UNITS/ML 1ML VIAL SQ SCH ×2 (10:41→22:13)
[2022-06-09] MEDS: AMMONIUM LACTATE 12% LOTION 225 GM BOTTLE TP SCH ×2 (10:48→22:13)
[2022-06-09] MEDS: ATORVASTATIN CA 10 MG TABLET (FP) PO SCH (22:12)
[2022-06-10] MEDS: PIPERACILLIN/TAZOB 3.375 GM 3.375 GM in DEXTROSE 5%-WATER - 50 ML IVPB SCH ×2 (01:13→09:26)
[2022-06-10] MEDS: GABAPENTIN 400 MG CAPSULE PO SCH ×3 (06:26→22:00)
[2022-06-10] MEDS: INSULIN (LEVEMIR) 100 UNITS/ML UNITS SQ SCH ×2 (06:27→23:09)
[2022-06-10] MEDS: INSULIN SLIDING SCALE (NOVOLOG) 1 VIAL SQ SCH ×4 (06:27→23:09)
[2022-06-10] MEDS: ENALAPRIL MALEATE 2.5 MG TABLET PO SCH (09:26)
[2022-06-10] MEDS: AMMONIUM LACTATE 12% LOTION 225 GM BOTTLE TP SCH ×2 (09:26→22:00)
[2022-06-10] MEDS: HEPARIN NA (PORCINE) 5,000 UNITS/ML 1ML VIAL SQ SCH ×2 (09:26→23:09)
[2022-06-10] MEDS: CEFTRIAXONE 1 GM in DEXTROSE 5%-WATER - 50 ML IVPB SCH (14:42)
[2022-06-10] MEDS: ATORVASTATIN CA 10 MG TABLET (FP) PO SCH (22:00)
[2022-06-11] MEDS: GABAPENTIN 400 MG CAPSULE PO SCH ×3 (06:21→22:04)
[2022-06-11] MEDS: INSULIN (LEVEMIR) 100 UNITS/ML UNITS SQ SCH ×2 (06:21→22:03)
[2022-06-11] MEDS: INSULIN SLIDING SCALE (NOVOLOG) 1 VIAL SQ SCH ×4 (06:22→22:04)
[2022-06-11 09:56] LABS: BASO % 1.2 % (0-2.0); EOS % 5.1 % (0-4.5); HEMATOCRIT 35.5 % (32.4-45.2); HEMOGLOBIN 11.7 GM/dL (10.7-15.3); LYMPH % 39.6 % (8-40); MCH 28.2 pg (25.7-33.7); MCHC 32.9 g/dl (32.0-36.0); MEAN CELL VOLUME 85.7 fl (80-96); MONO % 7.1 % (3.8-10.2); PLATELET COUNT 239 10^3/uL (134-434); RBC 4.14 M/mm3 (3.60-5.2); RDW 13.3 % (11.6-15.6); WHITE BLOOD COUNT 7.3 K/mm3 (4.0-10.0)
[2022-06-11 10:31] LABS: CALCIUM 8.8 mg/dL (8.5-10.1)
[2022-06-11 10:32] LABS: ALBUMIN 3.2 g/dl (3.4-5.0)
[2022-06-11 10:35] LABS: CREATININE 1.2 mg/dL (0.55-1.3)
[2022-06-11 10:36] LABS: BILIRUBIN,TOTAL 0.6 mg/dL (0.2-1); TOT PROT 6.9 g/dl (6.4-8.2)
[2022-06-11 10:42] LABS: ERYTHROCYTE SEDIMENTATION RATE 53 mm/hr (0-30)
[2022-06-11] MEDS: HEPARIN NA (PORCINE) 5,000 UNITS/ML 1ML VIAL SQ SCH ×2 (11:17→22:03)
[2022-06-11] MEDS: ENALAPRIL MALEATE 2.5 MG TABLET PO SCH (11:18)
[2022-06-11] MEDS: AMMONIUM LACTATE 12% LOTION 225 GM BOTTLE TP SCH ×2 (11:19→22:03)
[2022-06-11] MEDS: CEFTRIAXONE 1 GM in DEXTROSE 5%-WATER - 50 ML IVPB SCH (11:20)
[2022-06-11] MEDS: ATORVASTATIN CA 10 MG TABLET (FP) PO SCH (22:04)
[2022-06-12] MEDS: INSULIN SLIDING SCALE (NOVOLOG) 1 VIAL SQ SCH ×3 (06:06→17:06)
[2022-06-12] MEDS: GABAPENTIN 400 MG CAPSULE PO SCH ×3 (06:06→23:25)
[2022-06-12] MEDS: INSULIN (LEVEMIR) 100 UNITS/ML UNITS SQ SCH ×2 (06:06→23:24)
[2022-06-12] MEDS: ENALAPRIL MALEATE 2.5 MG TABLET PO SCH (09:27)
[2022-06-12] MEDS: HEPARIN NA (PORCINE) 5,000 UNITS/ML 1ML VIAL SQ SCH ×2 (09:27→23:24)
[2022-06-12] MEDS: AMMONIUM LACTATE 12% LOTION 225 GM BOTTLE TP SCH ×2 (09:27→23:25)
[2022-06-12] MEDS: CEFTRIAXONE 1 GM in DEXTROSE 5%-WATER - 50 ML IVPB SCH (09:27)
[2022-06-12] MEDS: POLYETHYLENE GLYCOL (HEALTHYLAX) 3350 17 GM PACKET PO SCH (23:24)
[2022-06-12] MEDS: ATORVASTATIN CA 10 MG TABLET (FP) PO SCH (23:25)
[2022-06-12] MEDS: traMADol HCL 50 MG TABLET PO PRN (23:27)
[2022-06-13] MEDS: INSULIN SLIDING SCALE (NOVOLOG) 1 VIAL SQ SCH ×3 (00:45→11:12)
[2022-06-13] MEDS: GABAPENTIN 400 MG CAPSULE PO SCH (06:56)
[2022-06-13] MEDS: traMADol HCL 50 MG TABLET PO PRN (06:56)
[2022-06-13] MEDS: INSULIN (LEVEMIR) 100 UNITS/ML UNITS SQ SCH (07:06)
[2022-06-13] MEDS: ENALAPRIL MALEATE 2.5 MG TABLET PO SCH (09:51)
[2022-06-13] MEDS: CEFTRIAXONE 1 GM in DEXTROSE 5%-WATER - 50 ML IVPB SCH (09:52)
[2022-06-13] MEDS: POLYETHYLENE GLYCOL (HEALTHYLAX) 3350 17 GM PACKET PO SCH (09:52)
[2022-06-13] MEDS: HEPARIN NA (PORCINE) 5,000 UNITS/ML 1ML VIAL SQ SCH (09:54)
[2022-06-13] MEDS: AMMONIUM LACTATE 12% LOTION 225 GM BOTTLE TP SCH (10:00)
[2022-06-13] MEDS ORDERED: INSULIN (NOVOLOG) ASPART 100 UNITS/ML 10ML VIAL ONE (11:10)
[2022-06-13 12:59] VITALS: BP 134/71; PULSE 75; RESP 16; TEMP 98.2
== END 2022-06-13 14:48 | disposition home or self-care (01) | DRG 603 ==
LOC: JER 11:20 → JERBED 14:19 → J6S 21:41
PROVIDERS: ADMIT Internal Medicine; ATTEND Internal Medicine
DX: L03.115 Cellulitis of right lower limb (principal); L02.611 Cutaneous abscess of right foot; L97.518 Non-pressure chronic ulcer of other part of right foot with other specified severity; Z68.41 Body mass index [BMI] 40.0-44.9, adult; E11.621 Type 2 diabetes mellitus with foot ulcer; E66.9 Obesity, unspecified; S91.301A Unspecified open wound, right foot, initial encounter; E11.69 Type 2 diabetes mellitus with other specified complication; E11.40 Type 2 diabetes mellitus with diabetic neuropathy, unspecified; B96.1 Klebsiella pneumoniae [K. pneumoniae] as the cause of diseases classified elsewhere; B95.7 Other staphylococcus as the cause of diseases classified elsewhere
CPT/HCPCS: 0241U-QW; 36415; 71045-TC-FY; 73610-TC-RT-FY; 73630-TC-RT-FY; 73718-TC-RT; 80053; 81003; 82962; 85025; 85651; 86140; 87040; 87070; 87076; 87086; 87186; 87205; 93005; 93010; 93925-TC; 97116-GP; 97161-GP; 99285-25; G0463-25; J1644

== ENCOUNTER 2022-08-06 05:02 | Day surgery (SDC) | payer OTHER ==
[2022-08-01 09:40] VITALS: BMI 38.9
[2022-08-06 14:06] VITALS: PULSE 65; RESP 18
[2022-08-06 14:22] VITALS: BP 128/65; TEMP 97
== END 2022-08-06 14:35 | disposition home or self-care (01) ==
LOC: JASU-ENDO 05:02
PROVIDERS: ATTEND Student in an Organized Health Care Education/Training Program
PROC: 0DB78ZX Excision of Stomach, Pylorus, Via Natural or Artificial Opening Endoscopic, Diagnostic (ICD-10-PCS; 2022-08-06)
PROC: 0DB68ZX Excision of Stomach, Via Natural or Artificial Opening Endoscopic, Diagnostic (ICD-10-PCS; 2022-08-06)
PROC: 0DB98ZX Excision of Duodenum, Via Natural or Artificial Opening Endoscopic, Diagnostic (ICD-10-PCS; principal; 2022-08-06 16:00)
DX: K29.50 Unspecified chronic gastritis without bleeding (principal); K21.9 Gastro-esophageal reflux disease without esophagitis; I10 Essential (primary) hypertension; E11.622 Type 2 diabetes mellitus with other skin ulcer
CPT/HCPCS: 82962; 88305-TC; 88342-TC

== ENCOUNTER 2023-01-09 11:18 | Inpatient (IN) | payer OTHER ==
[2023-01-09] MEDS ORDERED: VANCOMYCIN HCL 1,500 MG in DEXTROSE 5%-WATER - 500 ML IVPB ONE (12:23)
[2023-01-09] MEDS ORDERED: PIPERACILLIN/TAZOB 4.5 GM 4.5 GM in DEXTROSE 5%-WATER 100 ML IVPB ONE (12:23)
[2023-01-09] MEDS ORDERED: ACETAMINOPHEN 500 MG TABLET (FP) PO ONE (12:28)
[2023-01-09] MEDS ORDERED: ACETAMINOPHEN 325 MG TABLET (FP) ONE (14:46)
[2023-01-09] MEDS ORDERED: PIPERACILLIN/TAZOB 4.5 GM 4.5 GM/100 ML BAG IVPB ONE (14:47)
[2023-01-09 14:57] LABS: BASO % 1.3 % (0-2.0); EOS % 4.3 % (0-4.5); HEMATOCRIT 36.8 % (32.4-45.2); HEMOGLOBIN 11.9 GM/dL (10.7-15.3); LYMPH % 31.4 % (8-40); MCH 28.2 pg (25.7-33.7); MCHC 32.3 g/dl (32.0-36.0); MEAN CELL VOLUME 87.1 fl (80-96); MEAN PLT VOLUME 9.3 fl (7.5-11.1); MONO % 6.7 % (3.8-10.2); NEUT % 56.3 % (42.8-82.8); PLATELET COUNT 299 10^3/uL (134-434); RBC 4.23 M/mm3 (3.60-5.2); WHITE BLOOD COUNT 7.9 K/mm3 (4.0-10.0)
[2023-01-09] MEDS ORDERED: VANCOMYCIN PREMIX 1.5 GM 1,500 MG/300 ML BAG IVPB ONE (15:00)
[2023-01-09 15:02] LABS: INR 0.97 (0.83-1.09); PROTHROMBIN TIME (PATIENT) 11.2 SEC (9.7-13.0)
[2023-01-09 15:04] LABS: ACTIVATED PTT 29.4 SECONDS (25.2-36.5)
[2023-01-09 15:23] LABS: POTASSIUM 5.8 mmol/L (3.5-5.1)
[2023-01-09 15:24] LABS: CALCIUM 8.4 mg/dL (8.5-10.1)
[2023-01-09 15:25] LABS: ALBUMIN 3.2 g/dl (3.4-5.0); BLOOD UREA NITROGEN 19.1 mg/dL (7-18)
[2023-01-09 15:28] LABS: CREATININE 1.1 mg/dL (0.55-1.3)
[2023-01-09 15:29] LABS: BILIRUBIN,TOTAL 0.5 mg/dL (0.2-1)
[2023-01-09 15:30] LABS: TOT PROT 7.3 g/dl (6.4-8.2)
[2023-01-09] MEDS ORDERED: DAPTOMYCIN 160 MG in SODIUM CHLORIDE 50 ML IVPB ONE ×2 (16:06→16:36)
[2023-01-09] MEDS ORDERED: POLYETHYLENE GLYCOL (HEALTHYLAX) 3350 17 GM PACKET PO PRN (16:53)
[2023-01-09] MEDS ORDERED: SODIUM CHLORIDE IVPB ONE (18:00)
[2023-01-09] MEDS ORDERED: DAPTOMYCIN IVPB ONE (18:00)
[2023-01-09 19:54] LABS: POTASSIUM 4.9 mmol/L (3.5-5.1)
[2023-01-09 19:55] LABS: CALCIUM 8.3 mg/dL (8.5-10.1)
[2023-01-09 19:56] LABS: BLOOD UREA NITROGEN 19.7 mg/dL (7-18)
[2023-01-09 19:59] LABS: CREATININE 1.4 mg/dL (0.55-1.3)
[2023-01-09] MEDS ORDERED: PIPERACILLIN/TAZOB 3.375 GM 3.375 GM in DEXTROSE 5%-WATER - 50 ML IVPB SCH (21:00)
[2023-01-09] MEDS: PIPERACILLIN/TAZOB 3.375 GM 3.375 GM in DEXTROSE 5%-WATER - 50 ML IVPB SCH (22:48)
[2023-01-09] MEDS: INSULIN (LEVEMIR) 100 UNITS/ML UNITS SQ SCH (22:48)
[2023-01-09] MEDS: INSULIN SLIDING SCALE (NOVOLOG) 1 VIAL SQ SCH (22:49)
[2023-01-10 00:34] VITALS: BMI 38.5
[2023-01-10] MEDS: PIPERACILLIN/TAZOB 3.375 GM 3.375 GM in DEXTROSE 5%-WATER - 50 ML IVPB SCH ×3 (02:52→16:03)
[2023-01-10] MEDS: INSULIN SLIDING SCALE (NOVOLOG) 1 VIAL SQ SCH ×4 (06:55→21:25)
[2023-01-10] MEDS: INSULIN (LEVEMIR) 100 UNITS/ML UNITS SQ SCH ×2 (06:55→21:25)
[2023-01-10] MEDS: COLLAGENASE CLOSTRIDIUM HIST. 30 GRAMS TUBE TP SCH (10:30)
[2023-01-10] MEDS: ENOXAPARIN NA (PORCINE) 40 MG/0.4 ML DISP.SYRIN SQ SCH (10:32)
[2023-01-10] MEDS: DULoxetine HCL 30 MG CAPSULE.DR PO SCH (10:33)
[2023-01-10] MEDS: PANTOPRAZOLE 40 MG TABLET PO SCH (10:33)
[2023-01-10 11:09] LABS: BASO % 0.8 % (0-2.0); EOS % 4.7 % (0-4.5); HEMATOCRIT 33.7 % (32.4-45.2); HEMOGLOBIN 11.5 GM/dL (10.7-15.3); LYMPH % 23.3 % (8-40); MCH 28.7 pg (25.7-33.7); MCHC 34.1 g/dl (32.0-36.0); MEAN CELL VOLUME 84.1 fl (80-96); MEAN PLT VOLUME 8.7 fl (7.5-11.1); MONO % 7.6 % (3.8-10.2); NEUT % 63.6 % (42.8-82.8); PLATELET COUNT 286 10^3/uL (134-434); RBC 4.01 M/mm3 (3.60-5.2); RDW 12.8 % (11.6-15.6); WHITE BLOOD COUNT 7.4 K/mm3 (4.0-10.0)
[2023-01-10] MEDS: LOSARTAN POTASSIUM 25 MG TABLET PO SCH (11:21)
[2023-01-10 11:40] LABS: POTASSIUM 4.9 mmol/L (3.5-5.1)
[2023-01-10 11:50] LABS: ALBUMIN 3.1 g/dl (3.4-5.0); BLOOD UREA NITROGEN 23.2 mg/dL (7-18); CALCIUM 8.5 mg/dL (8.5-10.1); MAGNESIUM 2.3 mg/dL (1.8-2.4)
[2023-01-10 11:53] LABS: CREATININE 1.3 mg/dL (0.55-1.3)
[2023-01-10 11:55] LABS: BILIRUBIN,TOTAL 0.3 mg/dL (0.2-1); TOT PROT 6.7 g/dl (6.4-8.2)
[2023-01-10] MEDS: PIPERACILLIN/TAZOB 2.25 GM 2.25 GM in DEXTROSE 5%-WATER - 50 ML IVPB SCH (17:11)
[2023-01-11] MEDS: PIPERACILLIN/TAZOB 2.25 GM 2.25 GM in DEXTROSE 5%-WATER - 50 ML IVPB SCH ×3 (01:23→18:09)
[2023-01-11] MEDS: INSULIN (LEVEMIR) 100 UNITS/ML UNITS SQ SCH ×2 (06:19→22:45)
[2023-01-11] MEDS: INSULIN SLIDING SCALE (NOVOLOG) 1 VIAL SQ SCH ×4 (06:19→22:48)
[2023-01-11] MEDS: ENOXAPARIN NA (PORCINE) 40 MG/0.4 ML DISP.SYRIN SQ SCH (09:43)
[2023-01-11] MEDS: PANTOPRAZOLE 40 MG TABLET PO SCH (09:44)
[2023-01-11] MEDS: DULoxetine HCL 30 MG CAPSULE.DR PO SCH (09:44)
[2023-01-11] MEDS: LOSARTAN POTASSIUM 25 MG TABLET PO SCH (09:44)
[2023-01-11 10:21] LABS: BASO % 1.3 % (0-2.0); EOS % 3.9 % (0-4.5); HEMATOCRIT 34.1 % (32.4-45.2); HEMOGLOBIN 11.4 GM/dL (10.7-15.3); LYMPH % 24.4 % (8-40); MCH 28.4 pg (25.7-33.7); MCHC 33.4 g/dl (32.0-36.0); MONO % 7.2 % (3.8-10.2); NEUT % 63.2 % (42.8-82.8); PLATELET COUNT 281 10^3/uL (134-434); RBC 4.01 M/mm3 (3.60-5.2); RDW 12.8 % (11.6-15.6); WHITE BLOOD COUNT 7.4 K/mm3 (4.0-10.0)
[2023-01-11 10:39] LABS: POTASSIUM 4.2 mmol/L (3.5-5.1)
[2023-01-11 10:49] LABS: CALCIUM 8.3 mg/dL (8.5-10.1)
[2023-01-11 10:50] LABS: ALBUMIN 3.2 g/dl (3.4-5.0); MAGNESIUM 2.2 mg/dL (1.8-2.4)
[2023-01-11 10:53] LABS: CREATININE 1.2 mg/dL (0.55-1.3); PHOSPHOROUS 3.8 mg/dL (2.5-4.9)
[2023-01-11 10:54] LABS: BILIRUBIN,TOTAL 0.5 mg/dL (0.2-1); TOT PROT 6.8 g/dl (6.4-8.2)
[2023-01-11] MEDS: COLLAGENASE CLOSTRIDIUM HIST. 30 GRAMS TUBE TP SCH (14:49)
[2023-01-11 18:42] VITALS: RESP 18
[2023-01-12] MEDS: PIPERACILLIN/TAZOB 2.25 GM 2.25 GM in DEXTROSE 5%-WATER - 50 ML IVPB SCH ×3 (03:21→17:05)
[2023-01-12] MEDS: INSULIN (LEVEMIR) 100 UNITS/ML UNITS SQ SCH ×2 (06:40→21:14)
[2023-01-12] MEDS: INSULIN SLIDING SCALE (NOVOLOG) 1 VIAL SQ SCH ×4 (06:40→21:14)
[2023-01-12] MEDS: DULoxetine HCL 30 MG CAPSULE.DR PO SCH (09:17)
[2023-01-12] MEDS: LOSARTAN POTASSIUM 25 MG TABLET PO SCH (09:17)
[2023-01-12] MEDS: ENOXAPARIN NA (PORCINE) 40 MG/0.4 ML DISP.SYRIN SQ SCH (09:17)
[2023-01-12] MEDS: PANTOPRAZOLE 40 MG TABLET PO SCH (09:18)
[2023-01-12] MEDS: COLLAGENASE CLOSTRIDIUM HIST. 30 GRAMS TUBE TP SCH (09:19)
[2023-01-12 09:20] LABS: EOS % 3.8 % (0-4.5); HEMATOCRIT 33.5 % (32.4-45.2); HEMOGLOBIN 11.4 GM/dL (10.7-15.3); LYMPH % 25.6 % (8-40); MCH 28.6 pg (25.7-33.7); MCHC 34.1 g/dl (32.0-36.0); MEAN CELL VOLUME 83.7 fl (80-96); MEAN PLT VOLUME 8.6 fl (7.5-11.1); MONO % 6.7 % (3.8-10.2); NEUT % 62.9 % (42.8-82.8); PLATELET COUNT 297 10^3/uL (134-434); RDW 12.7 % (11.6-15.6); WHITE BLOOD COUNT 7.7 K/mm3 (4.0-10.0)
[2023-01-12 09:44] LABS: POTASSIUM 4.4 mmol/L (3.5-5.1)
[2023-01-12 10:01] LABS: ALBUMIN 3.2 g/dl (3.4-5.0); BLOOD UREA NITROGEN 21.2 mg/dL (7-18); CALCIUM 8.6 mg/dL (8.5-10.1)
[2023-01-12 10:04] LABS: CREATININE 1.2 mg/dL (0.55-1.3)
[2023-01-12 10:06] LABS: BILIRUBIN,TOTAL 0.3 mg/dL (0.2-1)
[2023-01-12 10:07] LABS: TOT PROT 7.1 g/dl (6.4-8.2)
[2023-01-13] MEDS: PIPERACILLIN/TAZOB 2.25 GM 2.25 GM in DEXTROSE 5%-WATER - 50 ML IVPB SCH ×3 (01:07→17:44)
[2023-01-13] MEDS: INSULIN SLIDING SCALE (NOVOLOG) 1 VIAL SQ SCH ×4 (06:24→22:07)
[2023-01-13] MEDS: INSULIN (LEVEMIR) 100 UNITS/ML UNITS SQ SCH ×2 (06:26→22:06)
[2023-01-13] MEDS: ENOXAPARIN NA (PORCINE) 40 MG/0.4 ML DISP.SYRIN SQ SCH (09:17)
[2023-01-13] MEDS: DULoxetine HCL 30 MG CAPSULE.DR PO SCH (09:17)
[2023-01-13] MEDS: PANTOPRAZOLE 40 MG TABLET PO SCH (09:17)
[2023-01-13] MEDS: LOSARTAN POTASSIUM 25 MG TABLET PO SCH (09:17)
[2023-01-13 10:07] LABS: BASO % 0.8 % (0-2.0); EOS % 3.1 % (0-4.5); HEMATOCRIT 33.5 % (32.4-45.2); HEMOGLOBIN 11.3 GM/dL (10.7-15.3); LYMPH % 24.8 % (8-40); MCH 28.9 pg (25.7-33.7); MCHC 33.8 g/dl (32.0-36.0); MEAN CELL VOLUME 85.5 fl (80-96); MEAN PLT VOLUME 8.8 fl (7.5-11.1); MONO % 6.6 % (3.8-10.2); NEUT % 64.7 % (42.8-82.8); PLATELET COUNT 287 10^3/uL (134-434); RBC 3.91 M/mm3 (3.60-5.2); RDW 12.8 % (11.6-15.6); WHITE BLOOD COUNT 9.1 K/mm3 (4.0-10.0)
[2023-01-13 10:37] LABS: POTASSIUM 4.6 mmol/L (3.5-5.1)
[2023-01-13 10:38] LABS: CALCIUM 8.4 mg/dL (8.5-10.1)
[2023-01-13 10:39] LABS: ALBUMIN 3.2 g/dl (3.4-5.0)
[2023-01-13 10:41] LABS: BLOOD UREA NITROGEN 23.3 mg/dL (7-18)
[2023-01-13 10:42] LABS: CREATININE 1.3 mg/dL (0.55-1.3)
[2023-01-13 10:43] LABS: BILIRUBIN,TOTAL 0.3 mg/dL (0.2-1)
[2023-01-13 10:44] LABS: TOT PROT 6.9 g/dl (6.4-8.2)
[2023-01-13] MEDS: COLLAGENASE CLOSTRIDIUM HIST. 30 GRAMS TUBE TP SCH (17:08)
[2023-01-13 23:34] VITALS: PULSE 80
[2023-01-14] MEDS: PIPERACILLIN/TAZOB 2.25 GM 2.25 GM in DEXTROSE 5%-WATER - 50 ML IVPB SCH ×2 (01:14→09:41)
[2023-01-14] MEDS: INSULIN SLIDING SCALE (NOVOLOG) 1 VIAL SQ SCH ×2 (06:06→11:48)
[2023-01-14] MEDS: INSULIN (LEVEMIR) 100 UNITS/ML UNITS SQ SCH (06:06)
[2023-01-14 06:09] VITALS: BP 115/63; TEMP 97.9
[2023-01-14] MEDS: DULoxetine HCL 30 MG CAPSULE.DR PO SCH (09:42)
[2023-01-14] MEDS: LOSARTAN POTASSIUM 25 MG TABLET PO SCH (09:42)
[2023-01-14] MEDS: PANTOPRAZOLE 40 MG TABLET PO SCH (09:42)
[2023-01-14] MEDS: ENOXAPARIN NA (PORCINE) 40 MG/0.4 ML DISP.SYRIN SQ SCH (09:42)
[2023-01-14 11:20] LABS: HEMATOCRIT 34.9 % (32.4-45.2); HEMOGLOBIN 11.7 GM/dL (10.7-15.3); MCH 28.7 pg (25.7-33.7); MCHC 33.6 g/dl (32.0-36.0); MEAN CELL VOLUME 85.2 fl (80-96); MEAN PLT VOLUME 8.5 fl (7.5-11.1); PLATELET COUNT 289 10^3/uL (134-434); RBC 4.09 M/mm3 (3.60-5.2); RDW 12.7 % (11.6-15.6); WHITE BLOOD COUNT 8.4 K/mm3 (4.0-10.0)
[2023-01-14] MEDS ORDERED: AMOX TR/POT CLAV 875MG/125MG TABLETS (FP) PO SCH ×2 (11:37→17:30)
[2023-01-14 11:41] LABS: POTASSIUM 5.5 mmol/L (3.5-5.1)
[2023-01-14] MEDS: COLLAGENASE CLOSTRIDIUM HIST. 30 GRAMS TUBE TP SCH (11:47)
[2023-01-14 12:09] LABS: CALCIUM 9.2 mg/dL (8.5-10.1)
[2023-01-14 12:10] LABS: ALBUMIN 3.4 g/dl (3.4-5.0); BLOOD UREA NITROGEN 28.8 mg/dL (7-18)
[2023-01-14 12:13] LABS: CREATININE 1.3 mg/dL (0.55-1.3)
[2023-01-14 12:14] LABS: TOT PROT 7.4 g/dl (6.4-8.2)
[2023-01-14 12:15] LABS: BILIRUBIN,TOTAL 0.3 mg/dL (0.2-1)
== END 2023-01-14 12:23 | disposition home or self-care (01) | DRG 603 ==
LOC: JER 11:18 → JERBED 16:50 → J5S 20:16
PROVIDERS: ADMIT Internal Medicine; ATTEND Internal Medicine
DX: L03.115 Cellulitis of right lower limb (principal); L97.919 Non-pressure chronic ulcer of unspecified part of right lower leg with unspecified severity; L02.619 Cutaneous abscess of unspecified foot; E11.621 Type 2 diabetes mellitus with foot ulcer; E11.65 Type 2 diabetes mellitus with hyperglycemia; E11.40 Type 2 diabetes mellitus with diabetic neuropathy, unspecified; I10 Essential (primary) hypertension; Z89.421 Acquired absence of other right toe(s); E66.9 Obesity, unspecified; Z68.38 Body mass index [BMI] 38.0-38.9, adult; E78.5 Hyperlipidemia, unspecified
CPT/HCPCS: 36415; 73630-TC-RT-FY; 80048; 80053; 82962; 83735; 84100; 85025; 85027; 85610; 85651; 85730; 86140; 86850; 86900; 86901; 87070; 87186; 87205; 88304-TC; 93005; 93010; 97597; 99285-25; J0878

== ENCOUNTER 2023-02-13 10:47 | Inpatient (IN) | payer OTHER ==
[2023-02-13] MEDS ORDERED: PIPERACILLIN/TAZOB 4.5 GM 4.5 GM in DEXTROSE 5%-WATER 100 ML IVPB ONE (11:27)
[2023-02-13] MEDS ORDERED: CLINDAMYCIN 900 MG PREMIX IVPB 900 MG/50 ML BAG IVPB ONE (11:28)
[2023-02-13] MEDS ORDERED: PIPERACILLIN/TAZOB 4.5 GM 4.5 GM/100 ML BAG IVPB ONE (11:38)
[2023-02-13 12:50] LABS: BASO % 0.6 % (0-2.0); EOS % 3.2 % (0-4.5); HEMATOCRIT 33.3 % (32.4-45.2); HEMOGLOBIN 11.4 GM/dL (10.7-15.3); MCH 28.8 pg (25.7-33.7); MCHC 34.1 g/dl (32.0-36.0); MEAN CELL VOLUME 84.5 fl (80-96); MEAN PLT VOLUME 8.5 fl (7.5-11.1); MONO % 6.6 % (3.8-10.2); NEUT % 62.6 % (42.8-82.8); PLATELET COUNT 339 10^3/uL (134-434); RBC 3.94 M/mm3 (3.60-5.2); RDW 12.9 % (11.6-15.6); WHITE BLOOD COUNT 9.2 K/mm3 (4.0-10.0)
[2023-02-13 13:04] LABS: INR 0.97 (0.83-1.09); PROTHROMBIN TIME (PATIENT) 11.3 SEC (9.7-13.0)
[2023-02-13 13:07] LABS: ACTIVATED PTT 32.1 SECONDS (25.2-36.5)
[2023-02-13 13:17] LABS: POTASSIUM 5.1 mmol/L (3.5-5.1)
[2023-02-13 13:19] LABS: ALBUMIN 3.4 g/dl (3.4-5.0); CALCIUM 8.7 mg/dL (8.5-10.1)
[2023-02-13 13:20] LABS: BLOOD UREA NITROGEN 25.1 mg/dL (7-18)
[2023-02-13 13:22] LABS: CREATININE 1.3 mg/dL (0.55-1.3)
[2023-02-13 13:24] LABS: BILIRUBIN,TOTAL 0.2 mg/dL (0.2-1); TOT PROT 7.6 g/dl (6.4-8.2)
[2023-02-13] MEDS: INSULIN SLIDING SCALE (NOVOLOG) 1 VIAL SQ SCH ×2 (16:46→22:11)
[2023-02-13] MEDS ORDERED: DAPTOMYCIN 480 MG in SODIUM CHLORIDE 50 ML IVPB SCH (18:00)
[2023-02-13] MEDS ORDERED: PIPERACILLIN/TAZOB 3.375 GM 3.375 GM/50 ML BAG IVPB ONE (18:16)
[2023-02-13] MEDS: PIPERACILLIN/TAZOB 3.375 GM 3.375 GM in DEXTROSE 5%-WATER - 50 ML IVPB SCH (18:30)
[2023-02-13] MEDS ORDERED: DAPTOMYCIN IVPB SCH (22:00)
[2023-02-13] MEDS ORDERED: SODIUM CHLORIDE IVPB SCH (22:00)
[2023-02-13] MEDS ORDERED: DAPTOMYCIN 360 MG in SODIUM CHLORIDE 50 ML IVPB SCH (22:00)
[2023-02-13] MEDS: INSULIN (LEVEMIR) 100 UNITS/ML UNITS SQ SCH (22:11)
[2023-02-14] MEDS: PIPERACILLIN/TAZOB 3.375 GM 3.375 GM in DEXTROSE 5%-WATER - 50 ML IVPB SCH ×2 (02:20→09:27)
[2023-02-14] MEDS ORDERED: PIPERACILLIN/TAZOB 3.375 GM 3.375 GM/50 ML BAG IVPB ONE ×2 (02:21→09:23)
[2023-02-14 07:50] LABS: BASO % 0.6 % (0-2.0); EOS % 5.6 % (0-4.5); HEMATOCRIT 31.6 % (32.4-45.2); HEMOGLOBIN 10.8 GM/dL (10.7-15.3); LYMPH % 17.1 % (8-40); MCH 28.9 pg (25.7-33.7); MCHC 34.1 g/dl (32.0-36.0); MEAN CELL VOLUME 84.8 fl (80-96); MEAN PLT VOLUME 8.5 fl (7.5-11.1); MONO % 5.9 % (3.8-10.2); NEUT % 70.8 % (42.8-82.8); PLATELET COUNT 326 10^3/uL (134-434); RBC 3.73 M/mm3 (3.60-5.2); RDW 12.7 % (11.6-15.6); WHITE BLOOD COUNT 9.5 K/mm3 (4.0-10.0)
[2023-02-14 07:51] LABS: INR 1.08 (0.83-1.09); PROTHROMBIN TIME (PATIENT) 12.5 SEC (9.7-13.0)
[2023-02-14 08:17] LABS: POTASSIUM 4.7 mmol/L (3.5-5.1)
[2023-02-14 08:27] LABS: CALCIUM 8.3 mg/dL (8.5-10.1)
[2023-02-14 08:28] LABS: ALBUMIN 3.2 g/dl (3.4-5.0); BLOOD UREA NITROGEN 22.9 mg/dL (7-18); MAGNESIUM 1.9 mg/dL (1.8-2.4)
[2023-02-14 08:31] LABS: CREATININE 1.1 mg/dL (0.55-1.3); PHOSPHOROUS 4.7 mg/dL (2.5-4.9)
[2023-02-14 08:33] LABS: BILIRUBIN,TOTAL 0.4 mg/dL (0.2-1)
[2023-02-14] MEDS ORDERED: DULoxetine HCL 30 MG CAPSULE.DR PO ONE (09:22)
[2023-02-14] MEDS ORDERED: LOSARTAN POTASSIUM 25 MG TABLET ONE (09:22)
[2023-02-14] MEDS: DULoxetine HCL 30 MG CAPSULE.DR PO SCH (09:28)
[2023-02-14] MEDS: LOSARTAN POTASSIUM 25 MG TABLET PO SCH (09:29)
[2023-02-14] MEDS: INSULIN SLIDING SCALE (NOVOLOG) 1 VIAL SQ SCH ×4 (09:29→21:38)
[2023-02-14] MEDS: ENOXAPARIN NA (PORCINE) 40 MG/0.4 ML DISP.SYRIN SQ SCH (09:29)
[2023-02-14] MEDS: INSULIN (LEVEMIR) 100 UNITS/ML UNITS SQ SCH ×2 (09:30→21:39)
[2023-02-14 15:58] VITALS: BMI 40.4
[2023-02-14] MEDS: COLLAGENASE CLOSTRIDIUM HIST. 30 GRAMS TUBE TP SCH (16:40)
[2023-02-14] MEDS: PIPERACILLIN/TAZOB 4.5 GM 4.5 GM in DEXTROSE 5%-WATER 100 ML IVPB SCH (17:36)
[2023-02-14] MEDS ORDERED: PIPERACILLIN/TAZOB 4.5 GM 4.5 GM in DEXTROSE 5%-WATER - 50 ML IVPB SCH (18:00)
[2023-02-14] MEDS: DAPTOMYCIN 480 MG in SODIUM CHLORIDE 50 ML IVPB SCH (18:11)
[2023-02-15] MEDS: PIPERACILLIN/TAZOB 4.5 GM 4.5 GM in DEXTROSE 5%-WATER 100 ML IVPB SCH ×3 (03:07→19:00)
[2023-02-15] MEDS: INSULIN SLIDING SCALE (NOVOLOG) 1 VIAL SQ SCH ×4 (06:06→21:56)
[2023-02-15] MEDS: ENOXAPARIN NA (PORCINE) 40 MG/0.4 ML DISP.SYRIN SQ SCH (09:47)
[2023-02-15] MEDS: INSULIN (LEVEMIR) 100 UNITS/ML UNITS SQ SCH ×2 (09:48→21:56)
[2023-02-15] MEDS: COLLAGENASE CLOSTRIDIUM HIST. 30 GRAMS TUBE TP SCH (09:48)
[2023-02-15] MEDS: DULoxetine HCL 30 MG CAPSULE.DR PO SCH (09:48)
[2023-02-15] MEDS: LOSARTAN POTASSIUM 25 MG TABLET PO SCH (09:48)
[2023-02-15 10:03] LABS: BASO % 0.6 % (0-2.0); EOS % 6.6 % (0-4.5); HEMATOCRIT 32.3 % (32.4-45.2); LYMPH % 20.9 % (8-40); MCHC 33.9 g/dl (32.0-36.0); MEAN CELL VOLUME 85.5 fl (80-96); MEAN PLT VOLUME 8.4 fl (7.5-11.1); MONO % 6.3 % (3.8-10.2); NEUT % 65.6 % (42.8-82.8); PLATELET COUNT 327 10^3/uL (134-434); RBC 3.78 M/mm3 (3.60-5.2); RDW 12.5 % (11.6-15.6); WHITE BLOOD COUNT 8.1 K/mm3 (4.0-10.0)
[2023-02-15 10:08] LABS: POTASSIUM 4.4 mmol/L (3.5-5.1)
[2023-02-15 10:10] LABS: BLOOD UREA NITROGEN 20.2 mg/dL (7-18); CALCIUM 8.3 mg/dL (8.5-10.1)
[2023-02-15 10:11] LABS: ALBUMIN 3.1 g/dl (3.4-5.0)
[2023-02-15 10:14] LABS: CREATININE 1.3 mg/dL (0.55-1.3)
[2023-02-15 10:15] LABS: TOT PROT 7.1 g/dl (6.4-8.2)
[2023-02-15 10:17] LABS: BILIRUBIN,TOTAL 0.5 mg/dL (0.2-1)
[2023-02-15] MEDS: DAPTOMYCIN 480 MG in SODIUM CHLORIDE 50 ML IVPB SCH (17:12)
[2023-02-15] MEDS ORDERED: MAG HYDROX/AL HYDROX/SIMETH 30 ML UNIT-DOSE CUP PO ONE (22:41)
[2023-02-15] MEDS ORDERED: MAG HYDROX/AL HYDROX/SIMETH -MYLANTA- ORAL SUSPENSION PO ONE (22:41)
[2023-02-16] MEDS: PIPERACILLIN/TAZOB 4.5 GM 4.5 GM in DEXTROSE 5%-WATER 100 ML IVPB SCH ×2 (01:18→11:14)
[2023-02-16] MEDS: INSULIN SLIDING SCALE (NOVOLOG) 1 VIAL SQ SCH ×5 (06:27→22:26)
[2023-02-16 09:05] LABS: BASO % 0.7 % (0-2.0); EOS % 4.4 % (0-4.5); HEMATOCRIT 32.8 % (32.4-45.2); LYMPH % 23.7 % (8-40); MCH 28.6 pg (25.7-33.7); MCHC 33.5 g/dl (32.0-36.0); MEAN CELL VOLUME 85.3 fl (80-96); MEAN PLT VOLUME 8.3 fl (7.5-11.1); MONO % 8.2 % (3.8-10.2); PLATELET COUNT 327 10^3/uL (134-434); RBC 3.85 M/mm3 (3.60-5.2); RDW 12.5 % (11.6-15.6); WHITE BLOOD COUNT 8.9 K/mm3 (4.0-10.0)
[2023-02-16 09:26] LABS: POTASSIUM 4.4 mmol/L (3.5-5.1)
[2023-02-16 09:28] LABS: CALCIUM 8.3 mg/dL (8.5-10.1)
[2023-02-16 09:29] LABS: BLOOD UREA NITROGEN 19.4 mg/dL (7-18)
[2023-02-16 09:32] LABS: CREATININE 1.3 mg/dL (0.55-1.3)
[2023-02-16] MEDS: ENOXAPARIN NA (PORCINE) 40 MG/0.4 ML DISP.SYRIN SQ SCH (10:34)
[2023-02-16] MEDS: INSULIN (LEVEMIR) 100 UNITS/ML UNITS SQ SCH ×3 (10:35→22:27)
[2023-02-16] MEDS: DULoxetine HCL 30 MG CAPSULE.DR PO SCH (10:35)
[2023-02-16] MEDS: LOSARTAN POTASSIUM 25 MG TABLET PO SCH (10:35)
[2023-02-16] MEDS: COLLAGENASE CLOSTRIDIUM HIST. 30 GRAMS TUBE TP SCH (10:36)
[2023-02-16] MEDS ORDERED: MAG HYDROX/AL HYDROX/SIMETH 30 ML UNIT-DOSE CUP PO PRN (11:18)
[2023-02-16] MEDS: PANTOPRAZOLE 20 MG TABLET PO SCH (12:20)
[2023-02-16] MEDS ORDERED: metroNIDAZOLE 500 MG TABLET PO SCH (14:00)
[2023-02-16] MEDS ORDERED: CEFTRIAXONE 2 GM in DEXTROSE 5%-WATER 100 ML IVPB SCH (14:30)
[2023-02-16] MEDS: DAPTOMYCIN 480 MG in SODIUM CHLORIDE 50 ML IVPB SCH (17:13)
[2023-02-17] MEDS: INSULIN SLIDING SCALE (NOVOLOG) 1 VIAL SQ SCH ×4 (06:28→21:59)
[2023-02-17 07:50] LABS: BASO % 0.8 % (0-2.0); EOS % 5.1 % (0-4.5); HEMATOCRIT 32.3 % (32.4-45.2); LYMPH % 30.5 % (8-40); MCH 28.9 pg (25.7-33.7); MCHC 34.1 g/dl (32.0-36.0); MEAN CELL VOLUME 84.7 fl (80-96); MEAN PLT VOLUME 8.3 fl (7.5-11.1); MONO % 8.5 % (3.8-10.2); NEUT % 55.1 % (42.8-82.8); PLATELET COUNT 338 10^3/uL (134-434); RBC 3.82 M/mm3 (3.60-5.2); RDW 12.6 % (11.6-15.6); WHITE BLOOD COUNT 7.7 K/mm3 (4.0-10.0)
[2023-02-17 07:59] LABS: ALBUMIN 3.1 g/dl (3.4-5.0); CALCIUM 8.7 mg/dL (8.5-10.1)
[2023-02-17 08:00] LABS: BLOOD UREA NITROGEN 18.9 mg/dL (7-18)
[2023-02-17 08:03] LABS: CREATININE 1.2 mg/dL (0.55-1.3)
[2023-02-17 08:04] LABS: BILIRUBIN,TOTAL 0.3 mg/dL (0.2-1); TOT PROT 7.2 g/dl (6.4-8.2)
[2023-02-17] MEDS: PANTOPRAZOLE 20 MG TABLET PO SCH (10:12)
[2023-02-17] MEDS: LOSARTAN POTASSIUM 25 MG TABLET PO SCH (10:12)
[2023-02-17] MEDS: DULoxetine HCL 30 MG CAPSULE.DR PO SCH (10:12)
[2023-02-17] MEDS: INSULIN (LEVEMIR) 100 UNITS/ML UNITS SQ SCH ×2 (10:13→21:58)
[2023-02-17] MEDS: COLLAGENASE CLOSTRIDIUM HIST. 30 GRAMS TUBE TP SCH (10:14)
[2023-02-17] MEDS: ENOXAPARIN NA (PORCINE) 40 MG/0.4 ML DISP.SYRIN SQ SCH (10:14)
[2023-02-17] MEDS: AMPICILLIN NA/SULBACTAM NA 3 GM in SODIUM CHLORIDE 100 ML IVPB SCH ×2 (14:26→17:06)
[2023-02-17] MEDS: ATORVASTATIN CA 40 MG TABLET (FP) PO SCH (21:58)
[2023-02-18] MEDS: AMPICILLIN NA/SULBACTAM NA 3 GM in SODIUM CHLORIDE 100 ML IVPB SCH (01:10)
[2023-02-18] MEDS: INSULIN (LEVEMIR) 100 UNITS/ML UNITS SQ SCH ×2 (06:17→22:33)
[2023-02-18] MEDS: INSULIN SLIDING SCALE (NOVOLOG) 1 VIAL SQ SCH ×4 (06:17→22:33)
[2023-02-18] MEDS: LOSARTAN POTASSIUM 25 MG TABLET PO SCH (09:50)
[2023-02-18] MEDS: PANTOPRAZOLE 20 MG TABLET PO SCH (09:50)
[2023-02-18] MEDS: DULoxetine HCL 30 MG CAPSULE.DR PO SCH (09:50)
[2023-02-18] MEDS: ENOXAPARIN NA (PORCINE) 40 MG/0.4 ML DISP.SYRIN SQ SCH (09:51)
[2023-02-18] MEDS: COLLAGENASE CLOSTRIDIUM HIST. 30 GRAMS TUBE TP SCH (12:31)
[2023-02-18] MEDS: ATORVASTATIN CA 40 MG TABLET (FP) PO SCH (22:32)
[2023-02-19] MEDS: INSULIN (LEVEMIR) 100 UNITS/ML UNITS SQ SCH ×2 (06:02→21:35)
[2023-02-19] MEDS: INSULIN SLIDING SCALE (NOVOLOG) 1 VIAL SQ SCH ×4 (06:03→21:34)
[2023-02-19 09:50] LABS: BASO % 0.8 % (0-2.0); EOS % 4.3 % (0-4.5); HEMATOCRIT 34.3 % (32.4-45.2); HEMOGLOBIN 11.5 GM/dL (10.7-15.3); LYMPH % 33.1 % (8-40); MCH 28.3 pg (25.7-33.7); MCHC 33.5 g/dl (32.0-36.0); MEAN CELL VOLUME 84.6 fl (80-96); MEAN PLT VOLUME 8.6 fl (7.5-11.1); MONO % 6.8 % (3.8-10.2); PLATELET COUNT 361 10^3/uL (134-434); RBC 4.05 M/mm3 (3.60-5.2); RDW 12.3 % (11.6-15.6); WHITE BLOOD COUNT 9.6 K/mm3 (4.0-10.0)
[2023-02-19 10:09] LABS: POTASSIUM 5.3 mmol/L (3.5-5.1)
[2023-02-19 10:35] LABS: BLOOD UREA NITROGEN 28.7 mg/dL (7-18)
[2023-02-19 10:36] LABS: ALBUMIN 3.4 g/dl (3.4-5.0); BILIRUBIN,TOTAL 0.3 mg/dL (0.2-1); TOT PROT 7.8 g/dl (6.4-8.2)
[2023-02-19 10:38] LABS: CREATININE 1.3 mg/dL (0.55-1.3)
[2023-02-19 10:40] LABS: CALCIUM 9.1 mg/dL (8.5-10.1)
[2023-02-19] MEDS: DULoxetine HCL 30 MG CAPSULE.DR PO SCH (10:42)
[2023-02-19] MEDS: LOSARTAN POTASSIUM 25 MG TABLET PO SCH (10:42)
[2023-02-19] MEDS: ENOXAPARIN NA (PORCINE) 40 MG/0.4 ML DISP.SYRIN SQ SCH (10:42)
[2023-02-19] MEDS: PANTOPRAZOLE 20 MG TABLET PO SCH (10:42)
[2023-02-19] MEDS: COLLAGENASE CLOSTRIDIUM HIST. 30 GRAMS TUBE TP SCH (11:30)
[2023-02-19] MEDS ORDERED: SODIUM ZIRCONIUM CYCLOSILICATE (LOKELMA) 5 GM PACKET PO ONE (14:30)
[2023-02-19] MEDS: ATORVASTATIN CA 40 MG TABLET (FP) PO SCH (21:34)
[2023-02-19] MEDS ORDERED: INSULIN (LEVEMIR) 100 UNITS/ML UNITS SQ SCH (22:00)
[2023-02-20] MEDS: INSULIN SLIDING SCALE (NOVOLOG) 1 VIAL SQ SCH ×4 (06:14→22:07)
[2023-02-20] MEDS: INSULIN (LEVEMIR) 100 UNITS/ML UNITS SQ SCH ×2 (06:14→22:09)
[2023-02-20] MEDS ORDERED: LIDOCAINE HCL 1%, 10 MG/ML (20ML VIAL) ONE (07:09)
[2023-02-20] MEDS ORDERED: BUPIVACAINE HCL/PF 0.5% (5MG/ML) 10 ML VIAL ONE (07:09)
[2023-02-20] MEDS ORDERED: MIDAZOLAM HCL 2 MG/2 ML SINGLE DOSE VIAL ONE (07:19)
[2023-02-20] MEDS ORDERED: BUPIVACAINE HCL/PF 0.5% (5MG/ML) 10 ML VIAL IJ ONE ×3 (07:21→07:51)
[2023-02-20] MEDS ORDERED: LIDOCAINE HCL 1%, 10 MG/ML (20ML VIAL) NR ONE ×3 (07:21→07:51)
[2023-02-20] MEDS ORDERED: GENTAMICIN SO4 80 MG/2 ML VIAL ONE (07:33)
[2023-02-20] MEDS ORDERED: DEXMEDETOMIDINE HCL 200 MCG/2 ML IVPB ONE (07:33)
[2023-02-20] MEDS ORDERED: MAG HYDROX/AL HYDROX/SIMETH 30 ML UNIT-DOSE CUP PO PRN (09:10)
[2023-02-20 10:09] LABS: BASO % 0.6 % (0-2.0); EOS % 3.9 % (0-4.5); HEMATOCRIT 32.8 % (32.4-45.2); HEMOGLOBIN 11.1 GM/dL (10.7-15.3); LYMPH % 26.5 % (8-40); MCH 28.4 pg (25.7-33.7); MCHC 33.7 g/dl (32.0-36.0); MEAN CELL VOLUME 84.2 fl (80-96); MEAN PLT VOLUME 8.5 fl (7.5-11.1); MONO % 6.8 % (3.8-10.2); NEUT % 62.2 % (42.8-82.8); PLATELET COUNT 357 10^3/uL (134-434); RBC 3.89 M/mm3 (3.60-5.2); RDW 12.6 % (11.6-15.6); WHITE BLOOD COUNT 9.8 K/mm3 (4.0-10.0)
[2023-02-20 10:30] LABS: CALCIUM 8.5 mg/dL (8.5-10.1)
[2023-02-20 10:31] LABS: ALBUMIN 3.2 g/dl (3.4-5.0); BLOOD UREA NITROGEN 30.6 mg/dL (7-18)
[2023-02-20 10:32] LABS: CREATININE 1.4 mg/dL (0.55-1.3)
[2023-02-20 10:34] LABS: BILIRUBIN,TOTAL 0.2 mg/dL (0.2-1); TOT PROT 7.3 g/dl (6.4-8.2)
[2023-02-20] MEDS: AMPICILLIN NA/SULBACTAM NA 3 GM in SODIUM CHLORIDE 100 ML IVPB SCH ×2 (10:40→17:47)
[2023-02-20] MEDS: LOSARTAN POTASSIUM 25 MG TABLET PO SCH (10:41)
[2023-02-20] MEDS: PANTOPRAZOLE 20 MG TABLET PO SCH (10:41)
[2023-02-20] MEDS: DULoxetine HCL 30 MG CAPSULE.DR PO SCH (10:41)
[2023-02-20] MEDS: ATORVASTATIN CA 40 MG TABLET (FP) PO SCH (22:09)
[2023-02-21] MEDS: AMPICILLIN NA/SULBACTAM NA 3 GM in SODIUM CHLORIDE 100 ML IVPB SCH ×3 (01:26→17:59)
[2023-02-21] MEDS: INSULIN SLIDING SCALE (NOVOLOG) 1 VIAL SQ SCH ×4 (06:18→22:22)
[2023-02-21] MEDS: INSULIN (LEVEMIR) 100 UNITS/ML UNITS SQ SCH ×2 (06:21→22:21)
[2023-02-21] MEDS: AMINO ACIDS/PROTEIN HYDROLYS 30 ML LIQUID.PKT PO SCH (08:58)
[2023-02-21] MEDS: DULoxetine HCL 30 MG CAPSULE.DR PO SCH (09:42)
[2023-02-21] MEDS: LOSARTAN POTASSIUM 25 MG TABLET PO SCH (09:42)
[2023-02-21] MEDS: ENOXAPARIN NA (PORCINE) 40 MG/0.4 ML DISP.SYRIN SQ SCH (09:42)
[2023-02-21] MEDS: MULTIVITAMINS (DAILY MVI) TABLET (FP) PO SCH (09:43)
[2023-02-21] MEDS: PANTOPRAZOLE 20 MG TABLET PO SCH (09:43)
[2023-02-21 09:55] LABS: BASO % 0.5 % (0-2.0); EOS % 3.6 % (0-4.5); HEMATOCRIT 32.6 % (32.4-45.2); HEMOGLOBIN 11.2 GM/dL (10.7-15.3); LYMPH % 26.9 % (8-40); MCH 29.2 pg (25.7-33.7); MCHC 34.3 g/dl (32.0-36.0); MEAN CELL VOLUME 85.2 fl (80-96); MEAN PLT VOLUME 8.7 fl (7.5-11.1); MONO % 6.8 % (3.8-10.2); NEUT % 62.2 % (42.8-82.8); PLATELET COUNT 324 10^3/uL (134-434); RBC 3.82 M/mm3 (3.60-5.2); RDW 12.8 % (11.6-15.6); WHITE BLOOD COUNT 9.8 K/mm3 (4.0-10.0)
[2023-02-21 10:15] LABS: POTASSIUM 4.7 mmol/L (3.5-5.1)
[2023-02-21 10:46] LABS: BLOOD UREA NITROGEN 32.9 mg/dL (7-18); CALCIUM 8.8 mg/dL (8.5-10.1)
[2023-02-21 10:47] LABS: ALBUMIN 3.2 g/dl (3.4-5.0)
[2023-02-21 10:50] LABS: CREATININE 1.4 mg/dL (0.55-1.3)
[2023-02-21 10:51] LABS: BILIRUBIN,TOTAL 0.3 mg/dL (0.2-1); TOT PROT 7.1 g/dl (6.4-8.2)
[2023-02-21] MEDS: ATORVASTATIN CA 40 MG TABLET (FP) PO SCH (22:21)
[2023-02-22] MEDS: AMPICILLIN NA/SULBACTAM NA 3 GM in SODIUM CHLORIDE 100 ML IVPB SCH ×3 (01:23→17:10)
[2023-02-22] MEDS: INSULIN SLIDING SCALE (NOVOLOG) 1 VIAL SQ SCH ×4 (06:00→21:17)
[2023-02-22] MEDS: INSULIN (LEVEMIR) 100 UNITS/ML UNITS SQ SCH ×2 (06:00→21:14)
[2023-02-22 07:45] LABS: EOS % 3.4 % (0-4.5); HEMOGLOBIN 11.3 GM/dL (10.7-15.3); LYMPH % 33.2 % (8-40); MCH 29.1 pg (25.7-33.7); MCHC 34.2 g/dl (32.0-36.0); MEAN CELL VOLUME 85.2 fl (80-96); MEAN PLT VOLUME 9.3 fl (7.5-11.1); MONO % 5.2 % (3.8-10.2); NEUT % 57.2 % (42.8-82.8); PLATELET COUNT 293 10^3/uL (134-434); RBC 3.88 M/mm3 (3.60-5.2); RDW 12.9 % (11.6-15.6); WHITE BLOOD COUNT 9.8 K/mm3 (4.0-10.0)
[2023-02-22 08:10] LABS: POTASSIUM 4.7 mmol/L (3.5-5.1)
[2023-02-22 08:12] LABS: CALCIUM 8.8 mg/dL (8.5-10.1)
[2023-02-22 08:13] LABS: ALBUMIN 3.2 g/dl (3.4-5.0); BLOOD UREA NITROGEN 26.9 mg/dL (7-18)
[2023-02-22 08:16] LABS: CREATININE 1.2 mg/dL (0.55-1.3)
[2023-02-22 08:18] LABS: BILIRUBIN,TOTAL 0.3 mg/dL (0.2-1); TOT PROT 7.3 g/dl (6.4-8.2)
[2023-02-22] MEDS: ENOXAPARIN NA (PORCINE) 40 MG/0.4 ML DISP.SYRIN SQ SCH (09:59)
[2023-02-22] MEDS: DULoxetine HCL 30 MG CAPSULE.DR PO SCH (09:59)
[2023-02-22] MEDS: MULTIVITAMINS (DAILY MVI) TABLET (FP) PO SCH (09:59)
[2023-02-22] MEDS: PANTOPRAZOLE 20 MG TABLET PO SCH (09:59)
[2023-02-22] MEDS: LOSARTAN POTASSIUM 25 MG TABLET PO SCH (09:59)
[2023-02-22] MEDS: AMINO ACIDS/PROTEIN HYDROLYS 30 ML LIQUID.PKT PO SCH (09:59)
[2023-02-22] MEDS: COLLAGENASE CLOSTRIDIUM HIST. 30 GRAMS TUBE TP SCH (15:50)
[2023-02-22] MEDS: ATORVASTATIN CA 40 MG TABLET (FP) PO SCH (21:14)
[2023-02-23] MEDS: AMPICILLIN NA/SULBACTAM NA 3 GM in SODIUM CHLORIDE 100 ML IVPB SCH ×3 (02:48→17:22)
[2023-02-23] MEDS: INSULIN SLIDING SCALE (NOVOLOG) 1 VIAL SQ SCH ×4 (06:14→21:22)
[2023-02-23] MEDS: INSULIN (LEVEMIR) 100 UNITS/ML UNITS SQ SCH ×2 (06:17→21:16)
[2023-02-23] MEDS: AMINO ACIDS/PROTEIN HYDROLYS 30 ML LIQUID.PKT PO SCH (08:58)
[2023-02-23] MEDS: PANTOPRAZOLE 20 MG TABLET PO SCH (10:15)
[2023-02-23] MEDS: LOSARTAN POTASSIUM 25 MG TABLET PO SCH (10:15)
[2023-02-23] MEDS: MULTIVITAMINS (DAILY MVI) TABLET (FP) PO SCH (10:15)
[2023-02-23] MEDS: DULoxetine HCL 30 MG CAPSULE.DR PO SCH (10:15)
[2023-02-23] MEDS: ENOXAPARIN NA (PORCINE) 40 MG/0.4 ML DISP.SYRIN SQ SCH (10:16)
[2023-02-23] MEDS: COLLAGENASE CLOSTRIDIUM HIST. 30 GRAMS TUBE TP SCH (10:16)
[2023-02-23 10:45] LABS: BASO % 0.6 % (0-2.0); EOS % 3.2 % (0-4.5); HEMATOCRIT 32.8 % (32.4-45.2); HEMOGLOBIN 11.4 GM/dL (10.7-15.3); LYMPH % 25.3 % (8-40); MCHC 34.6 g/dl (32.0-36.0); MEAN CELL VOLUME 83.7 fl (80-96); MEAN PLT VOLUME 8.7 fl (7.5-11.1); MONO % 6.1 % (3.8-10.2); NEUT % 64.8 % (42.8-82.8); PLATELET COUNT 289 10^3/uL (134-434); RBC 3.92 M/mm3 (3.60-5.2); RDW 12.7 % (11.6-15.6); WHITE BLOOD COUNT 8.7 K/mm3 (4.0-10.0)
[2023-02-23 11:06] LABS: POTASSIUM 4.6 mmol/L (3.5-5.1)
[2023-02-23 11:09] LABS: CALCIUM 8.6 mg/dL (8.5-10.1)
[2023-02-23 11:10] LABS: ALBUMIN 3.2 g/dl (3.4-5.0); BLOOD UREA NITROGEN 26.2 mg/dL (7-18)
[2023-02-23 11:13] LABS: CREATININE 1.2 mg/dL (0.55-1.3)
[2023-02-23 11:14] LABS: BILIRUBIN,TOTAL 0.3 mg/dL (0.2-1)
[2023-02-23 11:15] LABS: TOT PROT 7.4 g/dl (6.4-8.2)
[2023-02-23] MEDS: INSULIN (NOVOLOG) ASPART 100 UNITS/ML 10ML VIAL SQ SCH ×2 (12:34→16:27)
[2023-02-23 18:04] LABS: EPI CELLS >36 /uL (0-25.1); HYALINE CASTS 1 /uL (0-3.1); PH,URINE 5.5 (5.0-8.0); URINE APPEARANCE CLEAR; URINE BACTERIA 11 /uL (0-1359); URINE BILIRUBIN NEGATIVE (NEGATIVE); URINE COLOR YELLOW; URINE GLUCOSE (UA) NEGATIVE (NEGATIVE); URINE KETONE TRACE (NEGATIVE); URINE LEUK ESTERASE TRACE (NEGATIVE); URINE NITRITE NEGATIVE (NEGATIVE); URINE PROTEIN NEGATIVE (NEGATIVE); URINE RBC 11 /uL (0-23.9); URINE UROBILINOGEN 0.2 mg/dL (0.2-1.0); URINE WBC 15 /uL (0-25.8)
[2023-02-23] MEDS: ATORVASTATIN CA 40 MG TABLET (FP) PO SCH (21:19)
[2023-02-24] MEDS: AMPICILLIN NA/SULBACTAM NA 3 GM in SODIUM CHLORIDE 100 ML IVPB SCH ×3 (01:56→17:49)
[2023-02-24] MEDS: INSULIN (LEVEMIR) 100 UNITS/ML UNITS SQ SCH ×2 (06:11→22:03)
[2023-02-24] MEDS: INSULIN SLIDING SCALE (NOVOLOG) 1 VIAL SQ SCH ×4 (06:13→22:06)
[2023-02-24] MEDS: INSULIN (NOVOLOG) ASPART 100 UNITS/ML 10ML VIAL SQ SCH ×3 (06:14→16:43)
[2023-02-24] MEDS: AMINO ACIDS/PROTEIN HYDROLYS 30 ML LIQUID.PKT PO SCH (08:41)
[2023-02-24] MEDS: MULTIVITAMINS (DAILY MVI) TABLET (FP) PO SCH (10:20)
[2023-02-24] MEDS: ENOXAPARIN NA (PORCINE) 40 MG/0.4 ML DISP.SYRIN SQ SCH (10:20)
[2023-02-24] MEDS: LOSARTAN POTASSIUM 25 MG TABLET PO SCH (10:20)
[2023-02-24] MEDS: PANTOPRAZOLE 20 MG TABLET PO SCH (10:20)
[2023-02-24] MEDS: DULoxetine HCL 30 MG CAPSULE.DR PO SCH (10:20)
[2023-02-24] MEDS: COLLAGENASE CLOSTRIDIUM HIST. 30 GRAMS TUBE TP SCH (10:21)
[2023-02-24 11:34] LABS: BASO % 0.9 % (0-2.0); EOS % 3.5 % (0-4.5); HEMATOCRIT 33.2 % (32.4-45.2); HEMOGLOBIN 11.6 GM/dL (10.7-15.3); LYMPH % 28.1 % (8-40); MCH 29.6 pg (25.7-33.7); MCHC 34.9 g/dl (32.0-36.0); MEAN CELL VOLUME 84.8 fl (80-96); MEAN PLT VOLUME 9.1 fl (7.5-11.1); MONO % 6.6 % (3.8-10.2); NEUT % 60.9 % (42.8-82.8); PLATELET COUNT 308 10^3/uL (134-434); RBC 3.92 M/mm3 (3.60-5.2); RDW 12.7 % (11.6-15.6); WHITE BLOOD COUNT 9.1 K/mm3 (4.0-10.0)
[2023-02-24 11:56] LABS: POTASSIUM 4.7 mmol/L (3.5-5.1)
[2023-02-24 12:04] LABS: CALCIUM 8.8 mg/dL (8.5-10.1)
[2023-02-24 12:05] LABS: ALBUMIN 3.3 g/dl (3.4-5.0); BLOOD UREA NITROGEN 35.1 mg/dL (7-18)
[2023-02-24 12:07] LABS: CREATININE 1.5 mg/dL (0.55-1.3)
[2023-02-24 12:09] LABS: BILIRUBIN,TOTAL 0.3 mg/dL (0.2-1); TOT PROT 7.3 g/dl (6.4-8.2)
[2023-02-24] MEDS: DAPTOMYCIN 800 MG in SODIUM CHLORIDE 100 ML IVPB SCH (13:10)
[2023-02-25] MEDS: AMPICILLIN NA/SULBACTAM NA 3 GM in SODIUM CHLORIDE 100 ML IVPB SCH ×3 (02:16→17:17)
[2023-02-25] MEDS: INSULIN (LEVEMIR) 100 UNITS/ML UNITS SQ SCH ×2 (06:16→21:54)
[2023-02-25] MEDS: INSULIN (NOVOLOG) ASPART 100 UNITS/ML 10ML VIAL SQ SCH ×3 (06:18→17:16)
[2023-02-25] MEDS: INSULIN SLIDING SCALE (NOVOLOG) 1 VIAL SQ SCH ×4 (06:24→21:57)
[2023-02-25] MEDS: AMINO ACIDS/PROTEIN HYDROLYS 30 ML LIQUID.PKT PO SCH (08:32)
[2023-02-25] MEDS: MULTIVITAMINS (DAILY MVI) TABLET (FP) PO SCH (09:40)
[2023-02-25] MEDS: ENOXAPARIN NA (PORCINE) 40 MG/0.4 ML DISP.SYRIN SQ SCH (09:40)
[2023-02-25] MEDS: PANTOPRAZOLE 20 MG TABLET PO SCH (09:40)
[2023-02-25] MEDS: DULoxetine HCL 30 MG CAPSULE.DR PO SCH (09:40)
[2023-02-25] MEDS: LOSARTAN POTASSIUM 25 MG TABLET PO SCH (09:41)
[2023-02-25] MEDS: COLLAGENASE CLOSTRIDIUM HIST. 30 GRAMS TUBE TP SCH (09:42)
[2023-02-25 11:42] LABS: EOS % 3.7 % (0-4.5); HEMATOCRIT 32.7 % (32.4-45.2); HEMOGLOBIN 10.9 GM/dL (10.7-15.3); LYMPH % 25.9 % (8-40); MCH 28.6 pg (25.7-33.7); MCHC 33.4 g/dl (32.0-36.0); MEAN CELL VOLUME 85.8 fl (80-96); MEAN PLT VOLUME 9.2 fl (7.5-11.1); MONO % 6.8 % (3.8-10.2); NEUT % 62.6 % (42.8-82.8); PLATELET COUNT 305 10^3/uL (134-434); RBC 3.81 M/mm3 (3.60-5.2); RDW 12.5 % (11.6-15.6); WHITE BLOOD COUNT 8.7 K/mm3 (4.0-10.0)
[2023-02-25] MEDS: DAPTOMYCIN 800 MG in SODIUM CHLORIDE 100 ML IVPB SCH (12:38)
[2023-02-25 13:20] LABS: POTASSIUM 4.4 mmol/L (3.5-5.1)
[2023-02-25 13:47] LABS: ALBUMIN 3.3 g/dl (3.4-5.0); BLOOD UREA NITROGEN 33.2 mg/dL (7-18); CALCIUM 8.8 mg/dL (8.5-10.1)
[2023-02-25 13:48] LABS: CREATININE 1.2 mg/dL (0.55-1.3)
[2023-02-25 13:51] LABS: TOT PROT 7.2 g/dl (6.4-8.2)
[2023-02-25 13:54] LABS: BILIRUBIN,TOTAL 0.3 mg/dL (0.2-1)
[2023-02-26] MEDS: AMPICILLIN NA/SULBACTAM NA 3 GM in SODIUM CHLORIDE 100 ML IVPB SCH ×2 (01:08→10:26)
[2023-02-26] MEDS: INSULIN SLIDING SCALE (NOVOLOG) 1 VIAL SQ SCH ×2 (06:18→11:53)
[2023-02-26] MEDS: INSULIN (NOVOLOG) ASPART 100 UNITS/ML 10ML VIAL SQ SCH ×2 (06:19→11:53)
[2023-02-26] MEDS: INSULIN (LEVEMIR) 100 UNITS/ML UNITS SQ SCH (06:20)
[2023-02-26] MEDS: AMINO ACIDS/PROTEIN HYDROLYS 30 ML LIQUID.PKT PO SCH (08:02)
[2023-02-26 09:16] VITALS: BP 123/72; PULSE 81; RESP 18; TEMP 98.6
[2023-02-26 10:18] LABS: BASO % 0.8 % (0-2.0); EOS % 6.5 % (0-4.5); HEMATOCRIT 32.3 % (32.4-45.2); MCH 28.6 pg (25.7-33.7); MCHC 34.1 g/dl (32.0-36.0); MEAN CELL VOLUME 83.7 fl (80-96); MEAN PLT VOLUME 9.4 fl (7.5-11.1); MONO % 5.6 % (3.8-10.2); NEUT % 65.1 % (42.8-82.8); PLATELET COUNT 306 10^3/uL (134-434); RBC 3.86 M/mm3 (3.60-5.2); RDW 12.9 % (11.6-15.6); WHITE BLOOD COUNT 11.4 K/mm3 (4.0-10.0)
[2023-02-26] MEDS: ENOXAPARIN NA (PORCINE) 40 MG/0.4 ML DISP.SYRIN SQ SCH (10:25)
[2023-02-26] MEDS: LOSARTAN POTASSIUM 25 MG TABLET PO SCH (10:25)
[2023-02-26] MEDS: MULTIVITAMINS (DAILY MVI) TABLET (FP) PO SCH (10:25)
[2023-02-26] MEDS: DULoxetine HCL 30 MG CAPSULE.DR PO SCH (10:25)
[2023-02-26] MEDS: PANTOPRAZOLE 20 MG TABLET PO SCH (10:25)
[2023-02-26] MEDS: COLLAGENASE CLOSTRIDIUM HIST. 30 GRAMS TUBE TP SCH (10:26)
[2023-02-26] MEDS ORDERED: CEFTRIAXONE 2 GM in DEXTROSE 5%-WATER 100 ML IVPB SCH (10:45)
[2023-02-26 10:53] LABS: POTASSIUM 4.6 mmol/L (3.5-5.1)
[2023-02-26 11:06] LABS: BLOOD UREA NITROGEN 25.9 mg/dL (7-18); CALCIUM 8.6 mg/dL (8.5-10.1)
[2023-02-26 11:10] LABS: CREATININE 1.2 mg/dL (0.55-1.3)
[2023-02-26] MEDS: DAPTOMYCIN 800 MG in SODIUM CHLORIDE 100 ML IVPB SCH (12:57)
== END 2023-02-26 14:47 | disposition home or self-care (01) | DRG 629 ==
LOC: JER 10:47 → JERBED 13:29 → J6W 02-14 14:08 → J5S 02-17 18:56
PROVIDERS: ADMIT Internal Medicine; ATTEND Internal Medicine
PROC: 0QBN3ZX Excision of Right Metatarsal, Percutaneous Approach, Diagnostic (ICD-10-PCS; principal; 2023-02-20 07:30)
PROC: 02HV33Z Insertion of Infusion Device into Superior Vena Cava, Percutaneous Approach (ICD-10-PCS; 2023-02-25)
PROC: B518ZZA Fluoroscopy of Superior Vena Cava, Guidance (ICD-10-PCS; 2023-02-25)
DX: E11.69 Type 2 diabetes mellitus with other specified complication (principal); L03.115 Cellulitis of right lower limb; M86.8X7 Other osteomyelitis, ankle and foot; L97.518 Non-pressure chronic ulcer of other part of right foot with other specified severity; Z68.41 Body mass index [BMI] 40.0-44.9, adult; E11.40 Type 2 diabetes mellitus with diabetic neuropathy, unspecified; K21.9 Gastro-esophageal reflux disease without esophagitis; I12.9 Hypertensive chronic kidney disease with stage 1 through stage 4 chronic kidney disease, or unspecified chronic kidney disease; N18.30 Chronic kidney disease, stage 3 unspecified; E11.22 Type 2 diabetes mellitus with diabetic chronic kidney disease; B96.4 Proteus (mirabilis) (morganii) as the cause of diseases classified elsewhere; B95.2 Enterococcus as the cause of diseases classified elsewhere; B95.62 Methicillin resistant Staphylococcus aureus infection as the cause of diseases classified elsewhere; E11.621 Type 2 diabetes mellitus with foot ulcer; E66.01 Morbid (severe) obesity due to excess calories; M79.7 Fibromyalgia; E11.65 Type 2 diabetes mellitus with hyperglycemia; Z89.421 Acquired absence of other right toe(s)
CPT/HCPCS: 36415; 36569; 73630-TC-RT-FY; 73718-TC-RT; 77001-TC-FY; 80048; 80053; 81003; 82550; 82962; 83036; 83735; 84100; 84460; 85025; 85610; 85651; 85730; 86140; 86850; 86900; 86901; 87040; 87070; 87075; 87186; 87205; 93005; 93010; 97116-GP; 97162-GP; 99285-25; C1751; G0463-25; J0878

== ENCOUNTER 2023-04-13 11:04 | Inpatient (IN) | payer OTHER ==
[2023-04-13] MEDS ORDERED: morphine CARPU-JECT 4 MG/1 ML DISP.SYRIN IVPUSH ONE (11:43)
[2023-04-13] MEDS ORDERED: CLINDAMYCIN 600MG PREMIX IVPB 600 MG/50 ML BAG IVPB ONE ×2 (11:52→12:33)
[2023-04-13] MEDS ORDERED: PIPERACILLIN/TAZOB 3.375 GM 3.375 GM in DEXTROSE 5%-WATER - 50 ML IVPB ONE (11:52)
[2023-04-13] MEDS ORDERED: ACETAMINOPHEN 1000 MG/100 ML BAG IVPB ONE (12:10)
[2023-04-13] MEDS ORDERED: morphine SULFATE 4 MG/ML VIAL ONE (12:32)
[2023-04-13] MEDS ORDERED: PIPERACILLIN/TAZOB 3.375 GM 3.375 GM/50 ML BAG IVPB ONE (12:33)
[2023-04-13] MEDS ORDERED: ACETAMINOPHEN INJECTION 100 ML IVPB ONE (12:33)
[2023-04-13 12:47] LABS: BASO % 0.7 % (0-2.0); EOS % 3.4 % (0-4.5); HEMATOCRIT 37.1 % (32.4-45.2); HEMOGLOBIN 12.3 GM/dL (10.7-15.3); LYMPH % 24.6 % (8-40); MCH 28.2 pg (25.7-33.7); MCHC 33.3 g/dl (32.0-36.0); MEAN CELL VOLUME 84.7 fl (80-96); MEAN PLT VOLUME 8.9 fl (7.5-11.1); MONO % 4.4 % (3.8-10.2); NEUT % 66.9 % (42.8-82.8); PLATELET COUNT 319 10^3/uL (134-434); RBC 4.38 M/mm3 (3.60-5.2); RDW 13.4 % (11.6-15.6); WHITE BLOOD COUNT 8.9 K/mm3 (4.0-10.0)
[2023-04-13 12:54] LABS: INR 0.98 (0.83-1.09); PROTHROMBIN TIME (PATIENT) 11.4 SEC (9.7-13.0)
[2023-04-13 12:57] LABS: ACTIVATED PTT 30.6 SECONDS (25.2-36.5)
[2023-04-13] MEDS ORDERED: ACETAMINOPHEN 325 MG TABLET (FP) PO PRN (13:08)
[2023-04-13 13:12] LABS: ALBUMIN 3.9 g/dl (3.4-5.0); BLOOD UREA NITROGEN 23.5 mg/dL (7-18); CALCIUM 9.2 mg/dL (8.5-10.1)
[2023-04-13 13:15] LABS: CREATININE 1.3 mg/dL (0.55-1.3)
[2023-04-13 13:16] LABS: BILIRUBIN,TOTAL 0.6 mg/dL (0.2-1); TOT PROT 8.2 g/dl (6.4-8.2)
[2023-04-13 13:20] LABS: LACTIC ACID 2.4 mmol/L (0.4-2.0)
[2023-04-13] MEDS ORDERED: HEPARIN NA (PORCINE) 5,000 UNITS/ML 1ML VIAL ONE (13:29)
[2023-04-13] MEDS: LACTATED RINGERS SOLUTION 1,000 ML IV SCH (13:38)
[2023-04-13] MEDS: HEPARIN NA (PORCINE) 5,000 UNITS/ML 1ML VIAL SQ SCH ×2 (13:38→21:51)
[2023-04-13] MEDS: INSULIN SLIDING SCALE (NOVOLOG) 1 VIAL SQ SCH (16:07)
[2023-04-13] MEDS: PIPERACILLIN/TAZOB 3.375 GM 3.375 GM in DEXTROSE 5%-WATER - 50 ML IVPB SCH (18:07)
[2023-04-13] MEDS: INSULIN (LEVEMIR) 100 UNITS/ML UNITS SQ SCH (21:50)
[2023-04-13] MEDS ORDERED: INSULIN (LEVEMIR) 100 UNITS/ML UNITS SQ SCH (22:00)
[2023-04-14] MEDS: PIPERACILLIN/TAZOB 3.375 GM 3.375 GM in DEXTROSE 5%-WATER - 50 ML IVPB SCH ×2 (01:36→09:43)
[2023-04-14] MEDS: HEPARIN NA (PORCINE) 5,000 UNITS/ML 1ML VIAL SQ SCH ×2 (05:34→22:02)
[2023-04-14] MEDS ORDERED: INSULIN (NOVOLOG) ASPART 100 UNITS/ML 10ML VIAL ONE ×2 (06:04→11:06)
[2023-04-14] MEDS: INSULIN SLIDING SCALE (NOVOLOG) 1 VIAL SQ SCH ×3 (06:24→16:41)
[2023-04-14] MEDS: INSULIN (LEVEMIR) 100 UNITS/ML UNITS SQ SCH ×2 (06:26→22:02)
[2023-04-14] MEDS: LACTATED RINGERS SOLUTION 1,000 ML IV SCH ×2 (08:59→22:04)
[2023-04-14 09:17] LABS: BASO % 0.9 % (0-2.0); EOS % 5.8 % (0-4.5); HEMATOCRIT 33.8 % (32.4-45.2); LYMPH % 28.1 % (8-40); MCHC 32.4 g/dl (32.0-36.0); MEAN CELL VOLUME 86.3 fl (80-96); MEAN PLT VOLUME 8.8 fl (7.5-11.1); MONO % 6.3 % (3.8-10.2); NEUT % 58.9 % (42.8-82.8); PLATELET COUNT 299 10^3/uL (134-434); RBC 3.92 M/mm3 (3.60-5.2); RDW 13.1 % (11.6-15.6); WHITE BLOOD COUNT 6.7 K/mm3 (4.0-10.0)
[2023-04-14 09:22] LABS: INR 0.96 (0.83-1.09); PROTHROMBIN TIME (PATIENT) 11.1 SEC (9.7-13.0)
[2023-04-14 09:25] LABS: ACTIVATED PTT 30.8 SECONDS (25.2-36.5)
[2023-04-14 09:43] LABS: POTASSIUM 4.7 mmol/L (3.5-5.1)
[2023-04-14 09:52] LABS: CALCIUM 8.4 mg/dL (8.5-10.1)
[2023-04-14 09:54] LABS: BLOOD UREA NITROGEN 23.1 mg/dL (7-18); MAGNESIUM 2.1 mg/dL (1.8-2.4)
[2023-04-14 09:55] LABS: CREATININE 1.2 mg/dL (0.55-1.3)
[2023-04-14 09:58] LABS: BILIRUBIN,TOTAL 0.3 mg/dL (0.2-1); TOT PROT 6.6 g/dl (6.4-8.2)
[2023-04-14 10:00] LABS: ALBUMIN 3.1 g/dl (3.4-5.0)
[2023-04-14] MEDS ORDERED: PANTOPRAZOLE 40 MG TABLET PO SCH (10:00)
[2023-04-14] MEDS ORDERED: DULoxetine HCL 30 MG CAPSULE.DR PO SCH (10:00)
[2023-04-14] MEDS ORDERED: POLYETHYLENE GLYCOL (HEALTHYLAX) 3350 17 GM PACKET PO SCH (10:00)
[2023-04-14] MEDS ORDERED: LOSARTAN POTASSIUM 50 MG TABLET PO SCH (10:00)
[2023-04-14 14:02] VITALS: BMI 36.3
[2023-04-14] MEDS ORDERED: NYSTATIN POWDER 100,000 UNITS/GM - 15 GM TOPICAL POWDER TP SCH (22:00)
[2023-04-15] MEDS: INSULIN SLIDING SCALE (NOVOLOG) 1 VIAL SQ SCH ×3 (06:04→16:36)
[2023-04-15] MEDS: HEPARIN NA (PORCINE) 5,000 UNITS/ML 1ML VIAL SQ SCH (06:04)
[2023-04-15] MEDS: INSULIN (LEVEMIR) 100 UNITS/ML UNITS SQ SCH ×2 (06:05→22:05)
[2023-04-15] MEDS ORDERED: LIDOCAINE HCL 1%, 10 MG/ML (20ML VIAL) ONE (07:14)
[2023-04-15] MEDS ORDERED: BUPIVACAINE HCL/PF 0.5% (5MG/ML) 10 ML VIAL ONE (07:14)
[2023-04-15] MEDS ORDERED: VANCOMYCIN 1,000 MG VIAL (RESTRICTED TO ID ONLY) ONE (07:14)
[2023-04-15] MEDS ORDERED: GENTAMICIN SO4 80 MG/2 ML VIAL ONE (07:24)
[2023-04-15] MEDS ORDERED: LIDOCAINE HCL/PF 2% SDV 5ML VIAL ONE (07:30)
[2023-04-15] MEDS ORDERED: FENTANYL CITRATE/PF 50 MCG/ML VIAL ONE (07:30)
[2023-04-15] MEDS ORDERED: MIDAZOLAM HCL 2 MG/2 ML SINGLE DOSE VIAL ONE (07:31)
[2023-04-15] MEDS ORDERED: PROPOFOL 20 ML ONE (07:31)
[2023-04-15] MEDS ORDERED: LIDOCAINE 1% P/F 10 MG/ML VIAL INF ONE (07:48)
[2023-04-15] MEDS ORDERED: BUPIVACAINE HCL/PF 0.5% (5MG/ML) 10 ML VIAL IJ ONE (07:48)
[2023-04-15] MEDS ORDERED: ONDANSETRON 4 MG/2 ML VIAL ONE (07:57)
[2023-04-15] MEDS ORDERED: GENTAMICIN 80MG PREMIX BAG IVPB ONE (08:19)
[2023-04-15] MEDS ORDERED: SODIUM CHLORIDE 1,000 ML IV SCH (09:00)
[2023-04-15] MEDS ORDERED: ALBUTEROL SO4 0.083% IH SOL 2.5 MG/3 ML VIAL.NEB. NEB ONE (09:06)
[2023-04-15] MEDS ORDERED: LACTATED RINGERS SOLUTION 1,000 ML IV SCH (09:09)
[2023-04-15] MEDS ORDERED: ACETAMINOPHEN 325 MG TABLET (FP) PO PRN (09:09)
[2023-04-15] MEDS ORDERED: PIPERACILLIN/TAZOB 3.375 GM 3.375 GM in DEXTROSE 5%-WATER - 50 ML IVPB SCH (10:00)
[2023-04-15] MEDS: DULoxetine HCL 30 MG CAPSULE.DR PO SCH (10:51)
[2023-04-15] MEDS: PANTOPRAZOLE 40 MG TABLET PO SCH (10:52)
[2023-04-15] MEDS: LOSARTAN POTASSIUM 50 MG TABLET PO SCH (10:52)
[2023-04-15] MEDS: POLYETHYLENE GLYCOL (HEALTHYLAX) 3350 17 GM PACKET PO SCH (10:53)
[2023-04-15] MEDS: NYSTATIN POWDER 100,000 UNITS/GM - 15 GM TOPICAL POWDER TP SCH ×2 (10:53→22:08)
[2023-04-15 11:35] LABS: BASO % 0.6 % (0-2.0); HEMATOCRIT 34.3 % (32.4-45.2); LYMPH % 33.8 % (8-40); MCH 27.7 pg (25.7-33.7); MCHC 32.1 g/dl (32.0-36.0); MEAN CELL VOLUME 86.3 fl (80-96); MONO % 6.2 % (3.8-10.2); NEUT % 54.4 % (42.8-82.8); PLATELET COUNT 278 10^3/uL (134-434); RBC 3.98 M/mm3 (3.60-5.2); RDW 12.7 % (11.6-15.6); WHITE BLOOD COUNT 6.3 K/mm3 (4.0-10.0)
[2023-04-15] MEDS: LACTATED RINGERS SOLUTION 1,000 ML IV SCH ×2 (11:42→18:43)
[2023-04-15] MEDS: PIPERACILLIN/TAZOB 3.375 GM 3.375 GM in DEXTROSE 5%-WATER - 50 ML IVPB SCH ×2 (11:42→17:22)
[2023-04-15] MEDS: POVIDONE-IODINE 10% SOLN 118 ML BOTTLE TP SCH (11:43)
[2023-04-15] MEDS ORDERED: INSULIN (NOVOLOG) ASPART 100 UNITS/ML 10ML VIAL ONE (11:59)
[2023-04-15 12:02] LABS: POTASSIUM 4.8 mmol/L (3.5-5.1)
[2023-04-15 12:07] LABS: CALCIUM 8.5 mg/dL (8.5-10.1)
[2023-04-15 12:08] LABS: ALBUMIN 3.1 g/dl (3.4-5.0); BLOOD UREA NITROGEN 15.7 mg/dL (7-18); MAGNESIUM 2.1 mg/dL (1.8-2.4)
[2023-04-15 12:10] LABS: CREATININE 1.1 mg/dL (0.55-1.3)
[2023-04-15 12:12] LABS: BILIRUBIN,TOTAL 0.4 mg/dL (0.2-1); TOT PROT 6.6 g/dl (6.4-8.2)
[2023-04-15] MEDS ORDERED: FAMOTIDINE 20 MG TABLET PO ONE (14:46)
[2023-04-15 17:56] VITALS: RESP 18
[2023-04-16] MEDS: PIPERACILLIN/TAZOB 3.375 GM 3.375 GM in DEXTROSE 5%-WATER - 50 ML IVPB SCH ×4 (02:33→08:57)
[2023-04-16] MEDS: INSULIN SLIDING SCALE (NOVOLOG) 1 VIAL SQ SCH ×3 (06:32→17:46)
[2023-04-16] MEDS: LACTATED RINGERS SOLUTION 1,000 ML IV SCH ×2 (06:35→17:46)
[2023-04-16] MEDS: INSULIN (LEVEMIR) 100 UNITS/ML UNITS SQ SCH ×2 (06:51→22:30)
[2023-04-16 09:41] LABS: BASO % 0.8 % (0-2.0); EOS % 5.3 % (0-4.5); HEMATOCRIT 34.6 % (32.4-45.2); HEMOGLOBIN 11.2 GM/dL (10.7-15.3); LYMPH % 24.7 % (8-40); MCH 27.7 pg (25.7-33.7); MCHC 32.5 g/dl (32.0-36.0); MEAN CELL VOLUME 85.2 fl (80-96); MEAN PLT VOLUME 8.8 fl (7.5-11.1); MONO % 6.8 % (3.8-10.2); NEUT % 62.4 % (42.8-82.8); PLATELET COUNT 275 10^3/uL (134-434); RBC 4.06 M/mm3 (3.60-5.2); WHITE BLOOD COUNT 8.3 K/mm3 (4.0-10.0)
[2023-04-16 10:02] LABS: POTASSIUM 4.6 mmol/L (3.5-5.1)
[2023-04-16 10:29] LABS: CALCIUM 8.7 mg/dL (8.5-10.1)
[2023-04-16 10:30] LABS: ALBUMIN 3.1 g/dl (3.4-5.0); BLOOD UREA NITROGEN 14.7 mg/dL (7-18); MAGNESIUM 2.2 mg/dL (1.8-2.4)
[2023-04-16 10:32] LABS: CREATININE 1.1 mg/dL (0.55-1.3)
[2023-04-16 10:34] LABS: BILIRUBIN,TOTAL 0.4 mg/dL (0.2-1); TOT PROT 6.7 g/dl (6.4-8.2)
[2023-04-16] MEDS: PANTOPRAZOLE 40 MG TABLET PO SCH (11:06)
[2023-04-16] MEDS: LOSARTAN POTASSIUM 50 MG TABLET PO SCH (11:06)
[2023-04-16] MEDS: POLYETHYLENE GLYCOL (HEALTHYLAX) 3350 17 GM PACKET PO SCH (11:07)
[2023-04-16] MEDS: ENOXAPARIN NA (PORCINE) 40 MG/0.4 ML DISP.SYRIN SQ SCH (11:10)
[2023-04-16] MEDS: DULoxetine HCL 30 MG CAPSULE.DR PO SCH (11:10)
[2023-04-16] MEDS: NYSTATIN POWDER 100,000 UNITS/GM - 15 GM TOPICAL POWDER TP SCH ×2 (11:11→22:31)
[2023-04-16] MEDS: POVIDONE-IODINE 10% SOLN 118 ML BOTTLE TP SCH (11:11)
[2023-04-16] MEDS: CEFTRIAXONE 2 GM in DEXTROSE 5%-WATER 100 ML IVPB SCH (12:36)
[2023-04-16] MEDS ORDERED: INSULIN (NOVOLOG) ASPART 100 UNITS/ML 10ML VIAL ONE ×4 (12:59→18:15)
[2023-04-17] MEDS: LACTATED RINGERS SOLUTION 1,000 ML IV SCH ×2 (04:08→17:41)
[2023-04-17] MEDS: INSULIN SLIDING SCALE (NOVOLOG) 1 VIAL SQ SCH ×3 (06:40→18:00)
[2023-04-17] MEDS: INSULIN (LEVEMIR) 100 UNITS/ML UNITS SQ SCH (06:40)
[2023-04-17 08:30] LABS: BASO % 0.9 % (0-2.0); EOS % 5.6 % (0-4.5); HEMATOCRIT 34.8 % (32.4-45.2); HEMOGLOBIN 11.3 GM/dL (10.7-15.3); LYMPH % 26.6 % (8-40); MCH 27.7 pg (25.7-33.7); MCHC 32.4 g/dl (32.0-36.0); MEAN CELL VOLUME 85.7 fl (80-96); MEAN PLT VOLUME 9.2 fl (7.5-11.1); MONO % 7.1 % (3.8-10.2); NEUT % 59.8 % (42.8-82.8); PLATELET COUNT 277 10^3/uL (134-434); RBC 4.06 M/mm3 (3.60-5.2); RDW 12.8 % (11.6-15.6); WHITE BLOOD COUNT 7.9 K/mm3 (4.0-10.0)
[2023-04-17 09:13] LABS: POTASSIUM 4.3 mmol/L (3.5-5.1)
[2023-04-17] MEDS: DULoxetine HCL 30 MG CAPSULE.DR PO SCH (09:25)
[2023-04-17] MEDS: CEFTRIAXONE 2 GM in DEXTROSE 5%-WATER 100 ML IVPB SCH (09:25)
[2023-04-17] MEDS: POLYETHYLENE GLYCOL (HEALTHYLAX) 3350 17 GM PACKET PO SCH (09:25)
[2023-04-17] MEDS: PANTOPRAZOLE 40 MG TABLET PO SCH (09:25)
[2023-04-17] MEDS: ENOXAPARIN NA (PORCINE) 40 MG/0.4 ML DISP.SYRIN SQ SCH (09:26)
[2023-04-17 09:27] LABS: ALBUMIN 3.2 g/dl (3.4-5.0); BLOOD UREA NITROGEN 15.4 mg/dL (7-18); CALCIUM 8.7 mg/dL (8.5-10.1); MAGNESIUM 2.2 mg/dL (1.8-2.4)
[2023-04-17 09:32] LABS: BILIRUBIN,TOTAL 0.2 mg/dL (0.2-1); TOT PROT 6.8 g/dl (6.4-8.2)
[2023-04-17] MEDS: NYSTATIN POWDER 100,000 UNITS/GM - 15 GM TOPICAL POWDER TP SCH (09:33)
[2023-04-17] MEDS ORDERED: LOSARTAN POTASSIUM 25 MG TABLET PO SCH (10:00)
[2023-04-17] MEDS ORDERED: INSULIN (NOVOLOG) ASPART 100 UNITS/ML 10ML VIAL ONE ×2 (11:44→17:44)
[2023-04-17] MEDS: POVIDONE-IODINE 10% SOLN 118 ML BOTTLE TP SCH (12:18)
[2023-04-17 14:54] VITALS: BP 119/64; PULSE 81; TEMP 98.5
== END 2023-04-17 19:10 | disposition home or self-care (01) | DRG 617 ==
LOC: JER 11:04 → JERBED 12:22 → J8W 17:24
PROVIDERS: ADMIT Internal Medicine; ATTEND Nurse Practitioner Family
PROC: 0Y6M0ZF Detachment at Right Foot, Partial 5th Ray, Open Approach (ICD-10-PCS; principal; 2023-04-15 07:30)
DX: E11.69 Type 2 diabetes mellitus with other specified complication (principal); L03.116 Cellulitis of left lower limb; M86.671 Other chronic osteomyelitis, right ankle and foot; E78.5 Hyperlipidemia, unspecified; E11.42 Type 2 diabetes mellitus with diabetic polyneuropathy; E11.65 Type 2 diabetes mellitus with hyperglycemia; I12.9 Hypertensive chronic kidney disease with stage 1 through stage 4 chronic kidney disease, or unspecified chronic kidney disease; E11.22 Type 2 diabetes mellitus with diabetic chronic kidney disease; N18.31 Chronic kidney disease, stage 3a; E11.51 Type 2 diabetes mellitus with diabetic peripheral angiopathy without gangrene
CPT/HCPCS: 0241U-QW; 36415; 73630-TC-LT; 73630-TC-RT-FY; 80053; 82962; 83036; 83605; 83735; 84100; 85025; 85610; 85651; 85730; 86140; 86850; 86900; 86901; 87040; 88304-TC; 88311-TC; 94760; 97116-GP; 97162-GP; 99285-25; J1644